=== PATIENT | female | born 1980 | race African-American/Black ===

== ENCOUNTER 2024-04-22 11:33 | Outpatient (REF) | payer MEDICARE, MEDICAID, SELFPAY ==
--- NOTE | ~2024-04-22 | XR_ITS ---
EXAMINATION: XR CHEST CLINICAL INFORMATION: R91.8 - Other nonspecific abnormal finding of lung field COMPARISON: None available. TECHNIQUE: 2 views of the chest were obtained. FINDINGS: The cardiac, hilar, and mediastinal contours are normal. The lungs are clear bilaterally. There is no pneumothorax or pleural effusion. There is no focal osseous or soft tissue abnormality. XR/XR chest 2V IMPRESSION: Normal chest. Electronically signed by: Arturo Arnold MD 04/22/2024 01:35 PM TUNG
--- NOTE | ~2024-04-22 | US_ITS ---
EXAMINATION: US TRIPLEX LOWER EXTREMITY, LEFT CLINICAL INFORMATION: Edema, left lower extremity. COMPARISON: None available. TECHNIQUE: Color-flow triplex imaging with spectral analysis and compression Doppler were performed on the left lower extremity. FINDINGS: Respiratory variation, normal compression and augmented flow are noted throughout the visualized common femoral vein, superficial femoral vein, profunda femoral vein, popliteal vein and midcalf peroneal and posterior tibial venous. There is no Navas's cyst. US/US venous duplex LE IMPRESSION: No acute deep venous thrombosis involving the left lower extremity. Negative exam.. Electronically signed by: Maxime Tucker MD 04/22/2024 03:41 PM EST
[2024-04-22 14:22] LABS: MANUAL DIFF FLAG NO
[2024-04-22 15:01] LABS: Basophils Percent Auto 0.3 % (0-2); Eosinophils Absolute Auto 0.1 X10*3/uL (0.0-0.4); Hematocrit 37.5 % (37.0-47.0); Hemoglobin 12.2 g/dl (12.0-16.0); Imm Gran Abs Auto 0.02 X10*3/uL (0.00-0.03); Imm Gran Pct Auto 0.3 % (0.0-0.4); Lymphocytes Absolute Auto 2.7 X10*3/uL (1.2-4.9); Lymphocytes Percent Auto 45.9 % (20-40); Mean Corpuscular HGB Conc 32.5 g/dl (31.0-35.0); Mean Corpuscular Hemoglobin 28.2 pg (27.0-33.0); Mean Corpuscular Volume 86.6 fL (80.0-98.0); Mean Platelet Volume 9.6 fL (9.4-12.3); Monocytes Absolute Auto 0.4 X10*3/uL (0.1-1.2); Monocytes Percent Auto 6.1 % (2-11); Neutrophils Absolute Auto 2.7 x10*3/uL (2.0-8.3); Neutrophils Percent Auto 45.4 % (45-73); Platelet Count 329 X10*3/uL (160-400); Red Blood Count 4.33 X10*6/uL (4.20-5.50); Red Cell Distribution Width 14.6 % (11.0-16.0); White Blood Count 5.9 X10*3/uL (4.8-10.8)
--- OUTSIDE RECORDS SUMMARY | 2024-04-22 15:04 | XMS_ITS | Clinical Summary ---
Author Organization [facility] Address [address] [place] [address] Care Team Providers Care Progress Worker Name Role Phone Alexis Miller DO Primary Care Provider [phone] Allergies Active Allergy Reactions Criticality Noted Date [...] Upcoming Encounters Date Type Department Care Team ([facility] st Contact Info) Description 08/02/2024 3:30 PM EDT Office Visit Bariatric Surgery - [place] [address] [place] [phone] Torey Bradford MD [address] [facility] [place] [address] Health Maintenance Due Date Last Done Comments [...] * Annual BMP Blood Test (06/28/2011) Pathologist [facility] Annual BMP Blood Test abstracted [facility] Provider HEALTH MAINTENANCE Final Result * Hepatitis C Screening (06/09/2011) [facility] Hepatitis C Screening abstracted [facility] Provider HEALTH MAINTENANCE Final Result * (ABNORMAL) Lipid panel (02/06/2011) [facility] LDL/HDL Ratio 3 0 - 4 Triglycerides 92 0 - 150 mg/dL Cholesterol 187 0 - 200 mg/dL HDL 57 >=40 mg/dL LDL Cholesterol 112(A) 0 - 100 mg/dL Blood Venous blood specimen / Unknown [facility] Provider LAB BLOOD ORDERABLES Hanh l Result * HIV Screening (01/03/2011) [facility] HIV Screening abstracted [facility] Provider HEALTH MAINTENANCE Final Result * Pap Smear (01/03/2011) [facility] Pap smear no interpretation abstracted [facility] Provider HEALTH MAINTENANCE Final Result from Last 3 Months or Most Recently Relevant to Health Maintenance Insurance [place]ICA[place] - [place] [facility] MEDICARE ADVANTAGE on file Care Teams Progress Worker Relationship Specialty Start Date End Date Alexis Miller DO [address] [place] [phone] PCP - General 06/06/13
--- OUTSIDE RECORDS SUMMARY | 2024-04-22 15:05 | XMS_ITS | Data Portability ---
Author Organization [place] - Dr Haley turpin, [facility] - Address [address] [place] [address] Assessment No assessment recorded. Plan of Treatment Reminders Order Date Submit Date Provider Last Modified By Organization Details Last Modified Time Details Appointments None recorded. Lab urinalysis, dipstick 2023 024 [email or web address] 4 Haley Barajas MD, [address] [place], [address], 4 12:09:17 culture, urine 2023 024 [place] [facility] ([facility]), [address], [place], [address], 4 02:03:36 bacterial vaginosis + vaginitis panel, vaginal 2023 024 [place] [facility] ([facility]), [address], [place], [address], 4 12:50:57 lipid panel, serum 2023 024 [place] [facility] ([facility]), [address], [place], [address], 4 17:14:03 CMP, serum or plasma 2023 024 [place] [facility] ([facility]), [address], [place], [address], 4 17:14:04 hereditary breast + gynecologic cancer multigene analysis, blood or tissue 2023 024 [email or web address] [employer], [address], [place], [address], 4 14:52:14 T4, free, serum 2023 024 [place] [facility]), [address], [place], [address], 4 17:14:06 TSH, serum or plasma 2023 024 [place] [facility]), [address], [place], [address], 4 17:14:06 HIV (1+2) Ab screen, serum 2023 024 [place] [facility] ([facility]), [address], [place], [address], 4 17:14:05 RPR (rapid plasma reagin), serum 2023 024 [facility] ([facility]), [address], [place], [address], 4 17:14:08 HBsAg (hepatitis B surface Ag), serum 2023 024 [facility] ([facility]), [address], [place], [address], 4 17:14:07 CT + NG DNA, PCR, unspecified specimen 2023 024 [email or web address] [facility] ([facility]), [address], [place], [address], 4 14:52:14 hepatitis C virus Ab, serum 2023 024 [facility] ([facility]), [address], [place], [address], 4 17:14:07 CBC 2023 024 [facility] ([facility]), [address], [place], [address], 4 17:14:04 HbA1c (hemoglobin A1c), blood 2023 024 [facility] ([facility]), [address], [place], [address], 4 17:14:05 lipid panel, serum 2022 023 [facility] ([facility]), [address], [place], [address], 3 10:56:57 CMP, serum or plasma 2022 023 [facility] ([facility]), [address], [place], [address], 3 10:56:59 TSH, serum or plasma 2022 023 [facility] ([facility]), [address], [place], [address], 3 10:57:00 T4, free, serum 2022 023 [facility] ([facility]), [address], [place], [address], 3 10:57:00 pap, LB 2022 023 [facility] ([facility]), [address], [place], [address], 3 15:29:20 genetic screen, unspecified specimen 2022 023 [facility], [address], [address], [place], [address], 3 15:01:20 CT + NG DNA, PCR, unspecified specimen 2022 023 [facility] ([facility]), [address], [place], [address], 3 15:29:21 RPR (rapid plasma reagin), serum 2022 023 [facility] ([facility]), [address], [place], [address], 3 10:57:03 HIV (1+2) Ab screen, serum 2022 023 [facility] ([facility]), [address], [place], [address], 3 10:57:01 HBsAg (hepatitis B surface Ag), serum 2022 023 [facility] ([facility]), [address], [place], [address], 3 10:57:02 hepatitis C virus Ab, serum 2022 023 [facility] ([facility]), [address], [place], [address], 3 10:57:02 HbA1c (hemoglobin A1c), blood 2022 023 [facility] ([facility]), [address], [place], [address], 3 10:56:59 CBC 2022 023 [facility] ([facility]), [address], [place], [address], 3 10:56:58 Referral None recorded. Procedures None recorded. Surgeries None recorded. Imaging US, pelvis, complete 2023 024 [email or web address] Not available 4 11:50:01 MAMMO, screening, digital, bilateral 2023 024 [place] [facility] [employer] [facility] [employer], [address], [place], [address], 4 14:04:49 MAMMO, screening, digital, bilateral 2022 023 [email or web address] [facility], [address], [place], [address], 3 15:08:06 Medication Orders None recorded. Patient TargetsNo targets recorded. Patient Instructions Encounter Date Encounter Id Patient Instructions Last Modified By Organization Details Last Modified Time 07/09/2022 [id number] Pap collected. Labwork ordered. Mammo ordered. Instructed to RTO in 2 days for weight loss consultation [email or web address] Not available 07/09/2022 11:51:15 10/05/2023 [id number] Recommend 5 servings of fruits and vegetables daily. Exercise at least 30 minutes most days of the week and stretch. Breast self awareness reviewed. Try to get at least 6-8 hours of sleep per night and practice stress reduction. Drink 32- 64 ounces of water daily. Don't smoke. Limit alcohol intake. Pt. aware to check patient portal for all lab results. SBE reviewed RTO in 1 year for annual Notify office as needed [email or web address] Not available 10/05/2023 11:01:02 Strongly encouraged pt to go back to provider managing BP meds so that she can have meds for HTN adjusted. PC labs today & referred to [facility] for new provider that takes her insurance. 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 [email or web address] Not available 10/05/2023 12:10:18 10/13/2023 [id number] reviewed by Dr. Cortes Agree with findings Indication: AUB? Impression: Uterus surgically removed. No cervical stump seen. Normal bilateral ovaries? . Right follicle noted.? ? ? No CDS fluid [email or web address] Not available 10/17/2023 21:54:40 Reason for Referral None Reported. Results Created Date Observation Date Name Description Value Unit Range Abnormal Flag Note LastModifiedBy Organization Detail LastModifiedTime 07/10/1907/10/2022 LIPID PANEL cholesterol 202 mg/dL <200 high Not Available [facility] ([facility]) [address] [facility] [address], [place], [address], 07/10/2022 10:56:57 07/10/1907/10/2022 LIPID PANEL triglyceride s 151 mg/dL <150 high Not Available [facility] ([facility]) [facility] [address], [place], [address], 07/10/2022 10:56:57 07/10/19 23 07/10/2022 LIPID PANEL HDL cholesterol 59 mg/dL >39 Not Available [facility] ([facility]) [address] [place] [address] [address], [place], [address], 07/10/2022 10:56:57 07/10/19 23 07/10/2022 LIPID PANEL cholesterol / HDL ratio 3.42 ratio 0.00-4 .44 Not Available [facility] ([facility]) [address] [place] [address] [address], [place], [address], 07/10/2022 10:56:57 07/10/19 23 07/10/2022 LIPID PANEL non-HDL cholesterol 143 mg/dL <130 high Not Available [facility] ([facility]) [address] [place] [address] [address], [place], [address], 07/10/2022 10:56:57 07/10/19 23 07/10/2022 LIPID PANEL LDL cholesterol (calculation ) 113 mg/dL <130 LDL Fany stero l Level s* Less than 100 mg/dL Optim al 100 to 129 mg/dL Near Optim al/ Above Optim al 130 to 159 mg/dL Borde rline High 160 to 189 mg/dL High 190 mg/dL and above Very High * Categ ories as recom eduardo d by the 2004 ATPII I guide lines Not Available [facility] ([facility]) [facility] [address], [place], [address], 07/10/2022 10:56:57 07/10/19 23 07/10/2022 LIPID PANEL LDL/HDL ratio 1.9 ratio <3.3 ___ LDL Fany stero l Patie nt Histo ry ___ Test Date: 07/09 LDL Resul ts: 113 Units : mg/dL % Silva e: - ___ Not Available [facility] ([facility]) [address] [place] [address] Dr [address] [facility], [place], [address], 07/10/2022 10:56:57 07/10/19 23 07/10/2022 CBC WITH PLATE LET NO DIFFE RENTI AL WBC 6.5 K/uL 3.8-11 .5 Not Available [facility] ([facility]) [address] [place] [address] Dr [address] [facility], [place], [address], 07/10/2022 10:56:58 07/10/19 23 07/10/2022 CBC WITH PLATE LET NO DIFFE RENTI AL red blood cell count (RBC) 4.28 M/mm3 3.60-5 .30 Not Available [facility] ([facility]) [address] [place] [address] [address], [place], [address], 07/10/2022 10:56:58 07/10/19 23 07/10/2022 CBC WITH PLATE LET NO DIFFE RENTI AL hemoglobin (HGB) 11.9 gm/dL 11.5-1 5.5 Not Available [facility] ([facility]) [address] [place] [address] [address], [place], [address], 07/10/2022 10:56:58 07/10/19 23 07/10/2022 CBC WITH PLATE LET NO DIFFE RENTI AL hematocrit (HCT) 36.1 % 35.2-4 6.4 Not Available [facility] ([facility]) [address] [place] [address] [address], [place], [address], 07/10/2022 10:56:58 07/10/19 23 07/10/2022 CBC WITH PLATE LET NO DIFFE RENTI AL MCV 84.3 fL 79.0-9 9.0 Not Available [facility] ([facility]) [address] [place] [address] [address], [place], [address], 07/10/2022 10:56:58 07/10/19 23 07/10/2022 CBC WITH PLATE LET NO DIFFE RENTI AL MCH 27.8 pg 26.9-3 5.0 Not Available [facility] ([facility]) [address] [place] [address] [address], [place], [address], 07/10/2022 10:56:58 07/10/19 23 07/10/2022 CBC WITH PLATE LET NO DIFFE RENTI AL MCHC 33.0 g/dL 30.4-3 4.8 Not Available [facility] ([facility]) [address] [place] [address] [address], [place], [address], 07/10/2022 10:56:58 07/10/19 23 07/10/2022 CBC WITH PLATE LET NO DIFFE RENTI AL RDW 44.8 fL 38.6-5 3.8 Not Available [facility] ([facility]) [address] [place] [address] [address], [place], [address], 07/10/2022 10:56:58 07/10/19 23 07/10/2022 CBC WITH PLATE LET NO DIFFE RENTI AL platelet count 337 K/cum m 137-39 7 Not Available [facility] ([facility]) [address] [place] [address] [address], [place], [address], 07/10/2022 10:56:58 07/10/19 23 07/10/2022 COMPR EHENS JESENIA METAB OLIC PANEL (CMP) sodium 137 mEq/L 135-14 5 Not Available [facility] ([facility]) [address] [place] [address] [address], [place], [address], 07/10/2022 10:56:59 07/10/19 23 07/10/2022 COMPR EHENS JESENIA METAB OLIC PANEL (CMP) potassium 4.2 mEq/L 3.5-5. 3 Not Available [facility] ([facility]) [address] [place] [address] [address], [place], [address], 07/10/2022 10:56:59 07/10/19 23 07/10/2022 COMPR EHENS JESENIA METAB OLIC PANEL (CMP) chloride 100 mEq/L 97-108 Not Available [facility] ([facility]) [address] [place] [address] [address], [place], [address], 07/10/2022 10:56:59 07/10/19 23 07/10/2022 COMPR EHENS JESENIA METAB OLIC PANEL (CMP) CO2 30 mEq/L 22-32 Not Available [facility] ([facility]) [address] [place] [address] [address], [place], [address], 07/10/2022 10:56:59 07/10/19 23 07/10/2022 COMPR EHENS JESENIA METAB OLIC PANEL (CMP) glucose 100 mg/dL 65-99 high Not Available [facility] ([facility]) [address] [place] [address] [address], [place], [address], 07/10/2022 10:56:59 07/10/19 23 07/10/2022 COMPR EHENS JESENIA METAB OLIC PANEL (CMP) BUN 10 mg/dL 6-20 Not Available [facility] ([facility]) [address] [place] [address] [address], [place], [address], 07/10/2022 10:56:59 07/10/19 23 07/10/2022 COMPR EHENS JESENIA METAB OLIC PANEL (CMP) creatinine 0.82 mg/dL 0.50-1 .00 Not Available [facility] ([facility]) [address] [place] [address] [address], [place], [address], 07/10/2022 10:56:59 07/10/19 23 07/10/2022 COMPR EHENS JESENIA METAB OLIC PANEL (CMP) calcium 9.3 mg/dL 8.6-10 .4 Not Available [facility] ([facility]) [address] [place] [address] [address], [place], [address], 07/10/2022 10:56:59 07/10/19 23 07/10/2022 COMPR EHENS JESENIA METAB OLIC PANEL (CMP) protein 7.8 g/dL 6.0-8. 3 Not Available [facility] ([facility]) [address] [place] [address] [address], [place], [address], 07/10/2022 10:56:59 07/10/19 23 07/10/2022 COMPR EHENS JESENIA METAB OLIC PANEL (CMP) albumin 4.1 g/dL 3.5-5. 3 Not Available [facility] ([facility]) [address] [place] [address] [address], [place], [address], 07/10/2022 10:56:59 07/10/19 23 07/10/2022 COMPR EHENS JESENIA METAB OLIC PANEL (CMP) alkaline phosphatase 141 IU/L 35-121 high Not Available [facility] ([facility]) [address] [place] [address] [address], [place], [address], 07/10/2022 10:56:59 07/10/19 23 07/10/2022 COMPR EHENS JESENIA METAB OLIC PANEL (CMP) ALT (SGPT) 16 IU/L <5-47 Not Available [facility] ([facility]) [address] [place] [address] [address], [place], [address], 07/10/2022 10:56:59 07/10/19 23 07/10/2022 COMPR EHENS JESENIA METAB OLIC PANEL (CMP) AST (SGOT) 14 IU/L <5-40 Not Available [facility] ([facility]) [address] [place] [address] [address], [place], [address], 07/10/2022 10:56:59 07/10/19 23 07/10/2022 COMPR EHENS JESENIA METAB OLIC PANEL (CMP) bilirubin, total 0.3 mg/dL <0.2-1 .2 Not Available [facility] ([facility]) [address] [place] [address] [address], [place], [address], 07/10/2022 10:56:59 07/10/19 23 07/10/2022 COMPR EHENS JESENIA METAB OLIC PANEL (CMP) A/G ratio 1.1 mg/dL 1.1-2. 5 Not Available [facility] ([facility]) [address] [place] [address] [address], [place], [address], 07/10/2022 10:56:59 07/10/19 23 07/10/2022 COMPR EHENS JESENIA METAB OLIC PANEL (CMP) estimated GFR (black) 103 mL/mi n/1.7 3m2 >59 Not Available [facility] ([facility]) [address] [facility] [address], [place], [address], 07/10/2022 10:56:59 07/10/19 23 07/10/2022 COMPR EHENS JESENIA METAB OLIC PANEL (CMP) estimated GFR (other) 89 mL/mi n/1.7 3m2 >59 GFR Categ ories in Chron ic Kidne y Disea se (CKD) GFR Categ ory GFR (mL/m in/1. 73 sq. meter s) Inter preta tion G1 90 or great er Pamela l or high* G2 60-89 Mild decre ase* G3a 45-59 Mild to moder ate decre ase G3b 30-44 Moder ate to sever e decre ase G4 15-29 Sever e decre ase G5 14 or less Kidne y failu re *In the absen ce of kidne y damag e, neith er GFR categ ory G1 or G2 fulfi ll the crite wendie for CKD (Kidmil ey Int Suppl 2013; 3.1-1 50) The CKD-E PI calcu latio n is inten ded for use in patie nts 18 years of age and older . Decre ased calcu latio n accur acy may be seen in patie nts takin g medic ation s that affec t renal excre tion, or in those patie nts with extre mes in muscl e mass or diet. Not Available [facility] ([facility] [employer]) [facility] [address], [place], [address], 07/10/2022 10:56:59 07/10/19 23 07/10/2022 HEMOG LOBIN A1C hemoglobin A1C 5.9 % <5.7 high The follo wing HbA1c range s recom eduardo d by the Marybeth cruz Diabe deanne Assoc iatio n (ADA) may be used as an aid in the diagn osis of diabe deanne melli tus. HA1c Sugge sted Diagn osis >=6.5 % Diabe tic 5.7% - 6.4% Pre-D iabet ic <5.7% Non-D iabet ic Not Available [facility] ([facility]) [address] [place] [address] [address], [place], [address], 07/10/2022 10:56:59 07/10/19 23 07/10/2022 HEMOG LOBIN A1C estimated average glucose 123 mg/dL Preston ge Gluco se is calcu lated using the equat ion AG = (28.7 x HgbA1 c) - 46.7 based on the guide lines estab nicolas brunson by the ADA. Not Available [facility] ([facility]) [address] [place] [address] [address], [place], [address], 07/10/2022 10:56:59 07/10/19 23 07/10/2022 TSH TSH 2.74 mU/L 0.43-5 .25 Not Available [facility] ([facility]) [address] [place] [address] [address], [place], [address], 07/10/2022 10:57:00 07/10/19 23 07/10/2022 THYRO XINE FREE (FREE T4) thyroxine free (free T4) 1.04 NG/dL 0.86-1 .76 Not Available [facility] ([facility]) [address] [place] [address] [address], [place], [address], 07/10/2022 10:57:00 07/10/19 23 07/10/2022 HIV 1/2 AB SCREE N W/P24 AG HIV 1/2 Ab screen w/p24ag Nonrea ctive nonrea ctive Not Available [facility] ([facility]) [address] [place] [address] [address], [place], [address], 07/10/2022 10:57:01 07/10/19 23 07/10/2022 HEPAT ITIS B SURFA CE ANTIG EN (HBSA G) hepatitis B surface antigen (HBsAg) Nonrea ctive nonrea ctive Not Available [facility] ([facility]) [address] [place] [address] [address], [place], [address], 07/10/2022 10:57:02 07/10/19 23 07/10/2022 HEPAT ITIS C ANTIB FARAZ (HCV) IGG hepatitis C antibody (HCV) IgG Nonrea ctive nonrea ctive Not Available [facility]) [address] [facility] [address], [place], [address], 07/10/2022 10:57:02 07/10/19 23 07/10/2022 RPR (NON- TREPO NEMAL ) REFLE X TO CONFI RMATI ON RPR (non-trepone mal) reflex to confirmation Nonrea ctive nonrea ctive Not Available [facility]) [address] [facility] [address], [place], [address], 07/10/2022 10:57:03 07/10/19 23 07/11/2022 PAP TEST THIN PREP Pap test thin prep Negati ve for Intrae pithel ial Lesion or Malign lilliana normal ACCES AYUSH #: [id number] Sourc e: Vagin al LMP: unkno wn Date Taken : 07/09 Speci men Type: ThinP rep Vial Date Repor xiomara: 2022 Clini marky Data: Hyst: Total Cytot ech: Treas a Lindsey s, CT( CP) Date Repor xiomara: 2022 Speci men Adequ acy: Satis facto ry for evalu ation Gener al Categ oriza tion: NEGAT JESENIA FOR INTRA EPITH ELIAL LESIO N OR MALIG ANNAMARIE The follo wing tests have been order ed as reque sted and a separ ate repor t will be issue d: Chlam ydia, Gonor rhoea e, and Trich omona s, HPV High Risk Scree n (TMA) This speci men has been adali zed by the ThinP rep Imagi ng Syste m, an inter activ e compu ter syste m which mesha ts the lab in the scree sylvia of ThinP rep Pap Test slide s. Follo wing imagi ng, the slide was revie wed by a Cytot echno logis t and/o r Patho logis t. End of t Techn ical servi meaghan provi ded by [facility] iated Patho logis [employer], [facility], d/b/a [facility], [address] [place] [address] Richar Wallace MD, [facility]. Case revie wed and diagn osis rende red at [facility], d/b/a [facility], [address] [place] [address] Richar Wallace MD, [facility]. CONFI DENTI AL Not Available [facility] ([facility]) [address] [place] [address] [address], [place], [address], 07/11/2022 15:29:20 07/10/19 23 07/10/2022 CHLAM YDIA, GONOR RHOEA E, AND TRICH OMONA S trichomonas vaginalis, aptima (panther) NOT DETECT ED normal DNA testi ng perfo rmed by Trans cript ion Media xiomara Ampli ficat ion (TMA) . Resul ts shoul d be inter prete d in conju nctio n with patie nt histo ry and clini marky prese ntati on. This assay is highl y accur ate, but rare false posit jesenia and negat jesenia resul ts may occur . Posit jesenia resul ts in low preva lence popul ation s may requi re re-ev aluat ion. A negat jesenia resul t does not precl ude a possi ble infec tion due to a speci men inade quacy or sampl ing error . Test perfo rmed by [facility] [employer] d/b/a [facility], [address], [place] [address] , Daniel Ramos ra, DO, [facility], CLIA# [id number] Not Available [facility] ([facility]) [address] [place] [address], [place], [address], 07/11/2022 15:29:21 07/10/19 23 07/10/2022 CHLAM YDIA, GONOR RHOEA E, AND TRICH OMONA S neisseria gonorrhoeae, aptima NOT DETECT ED normal DNA testi ng perfo rmed by Trans cript ion Media xiomara Ampli ficat ion (TMA) . Resul ts shoul d be inter prete d in conju nctio n with patie nt histo ry and clini marky prese ntati on. This assay is highl y accur ate, but rare false posit jesenia and negat jesenia resul ts may occur . Posit jesenia resul ts in low preva lence popul ation s may requi re re-ev aluat ion. A negat jesenia resul t does not precl ude a possi ble infec tion due to a speci men inade quacy or sampl ing error . Test perfo rmed by [facility] d/b/a [place], [address] [facility] [address], [place] [address] , Daniel Ramos ra, DO, Labor atory [facility], [facility]# [id number] Not Available [facility] ([facility]) [address] [facility] [address], [place], [address], 07/11/2022 15:29:21 07/10/19 23 07/10/2022 CHLAM YDIA, GONOR RHOEA E, AND TRICH OMONA S chlamydia trachomatis, aptima NOT DETECT ED normal DNA testi ng perfo rmed by Trans cript ion Media xiomara Ampli ficat ion (TMA) . Resul ts shoul d be inter prete d in conju nctio n with patie nt histo ry and clini marky prese ntati on. This assay is highl y accur ate, but rare false posit jesenia and negat jesenia resul ts may occur . Posit jesenia resul ts in low preva lence popul ation s may requi re re-ev aluat ion. A negat jesenia resul t does not precl ude a possi ble infec tion due to a speci men inade quacy or sampl ing error . Test perfo rmed by [facility] logis [employer], [facility] d/b/a Heike irene, [address] [facility] [address], [place] [address] , Daniel Ramos ra, DO, Labor atory [facility], CLIA# [id number] Not Available [facility] ([facility]) [facility]0 [facility] [address], [place], [address], 07/11/2022 15:29:21 07/10/19 23 07/10/2022 HPV HIGH RISK SCREE N (TMA) HPV high risk NOT DETECT ED normal The human papil lomav irus (HPV) High Risk Scree n is an FDA-a pprov ed in-vi tro ampli fied nucle ic acid test for the quali tativ e detec tion of E6/E7 viral mRNA. Resul ritchie brunson be corre lated with patie nt prese ntati on, histo ry, cervi marky cytol ogy and other clini marky and labor atory findi ngs. See https ://Kivo/s moose/ lyla lt/fi les/2 018-0 3/AW- 67423 _002_ 01.pd f for fur er infor matio n. Test perfo rmed by [facility] [employer], [employer], d/b/a [place], [address] [facility] [address], [place] [address] , Daniel Ramos ra, DO, Labor atory [facility]. Not Available [facility] ([facility]) [facility]0 [facility] [address], [place], [address], 07/11/2022 15:29:22 07/10/19 23 07/09/2022 EMP[facility] ER report summary VUS normal Negat jesenia for 53 out of 53 genes . A varia nt of uncer tain signi fican ce (VUS) was detec xiomara in the MLH1 gene( s). A VUS means that a silva e in the DNA was detec xiomara, but there is not enoug h infor matio n to deter mine [facility] er or not the silva e incre ases the risk of cance r. The Ameri can Colle ge of Medic al Cynthia ics and Genom ics (AC ) state s that VUS shoul d NOT be used in clini marky decis ion makin g. A Tyrer -Cuzi ck breas t cance r risk asses sment was perfo rmed and a lifet aisha breas t cance r risk was calcu lated to be 20% Pleas e see below for addit ional findi ngs. VUS: Gene: MLH1 , Varia nt: c.170 9A>G (p.N5 70S) Note: A heter ozygo us varia nt of [facility] luna yeboah ce (VUS) was detec xiomara in the MLH1 gene as tabul ated above . Not Available [facility] [address] [facility] [address], [place], [address], 07/21/2022 15:13:25 07/10/19 23 07/09/2022 EMPOW ER footnotes See Notes CLIA: ID #[id number] 2 Test perfo rmed by [employer]. [address] [facility] [address] [place] [address] Arielle Stephens, Ph.D. , [facility] , Labor atory Direc tor Not Available [facility] [address], [place], [address], 07/21/2022 15:13:25 10/05/19 24 10/06/2023 LIPID PANEL cholesterol 207 mg/dL <200 high Not Available [facility] ([facility]) [address] [facility] [address], [place], [address], 10/06/2023 17:14:03 10/05/19 24 10/06/2023 LIPID PANEL triglyceride s 126 mg/dL <150 Not Available [facility] ([facility]) [address] [facility] [address], [place], [address], 10/06/2023 17:14:03 10/05/19 24 10/06/2023 LIPID PANEL HDL cholesterol 54 mg/dL >39 Not Available [facility] ([facility]) [facility]0 [facility] [address], [place], [address], 10/06/2023 17:14:03 10/05/19 24 10/06/2023 LIPID PANEL cholesterol / HDL ratio 3.83 ratio 0.00-4 .44 Not Available [facility] ([facility]) [address] [place] [address] [address], [place], [address], 10/06/2023 17:14:03 10/05/19 24 10/06/2023 LIPID PANEL non-HDL cholesterol 153 mg/dL <130 high Not Available [facility] ([facility]) [address] [place] [address] [address], [place], [address], 10/06/2023 17:14:03 10/05/19 24 10/06/2023 LIPID PANEL LDL cholesterol (calculation ) 128 mg/dL <130 LDL Fany stero l Level s* Less than 100 mg/dL Optim al 100 to 129 mg/dL Near Optim al/ Above Optim al 130 to 159 mg/dL Borde rline High 160 to 189 mg/dL High 190 mg/dL and above Very High * Categ ories as recom eduardo d by the 2004 ATPII I guide lines Not Available [facility] ([facility]) [facility]0 [facility] [address], [place], [address], 10/06/2023 17:14:03 10/05/19 24 10/06/2023 LIPID PANEL LDL/HDL ratio 2.4 ratio <3.3 ___ LDL Fany stero l Patie nt Histo ry ___ Test Date: 07/09 LDL Resul ts: 113 Units : mg/dL % Silva e: - ----- ----- ----- ----- ----- ----- ----- ----- ----- ----- ----- ----- ----- ----- --- Test Date: 10/04 LDL Resul ts: 128 Units : mg/dL % Silva e: +13% ___ Not Available [facility] ([facility]) [facility]0 [facility] [address], [place], [address], 10/06/2023 17:14:03 10/05/1910/06/2023 CBC WITH PLATE LET NO DIFFE RENTI AL WBC 7.4 K/uL 3.8-11 .5 Not Available [facility] ([facility]) [address] [facility] [address], [place], [address], 10/06/2023 17:14:04 10/05/19 24 10/06/2023 CBC WITH PLATE LET NO DIFFE RENTI AL red blood cell count (RBC) 4.33 M/mm3 3.60-5 .30 Not Available [facility] ([facility]) [address] [place] [address] [address], [place], [address], 10/06/2023 17:14:04 10/05/19 24 10/06/2023 CBC WITH PLATE LET NO DIFFE RENTI AL hemoglobin (HGB) 12.0 gm/dL 11.5-1 5.5 Not Available [facility] ([facility]) [address] [place] [address] [address], [place], [address], 10/06/2023 17:14:04 10/05/19 24 10/06/2023 CBC WITH PLATE LET NO DIFFE RENTI AL hematocrit (HCT) 37.3 % 35.2-4 6.4 Not Available [facility] ([facility]) [address] [place] [address] [address], [place], [address], 10/06/2023 17:14:04 10/05/19 24 10/06/2023 CBC WITH PLATE LET NO DIFFE RENTI AL MCV 86.1 fL 79.0-9 9.0 Not Available [facility] ([facility]) [address] [place] [address] [address], [place], [address], 10/06/2023 17:14:04 10/05/19 24 10/06/2023 CBC WITH PLATE LET NO DIFFE RENTI AL MCH 27.7 pg 26.9-3 5.0 Not Available [facility] ([facility]) [address] [place] [address] [address], [place], [address], 10/06/2023 17:14:04 10/05/19 24 10/06/2023 CBC WITH PLATE LET NO DIFFE RENTI AL MCHC 32.2 g/dL 30.4-3 4.8 Not Available [facility] ([facility]) [address] [place] [address] [address], [place], [address], 10/06/2023 17:14:04 10/05/19 24 10/06/2023 CBC WITH PLATE LET NO DIFFE RENTI AL RDW 44.3 fL 38.6-5 3.8 Not Available [facility] ([facility]) [address] [place] [address] [address], [place], [address], 10/06/2023 17:14:04 10/05/19 24 10/06/2023 CBC WITH PLATE LET NO DIFFE RENTI AL platelet count 324 K/cum m 137-39 7 Not Available [facility] ([facility]) [address] [place] [address] [address], [place], [address], 10/06/2023 17:14:04 10/05/19 24 10/06/2023 COMPR EHENS JESENIA METAB OLIC PANEL (CMP) sodium 138 mmol/ L 135-14 5 Not Available [facility] ([facility]) [address] [place] [address] [address], [place], [address], 10/06/2023 17:14:04 10/05/19 24 10/06/2023 COMPR EHENS JESENIA METAB OLIC PANEL (CMP) potassium 4.4 mmol/ L 3.5-5. 3 Not Available [facility] ([facility]) [address] [place] [address] [address], [place], [address], 10/06/2023 17:14:04 10/05/19 24 10/06/2023 COMPR EHENS JESENIA METAB OLIC PANEL (CMP) chloride 101 mmol/ L 97-108 Not Available [facility] ([facility]) [address] [place] [address] [address], [place], [address], 10/06/2023 17:14:04 10/05/19 24 10/06/2023 COMPR EHENS JESENIA METAB OLIC PANEL (CMP) CO2 27 mmol/ L 22-32 Not Available [facility] ([facility]) [address] [place] [address] [address], [place], [address], 10/06/2023 17:14:04 10/05/19 24 10/06/2023 COMPR EHENS JESENIA METAB OLIC PANEL (CMP) glucose 99 mg/dL 65-99 Not Available [facility] ([facility]) [address] [place] [address], [place], [address], 10/06/2023 17:14:04 10/05/19 24 10/06/2023 COMPR EHENS JESENIA METAB OLIC PANEL (CMP) BUN 11 mg/dL 6-20 Not Available [facility] ([facility]) [address] [place] [address], [place], [address], 10/06/2023 17:14:04 10/05/19 24 10/06/2023 COMPR EHENS JESENIA METAB OLIC PANEL (CMP) creatinine 1.04 mg/dL 0.50-1 .00 high Not Available [facility] ([facility]) [address] [place] [address], [place], [address], 10/06/2023 17:14:04 10/05/19 24 10/06/2023 COMPR EHENS JESENIA METAB OLIC PANEL (CMP) calcium 9.1 mg/dL 8.6-10 .4 Not Available [facility] ([facility]) [address] [place] [address], [place], [address], 10/06/2023 17:14:04 10/05/19 24 10/06/2023 COMPR EHENS JESENIA METAB OLIC PANEL (CMP) eGFR by creatinine 69 mL/mi n/1.7 3m2 >59 Not Available [facility] ([facility]) [address] [place] [address], [place], [address], 10/06/2023 17:14:04 10/05/19 24 10/06/2023 COMPR EHENS JESENIA METAB OLIC PANEL (CMP) protein 7.5 g/dL 6.0-8. 3 Not Available [facility] ([facility]) [address] [place] [address] [address], [place], [address], 10/06/2023 17:14:04 10/05/19 24 10/06/2023 COMPR EHENS JESENIA METAB OLIC PANEL (CMP) albumin 4.1 g/dL 3.5-5. 3 Not Available [facility] ([facility]) [address] [place] [address] [address], [place], [address], 10/06/2023 17:14:04 10/05/19 24 10/06/2023 COMPR EHENS JESENIA METAB OLIC PANEL (CMP) alkaline phosphatase 131 IU/L 35-121 high Not Available [facility] ([facility]) [address] [place] [address] [address], [place], [address], 10/06/2023 17:14:04 10/05/19 24 10/06/2023 COMPR EHENS JESENIA METAB OLIC PANEL (CMP) ALT (SGPT) 11 IU/L <5-47 Not Available [facility] ([facility]) [address] [place] [address] [address], [place], [address], 10/06/2023 17:14:04 10/05/19 24 10/06/2023 COMPR EHENS JESENIA METAB OLIC PANEL (CMP) AST (SGOT) 14 IU/L <5-40 Not Available [facility] ([facility]) [address] [place] [address] [address], [place], [address], 10/06/2023 17:14:04 10/05/19 24 10/06/2023 COMPR EHENS JESENIA METAB OLIC PANEL (CMP) bilirubin, total 0.2 mg/dL <0.2-1 .2 Not Available [facility] ([facility]) [facility] [address], [place], [address], 10/06/2023 17:14:04 10/05/19 24 10/06/2023 COMPR EHENS JESENIA METAB OLIC PANEL (CMP) A/G ratio 1.2 1.1-2. 5 Not Available [facility] ([facility]) [address] [facility] [address], [place], [address], 10/06/2023 17:14:04 10/05/19 24 10/06/2023 HIV 1/2 AB SCREE N W/P24 AG HIV 1/2 Ab screen w/p24ag Nonrea ctive nonrea ctive Not Available [facility] ([facility]) [address] [place] [address] [address], [place], [address], 10/06/2023 17:14:05 10/05/19 24 10/06/2023 HEMOG LOBIN A1C hemoglobin A1C 6.0 % <5.7 high The follo wing HbA1c range s recom eduardo d by the Ameri can Diabe deanne Assoc iatio n (ADA) may be used as an aid in the diagn osis of diabe deanne melli tus. HA1c Sugge sted Diagn osis >=6.5 % Diabe tic 5.7% - 6.4% Pre-D iabet ic <5.7% Non-D iabet ic Not Available [facility] ([facility]) [facility]0 [facility] [address], [place], [address], 10/06/2023 17:14:05 10/05/19 24 10/06/2023 HEMOG LOBIN A1C estimated average glucose 125 mg/dL Preston ge Gluco se is calcu lated using the equat ion AG = (28.7 x HgbA1 c) - 46.7 based on the guide lines estab lishe d by the ADA. Not Available [facility] ([facility]) [facility] [address], [place], [address], 10/06/2023 17:14:05 10/05/19 24 10/06/2023 TSH TSH 1.77 mU/L 0.43-5 .25 Not Available [facility] [address] [place] [address] [address], [place], [address], 10/06/2023 17:14:06 10/05/19 24 10/06/2023 THYRO XINE FREE (FREE T4) thyroxine free (free T4) 1.06 NG/dL 0.86-1 .76 Not Available [facility]) [address] [place] [address] [address], [place], [address], 10/06/2023 17:14:06 10/05/19 24 10/06/2023 HEPAT ITIS B SURFA CE ANTIG EN (HBSA G) hepatitis B surface antigen (HBsAg) Nonrea ctive nonrea ctive Not Available [facility]) [address] [place] [address] [address], [place], [address], 10/06/2023 17:14:07 10/05/19 24 10/06/2023 HEPAT ITIS C ANTIB FARAZ (HCV) IGG hepatitis C antibody (HCV) IgG Nonrea ctive nonrea ctive Not Available [facility]) [address] [place] [address] [address], [place], [address], 10/06/2023 17:14:07 10/05/19 24 10/06/2023 RPR (NON- TREPO NEMAL ) REFLE X TO CONFI RMATI ON RPR (non-trepone mal) reflex to confirmation Nonrea ctive nonrea ctive No serol ogica l evide nce of infec tion with Trepo nemal palli dum, early prima ry syphi lis canno t be exclu ded. Retes t in 2-4 weeks if syphi lis is clini darlin suspe cted. Not Available [facility]) [address] [facility] [address], [place], [address], 10/06/2023 17:14:07 10/05/19 24 10/07/2023 CULTU RE, URINE specimen source Urine - Void Not Available [facility] ([facility]) [address] [facility] [address], [place], [address], 10/07/2023 02:03:33 10/05/19 24 10/07/2023 CULTU RE, URINE culture, urine See Below Final Repor t : No growt h Not Available [facility] ([facility]) [address] [facility] [address], [place], [address], 10/07/2023 02:03:33 10/05/19 24 10/06/2023 VAGIN ITIS PANEL trichomonas vaginalis, aptima (panther) NOT DETECT ED normal Trich omona s vagin tatiana: DNA testi ng perfo rmed by Trans cript ion Media xiomara Ampli ficat ion (TMA) These resul ts shoul d be inter prete d in light of all clini marky and labor atory findi ngs. This assay is highl y accur ate, but rare false posit jesenia and negat jesenai resul ts may occur . Posit jesenia resul ts in low preva lence popul ation s may requi re re-ev aluat ion. A negat jesenia resul t does not precl ude a possi ble infec tion due to a speci men inade quacy or sampl ing error . Test perfo rmed by [facility], d/b/a [place], [facility]0 [facility] [address], [place] [address] , Daniel Ramos ra, DO, Labor atory Direc tor. Gardn erell a vagin tatiana, Helen da speci es: Genom ic DNA is isola xiomara from patie nt speci mens by stand maryanne labor atory techn iques and adali zed using custo m OpenA rray plate s, perfo rmed on the Quant Studi o 12K Flex Real Time PCR syste m. A posit jesenia resul t is provi ded for patho genic bacte wendie, virus and/o r funga l speci es based on detec tion of ampli ficat ion produ cts. Pamela l vagin al chelo resul ts of Pamela l or [place] xiomara are deter mined by calcu latin g the ratio of the organ ism to the total bacte wendie prese nt in the speci men, and gosia ring that ratio to a PathG roup patie nt popul ation . Overa ll resul ts of Pamela l, Borde rline and Abnor mal are deter mined using a proba bilit y model which was devel oped by an exten sive adali sis and integ ratio n of clini marky thres holds for marke r organ isms on a large set of sympt omati c & asymp tomat ic speci mens. Patie nt popul ation s with diffe rent demog raphi cs from the PathG roup model popul ation may have diffe rent indic ator organ isms with diffe rent relat jesenia ratio s, which would influ ence the final resul ts. Resul ts shoul d be inter prete d in the deedee xt of all clini marky and labor atory findi ngs. The test was devel oped and its perfo rmanc e nakul cteri stics deter mined by [employer], [employer] d/b/a PathG rouberenice. It has not been clear ed or appro edel by the U.S. Food and Drug Admin istra tion. The FDA has deter mined that such clear ance or appro juan carlos is not neces ivana. Perti nent refer ence inter vals are avail able from the labor atory on reque st. Test( s) perfo rmed by [employer] [employer] ts, [employer], d/b/a PathG roup, [address], [place] [address] , Daniel Ramos ra, DO, Labor atory Direc tor. Not Available [facility]) [address] [facility] [facility], [place], [address], 10/07/2023 12:50:56 10/05/19 24 10/07/2023 VAGIN ITIS PANEL elsie sp. Detect ed abnormal Trich omona s vagin tatiana: DNA testi ng perfo rmed by Trans cript ion Media xiomara Ampli ficat ion (TMA) These resul ts shoul d be inter prete d in light of all clini marky and labor atory findi ngs. This assay is highl y accur ate, but rare false posit jesenia and negat jesenia resul ts may occur . Posit jesenia resul ts in low preva lence popul ation s may requi re re-ev aluat ion. A negat jesenia resul t does not precl ude a possi ble infec tion due to a speci men inade quacy or sampl ing error . Test perfo rmed by [facility], d/b/a Path[facility] rou, [address], [place] [address] , Daniel Ramos ra, DO, Labor atory Direc tor. Rosa Maria camargo a vagin tatiana, Helen da speci es: Genom ic DNA is isola xiomara from patie nt speci mens by stand maryanne labor atory techn iques and adali zed using custo m OpenA rray plate s, perfo rmed on the Quant Studi o 12K Flex Real Time PCR syste m. A posit jesenia resul t is provi ded for patho genic bacte wendie, virus and/o r funga l speci es based on detec tion of ampli ficat ion produ cts. Pamela l vagin al chelo resul ts of Pamela l or [place] xiomara are deter mined by calcu latin g the ratio of the organ ism to the total bacte wendie prese nt in the speci men, and gosia ring that ratio to a PathG roup patie nt popul ation . Overa ll resul ts of Pamela l, Borde rline and Abnor mal are deter mined using a proba bilit y model which was devel oped by an exten sive adali sis and integ ratio n of clini marky thres holds for marke r organ isms on a large set of sympt omati c & asymp tomat ic speci mens. Patie nt popul ation s with diffe rent demog raphi cs from the PathG roup model popul ation may have diffe rent indic ator organ isms with diffe rent relat jesenia ratio s, which would influ ence the final resul ts. Resul ts shoul d be inter prete d in the deedee xt of all clini marky and labor atory findi ngs. The test was devel oped and its perfo rmanc e nakul cteri stics deter mined by [employer], [employer] d/b/a [employer]. It has not been clear ed or appro edel by the U.S. Food and Drug Admin istra tion. The FDA has deter mined that such clear ance or appro juan carlos is not neces ivana. Perti nent refer ence inter vals are avail able from the [employer] atory on reque st. Test( s) perfo rmed by [employer], [employer], d/b/a [facility] [employer], [address] [address], [place] [address] , Daniel Ramos ra, DO, Labor atory Dire tor. Not Available [facility] ([facility]) [address] [facility] [address], [place], [address], 10/07/2023 12:50:56 10/05/19 24 10/07/2023 VAGIN ITIS PANEL gardnerella vaginalis Not Detect ed normal Trich omona s vagin tatiana: DNA testi ng perfo rmed by Trans cript ion Media xiomara Ampli ficat ion (TMA) These resul ts shoul d be inter prete d in light of all clini marky and labor atory findi ngs. This assay is highl y accur ate, but rare false posit jesenia and negat jesenia resul ts may occur . Posit jesenia resul ts in low preva lence popul ation s may requi re re-ev aluat ion. A negat jesenia resul t does not precl ude a possi ble infec tion due to a speci men inade quacy or sampl ing error . Test perfo rmed by [facility], d/b/a [facility], [address], [place] [address] , Daniel Ramos ra, DO, Labor atory Direc tor. Gardn erell a vagin tatiana, Helen da speci es: Genom ic DNA is isola xiomara from patie nt speci mens by stand maryanne labor atory techn iques and adali zed using custo m OpenA rray plate s, perfo rmed on the Quant Studi o 12K Flex Real Time PCR syste m. A posit jesenia resul t is provi ded for patho genic bacte wendie, virus and/o r funga l speci es based on detec tion of ampli ficat ion produ cts. Pamela l vagin al chelo resul ts of Pamela l or [place] xiomara are deter mined by calcu latin g the ratio of the organ ism to the total bacte wendie prese nt in the speci men, and gosia ring that ratio to a [facility] patie nt popul ation . Overa ll resul ts of Pamela l, Borde rline and Abnor mal are deter mined using a proba bilit y model which was devel oped by an exten sive adali sis and integ ratio n of clini marky thres holds for marke r organ isms on a large set of sympt omati c & asymp tomat ic speci mens. Patie nt popul ation s with diffe rent demog raphi cs from the [facility] model popul ation may have diffe rent indic ator organ isms with diffe rent relat jesenia ratio s, which would influ ence the final resul ts. Resul ts shoul d be inter prete d in the deedee xt of all clini marky and labor atory findi ngs. The test was devel oped and its perfo rmanc e nakul cteri stics deter mined by [facility]/b/[facility]. It has not been clear ed or appro edel by the U.S. Food and Drug Admin istra tion. The FDA has deter mined that such clear ance or appro juan carlos is not neces ivana. Perti nent refer ence inter vals are avail able from the labor atory on reque st. Test( s) perfo rmed by [facility], [address], [place] [address] , Daniel Ramos ra, , Labor atory Direc tor. Not Available [facility] ([facility]) [address], [place], [address], 10/07/2023 12:50:56 10/05/19 24 10/06/2023 CHLAM YDIA AND GONOR RHOEA E neisseria gonorrhoeae, aptima NOT DETECT ED normal DNA testi ng perfo rmed by [employer] xiomara Ampli ficat ion (TMA) . Resul ts shoul d be inter prete d in conju nctio n with patie nt histo ry and clini marky prese ntati on. This assay is highl y accur ate, but rare false posit jesenia and negat jesenia resul ts may occur . Posit jesenia resul ts in low preva lence popul ation s may requi re re-ev aluat ion. A negat jesenia resul t does not precl ude a possi ble infec tion due to a speci men inade quacy or sampl ing error . Test perfo rmed by [facility], [address], [place] [address] , Daniel Ramos ra, DO, Labor atory Direc tor, CLIA# [id number] Not Available [facility] ([facility]) [address], [place], [address], 10/07/2023 12:50:58 10/05/19 24 10/06/2023 CHLAM YDIA AND GONOR RHOEA E chlamydia trachomatis, aptima NOT DETECT ED normal DNA testi ng perfo rmed by [employer] xiomara Ampli ficat ion (TMA) . Resul ts shoul d be inter prete d in conju nctio n with patie nt histo ry and clini marky prese ntati on. This assay is highl y accur ate, but rare false posit jesenia and negat jesenia resul ts may occur . Posit jesenia resul ts in low preva lence popul ation s may requi re re-ev aluat ion. A negat jesenia resul t does not precl ude a possi ble infec tion due to a speci men inade quacy or sampl ing error . Test perfo rmed by [facility]b/a [facility], [address] [facility] [address], [place] [address] , Daniel Ramos ra, DO, Labor atory [facility], CLIA# [id number] Not Available [facility] ([facility]) [address], [place], [address], 10/07/2023 12:50:58 10/05/19 24 10/05/2023 EMPOW ER MULTI -CANC ER,EX P(2+5 1) report summary OTHER normal Test Not Perfo rmed Dupli marichuy test. Empow er 53 panel previ ously resul xiomara under 03 Test was not perfo rmed. Refer to speci fic detai ls below . Not Available [employer] [address], [place], [address], 10/28/2023 21:34:33 10/05/19 24 10/05/2023 EMPOW ER MULTI -CANC ER,EX P(2+5 1) footnotes See Notes CLIA: ID #[id number] 2 Test perfo rmed by [employer]. [address] [place] [address] Arielle Stephens, Ph.D. , [facility] , Labor atory Direc tor Not Available [facility] [address], [place], [address], 10/28/2023 21:34:33 10/05/19 24 10/05/2023 urina lysis , dipst ick Leukocytes neg Not Available Haley Barajas MD [address] [place] [address], [address], 10/05/2023 11:05:11 10/05/19 24 10/05/2023 urina lysis , dipst ick Nitrite negati ve Not Available Haley Barajas MD [facility] [place], [address], 10/05/2023 11:05:11 10/05/19 24 10/05/2023 urina lysis , dipst ick Protein +++ Not Available Haley Barajas MD [facility] [place], [address], 10/05/2023 11:05:11 10/05/19 24 10/05/2023 urina lysis , dipst ick Blood neg Not Available Haley Barajas MD [facility] [place], [address], 10/05/2023 11:05:11 10/05/19 24 10/05/2023 urina lysis , dipst ick Ketone neg Not Available Haley Barajas MD [facility] [place], [address], 10/05/2023 11:05:11 10/05/19 24 10/05/2023 urina lysis , dipst ick Glucose neg Not Available Haley aBrajas MD [facility] [place], [address], 10/05/2023 11:05:11 10/05/19 24 10/05/2023 urina lysis , dipst ick Color yellow Not Available Haley Barajas MD [address] [place], [address], 10/05/2023 11:05:11 10/13/19 24 10/13/2023 US, pelvi s, compl ete No observ ation record ed. [email or web address] Not Available 2023 15:05:21 10/15/19 24 10/09/2023 MAMMO , scree sylvia, digit al, bilat eral No observ ation record ed. [facility] [address], [place], [address], 10/15/2023 15:47:00 Result Notes None recorded. Procedures Surgical History Date Name Laterality Status Provider Name and Address Organization Details Recorded Time 10/13/19 24 Pelvic Transvaginal Non-OB completed Kristy Cortes MD [address] [facility] [address], [place], [address], [facility] - Dr Haley Barajas 10/17/2023 21:54:12 07/10/19 23 Date of Last Pap Smear completed Ellen Armstrong CNM [address] [facility],[address], [place], [address], [place] - Dr Haley Barajas 10/05/2023 10:34:00 02/23/19 19 Date of Last Mammogram completed Zuly Turner [place] - Dr Haley Barajas 07/09/2022 09:40:31 Imaging Results Imaging Date Name Status LastModified by Organiz ation Details LastModified Time 10/13/2023 US, pelvis, complete completed [email or web address] Information not available 10/13/2023 15:05:21 10/09/2023 MAMMO, screening, digital, bilateral completed [facility] [address], [place], [address], 10/15/2023 15:47:00 Procedure Notes None recorded. Medical Equipment None Reported. Allergies Allergen ID Allergen Name Allergen Category Reaction Reaction Severity Criticality Documentation Date Start Date Code Code System Note Provider Name and Address Organization Details Recorded Time 7656 morphine medicatio n hives Not available Not available 07/09/2022 7052 RxNorm Kristy Cortes MD [address] [facility],[place], [address], [facility] - Dr Haley Barajas 3 09:59:42 7657 Product containin g penicilli n (product) medicatio n hives Not available Not available 07/09/2022 09044 8001 SNOMED Kristy Cortes MD [address] [facility],[place], [address], [facility] - Dr Haley Barajas 3 10:00:00 Medications Name Sig Start Date Stop Date Status Note LastModified by Organization Details LastModified Time losartan 50 mg tablet TAKE 1 TABLET BY MOUTH TWICE DAILY active Not Available Not Available No t Available cyclobenzapr ine 10 mg tablet active Not Available Not Available Not Available amoxicillin 500 mg capsule TAKE 1 CAPSULE BY MOUTH THREE TIMES DAILY UNTIL GONE active Not Available Not Available No t Available clindamycin HCl 300 mg capsule TAKE 1 CAPSULE BY MOUTH EVERY SIX HOURS UNTIL ALL TAKEN active Not Available Not Available No t Available azithromycin 250 mg tablet TAKE 2 TABLETS BY MOUTH FOR 1 DAY THEN TAKE 1 TABLET BY MOUTH DAILY FOR 4 DAYS active Not Available Not Available No t Available ibuprofen 800 mg tablet TAKE 1 TABLET BY MOUTH EVERY SIX HOURS NEEDED FOR PAIN active Not Available Not Available No t Available meloxicam 15 mg tablet active Not Available Not Available No t Available ondansetron HCl 4 mg tablet active Not Available Not Available Not Available prednisone 20 mg tablet TAKE 1 TABLET BY MOUTH IN THE MORNING FOR 5 DAYS active Not Available Not Available No t Available acetazolamid e 250 mg tablet TAKE 2 TABLETS BY MOUTH TWICE DAILY active Not Available Not Available No t Available Diflucan 150 mg tablet Take 1 tablet every 72 hours by oral route for 6 days. 2023 active Not Available Not Available Not Avai lable metronidazol e 500 mg tablet TAKE 1 TABLET BY MOUTH THREE TIMES DAILY UNTIL GONE active Not Available Not Available No t Available amlodipine 5 mg tablet TAKE 1 TABLET BY MOUTH DAILY active Not Available Not Available No t Available amoxicillin 500 mg tablet 07/09 completed Not Available Not Available Not Available losartan 100 mg-hydrochlo rothiazide 25 mg tablet TAKE 1 TABLET BY MOUTH EVERY DAY active Not Available Not Available No t Available dicyclomine 20 mg tablet active Not Available Not Available Not Available amlodipine 10 mg tablet active Not Available Not Available Not Available enoxaparin 150 mg/mL subcutaneous syringe INJECT 150 MG UNDER THE SKIN TWICE DAILY active Not Available Not Available No t Available furosemide 20 mg tablet TAKE 1 TABLET BY MOUTH DAILY active Not Available Not Available No t Available ibuprofen 600 mg tablet TAKE 1 TABLET BY MOUTH THREE TIMES DAILY NEEDED FOR PAIN active Not Available Not Available No t Available fluticasone propionate 50 mcg/actuatio n nasal spray,suspen ayush SHAKE LIQUID AND USE 2 SPRAYS IN EACH NOSTRIL IN THE MORNING active Not Available Not Available No t Available Clindamycin Pediatric 75 mg/5 mL oral solution active Not Available Not Available Not Available Eliquis 5 mg tablet TAKE 1 TABLET BY MOUTH TWICE DAILY active Not Available Not Available No t Available Vitals Date Recorded Body height Body mass index (BMI) Body weight Systolic blood pressure Diastolic blood pressure Provider Name and Address Organization Details Last Updated DateTime 07/09/2022 175.26 cm 51.8 kg/m2 050957.2 g 130 mm[Hg] 80 mm[Hg] Zuly Barajas 3 09:48:27 Date Recorded Body height Body mass index (BMI) Body weight Systolic blood pressure Diastolic blood pressure Provider Name and Address Organization Details Last Updated DateTime 10/05/2023 175.26 cm 51.1 kg/m2 546879.2 4 g 150 mm[Hg] 100 mm[Hg] Ismael Barajas 4 10:55:27 Social History Question Answer Notes LastModified by Organizat ion Details LastModified Time Are You Blind Or Do You Have Difficulty Seeing? No [email or web address] Information not available 07/09/2022 In The 14 Days Before Symptom Onset, Have You Had Close Contact With A Laboratory-confirme d COVID-19 While That Case Was Ill? No [email or web address] Information n ot available 07/09/2022 In The 14 Days Before Symptom Onset, Have You Had Close Contact With A Person Who Is Under Investigation For COVID-19 While That Person Was Ill? No [email or web address] Information not available 07/09/2022 Have You Been To An Area Known To Be High Risk For COVID-19? No Information not available 07/09/2022 Are You Deaf Or Do You Have Serious Difficulty Hearing? No [email or web address] Information not available 07/09/2022 What Type Of Diet Are You Following? REGULAR [email or web address] Information n ot available 07/09/2022 Sex: Unknown Functional Status Question Answer Note LastModified by Organizat ion Details LastModified Time Do you have difficulty walking or climbing stairs? No [email or web address] Information not available 07/09/2022 Do you have transportation difficulties? No [email or web address] Information not available 07/09/2022 Do you have difficulty doing errands alone? No [email or web address] Information not available 07/09/2022 Are you able to care for yourself? Yes [email or web address] Information not available 07/09/2022 Do you have difficulty dressing or bathing? No Information not available 07/09/2022 What is your exercise level? None Information not available 07/09/2022 Mental Status Question Answer Note LastModified by Organization D etails LastModified Time Do you have difficulty concentrating, remembering or making decisions? No [email or web address] Information no t available 07/09/2022 Family History Nothing Reported Notes:Mom - Breast Ca Medical History Condition Response Other Y Anemia Y Hypertension Y Gynecological History Statement/Question Response Abnormal Pap Y Date of Last Mammogram 02/23/2018 Date of LMP 10/01/2023 Sexually Active? Y STIs/STDs N Menses Monthly N Date of Last Pap Smear 07/09/2022 Sexual Problems? N Current Control Method Hysterectom y Age at Menarche 17 Obstetrics History GPAL:G 4 P 0 0 0 4 Type Value Living 4 Total 4 Past Encounters Encounter ID Performer Location Encounter Start Date Encounter Closed Date Diagnosis/Indication Diagnosis SNOMED-CT Code Diagnosis ICD10 Code Diagnosis Note [id number] Kristy Cortes MD [facility] El[place] christensen [employer] [address] [facility] [place] [address] 07/09/2022 09:30:13 07/09/2022 10:34:01 Gynecologic examination 87492871 Z01.419 Anemia screening 7744467 07 Z13.0 Diabetes m ellitus screening 100531405 Z13.1 Endocrine/ metabolic screening 339397905 Z13.228 Hyperlipid emia screening 372605989 Z13.220 Venereal d isease screening 042773914 Z11.3 Screening mammography 24 804386 Z12.31 Family his tory of breast cancer 581876773 Z80.3 Morbid obesity 598173585 E66.01 Recommende d weight loss consultati on Family his tory of malignant neoplasm 983005945 Z80.9 [id number] Ellen Armstrong CNM [facility] [place] [employer] [address] [facility] [place] [address] 10/05/2023 09:58:50 10/05/2023 11:50:01 Gynecologic examination 92139655 Z01.419 Venereal d isease screening 281010780 Z11.3 Anemia screening 8062889 07 Z13.0 Diabetes m ellitus screening 217070983 Z13.1 Thyroid di sorder screening 947095616 Z13.29 Hyperlipid emia screening 185008510 Z13.220 Abnormal v aginal bleeding 907220082 N93.9 Screening mammography of bilateral breasts 0337798780 96236 Z12.31 [id number] Kristy Cortes MD [facility] [place] christ[place] [employer] [address] [facility] [place] [address] 10/13/2023 14:26:02 10/13/2023 15:00:40 Abnormal vaginal bleeding 349211497 N93.8 Health Concerns Section Related Observation LastModified by Organization Detai ls LastModified Time None Recorded Concern Status LastModified by Organization Details LastModified Time None Recorded Advance Directives Directive None Recorded Payers Encounter Date Sequence Insurance Name Policy Number Policy Novoa Covered Member ID Novoa Member ID Guarantor Name 07/09/2022 1 [employer] - OPEN ACCESS - NATIONAL (POS) Radha Poe [id number] Radha Poe 10/05/2023 1 [employer] - OPEN ACCESS - NATIONAL (POS) Radha Poe [id number] Radha Poe 10/13/2023 1 [employer] (MEDICARE REPLACEMENT/A DVANTAGE - PPO) Radha Poe [id number] Radha Poe Notes Date Note Type Note Provider Name and Address Organization Details Recorded Time 07/09/2022 text/html Annual GYNReport ed bypatient.Menstrua l cycle:Normal menses Urinary symptoms:No hematuria; No incontinence Vulva:No genital lesion Vagina:Normal vaginal discharge Breast:No breast pain; No breast lump; No nipple discharge Sexual complaints:No sexual complaints; No pain during intercourse; Normal libido Menopausal Symptoms:No menopausal symptoms; Normal vaginal lubrication Psychological symptoms:No depression; No anxiety; No PMDD Kristy Cortes MD [address] [facility],[place], [address], [facility] Dr Haley Barajas 07/09/2022 14:44:55 10/05/2023 text/html Annual Technology Director Post-MenopausalRep orted bypatient.Menopaus al Symptoms:no menopausal symptoms; normal vaginal lubrication Vaginal Bleeding:unexplain ed vaginal bleeding Urinary Symptoms:no hematuria; no incontinence; no nocturia; no urinary frequency Vulva:no genital lesion; no vulvar atrophy Vagina:normal vaginal discharge; no vaginal atrophy Breast:no breast lump; no nipple discharge; no breast pain Sexual Complaints:no sexual complaints Psychological Symptoms:no depression; no anxiety Preventive Measures:encourage regular mammograms starting age 40; encourage self breast examination; encourage regular exercise; needs to schedule mammogram Ellen Armstrong CNM [address] [facility],[address], [place], [address], [facility] Dr Haley Barajas 10/05/2023 12:10:36 10/13/2023 text/html Patient presents for ultrasound Kristy Cortes MD [address] [facility],[address], [place], [address], [facility] Dr Haley Barajas 10/17/2023 21:55:33 OBGyn Episode No OBEpisode recorded.
[2024-04-22 15:26] LABS: Estimated Average Glucose 120 mg/dL; Hemoglobin A1C 128.2156 umol/L; Hemoglobin A1c % 5.8 % (<6.0)
[2024-04-22 15:44] LABS: B Type Natriuretic Peptide 26 pg/mL (<100)
[2024-04-22 16:18] LABS: Folate 4.3 ng/mL (> or = 4.0); Vitamin B12 590 pg/mL (200-900)
[2024-04-22 16:50] LABS: Alanine Aminotransferase 18 U/L (0-31); Albumin Level 3.8 g/dL (3.5-5.0); Anion Gap 10 (12-20); Aspartate Amino Transferase 22 U/L (5-31); Bilirubin Total 0.3 mg/dL (0.0-1.0); Blood Urea Nitrogen 7 mg/dL (9-16); Calcium 9.6 mg/dL (8.4-10.2); Carbon Dioxide 29 mmol/L (22-29); Chloride 104 mmol/L (96-108); Cholesterol 187 mg/dL (<200); Estimated Glomerular Filt Rate > 60; Glucose Random 96 mg/dL (60-115); HDL Cholesterol 45 mg/dL (>40); Iron 65 mcg/dL (30-160); LDL Cholesterol Calculated 113 mg/dL (<100); Percent Iron Saturation 26 % (15-50); Potassium 3.6 mmol/L (3.3-5.1); Sodium 139 mmol/L (135-145); TSH reflex Free T4 1.89 uIU/mL (0.32-4.0); Total Iron Binding Capacity 249 mcg/dL (228-428); Total Protein 8.6 g/dL (6.5-8.0); Triglycerides 149 mg/dL (<150); Unsaturated Iron Binding 184 ug/dL; Vitamin D 25-OH Total 18.1 ng/mL (>30)
[2024-04-22 17:54] LABS: Alkaline Phosphatase 109 U/L (39-117)
== END 2024-04-22 11:34 | disposition home or self-care (01) ==
LOC: HO.XRAY 11:33
DX: I26.99 Other pulmonary embolism without acute cor pulmonale (principal); E66.9 Obesity, unspecified; E78.00 Pure hypercholesterolemia, unspecified; I10 Essential (primary) hypertension; D64.9 Anemia, unspecified; G47.33 Obstructive sleep apnea (adult) (pediatric); F32.A Depression, unspecified; G93.2 Benign intracranial hypertension; M79.89 Other specified soft tissue disorders; R91.8 Other nonspecific abnormal finding of lung field; R00.0 Tachycardia, unspecified; Z79.01 Long term (current) use of anticoagulants; Z00.00 Encounter for general adult medical examination without abnormal findings; E11.65 Type 2 diabetes mellitus with hyperglycemia
CPT/HCPCS: 36415; 71046; 80053; 80061; 82306; 82607; 82746; 83036; 83540; 83880; 84443; 85025; 93971; 96127; 99202

== ENCOUNTER 2024-04-22 11:33 | Outpatient (AMB) | payer MEDICARE, MEDICAID, SELFPAY ==
--- NOTE | 2024-04-22 11:40 | A.OFFPC_ITS ---
Vital Signs 04/22/24 11:42 Height 5 ft 8.5 in Weight 350 lb 2 oz BMI 52.5 BP 130/78 Blood Pressure Location Lt brachial Position Sitting Pulse 75 Pulse Source Pulse Oximeter Temp 97.1 F Temp Source Temporal Artery Scan Pulse Oximetry (%) 99 Oxygen Delivery Method Room Air Intake Visit Reasons: new patient- records scanned into chart Intake Note: Patient is a new patient here to establish care for Depression, Anxiety, HTN, Borderline cholesterol, Obesity, Sleep Apnea, Pulmonary embolism, Blood clot. Transferring care from [facility]. Medical records have been requested and have received. Channel Lip Wetter Required: No Plant Controller: Not Required per policy Accompanied by: Self / Same As Patient Allergies metformin Allergy (Intermediate, Verified 04/22/24 12:02) Hives morphine [MORPHINE] Allergy (Unknown, Verified 04/22/24 12:02) HIVES penicillin V Allergy (Unknown, Verified 04/22/24 12:02) Shortness of Breath Penicillins [PENICILLINS] Allergy (Unknown, Verified 04/22/24 12:02) SHORTNESS OF BREATH Medication List - Last Reconciled 04/22/24 by Cindy Casas PA-C apixaban (Eliquis) 5 mg PO BID bupropion HCl XL 150 mg PO DAILY carvedilol 6.25 mg PO BID ferrous sulfate 15 mg PO TID gabapentin 100 mg PO BEDTIME losartan-hydrochlorothiazide 100-25 mg 1 tab PO DAILY metoprolol succinate ER 25 mg PO DAILY Tobacco use date assessed: 04/22/24 Dental Screening Dental Screen Date: 04/22/24 Did you have a dental visit in the last 12 months?: Yes Did you have a dental problem in the last 6 months where you did not have access to dental care?: No Was dental information given to patient?: Patient has dentist HPI new patient- records scanned into chart HPI Details 43-year-old female coming to the office for the 1st time.Patient recently had blood work done 03/18/2024 creatinine elevated at 1.13, iron low normal at 46 otherwise labs were normal. Patient was seen by [facility] in [place] 03/17/2024 for recurrent pulmonary embolism ( and 06/2023) advised to continue on apixaban indefinitely. Patient also found to have iron-deficiency anemia recommending evaluation by Gynecology as well as Gastroenterology and advised IV iron replacement and to continue on vitamin B12 injection. Previous CTA showing ground-glass opacity referred to pulmonology but was not evaluated patient was also referred to Cardiology for tachycardia. Patient was placed on Diamox per Neurology. Advised patient to be seen in 4 weeks. Presenting with management of multiple chronic conditions and evaluation of current symptoms. She has documented elevated intracranial pressure in history, previously managed but includes challenges with blood pressure impacting her condition. Diagnosed with sleep apnea. Esppressions of dyspnea and fatigue were referenced along with a prior conduction of a sleep study. Essential hypertension is currently medicated with amlodipine and losartan; past interventions have included metoprolol. Depression is managed with Wellbutrin, with consideration for counseling in lieu of increasing the medication dosage. Peripheral edema in left leg raising concern over a possible DVT despite ongoing anticoagulation. History of blood clots with including a past occurrence of embolism impacting both lungs rapid onset post-transfusion. [facility] Surgical History (Updated 04/22/24 @ 11:51 by TIFFANY Mccarty) History of colonoscopy Hx of dilation and curettage Hx of hysterectomy Family History Mother Breast cancer Hypertension Father Lung cancer Brother Hypertension Brother No problems noted. Sister Hypertension Sister History of partial hysterectomy Sister No problems noted. Sister No problems noted. Daughter No problems noted. Daughter No problems noted. Daughter No problems noted. Son No problems noted. Social History Housing: House Alcohol intake: current Alcohol intake frequency: holidays/special occasions only Alcohol type: wine Patient Tobacco Use Status: Never used Tobacco e-Cigarette/Vaping Use: Never Used Second Hand Smoke Exposure: No service: No Current occupational status: unemployed Cognitive needs: No Hearing needs: No Vision needs: No Questionnaire PHQ-9 Over the last 2 weeks, how often have you been bothered by any of the following problems? 1. Little interest or pleasure in doing things: more than half the days 2. Feeling down, depressed, or hopeless: more than half the days 3. Trouble falling or staying asleep, or sleeping too much: more than half the days 4. Feeling tired or having little energy: more than half the days 5. Poor appetite or overeating: more than half the days 6. Feeling bad about yourself - or that you are a failure or have let yourself or your family down: not at all 7. Trouble concentrating on things, such as reading the newspaper or watching television: several days 8. Moving or speaking so slowly that other people could have noticed. Or the opposite - being so fidgety or restless that you have been moving around a lot more than usual: several days 9. Thoughts that you would be better off or of hurting yourself in some way: not at all Total score: 12 Depression Screening Interpretation: Positive (referral placed for counseling) Depression Screening Follow-up: Existing condition and In treatment Depression Screening Done: Yes Source: Developed by Drs. Marco A Davis, Laura Aviles, Ariel Krishnamurthy and colleagues, with an educational mele from [employer]. Thrive Questionnaire Date Thrive assessed: 04/22/24 I am a: Patient What is your living situation today?: I have a steady place to live Within the past 12 months, did the food you bought not last and you didn't have the money to get more?: Sometimes True Within the past 12 months, did you worry whether your food would run out before you got money to buy more?: Sometimes True Do you have trouble paying for medicines?: I choose not to answer this question Do you have trouble getting transportation to medical appointments?: Yes Do you have trouble paying your heating and electricity bill?: I choose not to answer this question Do you have trouble taking care of your child, family member or friend?: No Do you have trouble with day-to-day activities such as bathing, preparing meals, shopping, managing finances, etc.?: I choose not to answer this question Are you currently unemployed and looking for a job?: No Are you interested in more education?: Yes Please select the resources that you would like help with: Education Currently or been in a relationship where the following occur: No concerns reported THRIVE Score: 3 AUDIT C Alcohol Use Questionnaire (AUDIT-C) 1. How often do you have a drink containing alcohol?: Monthly or less 2. How many drinks containing alcohol do you have on a typical day when you are drinking?: 1 or 2 3. How often do you have six or more drinks on one occasion?: Never Total Score: 1 SAMANTHA-7 AMB Questionnaire SAMANTHA-7 Date SAMANTHA - 7 assessed: 04/22/24 Feeling nervous, anxious, or on edge: 2 = More than half the days Not being able to stop or control worryin = More than half the days Worrying too much about different things: 2 = More than half the days Trouble relaxin = More than half the days Being so restless that it is hard to sit still: 1 = Several days Becoming easily annoyed or irritable: 0 = Not at all Feeling afraid as if something awful might happen: 1 = Several days Total SAMANTHA-7 score (0-4 normal; 5-9 mild; 10-14 moderate; 15-21 severe): 10 Source: Developed by Drs. Marco A Davis, Laura Aviles, Ariel Krishnamurthy and colleagues, with an educational mele from [employer]. Review of Systems Const Denies body aches, Denies chills, Denies fever(s), Denies headache(s) and Denies poor appetite Eyes Reports no additional complaints ENT Denies dysphagia, Denies dizziness, Denies headache(s) and Denies odynophagia Card Denies chest pain, Denies syncope, Denies edema, Denies irregular heart rhythm, Denies lightheadedness and Denies dyspnea Resp Denies cough and Denies dyspnea GI Denies abdominal pain, Denies constipation, Denies dysphagia, Denies diarrhea, Denies nausea, Denies odynophagia and Denies vomiting Reports no additional complaints Musc Reports no additional complaints and Denies abnormal gait Skin/Breast Reports system reviewed and no additional complaints, except as documented Neuro Denies abnormal gait, Denies dizziness, Denies syncope and Denies headache(s) Psych Reports no additional complaints Physical exam (Primary Care) Vital Signs: Last Vital Signs Temp 97.1 F 04/22/24 11:42 Oxygen Delivery Method Room Air 04/22/24 11:42 BMI result Body Mass Index 52.5 BMI Assessment/Plan discussion: High BMI High, discussed plan: lifestyle, dietary and physical activity Tobacco/Smoking Status: Tobacco use Status Tobacco use date assessed 04/22/24 04/22/24 11:42 Patient Tobacco Use Status Never used Tobacco 04/22/24 11:42 e-Cigarette/Vaping Use Never Used 04/22/24 11:42 PHQ-9: PHQ-9 Score PHQ-9: Total score 12 04/22/24 11:46 Depression Screening Interpretation: Positive (referral placed for counseling) Depression Screening Follow-up: Existing condition and In treatment Thrive Assessment: Date of Thrive Assessment Date Thrive assessed 04/22/24 04/22/24 11:42 Currently or been in a relationship where the following occur: No concerns reported Const General: cooperative, healthy appearing, comfortable and no acute distress Orientation/consciousness: patient oriented x3 HENMT Head: Yes normocephalic Ears: hearing grossly normal bilaterally General nose exam: Normal external nose present Eyes General: appearance normal, both eyes and all related structures Conjunctivae: conjunctivae normal Neck Neck: Yes full ROM and Yes no lymphadenopathy Resp Effort & Inspection: normal respiratory effort Auscultation: clear to auscultation bilaterally, no crackles, no rales, no rhonchi and no wheezes Cardio Rate: regular rate Rhythm: regular rhythm Skin General skin exam: no rashes or lesions noted Neuro General: patient oriented x3 Gait exam (Neuro): Normal gait present Extrem Other: LLE swelling and pain to palpation of the calf pulses and sensation intact in bilateral lower extremities General: Yes normal to inspection, Yes full ROM and No edema Psych Affect: normal affect Attitude: cooperative Insight: Good insight present (Psych) Judgement: Good judgement present (Psych) Coding Level of Care Code New Pt Level 4 (96720) Diagnoses Recurrent pulmonary embolism I26.99 Obesity E66.9 Hypercholesterolemia E78.00 Hypertension I10 Anemia D64.9 Obstructive sleep apnea G47.33 Depression F32.A Increased intracranial pressure G93.2 Leg swelling M79.89 Ground glass opacity present on imaging of lung R91.8 Tachycardia R00.0 Assessment & Plan Assessment & Plan (1) Recurrent pulmonary embolism: Code(s): I26.99 - Other pulmonary embolism without acute cor pulmonale Category: Medical Plan: Patient having recurrent pulmonary embolism and DVT unprovoked. Recommended by her yard general car supervisor to be on lifelong coagulation with the apixaban 5 mg twice daily. Referral placed to hematology for further monitoring (2) Obesity: Code(s): E66.9 - Obesity, unspecified Category: Medical Plan: Healthy diet and regular exercise is encouraged. (3) Hypercholesterolemia: Code(s): E78.00 - Pure hypercholesterolemia, unspecified Category: Medical Plan: Avoid foods that are high in cholesterol such as red meat, fried foods, eggs and baked goods. Triglyceride goal of less than 150 and LDL goal of less than 130. Not currently on medical management. Ordered for updated blood work (4) Hypertension: Code(s): I10 - Essential (primary) hypertension Category: Medical Plan: Continue on current blood pressure medication. Avoid salt intake and encourage healthy diet and regular exercise. On losartan-hydrochlorothiazide and metoprolol (5) Anemia: Code(s): D64.9 - Anemia, unspecified Category: Medical Plan: The management plan covers pressing conditions encountered during the visit. Anemia continues under specific hematologic guidance, supporting symptom exploration and comprehensive follow-up of transfusion effects. Ordered for repeat blood work. Karine yard general car supervisor recommended IV infusions as patient was nonresponsive to oral iron. Referral placed to Hematology for IV infusions and further workup. Also referring to gastroenterology for exploration of iron- deficiency anemia. (6) Obstructive sleep apnea: Code(s): G47.33 - Obstructive sleep apnea (adult) (pediatric) Category: Medical Plan: Sleep apnea management continues with a focus on positional strategies and possible exploration of CPAP efficacy (7) Depression: Code(s): F32.A - Depression, unspecified Category: Medical Plan: Well managed on the Wellbutrin. Referral placed for counseling. (8) Increased intracranial pressure: Code(s): G93.2 - Benign intracranial hypertension Category: Medical Plan: Intracranial pressure management hinges on diligent blood pressure control, meriting continued medication adherence reinforced by primary care oversight. Referral placed to Neurology (9) Leg swelling: Code(s): M79.89 - Other specified soft tissue disorders Category: Medical Plan: Patient having significant one-sided leg swelling in the left lower extremity. Tenderness to palpation of left calf and swelling of the left calf. Ordered for stat venous duplex to rule out DVT. Patient already on Eliquis 5 mg b.i.d. if DVT is present we will change hematology referral to stat (10) Ground glass opacity present on imaging of lung: Code(s): R91.8 - Other nonspecific abnormal finding of lung field Category: Medical Plan: Pulmonary nodule referral alongside re-assessment with x-ray will help determine any further intervention needs. (11) Tachycardia: Code(s): R00.0 - Tachycardia, unspecified Category: Medical Plan: Patient having history of tachycardia was referred to wrapper layer by her yard general car supervisor in [place]. Ordered for Holter monitor and echocardiogram referral placed to Cardiology as recommended by yard general car supervisor. Plan Patient was informed and verbally consented to the use of an ambient scribe for clinic note documentation during this visit. This note was constructed using voice recognition software. While every effort has been made to ensure accuracy and ratchet setter, still areas may have been included sometimes these areas may affect the content or meeting of the given symptoms. Total time spent caring for the patient today was 30 minutes. This includes time spent before the visit reviewing the chart, time spent during the visit, and time spent after the visit and documentation. Orders: Orders B Type Natriuretic Peptide Today M79.89 - Other specified soft tissue disorders XR chest 2V Today R91.8 - Other nonspecific abnormal finding of lung field TSH reflex Free T4 Today Z00.00 - Encounter for general adult medical examination without abnormal findings Vitamin B12 and Folate Today Z00.00 - Encounter for general adult medical examination without abnormal findings Vitamin D 25-OH Total Today Z00.00 - Encounter for general adult medical examination without abnormal findings Lipid Panel Today E78.00 - Pure hypercholesterolemia, unspecified Hemoglobin A1c Today E11.65 - Type 2 diabetes mellitus with hyperglycemia Complete Blood Count Auto Diff Today Z00.00 - Encounter for general adult medical examination without abnormal findings Comprehensive Met. Panel Today Z00.00 - Encounter for general adult medical examination without abnormal findings IRON PROFILE Today D64.9 - Anemia, unspecified ECG 3 day holter monitor Today R00.0 - Tachycardia, unspecified US venous duplex LE LT Today M79.89 - Other specified soft tissue disorders CA echo transthoracic complete Today M79.89 - Other specified soft tissue disorders Referrals Cardiology Referral M79.89 - Other specified soft tissue disorders, R00.0 - Tachycardia, unspecified Pulmonology Referral R91.8 - Other nonspecific abnormal finding of lung field Hematology & Oncology Referral D64.9 - Anemia, unspecified, I26.99 - Other pulmonary embolism without acute cor pulmonale Neurology Referral G47.33 - Obstructive sleep apnea (adult) (pediatric), G93.2 - Benign intracranial hypertension Gastroenterology Referral D64.9 - Anemia, unspecified, Z12.11 - Encounter for screening for malignant neoplasm of colon Counseling Referral F32.A - Depression, unspecified Medications: New apixaban (Eliquis) 5 mg PO BID 90 days 180 tabs 0RF bupropion HCl XL 150 mg PO DAILY 90 days 90 tabs 0RF losartan-hydrochlorothiazide 100-25 mg 1 tab PO DAILY 90 tabs 0RF metoprolol succinate ER 25 mg PO DAILY 30 tabs 0RF
[2024-04-22 11:42] VITALS: BP 130/78; PULSE 75; TEMP 36.2; O2SAT 99; BMI 52.5
--- OUTSIDE RECORDS SUMMARY | 2024-04-22 13:50 | XMS_ITS | Clinical Summary ---
Author Organization [facility] Address [address] [place] [address] Care Team Providers Care Vending Machine Servicer Name Role Phone Alexis Miller DO Primary Care Provider [phone] Allergies Active Allergy Reactions Criticality Noted Date Comments Morphine Sulfate Hives 08/16/2009 Penicillins 04/08/2007 Medications ferrous sulfate (IRON ORAL) Take 5 mL by mouth 3 times daily. Active amLODIPine (NORVASC) 5 mg tablet Take 1 Tab by mouth daily. Active medroxyPROGESTER one 150 mg/mL injection Inject 1 mL into the muscle Every 3 Months. Active Active Problems Problem Noted Date Diagnosed Date Hypertension 11/19/2009 Allergic rhinitis 06/18/2007 Iron deficiency anemia 04/20/2007 Morbid obesity 04/20/2007 Immunizations Name Administration Dates Next Due H1N1 Inj Preservative Free 12/20/2008 Influenza trivalent, with pr eservative (Fluzone; Afluria) 6mo and older 11/07/2008 Tdap Tetanus diptheria acell ular pertussis (Boostrix; Adacel) 7yo and older 08/01/2010 Medical History Medical History Date Comments Anemia, unspecified DX:Anemia, u nspecified Other specified personal his tory presenting hazards to health(V15.89) 03/2007 DX:Other specifie d personal history presenting hazards to health(V15.89); COMMENT: ASCUS +HPV -colpo 05/31 Family History Medical History Relation Name Comments Coronary artery disease Maternal Grandmother Hypertension Maternal Grandmother Hypertension Mother Hypertension Sister Other cancer Sister uterine Relation Name Status Comments Father Alive Maternal Grandmother Mother Alive htn, Sister Social History Tobacco Use Types Packs/Day Years Used Date Smoking Tobacco: Never Smokeless Tobacco: Never Alcohol Use Standard Drinks/Week Comments No 0 (1 standard drink = 0.6 oz pur e alcohol) Comments Unknown Sex and Gender Information Value Date Recorded Sex Assigned at Not on file Legal Sex Female 3:54 PM EDT Gender Identity Not on file Sexual Orientation Not on file Obstetrics History Plan of Treatment Upcoming Encounters Date Type Department Care Team ([facility] st Contact Info) Description 08/02/2024 3:30 PM EDT Office Visit Bariatric Surgery - [place] [address] [place] [id number] Torey Bradford MD [address] [place] [address] Health Maintenance Due Date Last Done Comments Breast Cancer Screening 1980 Hepatitis B Vaccines (1 of 3 - 19+ 3-dose series) 2000 Cervical Cancer Screening: P ap Smear 01/03/2014 01/03/2011 DTaP,Tdap,and Td Vaccines (2 - Td or Tdap) 08/01/2020 08/01/2010 COVID-19 Vaccine (1 - 2023-2 5 season) 2023 Influenza Vaccine (#1) 2023 9, 11/07/2008 Cholesterol Screening (Lipid Panel) 12/20/2023 02/06/2011 Depression Screening 12/20/2023 Medicare Annual Wellness Visit 12/20/2023 Social Influencers of Health Screening 12/20/2023 Hypertension/CHF/CAD Annual BMP Blood Test 01/06/2024 06/28/2011 HIV Screening Completed 01/03/2011 Hepatitis C Screening Completed 06/09/2011 HIB Vaccines Aged Out No longer eligi ble based on patient's age to complete this topic HPV Vaccines Aged Out No longer eligi ble based on patient's age to complete this topic Hepatitis A Vaccines Aged Out No long er eligible based on patient's age to complete this topic IPV Vaccines Aged Out No longer eligi ble based on patient's age to complete this topic MMR Vaccines Aged Out No longer eligi ble based on patient's age to complete this topic Meningococcal ACWY Vaccine Aged Out N o longer eligible based on patient's age to complete this topic Meningococcal B Vacine Aged Out No lo nger eligible based on patient's age to complete this topic Pneumococcal Vaccine: Pediatrics (0 to 5 Years) and At-Risk Patients (6 to 64 Years) Aged Out No longer eligible b ased on patient's age to complete this topic RSV Immunization Patients Under 20 months Aged Out No longer eligible b ased on patient's age to complete this topic Varicella Vaccines Aged Out No longer eligible based on patient's age to complete this topic Procedures Procedure Name Priority Date/Time Associated Diagnosis Comments ANNUAL BMP BLOOD TEST Routine 06/28/2011 HEPATITIS C SCREENING Routine 06/09/2011 LIPID PANEL Routine 02/06/2011 HIV SCREENING Routine 01/03/2011 PAP SMEAR Routine 01/03/2011 from Last 3 Months or Most Recently Relevant to Health Maintenance Results * Annual BMP Blood Test (06/28/2011) Pathologist formerly [facility] Annual BMP Blood Test abstracted [facility] Provider HEALTH MAINTENANCE Final Result * Hepatitis C Screening (06/09/2011) [facility] Hepatitis C Screening abstracted [facility] Provider HEALTH MAINTENANCE Final Result * (ABNORMAL) Lipid panel (02/06/2011) [facility] LDL/HDL Ratio 3 0 - 4 Triglycerides 92 0 - 150 mg/dL Cholesterol 187 0 - 200 mg/dL HDL 57 >=40 mg/dL LDL Cholesterol 112(A) 0 - 100 mg/dL Blood Venous blood specimen / Unknown [facility] Provider LAB BLOOD ORDERABLES Hanh l Result * HIV Screening (01/03/2011) [facility] HIV Screening abstracted [facility] Provider HEALTH MAINTENANCE Final Result * Pap Smear (01/03/2011) [facility] Pap smear no interpretation abstracted [facility] Provider HEALTH MAINTENANCE Final Result from Last 3 Months or Most Recently Relevant to Health Maintenance Insurance MEDICAID - [place] [facility] MEDICARE ADVANTAGE on file Care Teams Vending Machine Servicer Relationship Specialty Start Date End Date Alexis Miller DO [address] [place] [phone] PCP - General 06/06/13
--- OUTSIDE RECORDS SUMMARY | 2024-04-22 13:50 | XMS_ITS ---
Author Organization [facility] Address [address] [place] [address] Care Team Providers Care Mud Jack Operator Name Role Phone GIULIA MILAN Unavailable [phone] ZachYu Unavailable [phone] REASON FOR VISIT discuss weight loss options Encounters Encounter Location Date Provider Diagnosis [facility] [address] [place] [address] 03/10/2024 Yu Serrano PLAN OF TREATMENT No Information Progress Notes * Nayana ARENASOB: 2 (43 yo F)Acc No.[id number]:03/10/2024 Progress Notes Patient:??Radha ARENAS Provider:??JET Berger :1980?Age:43 Y?Sex:Fe male Date:03/10/2024 Address:[address] [place], [place] [id number] Subjective: * Chief Complaints: * ?1. Discuss weight loss options. * Medical History:?? Objective: Assessment: Plan: * Treatment: * Billing Information: * Visit Code:?? * Procedure Codes:?? * Sign off status: Pending * Provider:??JET Berger Date:??
--- OUTSIDE RECORDS SUMMARY | 2024-04-22 13:50 | XMS_ITS ---
Author Organization [facility] Address [address] [place], [place] [id number] Care Team Providers Care Sandal Parts Assembler Name Role Phone Usama Garcia M.D. Primary Care Provider Avina NEEDLE LOOM OPERATOR HELPER-C, Suzy Unavailable REASON FOR VISIT rx change. wegovy not covered Encounters Encounter Location Date Provider Diagnosis [facility] [address] [place], [place] [phone] 11/16/2023 Usama Garcia Plan Of Treatment No Information Progress Notes * Nayana ARENASOB: 2 (42 yo F)Acc No.[id number]:11/16/2023 Patient:?Radha ARENAS :1980???Age:42 Y???Sex:Female Address:[address] [place] [address], [address] * true * Date:? Generated for Printi ng/Faberthag/eTransmitting on:?04/22/2024 01:49 PM EST
--- OUTSIDE RECORDS SUMMARY | 2024-04-22 13:50 | XMS_ITS ---
Author Organization [facility] Address [address] [place], [place] [phone] Care Team Providers Care Nuclear Reactor Operator Name Role Phone Usama Garcia M.D. [facility] Suzy Unavailable REASON FOR VISIT Add Info Encounters Encounter Location Date Provider Diagnosis [facility] [address] [place], [place] [phone] 11/12/2023 Usama Garcia Plan Of Treatment No Information Progress Notes * Naynaa ARENASOB: 2 (42 yo F)Acc No.[id number]:11/12/2023 Patient:?Radha ARENAS :1980???Age:42 Y???Sex:Female Address:[address] [place] [address], [address] * true * Date:? Generated for Printi ng/Faberthag/eTransmitting on:?04/22/2024 01:49 PM EST
--- OUTSIDE RECORDS SUMMARY | 2024-04-22 13:50 | XMS_ITS ---
Author Organization [facility] Address [address] [place], [place] [phone] Care Team Providers Care Digital Media Planner Name Role Phone Usama Garcia M.D. [facility] Suzy Unavailable REASON FOR VISIT question Encounters Encounter Location Date Provider Diagnosis [facility] [address] [place], [place] [phone] 02/08/2024 Usama Garcia Plan Of Treatment No Information Progress Notes * Nayana ARENASOB: 2 (43 yo F)Acc No.[id number]:02/08/2024 Patient:?Radha ARENAS :1980???Age:43 Y???Sex:Female Address:[address] [place] [address], [address] * true * Date:? Generated for Printi ng/Jim/eTransmitting on:?04/22/2024 01:49 PM EST
--- OUTSIDE RECORDS SUMMARY | 2024-04-22 13:50 | XMS_ITS | Patient Health Record ---
Author Organization [facility] Address [address] [place] [address] Care Team Providers Care Job Coach/Job Developer Name Role Phone GIULIA MILAN Unavailable [phone] Yu Serrano Unavailable [phone] REASON FOR REFERRAL No Information Encounters Encounter Location Date Provider Diagnosis [facility] [address] [place] [address] 03/10/2024 Yu Serrano PLAN OF TREATMENT No Information Insurance Providers Payer Name Payer Address Payer Phone Subscriber Number Group Number Insured Name Patient Relationship to Insured Coverage Start Date Coverage End Date [employer] [address] [address] [place] [phone] [id number] Radha Poe Self - patient is the insured
--- OUTSIDE RECORDS SUMMARY | 2024-04-22 13:50 | XMS_ITS | Patient Health Record ---
Author Organization [facility] Address [address] [place], [place] [phone] Care Team Providers Care Public Aid Eligibility Assistant Name Role Phone Usama Garcia M.D. Primary Care Provider Fabrice [employer]URANCE-C, Suzy Unavailable Nitish [employer]URANCE-CDory Unavailable Allergies Allergen (clinical drug ingredient) Drug/Non Drug Allergy documented on EMR Reaction Allergy Type Onset Date Status morphine Morphine Unknown Drug Allergy Active Penicillin hives Drug Allergy active Reason For Referral Reason Evaluate and treat Diagnosis 1 Acute pulmonary embo lism without acute cor pulmonale, unspecified pulmonary embolism type (I26.99) Referral Organization [facility] Referring Provider First Name Dory Referring Provider Last Name Nitish Referring Provider Speciality Family Pra ctice Referred Provider Britney Shine Referred Provider Specialty Pulmonology General Notes Garret Alvarez 024 10:56:36 AM > referral and clinicals faxed Referral Priority Routine Medications Medication SIG (Take, Route, Frequency, Duration) Notes Start Date End Date Status Losartan Potassium 50 MG 1 tablet Orally twice a day for 30 days Active acetaZOLAMIDE 250 MG TAKE 1 TABLET BY [facility] TWICE DAILY Oral for 8 Days Active Eliquis 5 MG as directed Orally Active Losartan Potassium-HCTZ 50-12.5 MG 1 tablet Orally Once a day Active Wegovy 0.25 MG/0.5ML 0.5 mL Subcutaneous weekly for 30 days 11/05/2023 Active Rosuvastatin Calcium 5 MG 1 tablet Orall y Once a day for 30 day(s) 11/05/2023 Active metFORMIN HCl ER 500 MG 1 tablet with ev ening meal Orally Once a day for 90 days 11/05/2023 Active Social History Tobacco Use: Social History Observation Description Date Details (start date - stop date) Never Smoker NA - NA Alcohol: Question Answer Notes Did you have a drink containing alcohol in the p ast year? No Points 0 Interpretation Negative Tobacco Use: Question Answer Notes Are you a: Never Smoker Problems Problem Type SNOMED Code ICD Code Onset Dates Problem Status W/U Status Risk Notes Problem 218707047 Morbid obesity (E66.01) Active confirmed Problem 028117035 Mixed hyperlipidemia (E78.2) Active confirmed Problem 16024691 Sleep apnea, unspecified type (G47.30) Active confirmed Problem 65414265 Hyperlipidemia, unspecified hyperlipidemia type (E78.5) Active confirmed Problem 94671753 Hypertension, unspecified type (I10) Active confirmed Vital Signs Temperature 97.6 degrees Fahrenheit 11/05/2023 Respiratory Rate 16 /min 07/10/2023 Oximetry 99 11/05/2023 Blood pressure diastolic 116 mm Hg 11/05/2023 Height 69 in 11/05/2023 Blood pressure systolic 158 mm Hg 11/05/2023 Weight 348 lbs 11/05/2023 BMI 51.39 11/05/2023 Encounters Encounter Location Date Provider Diagnosis [facility] [address] [place] [address] [place] [id number] 07/10/2023 Dory Small Hypertension, unspecified type I10 ; Idiopathic intracranial hypertension G93.2 ; Hospital discharge follow-up Z09 and Acute pulmonary embolism without acute cor pulmonale, unspecified pulmonary embolism type I26.99 [facility] [address] [place] [address] [place] [id number] 11/05/2023 Suzy Avina Prediabetes R73.03 ; Mixed hyperlipidemia E78.2 and Morbid obesity E66.01 [facility] [address] [place] [address] [address] [place], [place] [id number] 05/20/2023 Usama Garcia [facility] [address] [place] [address] [address] [place], [place] [id number] 06/19/2023 [facility] [address] [place], [place] [id number] 06/23/[address] [facility] [address] [place], [place] [id number] 11/06/[address] [facility] [address] [place], [place] [id number] 11/08/[address] [facility] [address] [place], [place] [id number] 11/08/[address] [facility] [address] [place], [place] [id number] 11/12/[address] [facility] [address] [place], [place] [id number] 11/16/[address] [facility] [address] [place], [place] [id number] 02/08/[address] [facility] [address] [place], [place] [id number] 06/18/20[facility] [address] [place] [id number] 07/21/2023 Suzy [facility] [address] [place] [id number] 07/21/2023 Szuy [facility] [address] [place] [id number] 07/21/2023 [facility] [address] [place], [place] [id number] 11/06/2023 Suzyghazal Avina Assessments Encounter Date Diagnosis (ICD Code) Assessment Notes Treatment Notes Treatment Clinical Notes Section Notes 07/10/2023 Hypertension, unspecified type (ICD-10 - I10) stable in office today 07/10/2023 Idiopathic intracranial hypertension (ICD-10 - G93.2) 11/05/2023 Mixed hyperlipidemia (ICD-10 - E78.2) total 207 HDL 54 Ldl 128 Low dose cholesterol medicaiton 11/05/2023 Prediabetes (ICD-10 - R73.03) A1c 6.0--10/06 Low dose Metformin 500 mg QD 11/05/2023 Morbid obesity (ICD-10 - E66.01) Diet and exercise. Patient has issues with obesity, hyperlipidemia , cardiac issues, prediabetes. She is going to start wegovy. 07/10/2023 Hospital discharge follow-up (ICD-10 - Z09) 07/10/2023 Acute pulmonary embolism without acute cor pulmonale, unspecified pulmonary embolism type (ICD-10 - I26.99) Dx on 07/03 in [place]. Pt was not admitted and was d'/c on Lovenox d/t being out of state. She finished Lovenox yesterday. pt given 2 packs of Eliquis samples in office to start 5 mg BID since she was already on Lovenox. Discussed since she is still having chest tightness with breathing and palpitations I recommend going to the ER for repeat CT scan. PT states she will go ahead and take an Eliquis and go to the ER since still having symptoms. Plan Of Treatment No Information Insurance Providers Payer Name Payer Address Payer Phone Subscriber Number Group Number Insured Name Patient Relationship to Insured Coverage Start Date Coverage End Date [employer] [address] [address] [place], [place] [id number] Radha Poe Self - patient is the insured Medical (General) History Medical History History ICD Code Hypertension Anemia Surgical History Surgery Date(Month/Year) partial hysterectomy 2001 Hospitalization History Reason Date(Month/Year) chest pain april 2022
== END 2024-04-22 12:29 | disposition home or self-care (01) ==
DX: I26.99 Other pulmonary embolism without acute cor pulmonale (principal); Z68.43 Body mass index [BMI] 50.0-59.9, adult; E66.9 Obesity, unspecified; E78.00 Pure hypercholesterolemia, unspecified; I10 Essential (primary) hypertension; D64.9 Anemia, unspecified; G47.33 Obstructive sleep apnea (adult) (pediatric); F32.A Depression, unspecified; G93.2 Benign intracranial hypertension; M79.89 Other specified soft tissue disorders; R91.8 Other nonspecific abnormal finding of lung field; R00.0 Tachycardia, unspecified

== ENCOUNTER → 2024-04-22 13:13 | Outpatient (BNV) | payer MEDICARE, MEDICAID, SELFPAY | PROVIDERS: Visit Provider Radiology Diagnostic Radiology | DX: R60.0 Localized edema (principal); R91.8 Other nonspecific abnormal finding of lung field | CPT/HCPCS: 71046; 93971 ==

== ENCOUNTER → 2024-04-27 08:14 | Outpatient (BNVA) | payer MEDICARE, MEDICAID, SELFPAY | PROVIDERS: Visit Provider Surgery | DX: G47.33 Obstructive sleep apnea (adult) (pediatric) (principal); G93.2 Benign intracranial hypertension; G43.709 Chronic migraine without aura, not intractable, without status migrainosus; H53.8 Other visual disturbances; Z86.711 Personal history of pulmonary embolism; Z79.01 Long term (current) use of anticoagulants | CPT/HCPCS: 99202 ==

== ENCOUNTER 2024-04-27 10:37 | Outpatient (AMB) | payer MEDICARE, MEDICAID, SELFPAY ==
--- NOTE | 2024-04-27 10:39 | A.OFFVIS_ITS ---
Vital Signs 04/27/24 10:42 Height 5 ft 8.5 in Weight 345 lb BMI 51.7 Intake Visit Reasons: INP-Bening Intracranial hypertension Intake Note: referred in house [facility] for RAJEEV; intracranial HTN Allergies metformin Allergy (Intermediate, Verified 04/27/24 10:41) Hives morphine [MORPHINE] Allergy (Unknown, Verified 04/27/24 10:41) HIVES penicillin V Allergy (Unknown, Verified 04/27/24 10:41) Shortness of Breath Penicillins [PENICILLINS] Allergy (Unknown, Verified 04/27/24 10:41) SHORTNESS OF BREATH Medication List - Last Reconciled 04/27/24 by Stefany Hunter MD apixaban (Eliquis) 5 mg PO BID 90 days bupropion HCl XL 150 mg PO DAILY 90 days cholecalciferol (vitamin D3) 25 mcg PO DAILY ferrous sulfate 15 mg PO TID gabapentin 100 mg PO BEDTIME losartan-hydrochlorothiazide 100-25 mg 1 tab PO DAILY metoprolol succinate ER 25 mg PO DAILY topiramate 50 mg PO BEDTIME HPI Comments Details: 43y/o female with h/o Benign intracranial hypertension , obstructive sleep apnea comes for further management . [facility] [place] [facility] [facility] [place] was diagnose dwith Benign Intracranial hypertension 1 year when she wnet to ER for severe headaches. she was started acetazolamide - took it for 3 months and stopped. she saw an sap bw bi developer 1 year ago. Now she has occasional left blurry vision . she also has headaches almost everyday.She describes the headaches as pressure in her left eye frontotemporal region associated with photophobia. she takes motrin 800mg as need - upto 4 tabs a week and the headache scan last 1 week . she is also on Eliquis for blood clot in her Lungs. she was diagnosed with Obstructive sleep apnea - not on any treatment. AHI was 10 and oxygen maxi was 67% with average oxygen at 95% PFS Medical History (Updated 04/27/24 @ 11:28 by Stefany Hunter MD) Chronic migraine without aura Blurry vision depression Overactive bladder Iron deficiency Hypercholesterolemia Pulmonary embolism Deep vein thrombophlebitis of leg Obesity Hypertension Anxiety Anemia Surgical History H/O esophagogastroduodenoscopy History of colonoscopy Hx of dilation and curettage Hx of hysterectomy Family History Mother Breast cancer Hypertension Father Lung cancer Brother Hypertension Brother No problems noted. Sister Hypertension Sister History of partial hysterectomy Sister No problems noted. Sister No problems noted. Daughter No problems noted. Daughter No problems noted. Daughter No problems noted. Son No problems noted. Social History Housing: House Alcohol intake: current Alcohol intake frequency: holidays/special occasions only Alcohol type: wine Patient Tobacco Use Status: Never used Tobacco e-Cigarette/Vaping Use: Never Used Second Hand Smoke Exposure: No service: No Current occupational status: unemployed Cognitive needs: No Hearing needs: No Vision needs: No Physical Exam Vital Signs: BMI result Body Mass Index 51.7 Const General: cooperative and comfortable Nutritional Appearance: obese Orientation/consciousness: patient oriented x3 Eyes Pupils: Equal, round and reactive pupils present Neck Neck: Yes no meningeal signs Neuro Other: mild left eye ptosis General: patient oriented x3, gait normal, tone normal, moves all extremities, no meningeal signs and no focal motor deficits Cranial nerves: Yes Facial sensation intact/muscles of mastication intact, Yes Equal, round and reactive pupils present, Yes Bilaterally intact EOM present, Yes Nystagmus not present, Yes Normal facial strength present and Yes Midline tongue present Cognition (Neuro): normal cognition Gait exam (Neuro): Normal gait present Motor exam (neuro): 5/5 motor strength present throughout and Normal motor muscle tone present throughout Deep tendon reflexes (DTR's): Right triceps reflex intensity grade: 1+, Left triceps reflex intensity grade: 1+, Rt Biceps (C5, C6): 1+, Left biceps reflex intensity grade: 1+, Right brachioradialis reflex intensity grade: 1+, Left brachioradialis reflex intensity grade: 1+, Right patellar reflex intensity grade: 0 and Left patellar reflex intensity grade: 0 Coordination: [id number] test normal Assessment & Plan Assessment & Plan (1) Increased intracranial pressure: Code(s): G93.2 - Benign intracranial hypertension Category: Medical (2) Obstructive sleep apnea: Code(s): G47.33 - Obstructive sleep apnea (adult) (pediatric) Category: Medical (3) Chronic migraine without aura: Code(s): G43.709 - Chronic migraine without aura, not intractable, without status migrainosus Category: Medical Qualifiers: Status migrainosus presence: without status migrainosus Intractability: not intractable Qualified Code(s): G43.709 - Chronic migraine without aura, not intractable, without status migrainosus Plan MRI brain to r/o structural lesions - will schedule for LP to measure opening pressure after MRI I will trial her on topiramate 50mg qhs and magnesium 400mg qhs for headache prophylaxis Ophthal eval for Visual field testing and evaluate for signs of ICP Reviewed sleep study results. I will start her on AUtoPAP 5-20 cm of water and follow up to ensure compliance and therapy response. Orders: Orders MR head/brain wo con Today G93.2 - Benign intracranial hypertension, H53.8 - Other visual disturbances Referrals Ophthalmology Referral G93.2 - Benign intracranial hypertension Medications: New magnesium oxide 400 mg PO DAILY 30 tabs 6RF topiramate 50 mg PO BEDTIME 30 tabs 3RF lorazepam 0.5 mg orally 1 hr before MRI - can rpeat in 1 hr; 2 tabs 0RF anxiety Coding Level of Care Code New Pt Level 4 (97796) Complex EM visit Add On G2211 Diagnoses Increased intracranial pressure G93.2 Obstructive sleep apnea G47.33 Chronic migraine without aura without status migrainosus, not intractable G43.709 Status migrainosus presence: without status migrainosus Intractability: not intractable
[2024-04-27 10:42] VITALS: BMI 51.7
--- OUTSIDE RECORDS SUMMARY | 2024-04-27 12:35 | XMS_ITS | Clinical Summary ---
Author Organization [facility] Address [address] [place] [address] Care Team Providers Care Hourly Shift Manager Name Role Phone Alexis Miller DO Primary Care Provider [phone] Allergies Active Allergy Reactions Criticality Noted Date [...] Upcoming Encounters Date Type Department Care Team ([facility] st Contact Info) Description 08/02/2024 3:30 PM EDT Office Visit Bariatric Surgery - [place] [address] [place] [id number] Torey Bradford MD [address] [facility] [address] [place] [address] Health Maintenance Due Date Last Done Comments [...] * Annual BMP Blood Test (06/28/2011) Pathologist [facility] Annual BMP Blood Test abstracted [facility] Provider HEALTH MAINTENANCE Final Result * Hepatitis C Screening (06/09/2011) [facility] Hepatitis C Screening abstracted [facility] Provider HEALTH MAINTENANCE Final Result * (ABNORMAL) Lipid panel (02/06/2011) [facility] LDL/HDL Ratio 3 0 - 4 Triglycerides 92 0 - 150 mg/dL Cholesterol 187 0 - 200 mg/dL HDL 57 >=40 mg/dL LDL Cholesterol 112(A) 0 - 100 mg/dL Blood Venous blood specimen / Unknown [facility] Provider LAB BLOOD ORDERABLES Hanh l Result * HIV Screening (01/03/2011) [facility] HIV Screening abstracted [facility] Provider HEALTH MAINTENANCE Final Result * Pap Smear (01/03/2011) [facility] Pap smear no interpretation abstracted [facility] Provider HEALTH MAINTENANCE Final Result from Last 3 Months or Most Recently Relevant to Health Maintenance Insurance [place]ICAID - [place] [facility] MEDICARE ADVANTAGE on file Care Teams Hourly Shift Manager Relationship Specialty Start Date End Date Alexis Miller DO [address] [place] [phone] PCP - General 06/06/13
== END 2024-04-27 11:08 | disposition home or self-care (01) ==
PROVIDERS: Visit Provider Psychiatry & Neurology Neurology
DX: G93.2 Benign intracranial hypertension (principal); G47.33 Obstructive sleep apnea (adult) (pediatric); G43.709 Chronic migraine without aura, not intractable, without status migrainosus
CPT/HCPCS: 99204; G2211

== ENCOUNTER → 2024-04-29 14:00 | Outpatient (BNV) | payer MEDICARE, MEDICAID, SELFPAY | PROVIDERS: Visit Provider Nurse Practitioner Family | DX: D64.9 Anemia, unspecified (principal) | CPT/HCPCS: 99203 ==

== ENCOUNTER → 2024-05-01 18:36 | Outpatient (BNV) | payer OTHER, MEDICAID, SELFPAY | PROVIDERS: Visit Provider Radiology Diagnostic Radiology | DX: G93.2 Benign intracranial hypertension (principal) | CPT/HCPCS: 70551 ==

== ENCOUNTER 2024-05-01 18:47 | Outpatient (REF) | payer OTHER, MEDICAID, SELFPAY ==
--- NOTE | ~2024-05-01 | MR_ITS ---
EXAMINATION: MR BRAIN WITHOUT CONTRAST CLINICAL INFORMATION: Benign intracranial hypertension. COMPARISON: None available. TECHNIQUE: MRI of the brain was obtained using routine sequences without contrast. FINDINGS: Intrasellar CSF prominence. There is mild increased tortuosity of the optic nerves with a prominence of the CSF envelopes without flattening of the posterior globe contour at the optic nerves discs. No restricted diffusion. No acute intracranial hemorrhage, mass effect, midline shift, hydrocephalus or herniation. Salazar-white matter differentiation is normal. Posterior cranial fossa contents demonstrated no acute brain abnormality. No gross intracranial mass. Flow-void signal within the main cerebral vessels is normal. The craniocervical junction is intact. MR/MR head/brain wo con IMPRESSION: Findings may correspond to benign intracranial hypertension in the correct clinical settings. Electronically signed by: Maxime Tucker MD 05/02/2024 07:44 AM EDT
--- OUTSIDE RECORDS SUMMARY | 2024-05-01 18:49 | XMS_ITS | Clinical Summary ---
Author Organization [facility] Address [address] [place] [address] Care Team Providers Care Instant Printer Operator Name Role Phone Alexis Miller DO Primary Care Provider [phone] Allergies Active Allergy Reactions Criticality Noted Date [...] Upcoming Encounters Date Type Department Care Team ([facility] st Contact Info) Description 08/02/2024 3:30 PM EDT Office Visit Bariatric Surgery - [place] [address] [facility] [address] [place] [phone] Torey Bradford MD [address] [facility] [address] [place] [address] Health Maintenance Due Date Last Done Comments [...] BMP Blood Test (06/28/2011) Pathologist [facility] Annual BMP Blood Test abstracted [facility] Provider HEALTH MAINTENANCE Final Result * Hepatitis C Screening (06/09/2011) [facility] Hepatitis C Screening abstracted [facility] Provider HEALTH MAINTENANCE Final Result * (ABNORMAL) Lipid panel (02/06/2011) [facility] LDL/HDL Ratio 3 0 - 4 Triglycerides 92 0 - 150 mg/dL Cholesterol 187 0 - 200 mg/dL HDL 57 >=40 mg/dL LDL Cholesterol 112(A) 0 - 100 mg/dL Blood Venous blood specimen / Unknown [facility] Provider LAB BLOOD ORDERABLES Hanh l Result * HIV Screening (01/03/2011) [facility] HIV Screening abstracted [facility] Provider HEALTH MAINTENANCE Final Result * Pap Smear (01/03/2011) [facility] Pap smear no interpretation abstracted [facility] Provider HEALTH MAINTENANCE Final Result from Last 3 Months or Most Recently Relevant to Health Maintenance Insurance [place] - [place] [facility] MEDICARE ADVANTAGE on file Care Teams Instant Printer Operator Relationship Specialty Start Date End Date Alexis Miller DO [address] [place] [phone] PCP - General 06/06/13
--- OUTSIDE RECORDS SUMMARY | 2024-05-01 18:49 | XMS_ITS ---
Author Organization [facility] Address [address] [place], [place] [phone] Care Team Providers Care Estate Manager Name Role Phone Usama Garcia M.D. Primary Care Provider Avina REPTILE FARMER-C, Suzy Unavailable REASON FOR VISIT rx change. wegovy not covered Encounters Encounter Location Date Provider Diagnosis [facility] [address] [place], [place] [phone] 11/16/2023 Usama Garcia Plan Of Treatment No Information Progress Notes * Nayana ARENSAOB: 2 (42 yo F)Acc No.[id number]:11/16/2023 Patient:?Radha ARENAS :1980???Age:42 Y???Sex:Female Address:[address] [place] [address], [address] * true * Date:? Generated for Printi ng/Faxing/eTransmitting on:?05/01/2024 06:49 PM EDT
--- OUTSIDE RECORDS SUMMARY | 2024-05-01 18:50 | XMS_ITS | Data Portability ---
Author Organization [place] - Dr Haley turpin, [facility] - Address [address] [place] [address] Assessment No assessment recorded. Plan of Treatment Reminders Order Date Submit Date Provider Last Modified By Organization Details Last Modified Time Details Appointments None recorded. Lab urinalysis, dipstick 2023 024 [email or web address] 4 Haley Barajas MD, [address] [place], [address], 4 12:09:17 culture, urine 2023 024 [place] [facility] ([facility]), [address], [place], [address], 4 02:03:36 bacterial vaginosis + vaginitis panel, vaginal 2023 024 [place] [facility] ([facility]), [address], [place], [address], 4 12:50:57 lipid panel, serum 2023 024 [place] [facility] ([facility]), [address], [place], [address], 4 17:14:03 CMP, serum or plasma 2023 024 [place] [facility] ([facility]), [address], [place], [address], 4 17:14:04 hereditary breast + gynecologic cancer multigene analysis, blood or tissue 2023 024 [email or web address] [facility], [address], [place], [address], 4 14:52:14 T4, free, serum 2023 024 [place] [facility]), [address], [place], [address], 4 17:14:06 TSH, serum or plasma 2023 024 [place] [facility]), [address], [place], [address], 4 17:14:06 HIV (1+2) Ab screen, serum 2023 024 [place] [facility] ([facility]), [address], [place], [address], 4 17:14:05 RPR (rapid plasma reagin), serum 2023 024 [facility]), [address], [place], [address], 4 17:14:08 HBsAg (hepatitis B surface Ag), serum 2023 024 [facility] ([facility]), [address], [place], [address], 4 17:14:07 CT + NG DNA, PCR, unspecified specimen 2023 024 [email or web address] [facility] -[facility] ([facility]), [address], [place], [address], 4 14:52:14 hepatitis C virus Ab, serum 2023 024 [facility] -[facility] ([facility]), [address], [place], [address], 4 17:14:07 CBC 2023 024 [facility] -[facility] ([facility]), [address], [place], [address], 4 17:14:04 HbA1c (hemoglobin A1c), blood 2023 024 [facility] ([facility]), [address], [place], [address], 4 17:14:05 lipid panel, serum 2022 023 [facility] ([facility]), [address], [place], [address], 3 10:56:57 CMP, serum or plasma 2022 023 [facility] ([facility]), [address], [place], [address], 3 10:56:59 TSH, serum or plasma 2022 023 [facility] ([facility]), [address], [place], [address], 3 10:57:00 T4, free, serum 2022 023 [facility] ([facility]), [address], [place], [address], 3 10:57:00 pap, LB 2022 023 [facility] ([facility]), [address], [place], [address], 3 15:29:20 genetic screen, unspecified specimen 2022 023 [facility], [address], [address], [place], [address], 3 15:01:20 CT + NG DNA, PCR, unspecified specimen 2022 023 [facility] ([facility]), [address], [place], [address], 3 15:29:21 RPR (rapid plasma reagin), serum 2022 023 [facility] ([facility]), [address], [place], [address], 3 10:57:03 HIV (1+2) Ab screen, serum 2022 023 [facility] ([facility]), [address], [place], [address], 3 10:57:01 HBsAg (hepatitis B surface Ag), serum 2022 023 [facility] ([facility]), [address], [place], [address], 3 10:57:02 hepatitis C virus Ab, serum 2022 023 [facility] ([facility]), [address], [place], [address], 3 10:57:02 HbA1c (hemoglobin A1c), blood 2022 023 [facility]), [address], [place], [address], 3 10:56:59 CBC 2022 023 [facility] ([facility]), [address], [place], [address], 3 10:56:58 Referral None recorded. Procedures None recorded. Surgeries None recorded. Imaging US, pelvis, complete 2023 024 [email or web address] Not available 4 11:50:01 MAMMO, screening, digital, bilateral 2023 024 [place] [facility], [address], [place], [address], 4 14:04:49 MAMMO, screening, digital, bilateral 2022 023 [email or web address] [facility], [address], [place], [address], 3 15:08:06 Medication Orders None recorded. Patient TargetsNo targets recorded. Patient Instructions Encounter Date Encounter Id Patient Instructions Last Modified By Organization Details Last Modified Time 07/09/2022 [id number] Pap collected. Labwork ordered. Mammo ordered. Instructed to RTO in 2 days for weight loss consultation [email or web address] Not available 07/09/2022 11:51:15 10/05/2023 [id number] Recommend 5 servings of fruits and vegetables [...] year for annual Notify office as needed [email or web address] Not available 10/05/2023 11:01:02 Strongly encouraged pt to go back to provider managing BP meds so that she can have meds for HTN adjusted. PC labs today & referred to [facility] for new provider that takes her insurance. 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 [email or web address] Not available 10/05/2023 12:10:18 10/13/2023 [id number] Ultrasound reviewed by Dr. Cortes Agree with [...] -[facility] ([facility]) [address] [facility] [address], [place], [address], 07/10/2022 10:56:57 07/10/1907/10/2022 LIPID PANEL triglyceride s 151 mg/dL <150 high Not Available Path oup -[facility] ([facility]) [facility] [address], [place], [address], 07/10/2022 10:56:57 07/10/19 23 07/10/2022 LIPID PANEL HDL cholesterol 59 mg/dL >39 Not Available Path group [facility] ([facility]) [address] [place] [address] Dr [address], [place], [address], 07/10/2022 10:56:57 07/10/19 23 07/10/2022 LIPID PANEL cholesterol / HDL ratio 3.42 ratio 0.00-4 .44 Not Available [facility] ([facility]) [address] [place] [address] Dr [address], [place], [address], 07/10/2022 10:56:57 07/10/19 23 07/10/2022 LIPID PANEL non-HDL cholesterol 143 mg/dL <130 high Not Available [facility] ([facility]) [address] [place] [address] Dr [address], [place], [address], 07/10/2022 10:56:57 07/10/19 23 07/10/2022 LIPID PANEL [...] 2004 ATPII I guide lines Not Available [facility] ([facility]) [facility] [address], [place], [address], 07/10/2022 10:56:57 07/10/19 23 07/10/2022 LIPID PANEL LDL/HDL ratio 1.9 ratio <3.3 ___ LDL Fany stero l Patie nt Histo ry ___ Test Date: 07/09 LDL Resul ts: 113 Units : mg/dL % Silva e: - ___ Not Available [facility] -[facility] ([facility]) [address] [place] [address] Dr [address] [facility], [place], [address], 07/10/2022 10:56:57 07/10/19 23 07/10/2022 CBC WITH PLATE LET NO DIFFE RENTI AL WBC 6.5 K/uL 3.8-11 .5 Not Available [facility] ([facility]) [address] [place] [address] Dr Marie [facility], [place], [address], 07/10/2022 10:56:58 07/10/19 23 07/10/2022 CBC WITH PLATE LET NO DIFFE RENTI AL red blood cell count (RBC) 4.28 M/mm3 3.60-5 .30 Not Available [facility] ([facility]) [address] [place] [address] Dr [address], [place], [address], 07/10/2022 10:56:58 07/10/19 23 07/10/2022 CBC WITH PLATE LET NO DIFFE RENTI AL hemoglobin (HGB) 11.9 gm/dL 11.5-1 5.5 Not Available [facility] ([facility]) [address] [place] [address] Dr [address], [place], [address], 07/10/2022 10:56:58 07/10/19 23 07/10/2022 CBC WITH PLATE LET NO DIFFE RENTI AL hematocrit (HCT) 36.1 % 35.2-4 6.4 Not Available [facility] ([facility]) [address] [place] [address] Dr [address], [place], [address], 07/10/2022 10:56:58 07/10/19 23 07/10/2022 CBC WITH PLATE LET NO DIFFE RENTI AL MCV 84.3 fL 79.0-9 9.0 Not Available [facility] ([facility]) [address] [place] [address] Dr [address], [place], [address], 07/10/2022 10:56:58 07/10/19 23 07/10/2022 CBC WITH PLATE LET NO DIFFE RENTI AL MCH 27.8 pg 26.9-3 5.0 Not Available [facility] ([facility]) [address] [place] [address] Dr [address], [place], [address], 07/10/2022 10:56:58 07/10/19 23 07/10/2022 CBC WITH PLATE LET NO DIFFE RENTI AL MCHC 33.0 g/dL 30.4-3 4.8 Not Available [facility] ([facility]) [address] [place] [address] Dr [address], [place], [address], 07/10/2022 10:56:58 07/10/19 23 07/10/2022 CBC WITH PLATE LET NO DIFFE RENTI AL RDW 44.8 fL 38.6-5 3.8 Not Available [facility] ([facility]) [address] [place] [address] Dr [address], [place], [address], 07/10/2022 10:56:58 07/10/19 23 07/10/2022 CBC WITH PLATE LET NO DIFFE RENTI AL platelet count 337 K/cum m 137-39 7 Not Available [facility] ([facility]) [address] [place] [address] Dr [address], [place], [address], 07/10/2022 10:56:58 07/10/19 23 07/10/2022 COMPR EHENS JESENIA METAB OLIC PANEL (CMP) sodium 137 mEq/L 135-14 5 Not Available [facility] ([facility]) [address] [place] [address] Dr [address], [place], [address], 07/10/2022 10:56:59 07/10/19 23 07/10/2022 COMPR EHENS JESENIA METAB OLIC PANEL (CMP) potassium 4.2 mEq/L 3.5-5. 3 Not Available [facility] ([facility]) [address] [place] [address] Dr [address], [place], [address], 07/10/2022 10:56:59 07/10/19 23 07/10/2022 COMPR EHENS JESENIA METAB OLIC PANEL (CMP) chloride 100 mEq/L 97-108 Not Available [facility] ([facility]) [address] [place] [address] Dr [address], [place], [address], 07/10/2022 10:56:59 07/10/19 23 07/10/2022 COMPR EHENS JESENIA METAB OLIC PANEL (CMP) CO2 30 mEq/L 22-32 Not Available [facility] ([facility]) [address] [place] [address] Dr [address], [place], [address], 07/10/2022 10:56:59 07/10/19 23 07/10/2022 COMPR EHENS JESENIA METAB OLIC PANEL (CMP) glucose 100 mg/dL 65-99 high Not Available [facility] ([facility]) [address] [place] [address] Dr [address], [place], [address], 07/10/2022 10:56:59 07/10/19 23 07/10/2022 COMPR EHENS JESENIA METAB OLIC PANEL (CMP) BUN 10 mg/dL 6-20 Not Available [facility] ([facility]) [address] [place] [address] Dr [address], [place], [address], 07/10/2022 10:56:59 07/10/19 23 07/10/2022 COMPR EHENS JESENIA METAB OLIC PANEL (CMP) creatinine 0.82 mg/dL 0.50-1 .00 Not Available [facility] ([facility]) [address] [place] [address] Dr [address], [place], [address], 07/10/2022 10:56:59 07/10/19 23 07/10/2022 COMPR EHENS JESENIA METAB OLIC PANEL (CMP) calcium 9.3 mg/dL 8.6-10 .4 Not Available [facility] ([facility]) [address] [place] [address] Dr [address], [place], [address], 07/10/2022 10:56:59 07/10/19 23 07/10/2022 COMPR EHENS JESENIA METAB OLIC PANEL (CMP) protein 7.8 g/dL 6.0-8. 3 Not Available [facility] ([facility]) [address] [place] [address] Dr [address], [place], [address], 07/10/2022 10:56:59 07/10/19 23 07/10/2022 COMPR EHENS JESENIA METAB OLIC PANEL (CMP) albumin 4.1 g/dL 3.5-5. 3 Not Available [facility] ([facility]) [address] [place] [address] Dr [address], [place], [address], 07/10/2022 10:56:59 07/10/19 23 07/10/2022 COMPR EHENS JESENIA METAB OLIC PANEL (CMP) alkaline phosphatase 141 IU/L 35-121 high Not Available Path group -[facility] ([facility]) [address] [place] [address] Dr [address], [place], [address], 07/10/2022 10:56:59 07/10/19 23 07/10/2022 COMPR EHENS JESENIA METAB OLIC PANEL (CMP) ALT (SGPT) 16 IU/L <5-47 Not Available Patho up -[facility] ([facility]) [address] [place] [address] Dr [address], [place], [address], 07/10/2022 10:56:59 07/10/19 23 07/10/2022 COMPR EHENS JESENIA METAB OLIC PANEL (CMP) AST (SGOT) 14 IU/L <5-40 Not Available Patho -[facility] ([facility]) [address] [place] [address] Dr [address], [place], [address], 07/10/2022 10:56:59 07/10/19 23 07/10/2022 COMPR EHENS JESENIA METAB OLIC PANEL (CMP) bilirubin, total 0.3 mg/dL <0.2-1 .2 Not Available [facility] ([facility]) [address] [place] [address] Dr [address], [place], [address], 07/10/2022 10:56:59 07/10/19 23 07/10/2022 COMPR EHENS JESENIA METAB OLIC PANEL (CMP) A/G ratio 1.1 mg/dL 1.1-2. 5 Not Available [facility] ([facility]) [address] [place] [address] Dr [address], [place], [address], 07/10/2022 10:56:59 07/10/19 23 07/10/2022 COMPR EHENS JESENIA METAB OLIC PANEL (CMP) estimated GFR (black) 103 mL/mi n/1.7 3m2 >59 Not Available [facility] ([facility]) [address] [facility] [address], [place], [address], 07/10/2022 10:56:59 07/10/19 23 07/10/2022 COMPR EHENS [...] e mass or diet. Not Available [facility] -[facility] ([facility] [employer]) [facility] [address], [place], [address], 07/10/2022 10:56:59 07/10/19 23 07/10/2022 HEMOG LOBIN [...] <5.7% Non-D iabet ic Not Available [facility] -[facility] ([facility]) [address] [place] [address] Dr [address], [place], [address], 07/10/2022 10:56:59 07/10/19 23 07/10/2022 HEMOG LOBIN A1C estimated average glucose 123 mg/dL [place] ge Gluco se is calcu lated using the equat ion AG = (28.7 x HgbA1 c) - 46.7 based on the guide lines estab nicolas brunson by the ADA. Not Available [facility] ([facility]) [address] [place] [address] Dr [address], [place], [address], 07/10/2022 10:56:59 07/10/19 23 07/10/2022 TSH TSH 2.74 mU/L 0.43-5 .25 Not Available [facility] ([facility]) [address] [place] [address] Dr [address], [place], [address], 07/10/2022 10:57:00 07/10/19 23 07/10/2022 THYRO XINE FREE (FREE T4) thyroxine free (free T4) 1.04 NG/dL 0.86-1 .76 Not Available [facility] ([facility]) [address] [place] [address] Dr [address], [place], [address], 07/10/2022 10:57:00 07/10/19 23 07/10/2022 HIV 1/2 AB SCREE N W/P24 AG HIV 1/2 Ab screen w/p24ag Nonrea ctive nonrea ctive Not Available [facility] ([facility]) [address] [place] [address] Dr [address], [place], [address], 07/10/2022 10:57:01 07/10/19 23 07/10/2022 HEPAT ITIS B SURFA CE ANTIG EN (HBSA G) hepatitis B surface antigen (HBsAg) Nonrea ctive nonrea ctive Not Available [facility] ([facility]) [address] [place] [address] Dr [address], [place], [address], 07/10/2022 10:57:02 07/10/19 23 07/10/2022 HEPAT ITIS C ANTIB FARAZ (HCV) IGG hepatitis C antibody (HCV) IgG Nonrea ctive nonrea ctive Not Available [facility]) [address] [facility] [address], [place], [address], 07/10/2022 10:57:02 07/10/19 23 07/10/2022 RPR (NON- TREPO NEMAL ) REFLE X TO CONFI RMATI ON RPR (non-trepone mal) reflex to confirmation Nonrea ctive nonrea ctive Not Available [facility] ([facility]) [address] [facility] [address], [place], [address], 07/10/2022 10:57:03 07/10/19 23 07/11/2022 PAP TEST [...] [facility] i[facility] logis [email or web address], [facility], d/b/a PathG rou, [address] [place] [address] Richar Wallace MD, Labor [facility]. Case revie wed and diagn osis rende red at [facility], d/b/a Path[facility], [address] [place] [address] Richar Wallace MD, Labor [facility]. CONFI DENTI AL Not Available [facility] ([facility]) [address] [place] [address] Dr [address], [place], [address], 07/11/2022 15:29:20 07/10/19 23 07/10/2022 CHLAM YDIA, [...] perfo rmed by [facility] [email or web address] d/b/a Path[facility] rou, [address], [place] [address] , Daniel Ramos ra, DO, Labor [facility], CLIA# [id number] Not Available [facility] ([facility]) [address] [place] [address], [place], [address], 07/11/2022 15:29:21 07/10/19 23 07/10/2022 CHLAM YDIA, [...] logis ts, LLC d/b/a [place], [address] [facility] [address], [place] [address] , Daniel Ramos ra, DO, Labor atory [facility], [facility]# [id number] Not Available [facility]group -[facility] ([facility]) [address] [facility] [address], [place], [address], 07/11/2022 15:29:21 07/10/19 23 07/10/2022 CHLAM YDIA, [...] perfo rmed by [facility] [email or web address], [facility] d/b/a Heike irene, [address] [facility] [address], [place] [address] , aDniel Ramos ra, DO, Labor atory [facility], CLIA# [id number] Not Available [facility] ([facility]) [facility] [address], [place], [address], 07/11/2022 15:29:21 07/10/19 23 07/10/2022 HPV HIGH [...] and labor atory findi ngs. See https ://[employer]/s moose/ lyla lt/fi les/2 018-0 3/AW- 38065 _002_ 01.pd f for fur er infor matio n. Test perfo rmed by [facility] [email or web address], [employer], d/b/a [place], [address] [facility] [address], [place] [address] , Daniel Ramos ra, DO, Labor atory [facility]. Not Available [facility] ([facility]) [facility] [address], [place], [address], 07/11/2022 15:29:22 07/10/19 23 07/09/2022 EMPOW ER report summary VUS normal Negat jesenia for 53 out of 53 genes . A varia nt of uncer tain signi fican ce (VUS) was detec xiomara in the MLH1 gene( s). A VUS means that a islva e in the DNA was detec xiomara, but there is not enoug h infor matio n to deter mine [facility] er or not the silva e incre [...] ozygo us varia nt of [facility] luna yeboah ce (VUS) was detec xiomara in the MLH1 gene as tabul ated above . Not Available [facility] [address] [facility] [address], [place], [address], 07/21/2022 15:13:25 07/10/19 23 07/09/2022 EMPOW ER footnotes See Notes CLIA: ID #[id number] 2 Test perfo rmed by [facility]. [address] [facility] [address] [place] [address] Arielle Stephens, Ph.D. , [facility] , Labor atory Direc tor Not Available [facility] [address], [place], [address], 07/21/2022 15:13:25 10/05/19 24 10/06/2023 LIPID PANEL cholesterol 207 mg/dL <200 high Not Available [facility] ([facility]) [address] [facility] [address], [place], [address], 10/06/2023 17:14:03 10/05/19 24 10/06/2023 LIPID PANEL triglyceride s 126 mg/dL <150 Not Available [facility] ([facility]) [address] [facility] [address], [place], [address], 10/06/2023 17:14:03 10/05/19 24 10/06/2023 LIPID PANEL HDL cholesterol 54 mg/dL >39 Not Available Path [facility] ([facility]) [facility] [address], [place], [address], 10/06/2023 17:14:03 10/05/19 24 10/06/2023 LIPID PANEL cholesterol / HDL ratio 3.83 ratio 0.00-4 .44 Not Available [facility] ([facility]) [address] [place] [address] Dr [address], [place], [address], 10/06/2023 17:14:03 10/05/19 24 10/06/2023 LIPID PANEL non-HDL cholesterol 153 mg/dL <130 high Not Available [facility] ([facility]) [address] [place] [address] Dr [address], [place], [address], 10/06/2023 17:14:03 10/05/19 24 10/06/2023 LIPID PANEL [...] 2004 ATPII I guide lines Not Available [facility] ([facility]) [facility] [address], [place], [address], 10/06/2023 17:14:03 10/05/19 24 10/06/2023 LIPID PANEL [...] Silva e: +13% ___ Not Available [facility] ([facility]) [facility] [place] [address], [place], [address], 10/06/2023 17:14:03 10/05/1910/06/2023 CBC WITH PLATE LET NO DIFFE RENTI AL WBC 7.4 K/uL 3.8-11 .5 Not Available [facility] ([facility]) [address] [facility] [address], [place], [address], 10/06/2023 17:14:04 10/05/19 24 10/06/2023 CBC WITH PLATE LET NO DIFFE RENTI AL red blood cell count (RBC) 4.33 M/mm3 3.60-5 .30 Not Available [facility] ([facility]) [address] [place] [address] Dr [address], [place], [address], 10/06/2023 17:14:04 10/05/19 24 10/06/2023 CBC WITH PLATE LET NO DIFFE RENTI AL hemoglobin (HGB) 12.0 gm/dL 11.5-1 5.5 Not Available [facility] ([facility]) [address] [place] [address] Dr [address], [place], [address], 10/06/2023 17:14:04 10/05/19 24 10/06/2023 CBC WITH PLATE LET NO DIFFE RENTI AL hematocrit (HCT) 37.3 % 35.2-4 6.4 Not Available [facility] ([facility]) [address] [place] [address] Dr [address], [place], [address], 10/06/2023 17:14:04 10/05/19 24 10/06/2023 CBC WITH PLATE LET NO DIFFE RENTI AL MCV 86.1 fL 79.0-9 9.0 Not Available [facility] ([facility]) [address] [place] [address] Dr [address], [place], [address], 10/06/2023 17:14:04 10/05/19 24 10/06/2023 CBC WITH PLATE LET NO DIFFE RENTI AL MCH 27.7 pg 26.9-3 5.0 Not Available [facility] ([facility]) [address] [place] [address] Dr [address], [place], [address], 10/06/2023 17:14:04 10/05/19 24 10/06/2023 CBC WITH PLATE LET NO DIFFE RENTI AL MCHC 32.2 g/dL 30.4-3 4.8 Not Available [facility] ([facility]) [address] [place] [address] Dr [address], [place], [address], 10/06/2023 17:14:04 10/05/19 24 10/06/2023 CBC WITH PLATE LET NO DIFFE RENTI AL RDW 44.3 fL 38.6-5 3.8 Not Available [facility] ([facility]) [address] [place] [address] Dr [address], [place], [address], 10/06/2023 17:14:04 10/05/19 24 10/06/2023 CBC WITH PLATE LET NO DIFFE RENTI AL platelet count 324 K/cum m 137-39 7 Not Available [facility] ([facility]) [address] [place] [address] Dr [address], [place], [address], 10/06/2023 17:14:04 10/05/19 24 10/06/2023 COMPR EHENS JESENIA METAB OLIC PANEL (CMP) sodium 138 mmol/ L 135-14 5 Not Available [facility] ([facility]) [address] [place] [address] Dr [address], [place], [address], 10/06/2023 17:14:04 10/05/19 24 10/06/2023 COMPR EHENS JESENIA METAB OLIC PANEL (CMP) potassium 4.4 mmol/ L 3.5-5. 3 Not Available [facility] ([facility]) [address] [place] [address] Dr [address], [place], [address], 10/06/2023 17:14:04 10/05/19 24 10/06/2023 COMPR EHENS JESENIA METAB OLIC PANEL (CMP) chloride 101 mmol/ L 97-108 Not Available [facility] ([facility]) [address] [place] [address] Dr [address], [place], [address], 10/06/2023 17:14:04 10/05/19 24 10/06/2023 COMPR EHENS JESENIA METAB OLIC PANEL (CMP) CO2 27 mmol/ L 22-32 Not Available [facility] ([facility]) [address] [place] [address] Dr [address], [place], [address], 10/06/2023 17:14:04 10/05/19 24 10/06/2023 COMPR EHENS JESENIA METAB OLIC PANEL (CMP) glucose 99 mg/dL 65-99 Not Available [facility] ([facility]) [address] [place] [address], [place], [address], 10/06/2023 17:14:04 10/05/19 24 10/06/2023 COMPR EHENS JESENIA METAB OLIC PANEL (CMP) BUN 11 mg/dL 6-20 Not Available [facility] ([facility]) [address] [place] [address], [place], [address], 10/06/2023 17:14:04 10/05/19 24 10/06/2023 COMPR EHENS JESENIA METAB OLIC PANEL (CMP) creatinine 1.04 mg/dL 0.50-1 .00 high Not Available [facility] ([facility]) [address] [place] [address], [place], [address], 10/06/2023 17:14:04 10/05/19 24 10/06/2023 COMPR EHENS JESENIA METAB OLIC PANEL (CMP) calcium 9.1 mg/dL 8.6-10 .4 Not Available [facility] ([facility]) [address] [place] [address], [place], [address], 10/06/2023 17:14:04 10/05/19 24 10/06/2023 COMPR EHENS JESENIA METAB OLIC PANEL (CMP) eGFR by creatinine 69 mL/mi n/1.7 3m2 >59 Not Available [facility] ([facility]) [address] [place] [address], [place], [address], 10/06/2023 17:14:04 10/05/19 24 10/06/2023 COMPR EHENS JESENIA METAB OLIC PANEL (CMP) protein 7.5 g/dL 6.0-8. 3 Not Available [facility] ([facility]) [address] [place] [address] Dr [address], [place], [address], 10/06/2023 17:14:04 10/05/19 24 10/06/2023 COMPR EHENS JESENIA METAB OLIC PANEL (CMP) albumin 4.1 g/dL 3.5-5. 3 Not Available [facility] ([facility]) [address] [place] [address] Dr [address], [place], [address], 10/06/2023 17:14:04 10/05/19 24 10/06/2023 COMPR EHENS JESENIA METAB OLIC PANEL (CMP) alkaline phosphatase 131 IU/L 35-121 high Not Available Path group -[facility] ([facility]) [address] [place] [address] Dr [address], [place], [address], 10/06/2023 17:14:04 10/05/19 24 10/06/2023 COMPR EHENS JESENIA METAB OLIC PANEL (CMP) ALT (SGPT) 11 IU/L <5-47 Not Available [facility] ([facility]) [address] [place] [address] Dr [address], [place], [address], 10/06/2023 17:14:04 10/05/19 24 10/06/2023 COMPR EHENS JESENIA METAB OLIC PANEL (CMP) AST (SGOT) 14 IU/L <5-40 Not Available [facility] ([facility]) [address] [place] [address] Dr [address], [place], [address], 10/06/2023 17:14:04 10/05/19 24 10/06/2023 COMPR EHENS JESENIA METAB OLIC PANEL (CMP) bilirubin, total 0.2 mg/dL <0.2-1 .2 Not Available [facility] ([facility]) [facility] [address] [address], [place], [address], 10/06/2023 17:14:04 10/05/19 24 10/06/2023 COMPR EHENS JESENIA METAB OLIC PANEL (CMP) A/G ratio 1.2 1.1-2. 5 Not Available [facility] ([facility]) [address] [facility] [address], [place], [address], 10/06/2023 17:14:04 10/05/19 24 10/06/2023 HIV 1/2 AB SCREE N W/P24 AG HIV 1/2 Ab screen w/p24ag Nonrea ctive nonrea ctive Not Available [facility] ([facility]) [address] [place] [address] Dr [address], [place], [address], 10/06/2023 17:14:05 10/05/19 24 10/06/2023 HEMOG LOBIN [...] ic <5.7% Non-D iabet ic Not Available [facility] ([facility]) [facility] [address], [place], [address], 10/06/2023 17:14:05 10/05/19 24 10/06/2023 HEMOG LOBIN A1C estimated average glucose 125 mg/dL [place] ge Gluco se is calcu lated using the equat ion AG = (28.7 x HgbA1 c) - 46.7 based on the guide lines estab lishe d by the ADA. Not Available [facility] ([facility]) [facility] [address], [place], [address], 10/06/2023 17:14:05 10/05/19 24 10/06/2023 TSH TSH 1.77 mU/L 0.43-5 .25 Not Available [facility] [address] [place] [address] Dr [address], [place], [address], 10/06/2023 17:14:06 10/05/19 24 10/06/2023 THYRO XINE FREE (FREE T4) thyroxine free (free T4) 1.06 NG/dL 0.86-1 .76 Not Available [facility]) [address] [place] [address] Dr [address], [place], [address], 10/06/2023 17:14:06 10/05/19 24 10/06/2023 HEPAT ITIS B SURFA CE ANTIG EN (HBSA G) hepatitis B surface antigen (HBsAg) Nonrea ctive nonrea ctive Not Available [facility] [address] [place] [address] Dr [address], [place], [address], 10/06/2023 17:14:07 10/05/19 24 10/06/2023 HEPAT ITIS C ANTIB FARAZ (HCV) IGG hepatitis C antibody (HCV) IgG Nonrea ctive nonrea ctive Not Available [facility] ([facility]) [address] [place] [address] Dr [address], [place], [address], 10/06/2023 17:14:07 10/05/19 24 10/06/2023 RPR (NON- [...] is clini darlin suspe cted. Not Available [facility]) [address] [facility] [address], [place], [address], 10/06/2023 17:14:07 10/05/19 24 10/07/2023 CULTU RE, URINE specimen source Urine - Void Not Available [facility] ([facility]) [address] [facility] [address], [place], [address], 10/07/2023 02:03:33 10/05/19 24 10/07/2023 CULTU RE, URINE culture, urine See Below Final Repor t : No growt h Not Available [facility] ([facility]) [address] [facility] [address], [place], [address], 10/07/2023 02:03:33 10/05/19 24 10/06/2023 VAGIN ITIS [...] Patho logis ts, LLC, d/b/a [place], [facility] [address], [place] [address] , Daniel Ramos ra, DO, Labor atory [...] chelo resul ts of Pamela l or Henniker xiomara are deter mined by calcu latin [...] e nakul cteri stics deter mined by [employer], [employer] d/b/a PathG rouberenice. It has not been clear ed or appro edel by the U.S. Food and Drug Admin istra tion. The FDA has deter mined that such clear ance or appro juan carlos is not neces ivana. Perti nent refer ence inter vals are avail able from the labor atory on reque st. Test( s) perfo rmed by [facility] [employer] ts, [employer], d/b/a Path[facility] roup, [address] [place] [address] , Daniel Ramos ra, DO, Labor atory Direc tor. Not Available [facility] ([facility]) [address] [facility] [address], [place], [address], 10/07/2023 12:50:56 10/05/19 24 10/07/2023 VAGIN ITIS [...] logis ts, LLC, d/b/a PathG rou, [address], [place] [address] , Daniel Ramos ra, DO, Labor atory [...] chelo resul ts of Pamela l or Henniker xiomara are deter mined by calcu latin [...] e nakul cteri stics deter mined by [employer], [employer] d/b/a Path [employer]. It has not been clear ed or appro edel by the U.S. Food and Drug Admin istra tion. The FDA has deter mined that such clear ance or appro juan carlos is not neces ivana. Perti nent refer ence inter vals are avail able from the [facility] [place] atory on reque st. Test( s) perfo rmed by [employer], [employer], d/b/a [facility] [employer], [address] [facility] [address], [place] [address] , Daniel Ramos ra, DO, Labor atory Dire tor. Not Available [facility] ([facility]) [address] [facility] [address], [place], [address], 10/07/2023 12:50:56 10/05/19 24 10/07/2023 VAGIN ITIS [...] [address]pa [address], [facility] [place] [address] , Daniel Ramos ra, DO, Labor atory [...] chelo resul ts of Pamela l or Henniker xiomara are deter mined by calcu latin [...] e nakul cteri stics deter mined by [employer] iated Patho logis ts, LLC d/b/a PathG [...] logis ts, LLC, d/b/a PathG roup, [address], [place] [address] , Daniel Rmaos ra, , Labor atory Direc tor. Not Available [facility] ([facility]) [address], [place], [address], 10/07/2023 12:50:56 10/05/19 24 10/06/2023 CHLAM YDIA [...] [address], [place] [address] , Daniel Ramos ra, DO, Labor atory Direc tor, CLIA# [id number] Not Available [facility] ([facility]) [address], [place], [address], 10/07/2023 12:50:58 10/05/19 24 10/06/2023 CHLAM YDIA [...] logis ts, LLC d/b/a PathKike bonilla, [address] [facility] [address], [place] [address] , Daniel Ramos ra, DO, Labor atory [facility], CLIA# [id number] Not Available [facility] ([facility]) [address] [facility] [address], [place], [address], 10/07/2023 12:50:58 10/05/19 24 10/05/2023 EMPOW ER MULTI -CANC ER,EX P(2+5 1) report summary OTHER normal Test Not Perfo rmed Dupli marichuy test. Empow er 53 panel previ ously resul xiomara under 03 Test was not perfo rmed. Refer to speci fic detai ls below . Not Available [facility] [address], [place], [address], 10/28/2023 21:34:33 10/05/19 24 10/05/2023 EMPOW ER MULTI -CANC ER,EX P(2+5 1) footnotes See Notes CLIA: ID #[id number] 2 Test perfo rmed by [employer]. [address] [facility] [address] [place] [address] Arielle Stephens, Ph.D. , [facility] , Labor atory Direc tor Not Available [facility] [address], [place], [address], 10/28/2023 21:34:33 10/05/19 24 10/05/2023 urina lysis , dipst ick Leukocytes neg Not Available Haley Barajas MD [address] [place] [address], [address], 10/05/2023 11:05:11 10/05/19 24 10/05/2023 urina lysis , dipst ick Nitrite negati ve Not Available Haley Barajas MD [facility] [place], [address], 10/05/2023 11:05:11 10/05/19 24 10/05/2023 urina lysis , dipst ick Protein +++ Not Available Haley Barajas MD [facility] [place], [address], 10/05/2023 11:05:11 10/05/19 24 10/05/2023 urina lysis , dipst ick Blood neg Not Available Haley Barajas MD [facility] [place], [address], 10/05/2023 11:05:11 10/05/19 24 10/05/2023 urina lysis , dipst ick Ketone neg Not Available Haley Barajas MD [facility] [place], [address], 10/05/2023 11:05:11 10/05/19 24 10/05/2023 urina lysis , dipst ick Glucose neg Not Available Haley Barajas MD [facility] [place], [address], 10/05/2023 11:05:11 10/05/19 24 10/05/2023 urina lysis , dipst ick Color yellow Not Available Haley Barajas MD [address] [place], [address], 10/05/2023 11:05:11 10/13/19 24 10/13/2023 US, pelvi s, compl ete No observ ation record ed. [email or web address] Not Available 2023 15:05:21 10/15/19 24 10/09/2023 MAMMO , scree sylvia, digit al, bilat eral No observ ation record ed. [facility] [address], [place], [address], 10/15/2023 15:47:00 Result Notes None recorded. Procedures Surgical History Date Name Laterality Status Provider Name and Address Organization Details Recorded Time 10/13/19 24 Pelvic Transvaginal Non-OB completed Kristy Cortes MD [address] [facility], [place], [address], [facility] - Dr Haley Barajas 10/17/2023 21:54:12 07/10/19 23 Date of Last Pap Smear completed Ellen Armstrong CNM [address] [facility],[address], [place], [address], [place] - Dr Haley Barajas 10/05/2023 10:34:00 02/23/19 19 Date of Last Mammogram completed Zuly Turner [place] - Dr Haley Barajas 07/09/2022 09:40:31 Imaging Results Imaging Date Name Status LastModified by Organiz ation Details LastModified Time 10/13/2023 US, pelvis, complete completed [email or web address] Information not available 10/13/2023 15:05:21 10/09/2023 MAMMO, screening, digital, bilateral completed [facility] [address], [place], [address], 10/15/2023 15:47:00 Procedure Notes None recorded. Medical Equipment None Reported. Allergies Allergen ID Allergen Name Allergen Category Reaction Reaction Severity Criticality Documentation Date Start Date Code Code System Note Provider Name and Address Organization Details Recorded Time 7656 morphine medicatio n hives Not available Not available 07/09/2022 7052 RxNorm Kristy Cortes MD [address] [facility],[place], [address], [facility] - Dr Haley Barajas 3 09:59:42 7657 Product containin g penicilli n (product) medicatio n hives Not available Not available 07/09/2022 95451 8001 SNOMED Kristy Cortes MD [address] [facility],[place], [address], [facility] - Dr Haley Barajas 3 10:00:00 Medications [...] Updated DateTime 07/09/2022 175.26 cm 51.8 kg/m2 449641.2 g 130 mm[Hg] 80 mm[Hg] Zuly Barajas 3 09:48:27 Date Recorded Body height Body mass index (BMI) Body weight Systolic blood pressure Diastolic blood pressure Provider Name and Address Organization Details Last Updated DateTime 10/05/2023 175.26 cm 51.1 kg/m2 234115.2 4 g 150 mm[Hg] 100 mm[Hg] Ismael Barajas 4 10:55:27 Social History Question Answer Notes LastModified by Organizat ion Details LastModified Time Are You Blind Or Do You Have Difficulty Seeing? No [email or web address] Information not available 07/09/2022 In The 14 Days Before Symptom Onset, Have You Had Close Contact With A Laboratory-confirme d COVID-19 While That Case Was Ill? No [email or web address] Information n ot available 07/09/2022 In The 14 Days Before Symptom Onset, Have You Had Close Contact With A Person Who Is Under Investigation For COVID-19 While That Person Was Ill? No [email or web address] Information not available 07/09/2022 Have You Been To An Area Known To Be High Risk For COVID-19? No [email or web address] Information not available 07/09/2022 Are You Deaf Or Do You Have Serious Difficulty Hearing? No [email or web address] Information not available 07/09/2022 What Type Of Diet Are You Following? REGULAR [email or web address] Information n ot available 07/09/2022 Sex: Unknown Functional Status Question Answer Note LastModified by Organizat ion Details LastModified Time Do you have difficulty walking or climbing stairs? No Information not available 07/09/2022 Do you have transportation difficulties? No [email or web address] Information not available 07/09/2022 Do you have difficulty doing errands alone? No [email or web address] Information not available 07/09/2022 Are you able to care for yourself? Yes [email or web address] Information not available 07/09/2022 Do you have difficulty dressing or bathing? No [email or web address] Information not available 07/09/2022 What is your exercise level? None [email or web address] Information not available 07/09/2022 Mental Status Question Answer Note LastModified by Organization D etails LastModified Time Do you have difficulty concentrating, remembering or making decisions? No Information no t available 07/09/2022 Family History [...] SNOMED-CT Code Diagnosis ICD10 Code Diagnosis Note 76734 Kristy Cortes MD [facility] Elmer christensen DIRECTOR OF INFORMATICS [address] [facility] [place]ANI DAVIES [address] 07/09/2022 09:30:13 07/09/2022 10:34:01 Gynecologic examination 00916088 Z01.419 Anemia screening 0026441 07 Z13.0 Diabetes m ellitus screening 337697080 Z13.1 Endocrine/ metabolic screening 042365465 Z13.228 Hyperlipid emia screening 103631718 Z13.220 Venereal d isease screening 534970688 Z11.3 Screening mammography 24 433099 Z12.31 Family his tory of breast cancer 229027843 Z80.3 Morbid obesity 899230989 E66.01 Recommende d weight loss consultati on Family his tory of malignant neoplasm 863384390 Z80.9 872918 Ellen Armstrong CNM [facility] Elmer christensen DIRECTOR OF INFORMATICS [address] [facility] [place] [address] 10/05/2023 09:58:50 10/05/2023 11:50:01 Gynecologic examination 65460772 Z01.419 Venereal d isease screening 718901784 Z11.3 Anemia screening 8373394 07 Z13.0 Diabetes m ellitus screening 456374468 Z13.1 Thyroid di sorder screening 632906699 Z13.29 Hyperlipid emia screening 126918542 Z13.220 Abnormal v aginal bleeding 848784985 N93.9 Screening mammography of bilateral breasts 6942454247 59811 Z12.31 [id number] Kristy Cortes MD [facility] Elmer christensen DIRECTOR OF INFORMATICS [address] [facility] [place] [address] 10/13/2023 14:26:02 10/13/2023 15:00:40 Abnormal vaginal bleeding 985295216 N93.8 Health Concerns Section Related Observation LastModified by Organization Detai ls LastModified Time None Recorded Concern Status LastModified by Organization Details LastModified Time None Recorded Advance Directives Directive None Recorded Payers Encounter Date Sequence Insurance Name Policy Number Policy Novoa Covered Member ID Novoa Member ID Guarantor Name 07/09/2022 1 [employer] - OPEN ACCESS - NATIONAL (POS) Radha Poe [id number] Radha Poe 10/05/2023 1 [employer] - OPEN ACCESS - NATIONAL (POS) Radha Poe [id number] Radha Poe 10/13/2023 1 [employer] (MEDICARE REPLACEMENT/A DVANTAGE - PPO) Radha Poe [id number] Radha Poe Notes Date Note Type Note [...] anxiety; No PMDD Kristy Cortes MD [address] [facility],[place], [address], [facility] Dr Haley Barajas 07/09/2022 14:44:55 10/05/2023 text/html 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
--- OUTSIDE RECORDS SUMMARY | 2024-05-01 18:50 | XMS_ITS ---
Author Organization [facility] Address [address] [place], [place] [id number] Care Team Providers Care Boiler Room Helper Name Role Phone Usama Garcia M.D. [facility], Suzy Unavailable REASON FOR VISIT question Encounters Encounter Location Date Provider Diagnosis [facility] [address] [place], [place] [phone] 02/08/2024 Usama Garcia Plan Of Treatment No Information Progress Notes * Nayana ARENASOB: 2 (43 yo F)Acc No.[id number]:02/08/2024 Patient:?Radha ARENAS :1980???Age:43 Y???Sex:Female Address:[address] [place] [address], [address] * true * Date:? Generated for Printi ng/Faberthag/eTransmitting on:?05/01/2024 06:49 PM EDT
--- OUTSIDE RECORDS SUMMARY | 2024-05-01 18:50 | XMS_ITS | Patient Health Record ---
Author Organization [facility] Address [address] [place] [address] Care Team Providers Care Research Advisor Name Role Phone GIULIA MILAN Unavailable [phone] Yu Serrano Unavailable [phone] REASON FOR REFERRAL No Information Encounters Encounter Location Date Provider Diagnosis [facility] [address] [address] [place] [address] 03/10/2024 Yu Serrano PLAN OF TREATMENT No Information Insurance Providers Payer Name Payer Address Payer Phone Subscriber Number Group Number Insured Name Patient Relationship to Insured Coverage Start Date Coverage End Date [employer] [address] [address] [place] [address] [id number] Radha Poe Self - patient is the insured
--- OUTSIDE RECORDS SUMMARY | 2024-05-01 18:50 | XMS_ITS ---
Author Organization [facility] Address [address] [place] [address] Care Team Providers Care Paper Ruler Name Role Phone GIULIA MILAN Unavailable [phone] ZachYu Unavailable [phone] REASON FOR VISIT discuss weight loss options Encounters Encounter Location Date Provider Diagnosis [facility] [address] [facility] [address] [place] [address] 03/10/2024 Yu Serrano PLAN OF TREATMENT No Information Progress Notes * Nayana ARENASOB: 2 (43 yo F)Acc No.[id number]:03/10/2024 Progress Notes Patient:??Radha ARENAS Provider:??JET Berger :1980?Age:43 Y?Sex:Fe male Date:03/10/2024 Address:[address] [place], [place] [id number] Subjective: * Chief Complaints: * ?1. Discuss weight loss options. * Medical History:?? Objective: Assessment: Plan: * Treatment: * Billing Information: * Visit Code:?? * Procedure Codes:?? * Sign off status: Pending * Provider:??JET Berger Date:??
--- OUTSIDE RECORDS SUMMARY | 2024-05-01 18:50 | XMS_ITS | Patient Health Record ---
Author Organization [facility] Address [address] [place], [place] [phone] Care Team Providers Care Rn Endoscopy Name Role Phone Usama Garcia M.D. Primary Care Provider Fabrice CERTIFIED NEURODIAGNOSTIC TECHNOLOGIST-C, Suzy Unavailable [phone] Nitish CERTIFIED NEURODIAGNOSTIC TECHNOLOGIST-CDory Unavailable Allergies Allergen (clinical drug ingredient) Drug/Non Drug Allergy documented on EMR Reaction Allergy Type Onset Date Status morphine Morphine Unknown Drug Allergy Active Penicillin hives Drug Allergy active Reason For Referral Reason Evaluate and treat Diagnosis 1 Acute pulmonary embo lism without acute cor pulmonale, unspecified pulmonary embolism type (I26.99) Referral Organization [facility] Referring Provider First Name Dory [...] acetaZOLAMIDE 250 MG TAKE 1 TABLET BY [facility] TWICE DAILY Oral for 8 [...] Problem Status W/U Status Risk Notes Problem 151702342 Morbid obesity (E66.01) Active confirmed Problem 163595171 Mixed hyperlipidemia (E78.2) Active confirmed Problem 53720981 Sleep apnea, unspecified type (G47.30) Active confirmed Problem 73897343 Hyperlipidemia, unspecified hyperlipidemia type (E78.5) Active confirmed Problem 51120902 Hypertension, unspecified type (I10) Active confirmed Vital Signs Temperature 97.6 degrees Fahrenheit 11/05/2023 Respiratory Rate 16 /min 07/10/2023 Blood pressure diastolic 116 mm Hg 11/05/2023 Oximetry 99 11/05/2023 Height 69 in 11/05/2023 Blood pressure systolic 158 mm Hg 11/05/2023 Weight 348 lbs 11/05/2023 BMI 51.39 11/05/2023 Encounters Encounter Location Date Provider Diagnosis [facility] [address] [place] [address] [place] [id number] 07/10/2023 Dory Small Hypertension, unspecified type I10 ; Idiopathic intracranial hypertension G93.2 ; Hospital discharge follow-up Z09 and Acute pulmonary embolism without acute cor pulmonale, unspecified pulmonary embolism type I26.99 [facility] [address] [place] [address] [place] [id number] 11/05/2023 Suzy Avina Prediabetes R73.03 ; Mixed hyperlipidemia E78.2 and Morbid obesity E66.01 [facility] [address] [place] [address] [address] [place], [place] [id number] 05/20/2023 Usama Garcia [facility] [address] [place] [address] [address] [place], [place] [id number] 06/19/2023 Usama Garcia [facility] [address] [place], [place] [id number] 06/23/2023 [facility] [address] [place], [place] [id number] 11/06/2023 [facility] [address] [place], [place] [id number] 11/08/2023 [facility] [address] [place], [place] [id number] 11/08/2023 [facility] [address] [place] [id number] 11/12/2023 [facility] [address] [place], [place] [id number] 11/16/2023 [facility] [address] [place], [place] [id number] 02/08/2024 [facility] [address] [place], [place] [id number] 06/18/[facility] [address] [place] [id number] 07/21/[address] [facility] [address] [place] [id number] 07/21/[address] [facility] [address] [place] [id number] 07/21/[facility] [address] [place], [place] [id number] 11/06/2023 Suzyghazal Avina Assessments Encounter Date Diagnosis [...] (ICD-10 - I26.99) Dx on 07/03 in [place]. Pt was not admitted and was d'/c [...] Coverage End Date [employer] [address] [address] [place], [place] [phone] [id number] Radha Poe Self - patient is the insured Medical (General) History Medical History History ICD Code Hypertension Anemia Surgical History Surgery Date(Month/Year) partial hysterectomy 2001 Hospitalization History Reason Date(Month/Year) chest pain april 2022
== END 2024-05-01 18:48 | disposition home or self-care (01) ==
LOC: HO.MRI 18:47
PROVIDERS: Visit Provider Psychiatry & Neurology Neurology
DX: G93.2 Benign intracranial hypertension (principal); H53.8 Other visual disturbances
CPT/HCPCS: 70551

== ENCOUNTER 2024-05-02 15:00 | Outpatient (AMB) | payer OTHER, MEDICAID, SELFPAY ==
[2024-05-02 15:03] VITALS: BP 142/86; PULSE 96; O2SAT 98; BMI 52.1
--- NOTE | 2024-05-02 15:03 | MHC.PC.OV ---
Vital Signs 05/02/24 15:03 Height 5 ft 9 in Weight 353 lb BMI 52.1 BP 142/86 H Blood Pressure Location Lt brachial Position Sitting Pulse 96 Pulse Source Pulse Oximeter Pulse Oximetry (%) 98 Oxygen Delivery Method Room Air Intake Visit Reasons: labs follow up [employer] Required: No Accompanied by: Self / Same As Patient Allergies metformin Allergy (Intermediate, Verified 05/02/24 15:04) Hives morphine [MORPHINE] Allergy (Unknown, Verified 05/02/24 15:04) HIVES penicillin V Allergy (Unknown, Verified 05/02/24 15:04) Shortness of Breath Penicillins [PENICILLINS] Allergy (Unknown, Verified 05/02/24 15:04) SHORTNESS OF BREATH Medication List - Last Reconciled 05/02/24 by ALLYSON Mcfarland-Joanna apixaban (Eliquis) 5 mg PO BID 90 days bupropion HCl XL 150 mg PO DAILY cholecalciferol (vitamin D3) 25 mcg PO DAILY ferrous sulfate 15 mg PO TID gabapentin 100 mg PO BEDTIME lorazepam 0.5 mg orally 1 hr before MRI - can rpeat in 1 hr; losartan-hydrochlorothiazide 100-25 mg 1 tab PO DAILY magnesium oxide 400 mg PO DAILY metoprolol succinate ER 25 mg PO DAILY topiramate 50 mg PO BEDTIME Tobacco use date assessed: 05/02/24 Dental Screening Dental Screen Date: 05/02/24 Did you have a dental visit in the last 12 months?: Yes Did you have a dental problem in the last 6 months where you did not have access to dental care?: No Was dental information given to patient?: Patient has dentist HPI labs follow up HPI Details 43-year-old female with past medical history of obstructive sleep apnea, anemia, hypertension, hypercholesterolemia, obesity, recurrent pulmonary embolism, depression, increase intracranial pressure, ground-glass opacity on lung image and migraine last seen 03/2024. In review of the notes, patient was seen by Neurology 04/27/2024 ordered for MRI brain and lumbar puncture, started on topiramate and magnesium for headache prophylaxis and referred to Ophthalmology. Patient was also started on auto PAP 5-20 cm of water and advised to follow up. Presenting with ongoing symptoms associated with intracranial hypertension, migraines, and tooth infection. Recent evaluation involved neurology consultation leading to the initiation of topiramate for migraine management, yet symptoms persist with episodes of lightheadedness. The patient experienced significant facial swelling, attributed to an infected tooth after dental evaluation, managed with course of clindamycin. Concerns regarding follow-up for definitive dental procedures remain unaddressed. She continues to have facial pain around the tooth and has been on antibiotics for two days. She does mention the pain and swelling has been improving. MRI suggests potential idiopathic intracranial hypertension, but further diagnostics, including lumbar puncture, are pending. Historical anemia and pre-diabetes inform ongoing monitoring. Current cholesterol levels require management despite earlier elevated readings. [facility] Medical History Chronic migraine without aura Blurry vision depression Overactive bladder Iron deficiency Hypercholesterolemia Pulmonary embolism Deep vein thrombophlebitis of leg Obesity Hypertension Anxiety Anemia Surgical History H/O esophagogastroduodenoscopy History of colonoscopy Hx of dilation and curettage Hx of hysterectomy Family History Mother Breast cancer Hypertension Father Lung cancer Brother Hypertension Brother No problems noted. Sister Hypertension Sister History of partial hysterectomy Sister No problems noted. Sister No problems noted. Daughter No problems noted. Daughter No problems noted. Daughter No problems noted. Son No problems noted. Social History Housing: House Alcohol intake: current Alcohol intake frequency: holidays/special occasions only Alcohol type: wine Patient Tobacco Use Status: Never used Tobacco e-Cigarette/Vaping Use: Never Used Second Hand Smoke Exposure: No service: No Current occupational status: unemployed Cognitive needs: No Hearing needs: No Vision needs: No Questionnaire PHQ-9 Over the last 2 weeks, how often have you been bothered by any of the following problems? 1. Little interest or pleasure in doing things: more than half the days 2. Feeling down, depressed, or hopeless: more than half the days 3. Trouble falling or staying asleep, or sleeping too much: more than half the days 4. Feeling tired or having little energy: more than half the days 5. Poor appetite or overeating: more than half the days 6. Feeling bad about yourself - or that you are a failure or have let yourself or your family down: not at all 7. Trouble concentrating on things, such as reading the newspaper or watching television: several days 8. Moving or speaking so slowly that other people could have noticed. Or the opposite - being so fidgety or restless that you have been moving around a lot more than usual: several days 9. Thoughts that you would be better off or of hurting yourself in some way: not at all Total score: 12 Depression Screening Interpretation: Positive (referral placed for counseling) Depression Screening Follow-up: Existing condition and In treatment Depression Screening Done: Yes Source: Developed by Drs. Marco A Davis, Laura Aviles, Ariel Krishnamurthy and colleagues, with an educational mele from [employer]. Thrive Questionnaire Date Thrive assessed: 05/02/24 I am a: Patient What is your living situation today?: I have a steady place to live Within the past 12 months, did the food you bought not last and you didn't have the money to get more?: Sometimes True Within the past 12 months, did you worry whether your food would run out before you got money to buy more?: Sometimes True Do you have trouble paying for medicines?: I choose not to answer this question Do you have trouble getting transportation to medical appointments?: Yes Do you have trouble paying your heating and electricity bill?: I choose not to answer this question Do you have trouble taking care of your child, family member or friend?: No Do you have trouble with day-to-day activities such as bathing, preparing meals, shopping, managing finances, etc.?: I choose not to answer this question Are you currently unemployed and looking for a job?: No Are you interested in more education?: Yes Please select the resources that you would like help with: Education Currently or been in a relationship where the following occur: No concerns reported THRIVE Score: 3 AUDIT C Alcohol Use Questionnaire (AUDIT-C) 1. How often do you have a drink containing alcohol?: Monthly or less 2. How many drinks containing alcohol do you have on a typical day when you are drinking?: 1 or 2 3. How often do you have six or more drinks on one occasion?: Never Total Score: 1 SAMANTHA-7 AMB Questionnaire SAMANTHA-7 Date SAMANTHA - 7 assessed: 05/02/24 Feeling nervous, anxious, or on edge: 2 = More than half the days Not being able to stop or control worryin = More than half the days Worrying too much about different things: 2 = More than half the days Trouble relaxin = More than half the days Being so restless that it is hard to sit still: 1 = Several days Becoming easily annoyed or irritable: 0 = Not at all Feeling afraid as if something awful might happen: 1 = Several days Total SAMANTHA-7 score (0-4 normal; 5-9 mild; 10-14 moderate; 15-21 severe): 10 Source: Developed by Drs. Marco A Davis, Laura Aviles, Ariel Krishnamurthy and colleagues, with an educational mele from [employer]. Review of Systems Const Denies body aches, Denies chills, Denies fever(s), Denies headache(s) and Denies poor appetite Eyes Reports no additional complaints ENT Denies dysphagia, Denies dizziness, Denies headache(s) and Denies odynophagia Card Denies chest pain, Denies syncope, Denies edema, Denies irregular heart rhythm, Denies lightheadedness, Denies dyspnea and Reports dyspnea on exertion Resp Denies cough, Denies dyspnea and Reports dyspnea on exertion GI Denies abdominal pain, Denies constipation, Denies dysphagia, Denies diarrhea, Denies nausea, Denies odynophagia and Denies vomiting Reports no additional complaints Musc Reports no additional complaints and Denies abnormal gait Skin/Breast Reports system reviewed and no additional complaints, except as documented Neuro Denies abnormal gait, Denies dizziness, Denies syncope and Denies headache(s) Psych Reports no additional complaints Physical exam (Primary Care) Vital Signs: Last Vital Signs Pulse 96 05/02/24 15:03 BP 142/86 H 05/02/24 15:03 Pulse Ox 98 05/02/24 15:03 Oxygen Delivery Method Room Air 05/02/24 15:03 BMI result Body Mass Index 52.1 Tobacco/Smoking Status: Tobacco use Status Tobacco use date assessed 05/02/24 05/02/24 15:12 Patient Tobacco Use Status Never used Tobacco 05/02/24 15:12 e-Cigarette/Vaping Use Never Used 05/02/24 15:12 PHQ-9: PHQ-9 Score PHQ-9: Total score 12 05/02/24 15:58 Depression Screening Interpretation: Positive (referral placed for counseling) Depression Screening Follow-up: Existing condition and In treatment Thrive Assessment: Date of Thrive Assessment Date Thrive assessed 05/02/24 05/02/24 15:12 Currently or been in a relationship where the following occur: No concerns reported Const General: cooperative, healthy appearing, comfortable and no acute distress Orientation/consciousness: patient oriented x3 HENMT Other: No lymphadeopathy and no swelling in the jaw area. mild tenderness to palpation over the left side of the jaw Head: Yes normocephalic Ears: hearing grossly normal bilaterally General nose exam: Normal external nose present Eyes General: appearance normal, both eyes and all related structures Conjunctivae: conjunctivae normal Neck Neck: Yes full ROM and Yes no lymphadenopathy Resp Effort & Inspection: normal respiratory effort Auscultation: clear to auscultation bilaterally, no crackles, no rales, no rhonchi and no wheezes Cardio Rate: regular rate Rhythm: regular rhythm Skin General skin exam: no rashes or lesions noted Neuro General: patient oriented x3 Gait exam (Neuro): Normal gait present Extrem General: Yes normal to inspection, Yes full ROM and No edema Psych Affect: normal affect Attitude: cooperative Insight: Good insight present (Psych) Judgement: Good judgement present (Psych) Coding Level of Care Code Est Pt Level 4 (04803) Diagnoses Chronic migraine without aura without status migrainosus, not intractable G43.709 Intractability: not intractable Status migrainosus presence: without status migrainosus Ground glass opacity present on imaging of lung R91.8 Increased intracranial pressure G93.2 Recurrent pulmonary embolism I26.99 Obesity E66.9 Hypercholesterolemia E78.00 Hypertension I10 Obstructive sleep apnea G47.33 Anemia D64.9 Bilateral knee pain M25.561; M25.562 Shortness of breath R06.02 Toothache K08.89 Assessment & Plan Assessment & Plan (1) Chronic migraine without aura: Code(s): G43.709 - Chronic migraine without aura, not intractable, without status migrainosus Category: Medical Qualifiers: Intractability: not intractable Status migrainosus presence: without status migrainosus Qualified Code(s): G43.709 - Chronic migraine without aura, not intractable, without status migrainosus Plan: Patient is seeing Neurology recently started on topiramate 50 mg at bedtime for management of her migraines. The plan includes continuing topiramate while monitoring for any exacerbation of symptoms and ensuring adequate follow-up with the neurologist, particularly in light of potential idiopathic intracranial hypertension findings from the MRI. (2) Ground glass opacity present on imaging of lung: Code(s): R91.8 - Other nonspecific abnormal finding of lung field Category: Medical Plan: Pulmonology referral was placed at last visit she does not have anything scheduled at this time. (3) Increased intracranial pressure: Code(s): G93.2 - Benign intracranial hypertension Category: Medical Plan: She is currently following with Neurology for this concern. They ordered for MRI with lumbar puncture to follow and she will have appointment with them following this testing. (4) Recurrent pulmonary embolism: Code(s): I26.99 - Other pulmonary embolism without acute cor pulmonale Category: Medical Plan: Currently following with Hematology for this concern. On apixaban twice daily (5) Obesity: Code(s): E66.9 - Obesity, unspecified Category: Medical Plan: Healthy diet and regular exercise is encouraged. (6) Hypercholesterolemia: Code(s): E78.00 - Pure hypercholesterolemia, unspecified Category: Medical Plan: Avoid foods that are high in cholesterol such as red meat, fried foods, eggs and baked goods. Triglyceride goal of less than 150 and LDL goal of less than 130. Continue on __ (7) Hypertension: Code(s): I10 - Essential (primary) hypertension Category: Medical Plan: Continue on current blood pressure medication. Avoid salt intake and encourage healthy diet and regular exercise. (8) Obstructive sleep apnea: Comment: auto PAP 5-20 cm Code(s): G47.33 - Obstructive sleep apnea (adult) (pediatric) Category: Medical Plan: PAtient was started on auto PAP 5-20 cm of water by Neurology and we will follow up with their office in the next few weeks. (9) Anemia: Code(s): D64.9 - Anemia, unspecified Category: Medical Plan: Continue to monitor the CBC. Referred to Hematology in his undergoing evaluation at this time. (10) Bilateral knee pain: Code(s): M25.561 - Pain in right knee; M25.562 - Pain in left knee Category: Medical Plan: Patient complaining of bilateral knee pain, ordered for XR for further evaluation. Tylenol as needed for pain. (11) Shortness of breath: Code(s): R06.02 - Shortness of breath Category: Medical Plan: Patient complaining of shortness of breath with exertion. Likely related to recent pulmonary embolism however will order for stress test for further evaluation, echo has been ordered and is scheduled. Referral placed to pulmonology at last visit and has yet to be scheduled. (12) Toothache: Code(s): K08.89 - Other specified disorders of teeth and supporting structures Category: Medical Plan: Patient was seen by her Dentist (Masterson Coleman) and given Clindamycin for her tooth infection. Initially she was unable to swallow pills so liquid formulation was given. She has seen improvement in the swallowing, pain and swelling and has been on the anitbiotic for two days and will need to complete the 10 day course. Advised to continue on the antibiotics and follow up with dentist. Reviewed with patient red flag symptoms and when to present for re-evaluation. Plan This note was constructed using voice recognition software. While every effort has been made to ensure accuracy and pathology supervisor, still areas may have been included sometimes these areas may affect the content or meeting of the given symptoms. Total time spent caring for the patient today was 20 minutes. This includes time spent before the visit reviewing the chart, time spent during the visit, and time spent after the visit and documentation. Patient was informed and verbally consented to the use of an ambient scribe for clinic note documentation during this visit. Orders: Orders CA stress test 05/02/24 R06.02 - Shortness of breath B Type Natriuretic Peptide 05/02/24 R06.02 - Shortness of breath XR knee LT 2V 05/02/24 M25.561 - Pain in right knee, M25.562 - Pain in left knee XR knee RT 2V 05/02/24 M25.561 - Pain in right knee, M25.562 - Pain in left knee
--- OUTSIDE RECORDS SUMMARY | 2024-05-02 17:11 | XMS_ITS ---
Author Organization [facility] Address [address] [place], [place] [id number] Care Team Providers Care Vice President For Instruction Name Role Phone Usama Garcia M.D. Primary Care Provider Avina RAILROAD TRACK INSPECTOR-C, Suzy Unavailable REASON FOR VISIT rx change. wegovy not covered Encounters Encounter Location Date Provider Diagnosis [facility] [address] [place], [place] [phone] 11/16/2023 Usama Garcia Plan Of Treatment No Information Progress Notes * Nayana ARENASOB: 2 (42 yo F)Acc No.[id number]:11/16/2023 Patient:?Radha ARENAS :1980???Age:42 Y???Sex:Female Address:[address] [place] [address], [address] * true * Date:? Generated for Printi ng/Faxing/eTransmitting on:?05/02/2024 05:11 PM EDT
--- OUTSIDE RECORDS SUMMARY | 2024-05-02 17:11 | XMS_ITS | Clinical Summary ---
Author Organization [facility] Address [address] [place] [address] Care Team Providers Care Field Artillery Fire Control Man Name Role Phone Alexis Miller DO Primary Care Provider [phone] Allergies Active Allergy Reactions Criticality Noted Date [...] Upcoming Encounters Date Type Department Care Team ([facility] st Contact Info) Description 08/02/2024 3:30 PM EDT Office Visit Bariatric Surgery - [place] [address] [place] [id number] Torey Bradford MD [address] [place] [address] Health Maintenance Due Date Last Done Comments [...] BMP Blood Test (06/28/2011) Pathologist [facility] Annual BMP Blood Test abstracted [facility] Provider HEALTH MAINTENANCE Final Result * Hepatitis C Screening (06/09/2011) [facility] Hepatitis C Screening abstracted [facility] Provider HEALTH MAINTENANCE Final Result * (ABNORMAL) Lipid panel (02/06/2011) [facility] LDL/HDL Ratio 3 0 - 4 Triglycerides 92 0 - 150 mg/dL Cholesterol 187 0 - 200 mg/dL HDL 57 >=40 mg/dL LDL Cholesterol 112(A) 0 - 100 mg/dL Blood Venous blood specimen / Unknown [facility] Provider LAB BLOOD ORDERABLES Hanh l Result * HIV Screening (01/03/2011) [facility] HIV Screening abstracted [facility] Provider HEALTH MAINTENANCE Final Result * Pap Smear (01/03/2011) [facility] Pap smear no interpretation abstracted [facility] Provider HEALTH MAINTENANCE Final Result from Last 3 Months or Most Recently Relevant to Health Maintenance Insurance [place]ICA[place] - [place] [facility] MEDICARE ADVANTAGE on file Care Teams Field Artillery Fire Control Man Relationship Specialty Start Date End Date Alexis Miller DO [address] [place] [phone] PCP - General 06/06/13
--- OUTSIDE RECORDS SUMMARY | 2024-05-02 17:11 | XMS_ITS ---
Author Organization [facility] Address [address] [place], [place] [phone] Care Team Providers Care Hopper Feeder Name Role Phone Usama Garcia M.D. [facility] Suzy Unavailable REASON FOR VISIT Add Info Encounters Encounter Location Date Provider Diagnosis [facility] [address] [place], [place] [phone] 11/12/2023 Usama Garcia Plan Of Treatment No Information Progress Notes * Nayana ARENASOB: 2 (42 yo F)Acc No.[id number]:11/12/2023 Patient:?Radha ARENAS :1980???Age:42 Y???Sex:Female Address:[address] [place] [address], [address] * true * Date:? Generated for Printi ng/Faxing/eTransmitting on:?05/02/2024 05:11 PM EDT
--- OUTSIDE RECORDS SUMMARY | 2024-05-02 17:12 | XMS_ITS ---
Author Organization [facility] Address [address] [place], [place] [id number] Care Team Providers Care Supervisor Hand Workers Name Role Phone Usama Garcia M.D. [facility] Suzy Unavailable REASON FOR VISIT question Encounters Encounter Location Date Provider Diagnosis [facility] [address] [place], [place] [phone] 02/08/2024 Usama Garcia Plan Of Treatment No Information Progress Notes * Nayana ARENASOB: 2 (43 yo F)Acc No.[id number]:02/08/2024 Patient:?Radha ARENAS :1980???Age:43 Y???Sex:Female Address:[address] [place] [address], [address] * true * Date:? Generated for Printi ng/Faberthag/eTransmitting on:?05/02/2024 05:11 PM EDT
--- OUTSIDE RECORDS SUMMARY | 2024-05-02 17:12 | XMS_ITS | Patient Health Record ---
Author Organization [facility] Address [address] [place] [address] Care Team Providers Care Spiral Machine Operator Name Role Phone GIULIA MILAN Unavailable [phone] Yu Serrano Unavailable [phone] REASON FOR REFERRAL No Information Encounters Encounter Location Date Provider Diagnosis [facility] [address] [place] [address] 03/10/2024 Yu Serrano PLAN OF TREATMENT No Information Insurance Providers Payer Name Payer Address Payer Phone Subscriber Number Group Number Insured Name Patient Relationship to Insured Coverage Start Date Coverage End Date [employer] [address] [address] [place] [phone] [id number] Radha Poe Self - patient is the insured
--- OUTSIDE RECORDS SUMMARY | 2024-05-02 17:12 | XMS_ITS ---
Author Organization [facility] Address [address] [place] [address] Care Team Providers Care Kiln Car Repairer Name Role Phone GIULIA MILAN Unavailable [phone] ZachYu Unavailable [phone] REASON FOR VISIT discuss weight loss options Encounters Encounter Location Date Provider Diagnosis [facility] [address] [place] [address] 03/10/2024 Yu Serrano PLAN OF TREATMENT No Information Progress Notes * Nayana ARENASOB: 2 (43 yo F)Acc No.[id number]:03/10/2024 Progress Notes Patient:??Radha ARENAS Provider:??JET Berger :1980?Age:43 Y?Sex:Fe male Date:03/10/2024 Address:[address] [place], [place] [id number] Subjective: * Chief Complaints: * ?1. Discuss weight loss options. * Medical History:?? Objective: Assessment: Plan: * Treatment: * Billing Information: * Visit Code:?? * Procedure Codes:?? * Sign off status: Pending * Provider:??JET Berger Date:??
--- OUTSIDE RECORDS SUMMARY | 2024-05-02 17:12 | XMS_ITS | Patient Health Record ---
Author Organization [facility] Address [address] [place], [place] [phone] Care Team Providers Care Air Chief Marshal Name Role Phone Usama Garcia M.D. Primary Care Provider Fabrice TRIM TECHNICIAN-C, Suzy Unavailable [phone] Nitish TRIM TECHNICIAN-CDory Unavailable [phone] Allergies Allergen (clinical drug ingredient) Drug/Non Drug Allergy documented on EMR Reaction Allergy Type Onset Date Status morphine Morphine Unknown Drug Allergy Active Penicillin hives Drug Allergy active Reason For Referral Reason Evaluate and treat Diagnosis 1 Acute pulmonary embo lism without acute cor pulmonale, unspecified pulmonary embolism type (I26.99) Referral Organization [facility] Referring Provider First Name [...] acetaZOLAMIDE 250 MG TAKE 1 TABLET BY [facility] TWICE DAILY Oral for 8 Days Active [...] Problem Status W/U Status Risk Notes Problem 940605140 Morbid obesity (E66.01) Active confirmed Problem 834516042 Mixed hyperlipidemia (E78.2) Active confirmed Problem 73496010 Sleep apnea, unspecified type (G47.30) Active confirmed Problem 77550428 Hyperlipidemia, unspecified hyperlipidemia type (E78.5) Active confirmed Problem 58126048 Hypertension, unspecified type (I10) Active confirmed Vital Signs Temperature 97.6 degrees Fahrenheit 11/05/2023 Respiratory Rate 16 /min 07/10/2023 Blood pressure diastolic 116 mm Hg 11/05/2023 Oximetry 99 11/05/2023 Height 69 in 11/05/2023 Blood pressure systolic 158 mm Hg 11/05/2023 Weight 348 lbs 11/05/2023 BMI 51.39 11/05/2023 Encounters Encounter Location Date Provider Diagnosis [facility] [address] [place] [address] [place] [id number] 07/10/2023 Dory Small Hypertension, unspecified type I10 ; Idiopathic intracranial hypertension G93.2 ; Hospital discharge follow-up Z09 and Acute pulmonary embolism without acute cor pulmonale, unspecified pulmonary embolism type I26.99 [facility] [address] [place] [address] [place] [id number] 11/05/2023 Suzy Avina Prediabetes R73.03 ; Mixed hyperlipidemia E78.2 and Morbid obesity E66.01 [facility] [address] [place] [address] [address] [place], [place] [id number] 05/20/2023 Usama Garcia [facility] [address] [place] [address] [address] [place], [place] [id number] 06/19/2023 Usama Garcia [facility] [address] [place], [place] [id number] 06/23/[address] [facility] [address] [place] [id number] 11/06/[address] [facility] [address] [place], [place] [id number] 11/08/[address] [facility] [address] [place] [id number] 11/08/[address] [facility] [address] [place], [place] [id number] 11/12/[address] [facility] [address] [place], [place] [id number] 11/16/[address] [facility] [address] [place], [place] [id number] 02/08/[address] [facility] [address] [place] [id number] 06/[facility] [address] [place] [id number] 07/21/2023 Suzy [facility] [address] [place] [id number] 07/21/2023 Suzy [facility] [address] [place] [id number] 07/[facility] [address] [place] [id number] 11/06/2023 Suzyghazal Avina Assessments Encounter Date Diagnosis [...] (ICD-10 - I26.99) [place]x on 07/03 in [place]. Pt was not admitted and was d'/c [...] Coverage End Date [employer] [address] [address] [place], [place] [id number] Radha Poe Self - patient is the insured Medical (General) History Medical History History ICD Code Hypertension Anemia Surgical History Surgery Date(Month/Year) partial hysterectomy 2001 Hospitalization History Reason Date(Month/Year) chest pain april 2022
== END 2024-05-02 15:58 | disposition home or self-care (01) ==
DX: I26.99 Other pulmonary embolism without acute cor pulmonale (principal); G43.709 Chronic migraine without aura, not intractable, without status migrainosus; E66.9 Obesity, unspecified; Z68.43 Body mass index [BMI] 50.0-59.9, adult; R91.8 Other nonspecific abnormal finding of lung field; G93.2 Benign intracranial hypertension; E78.00 Pure hypercholesterolemia, unspecified; I10 Essential (primary) hypertension; G47.33 Obstructive sleep apnea (adult) (pediatric); D64.9 Anemia, unspecified; M25.561 Pain in right knee; M25.562 Pain in left knee

== ENCOUNTER 2024-05-03 08:21 | Outpatient (REF) | payer OTHER, MEDICAID, SELFPAY ==
--- NOTE | ~2024-05-03 | XR_ITS ---
EXAMINATION: XR KNEE, RIGHT CLINICAL INFORMATION: M25.561 - Pain in right knee COMPARISON: None available. TECHNIQUE: Four views of the right knee. FINDINGS: Joint space narrowing involving mostly the medial and to a lesser extent lateral compartment. Sclerosis and the articular surface of the tibial plateau. Marginal osteophyte formation lateral tibial plateau and femoral condyles. No acute cortical disruption or malalignment. No lytic or blastic lesions. No suprapatellar bursa joint effusion. XR/XR knee RT 2V IMPRESSION: Bicompartmental osteoarthrosis, mild to moderate. Electronically signed by: Maxime Tucker MD 05/03/2024 02:30 PM EDT
--- NOTE | ~2024-05-03 | XR_ITS ---
EXAMINATION: XR KNEE, LEFT CLINICAL INFORMATION: M25.561 - Pain in right knee COMPARISON: None available. TECHNIQUE: Four views of the left knee. FINDINGS: Joint space narrowing involving mostly the medial compartment. Marginal osteophyte formation and medial femoral condyle and medial tibial plateau. Sclerosis and articular surface of the medial tibial plateau. No acute cortical disruption or malalignment. No lytic or blastic lesions. No suprapatellar bursa joint effusion. XR/XR knee LT 2V IMPRESSION: Moderate medial compartment osteoarthrosis. Electronically signed by: Maxime Tucker MD 05/03/2024 02:17 PM EDT
--- OUTSIDE RECORDS SUMMARY | 2024-05-03 08:54 | XMS_ITS ---
Author Organization [facility] Address [address] [place], [place] [phone] Care Team Providers Care Senior Network Engineer Name Role Phone Usama Garcia M.D. Primary Care Provider [phone] Avina CORE LAYING MACHINE OPERATOR-C, Suzy Unavailable REASON FOR VISIT rx change. wegovy not covered Encounters Encounter Location Date Provider Diagnosis [facility] [address] [place], [place] [id number] 11/16/2023 Usama Garcia Plan Of Treatment No Information Progress Notes * Nayana ARENASOB: 2 (42 yo F)Acc No.[id number]:11/16/2023 Patient:?Radha ARENAS :1980???Age:42 Y???Sex:Female Address:[address] [place] [address], [address] * true * Date:? Generated for Printi ng/Faxing/eTransmitting on:?05/03/2024 08:54 AM EDT
--- OUTSIDE RECORDS SUMMARY | 2024-05-03 08:54 | XMS_ITS ---
Author Organization [facility] Address [address] [place], [place] [phone] Care Team Providers Care Behavioral Health Professional Name Role Phone Usama Garcia M.D. [facility] Suzy Unavailable [phone] REASON FOR VISIT Add Info Encounters Encounter Location Date Provider Diagnosis [facility] [address] [place], [place] [id number] 11/12/2023 Usama Garcia Plan Of Treatment No Information Progress Notes * Nayana ARENASOB: 2 (42 yo F)Acc No.[id number]:11/12/2023 Patient:?Radha ARENAS :1980???Age:42 Y???Sex:Female Address:[address] [place] [address], [address] * true * Date:? Generated for Printi ng/Faxing/eTransmitting on:?05/03/2024 08:54 AM EDT
--- OUTSIDE RECORDS SUMMARY | 2024-05-03 08:54 | XMS_ITS | Clinical Summary ---
Author Organization [facility] Address [address] [place] [address] Care Team Providers Care Attendant Coin Operated Laundry Name Role Phone Alexis Miller DO Primary Care Provider [phone] Allergies Active Allergy Reactions Criticality Noted Date [...] Upcoming Encounters Date Type Department Care Team ([facility] st Contact Info) Description 08/02/2024 3:30 PM EDT Office Visit Bariatric Surgery [facility] [address] [place] [id number] Torey Bradford MD [address] [place] [address] Health Maintenance Due Date Last Done Comments [...] * Annual BMP Blood Test (06/28/2011) [facility] Annual BMP Blood Test abstracted [facility] Provider HEALTH MAINTENANCE Final Result * Hepatitis C Screening (06/09/2011) [facility] Hepatitis C Screening abstracted [facility] Provider HEALTH MAINTENANCE Final Result * (ABNORMAL) Lipid panel (02/06/2011) [facility] LDL/HDL Ratio 3 0 - 4 Triglycerides 92 0 - 150 mg/dL Cholesterol 187 0 - 200 mg/dL HDL 57 >=40 mg/dL LDL Cholesterol 112(A) 0 - 100 mg/dL Blood Venous blood specimen / Unknown [facility] Provider LAB BLOOD ORDERABLES Hanh l Result * HIV Screening (01/03/2011) [facility] HIV Screening abstracted [facility] Provider HEALTH MAINTENANCE Final Result * Pap Smear (01/03/2011) [facility] Pap smear no interpretation abstracted [facility] Provider HEALTH MAINTENANCE Final Result from Last 3 Months or Most Recently Relevant to Health Maintenance Insurance [place] [facility] MEDICARE ADVANTAGE on file Care Teams Attendant Coin Operated Laundry Relationship Specialty Start Date End Date Alexis Miller DO [address] [place] [phone] PCP - General 06/06/13
--- OUTSIDE RECORDS SUMMARY | 2024-05-03 08:55 | XMS_ITS | Patient Health Record ---
Author Organization [facility] Address [address] [place] [address] Care Team Providers Care Director Workforce Management Name Role Phone GIULIA MILAN Unavailable [phone] Yu Serrano Unavailable [phone] REASON FOR REFERRAL No Information Encounters Encounter Location Date Provider Diagnosis [facility] [address] [place] [address] 03/10/2024 Yu Serrano PLAN OF TREATMENT No Information Insurance Providers Payer Name Payer Address Payer Phone Subscriber Number Group Number Insured Name Patient Relationship to Insured Coverage Start Date Coverage End Date [employer] [address] [address] [place] [address] [id number] Radah Poe Self - patient is the insured
--- OUTSIDE RECORDS SUMMARY | 2024-05-03 08:55 | XMS_ITS | Patient Health Record ---
Author Organization [facility] Address [address] [place], [place] [phone] Care Team Providers Care Food And Beverage Server Name Role Phone Usama Garcia M.D. Primary Care Provider Fabrice ENGRAVER-C, Suzy Unavailable Nitish ENGRAVER-CDory Unavailable Allergies Allergen (clinical drug ingredient) Drug/Non Drug Allergy documented on EMR Reaction Allergy Type Onset Date Status morphine Morphine Unknown Drug Allergy Active Penicillin hives Drug Allergy active Reason For Referral Reason Evaluate and treat Diagnosis 1 Acute pulmonary embo lism without acute cor pulmonale, unspecified pulmonary embolism type (I26.99) Referral Organization [facility] Referring Provider First Name Dory [...] acetaZOLAMIDE 250 MG TAKE 1 TABLET BY [facility] TWICE DAILY Oral for 8 Days [...] Problem Status W/U Status Risk Notes Problem 397388598 Morbid obesity (E66.01) Active confirmed Problem 429909444 Mixed hyperlipidemia (E78.2) Active confirmed Problem 52186339 Sleep apnea, unspecified type (G47.30) Active confirmed Problem 76585834 Hyperlipidemia, unspecified hyperlipidemia type (E78.5) Active confirmed Problem 67980330 Hypertension, unspecified type (I10) Active confirmed Vital Signs Temperature 97.6 degrees Fahrenheit 11/05/2023 Respiratory Rate 16 /min 07/10/2023 Oximetry 99 11/05/2023 Blood pressure diastolic 116 mm Hg 11/05/2023 Height 69 in 11/05/2023 Blood pressure systolic 158 mm Hg 11/05/2023 Weight 348 lbs 11/05/2023 BMI 51.39 11/05/2023 Encounters Encounter Location Date Provider Diagnosis [facility] [address] [place] [address] [place] [id number] 07/10/2023 Dory Small Hypertension, unspecified type I10 ; Idiopathic intracranial hypertension G93.2 ; Hospital discharge follow-up Z09 and Acute pulmonary embolism without acute cor pulmonale, unspecified pulmonary embolism type I26.99 [facility] [address] [place] [address] [place] [id number] 11/05/2023 Suzy Avina Prediabetes R73.03 ; Mixed hyperlipidemia E78.2 and Morbid obesity E66.01 [facility] [address] [place] [address] [address] [place], [place] [id number] 05/20/[address] [facility] [address] [place] [address] [address] [place], [place] [id number] 06/19/[address] [address] [place] [id number] 06/23/2023 [facility] [address] [place] [id number] 11/06/2023 [facility] [address] [place], [place] [id number] 11/08/2023 [facility] [address] [place] [id number] 11/08/2023 [facility] [address] [place], [place] [id number] 11/12/2023 [facility] [address] [place] [id number] 11/16/2023 [facility] [address] [place] [id number] 02/08/2024 [facility] [address] [place], [place] [id number] 06/18/20[facility] [address] [place] [id number] 07/21/2023 Suzy [facility] [address] [place] [id number] 07/21/2023 Suzy [facility] [address] [place] [id number] 07/[facility] [address] [place], [place] [id number] 11/06/2023 Suzyghazal Avina Assessments Encounter Date Diagnosis [...] (ICD-10 - I26.99) Dx on 07/03 in [place]. Pt was not admitted and was d'/c [...] Coverage End Date [employer] [address] [address] [place], [place] [id number] [phone] [id number] Radha Poe Self - patient is the insured Medical (General) History Medical History History ICD Code Hypertension Anemia Surgical History Surgery Date(Month/Year) partial hysterectomy 2001 Hospitalization History Reason Date(Month/Year) chest pain april 2022
--- OUTSIDE RECORDS SUMMARY | 2024-05-03 08:55 | XMS_ITS | Data Portability ---
Author Organization [place] - Dr Haley turpin, [facility] - Address [address] [place] [address] Assessment No assessment recorded. Plan of Treatment Reminders Order Date Submit Date Provider Last Modified By Organization Details Last Modified Time Details Appointments None recorded. Lab urinalysis, dipstick 2023 024 4 Haley Barajas MD, [address] [place], [address], 4 12:09:17 culture, urine 2023 024 [place] [facility] ([facility]), [address], [place], [address], 4 02:03:36 bacterial vaginosis + vaginitis panel, vaginal 2023 024 [place] [facility] ([facility]), [address], [place], [address], 4 12:50:57 lipid panel, serum 2023 024 [place] [facility] ([facility]), [address], [place], [address], 4 17:14:03 CMP, serum or plasma 2023 024 [place] [facility] ([facility]), [address], [place], [address], 4 17:14:04 hereditary breast + gynecologic cancer multigene analysis, blood or tissue 2023 024 [email or web address], [address], [place], [address], 4 14:52:14 T4, free, serum 2023 024 [place] [facility]), [address], [place], [address], 4 17:14:06 TSH, serum or plasma 2023 024 [place] [facility]), [address], [place], [address], 4 17:14:06 HIV (1+2) Ab screen, serum 2023 024 [place] [facility] ([facility]), [address], [place], [address], 4 17:14:05 RPR (rapid plasma reagin), serum 2023 024 [facility]), [address], [place], [address], 4 17:14:08 HBsAg (hepatitis B surface Ag), serum 2023 024 [facility] ([facility]), [address], [place], [address], 4 17:14:07 CT + NG DNA, PCR, unspecified specimen 2023 024 [email or web address] [facility] ([facility]), [address], [place], [address], 4 14:52:14 hepatitis C virus Ab, serum 2023 024 [facility] ([facility]), [address], [place], [address], 4 17:14:07 CBC 2023 024 [facility] ([facility]), [address], [place], [address], 4 17:14:04 HbA1c (hemoglobin A1c), blood 2023 024 [facility] ([facility]), [address], [place], [address], 4 17:14:05 lipid panel, serum 2022 023 [facility] ([facility]), [address], [place], [address], 3 10:56:57 CMP, serum or plasma 2022 023 [facility] ([facility]), [address], [place], [address], 3 10:56:59 TSH, serum or plasma 2022 023 [facility] ([facility]), [address], [place], [address], 3 10:57:00 T4, free, serum 2022 023 [facility] ([facility]), [address], [place], [address], 3 10:57:00 pap, LB 2022 023 [facility] ([facility]), [address], [place], [address], 3 15:29:20 genetic screen, unspecified specimen 2022 023 [facility], [address], [place], [address], 3 15:01:20 CT + NG DNA, PCR, unspecified specimen 2022 023 [facility] ([facility]), [address], [place], [address], 3 15:29:21 RPR (rapid plasma reagin), serum 2022 023 [facility] ([facility]), [address], [place], [address], 3 10:57:03 HIV (1+2) Ab screen, serum 2022 023 [facility] ([facility]), [address], [place], [address], 3 10:57:01 HBsAg (hepatitis B surface Ag), serum 2022 023 [facility] ([facility]), [address], [place], [address], 3 10:57:02 hepatitis C virus Ab, serum 2022 023 [facility] ([facility]), [address], [place], [address], 3 10:57:02 HbA1c (hemoglobin A1c), blood 2022 023 [facility]), [address], [place], [address], 3 10:56:59 CBC 2022 023 [facility] ([facility]), [address], [place], [address], 3 10:56:58 Referral None recorded. Procedures None recorded. Surgeries None recorded. Imaging US, pelvis, complete 2023 024 [email or web address] Not available 4 11:50:01 MAMMO, screening, digital, bilateral 2023 024 [place] [employer], [address], [place], [address], 4 14:04:49 MAMMO, screening, digital, bilateral 2022 023 [email or web address] [facility], [address], [place], [address], 3 15:08:06 Medication Orders None recorded. Patient TargetsNo targets recorded. Patient Instructions Encounter Date Encounter Id Patient Instructions Last Modified By Organization Details Last Modified Time 07/09/2022 [id number] Pap collected. Labwork ordered. Mammo ordered. Instructed to RTO in 2 days for weight loss consultation [email or web address] Not available 07/09/2022 11:51:15 10/05/2023 [id number] Recommend 5 servings of fruits and vegetables [...] year for annual Notify office as needed [email or web address] Not available 10/05/2023 11:01:02 Strongly encouraged pt to go back to provider managing BP meds so that she can have meds for HTN adjusted. PC labs today & referred to [facility] for new provider that takes her insurance. 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 [email or web address] Not available 10/05/2023 12:10:18 10/13/2023 [id number] Ultrasound reviewed by Dr. Cortes Agree with [...] -[facility] ([facility]) [address] [facility] [address], [place], [address], 07/10/2022 10:56:57 07/10/1907/10/2022 LIPID PANEL triglyceride s 151 mg/dL <150 high Not Available Path oup -[facility] ([facility]) [facility] [address], [place], [address], 07/10/2022 10:56:57 07/10/19 23 07/10/2022 LIPID PANEL HDL cholesterol 59 mg/dL >39 Not Available Path group [facility] ([facility]) [address] [place] [address] Dr [address], [place], [address], 07/10/2022 10:56:57 07/10/19 23 07/10/2022 LIPID PANEL cholesterol / HDL ratio 3.42 ratio 0.00-4 .44 Not Available [facility] ([facility]) [address] [place] [address] [address], [place], [address], 07/10/2022 10:56:57 07/10/19 23 07/10/2022 LIPID PANEL non-HDL cholesterol 143 mg/dL <130 high Not Available [facility] ([facility]) [address] [place] [address] Dr [address], [place], [address], 07/10/2022 10:56:57 07/10/19 23 07/10/2022 LIPID PANEL [...] 2004 ATPII I guide lines Not Available [facility] ([facility]) [facility] [address], [place], [address], 07/10/2022 10:56:57 07/10/19 23 07/10/2022 LIPID PANEL LDL/HDL ratio 1.9 ratio <3.3 ___ LDL Fany stero l Patie nt Histo ry ___ Test Date: 07/09 LDL Resul ts: 113 Units : mg/dL % Sivla e: - ___ Not Available [facility] ([facility]) [address] [place] [address] Dr Marie [facility], [place], [address], 07/10/2022 10:56:57 07/10/19 23 07/10/2022 CBC WITH PLATE LET NO DIFFE RENTI AL WBC 6.5 K/uL 3.8-11 .5 Not Available [facility] ([facility]) [address] [place] [address] Dr Marie [facility], [place], [address], 07/10/2022 10:56:58 07/10/19 23 07/10/2022 CBC WITH PLATE LET NO DIFFE RENTI AL red blood cell count (RBC) 4.28 M/mm3 3.60-5 .30 Not Available [facility] ([facility]) [address] [place] [address] [address], [place], [address], 07/10/2022 10:56:58 07/10/19 23 07/10/2022 CBC WITH PLATE LET NO DIFFE RENTI AL hemoglobin (HGB) 11.9 gm/dL 11.5-1 5.5 Not Available [facility] ([facility]) [address] [place] [address] [address], [place], [address], 07/10/2022 10:56:58 07/10/19 23 07/10/2022 CBC WITH PLATE LET NO DIFFE RENTI AL hematocrit (HCT) 36.1 % 35.2-4 6.4 Not Available [facility] ([facility]) [address] [place] [address] Dr [address], [place], [address], 07/10/2022 10:56:58 07/10/19 23 07/10/2022 CBC WITH PLATE LET NO DIFFE RENTI AL MCV 84.3 fL 79.0-9 9.0 Not Available [facility] ([facility]) [address] [place] [address] Dr [address], [place], [address], 07/10/2022 10:56:58 07/10/19 23 07/10/2022 CBC WITH PLATE LET NO DIFFE RENTI AL MCH 27.8 pg 26.9-3 5.0 Not Available [facility] ([facility]) [address] [place] [address] Dr [address], [place], [address], 07/10/2022 10:56:58 07/10/19 23 07/10/2022 CBC WITH PLATE LET NO DIFFE RENTI AL MCHC 33.0 g/dL 30.4-3 4.8 Not Available [facility] ([facility]) [address] [place] [address] Dr [address], [place], [address], 07/10/2022 10:56:58 07/10/19 23 07/10/2022 CBC WITH PLATE LET NO DIFFE RENTI AL RDW 44.8 fL 38.6-5 3.8 Not Available [facility] ([facility]) [address] [place] [address] Dr [address], [place], [address], 07/10/2022 10:56:58 07/10/19 23 07/10/2022 CBC WITH PLATE LET NO DIFFE RENTI AL platelet count 337 K/cum m 137-39 7 Not Available [facility] ([facility]) [address] [place] [address] Dr [address], [place], [address], 07/10/2022 10:56:58 07/10/19 23 07/10/2022 COMPR EHENS JESENIA METAB OLIC PANEL (CMP) sodium 137 mEq/L 135-14 5 Not Available [facility] ([facility]) [address] [place] [address] Dr [address], [place], [address], 07/10/2022 10:56:59 07/10/19 23 07/10/2022 COMPR EHENS JESENIA METAB OLIC PANEL (CMP) potassium 4.2 mEq/L 3.5-5. 3 Not Available [facility] ([facility]) [address] [place] [address] Dr [address], [place], [address], 07/10/2022 10:56:59 07/10/19 23 07/10/2022 COMPR EHENS JESENIA METAB OLIC PANEL (CMP) chloride 100 mEq/L 97-108 Not Available [facility] ([facility]) [address] [place] [address] Dr [address], [place], [address], 07/10/2022 10:56:59 07/10/19 23 07/10/2022 COMPR EHENS JESENIA METAB OLIC PANEL (CMP) CO2 30 mEq/L 22-32 Not Available [facility] ([facility]) [address] [place] [address] Dr [address], [place], [address], 07/10/2022 10:56:59 07/10/19 23 07/10/2022 COMPR EHENS JESENIA METAB OLIC PANEL (CMP) glucose 100 mg/dL 65-99 high Not Available [facility] ([facility]) [address] [place] [address] [address], [place], [address], 07/10/2022 10:56:59 07/10/19 23 07/10/2022 COMPR EHENS JESENIA METAB OLIC PANEL (CMP) BUN 10 mg/dL 6-20 Not Available [facility] ([facility]) [address] [place] [address] Dr [address], [place], [address], 07/10/2022 10:56:59 07/10/19 23 07/10/2022 COMPR EHENS JESENIA METAB OLIC PANEL (CMP) creatinine 0.82 mg/dL 0.50-1 .00 Not Available [facility] ([facility]) [address] [place] [address] Dr [address], [place], [address], 07/10/2022 10:56:59 07/10/19 23 07/10/2022 COMPR EHENS JESENIA METAB OLIC PANEL (CMP) calcium 9.3 mg/dL 8.6-10 .4 Not Available [facility] ([facility]) [address] [place] [address] Dr [address], [place], [address], 07/10/2022 10:56:59 07/10/19 23 07/10/2022 COMPR EHENS JESENIA METAB OLIC PANEL (CMP) protein 7.8 g/dL 6.0-8. 3 Not Available [facility] ([facility]) [address] [place] [address] [address], [place], [address], 07/10/2022 10:56:59 07/10/19 23 07/10/2022 COMPR EHENS JESENIA METAB OLIC PANEL (CMP) albumin 4.1 g/dL 3.5-5. 3 Not Available [facility] ([facility]) [address] [place] [address] [address], [place], [address], 07/10/2022 10:56:59 07/10/19 23 07/10/2022 COMPR EHENS JESENIA METAB OLIC PANEL (CMP) alkaline phosphatase 141 IU/L 35-121 high Not Available [facility] group [facility] ([facility]) [address] [place] [address] Dr [address], [place], [address], 07/10/2022 10:56:59 07/10/19 23 07/10/2022 COMPR EHENS JESENIA METAB OLIC PANEL (CMP) ALT (SGPT) 16 IU/L <5-47 Not Available [facility]o up [facility] ([facility]) [address] [place] [address] Dr [address], [place], [address], 07/10/2022 10:56:59 07/10/19 23 07/10/2022 COMPR EHENS JESENIA METAB OLIC PANEL (CMP) AST (SGOT) 14 IU/L <5-40 Not Available [facility] ([facility]) [address] [place] [address] [address], [place], [address], 07/10/2022 10:56:59 07/10/19 23 07/10/2022 COMPR EHENS JESENIA METAB OLIC PANEL (CMP) bilirubin, total 0.3 mg/dL <0.2-1 .2 Not Available [facility] ([facility]) [address] [place] [address] Dr [address], [place], [address], 07/10/2022 10:56:59 07/10/19 23 07/10/2022 COMPR EHENS JESENIA METAB OLIC PANEL (CMP) A/G ratio 1.1 mg/dL 1.1-2. 5 Not Available [facility] ([facility]) [address] [place] [address] [address], [place], [address], 07/10/2022 10:56:59 07/10/19 23 07/10/2022 COMPR EHENS JESENIA METAB OLIC PANEL (CMP) estimated GFR (black) 103 mL/mi n/1.7 3m2 >59 Not Available [facility] ([facility]) [address], [place], [address], 07/10/2022 10:56:59 07/10/19 23 07/10/2022 COMPR EHENS [...] e mass or diet. Not Available [facility] ([facility] [employer]) [facility] [address], [place], [address], 07/10/2022 10:56:59 07/10/19 23 07/10/2022 HEMOG LOBIN [...] <5.7% Non-D iabet ic Not Available [facility] ([facility]) [address] [place] [address] Dr [address], [place], [address], 07/10/2022 10:56:59 07/10/19 23 07/10/2022 HEMOG LOBIN A1C estimated average glucose 123 mg/dL [place] ge Gluco se is calcu lated using the equat ion AG = (28.7 x HgbA1 c) - 46.7 based on the guide lines estab nicolas brunson by the ADA. Not Available [facility] ([facility]) [address] [place] [address] Dr [address], [place], [address], 07/10/2022 10:56:59 07/10/19 23 07/10/2022 TSH TSH 2.74 mU/L 0.43-5 .25 Not Available [facility] ([facility] [employer] [facility]) [address] [place] [address] Dr [address], [place], [address], 07/10/2022 10:57:00 07/10/19 23 07/10/2022 THYRO XINE FREE (FREE T4) thyroxine free (free T4) 1.04 NG/dL 0.86-1 .76 Not Available [facility] ([facility]) [address] [place] [address] Dr [address], [place], [address], 07/10/2022 10:57:00 07/10/19 23 07/10/2022 HIV 1/2 AB SCREE N W/P24 AG HIV 1/2 Ab screen w/p24ag Nonrea ctive nonrea ctive Not Available [facility] ([facility]) [address] [place] [address] [address], [place], [address], 07/10/2022 10:57:01 07/10/19 23 07/10/2022 HEPAT ITIS B SURFA CE ANTIG EN (HBSA G) hepatitis B surface antigen (HBsAg) Nonrea ctive nonrea ctive Not Available [facility] ([facility]) [address] [place] [address] [address], [place], [address], 07/10/2022 10:57:02 07/10/19 23 07/10/2022 HEPAT ITIS C ANTIB FARAZ (HCV) IGG hepatitis C antibody (HCV) IgG Nonrea ctive nonrea ctive Not Available [facility] ([facility]) [address], [place], [address], 07/10/2022 10:57:02 07/10/19 23 07/10/2022 RPR (NON- TREPO NEMAL ) REFLE X TO CONFI RMATI ON RPR (non-trepone mal) reflex to confirmation Nonrea ctive nonrea ctive Not Available [facility] ([facility]) [address] [facility] [address], [place], [address], 07/10/2022 10:57:03 07/10/19 23 07/11/2022 PAP TEST [...] INTRA EPITH ELIAL LESIO N OR MALIG ANNMAARIE The follo wing tests have been order [...] Techn ical servi meaghan provi ded by [facility], [facility], d/b/a PathG rou, [address] [place] [address] Rihcar Wallace MD, Labor [facility]. Case revie wed and diagn osis rende red at [facility], d/b/a Path[facility] rou, [address] [place] [address] Richar Wallace MD, Labor [facility]. CONFI DENTI AL Not Available [facility] ([facility]) [address] [place] [address] [address], [place], [address], 07/11/2022 15:29:20 07/10/19 23 07/10/2022 CHLAM YDIA, [...] perfo rmed by [facility] d/b/a PathG rou, [address], [place] [address] , Daniel Ramos ra, DO, Labor [facility], CLIA# [id number] Not Available [facility] ([facility]) [address] [place] [address], [place], [address], 07/11/2022 15:29:21 07/10/19 23 07/10/2022 CHLAM YDIA, [...] logis ts, LLC d/b/a [place], [address] [facility] [address], [place] [address] , Daniel Ramos ra, DO, Labor atory [facility], [facility]# [id number] Not Available [facility] ([facility]) [address] [address], [place], [address], 07/11/2022 15:29:21 07/10/19 23 07/10/2022 CHLAM YDIA, [...] perfo rmed by [facility] log[facility], [facility] d/b/a Heike irene, [address] [facility] [address], [place] [address] , Daniel Ramos ra, DO, Labor [facility], CLIA# [id number] Not Available [facility] ([facility]) [facility] [address], [place], [address], 07/11/2022 15:29:21 07/10/19 23 07/10/2022 HPV HIGH [...] and labor atory findi ngs. See https ://[employer]/s moose/ lyla lt/fi les/2 018-0 3/AW- 12398 _002_ 01.pd f for fur er infor matio n. Test perfo rmed by [facility] log[facility], [employer], d/b/a [place], [address] [facility] [address], [place] [address] , Daniel Ramos ra, DO, Labor [facility]ory [facility] Not Available [facility] ([facility]) [facility] [address], [place], [address], 07/11/2022 15:29:22 07/10/19 23 07/09/2022 EMPOW ER report summary VUS normal Negat jesenia for 53 out of 53 genes . A varia nt of uncer tain signi fican ce (VUS) was detec xiomara in the MLH1 gene( s). A VUS means that a silva e in the DNA was detec xiomara, but there is not enoug h infor matio n to deter mine [facility] er or not the silva e incre [...] A heter ozygo us varia nt of [facility] [place] ce (VUS) was detec xiomara in the MLH1 gene as tabul ated above . Not Available [facility] [address] [facility] [address], [place], [address], 07/21/2022 15:13:25 07/10/19 23 07/09/2022 EMPOW ER footnotes See Notes CLIA: ID #[id number] 2 Test perfo rmed by [employer]. [address] [facility] [address] [place] [address] Arielle Stephens, Ph.D. , [facility] , Labor atory Dire[facility] tor Not Available [facility] [address], [place], [address], 07/21/2022 15:13:25 10/05/19 24 10/06/2023 LIPID PANEL cholesterol 207 mg/dL <200 high Not Available Pathgr [facility] ([facility]) [address] [facility] [address], [place], [address], 10/06/2023 17:14:03 10/05/19 24 10/06/2023 LIPID PANEL triglyceride s 126 mg/dL <150 Not Available Pathgr [facility] ([facility]) [address] [facility] [address], [place], [address], 10/06/2023 17:14:03 10/05/19 24 10/06/2023 LIPID PANEL HDL cholesterol 54 mg/dL >39 Not Available [facility] ([facility]) [facility] [address], [place], [address], 10/06/2023 17:14:03 10/05/19 24 10/06/2023 LIPID PANEL cholesterol / HDL ratio 3.83 ratio 0.00-4 .44 Not Available [facility] ([facility]) [address] [place] [address] Dr Aviles, [place], [address], 10/06/2023 17:14:03 10/05/19 24 10/06/2023 LIPID PANEL non-HDL cholesterol 153 mg/dL <130 high Not Available [facility] ([facility]) [address] [place] [address] Dr Aviles, [place], [address], 10/06/2023 17:14:03 10/05/19 24 10/06/2023 LIPID PANEL [...] 2004 ATPII I guide lines Not Available [facility] ([facility]) [facility] [address] Av[address], [place], [address], 10/06/2023 17:14:03 10/05/19 24 10/06/2023 LIPID PANEL [...] Silva e: +13% ___ Not Available [facility] ([facility]) [facility] [address], [place], [address], 10/06/2023 17:14:03 10/05/1910/06/2023 CBC WITH PLATE LET NO DIFFE RENTI AL WBC 7.4 K/uL 3.8-11 .5 Not Available [facility] ([facility]) [address] [facility], [place], [address], 10/06/2023 17:14:04 10/05/19 24 10/06/2023 CBC WITH PLATE LET NO DIFFE RENTI AL red blood cell count (RBC) 4.33 M/mm3 3.60-5 .30 Not Available [facility] ([facility]) [address] [place] [address] Dr Aviles, [place], [address], 10/06/2023 17:14:04 10/05/19 24 10/06/2023 CBC WITH PLATE LET NO DIFFE RENTI AL hemoglobin (HGB) 12.0 gm/dL 11.5-1 5.5 Not Available [facility] ([facility]) [address] [place] [address] Dr Aviles, [place], [address], 10/06/2023 17:14:04 10/05/19 24 10/06/2023 CBC WITH PLATE LET NO DIFFE RENTI AL hematocrit (HCT) 37.3 % 35.2-4 6.4 Not Available [facility] ([facility]) [address] [place] [address] Dr Aviles, [place], [address], 10/06/2023 17:14:04 10/05/19 24 10/06/2023 CBC WITH PLATE LET NO DIFFE RENTI AL MCV 86.1 fL 79.0-9 9.0 Not Available [facility] ([facility]) [address] [place] [address] Dr Aviles, [place], [address], 10/06/2023 17:14:04 10/05/19 24 10/06/2023 CBC WITH PLATE LET NO DIFFE RENTI AL MCH 27.7 pg 26.9-3 5.0 Not Available [facility] ([facility]) [address] [place] [address] Dr Aviles, [place], [address], 10/06/2023 17:14:04 10/05/19 24 10/06/2023 CBC WITH PLATE LET NO DIFFE RENTI AL MCHC 32.2 g/dL 30.4-3 4.8 Not Available [facility] ([facility]) [address] [place] [address] Dr Aviles, [place], [address], 10/06/2023 17:14:04 10/05/19 24 10/06/2023 CBC WITH PLATE LET NO DIFFE RENTI AL RDW 44.3 fL 38.6-5 3.8 Not Available [facility] ([facility]) [address] [place] [address] Dr Aviles, [place], [address], 10/06/2023 17:14:04 10/05/19 24 10/06/2023 CBC WITH PLATE LET NO DIFFE RENTI AL platelet count 324 K/cum m 137-39 7 Not Available [facility] ([facility]) [address] [place] [address] Dr Aviles, [place], [address], 10/06/2023 17:14:04 10/05/19 24 10/06/2023 COMPR EHENS JESENIA METAB OLIC PANEL (CMP) sodium 138 mmol/ L 135-14 5 Not Available [facility] ([facility]) [address] [place] [address] Dr Aviles, [place], [address], 10/06/2023 17:14:04 10/05/19 24 10/06/2023 COMPR EHENS JESENIA METAB OLIC PANEL (CMP) potassium 4.4 mmol/ L 3.5-5. 3 Not Available [facility] ([facility]) [address] [place] [address] Dr Aviles, [place], [address], 10/06/2023 17:14:04 10/05/19 24 10/06/2023 COMPR EHENS JESENIA METAB OLIC PANEL (CMP) chloride 101 mmol/ L 97-108 Not Available [facility] ([facility]) [address] [place] [address] Dr Aviles, [place], [address], 10/06/2023 17:14:04 10/05/19 24 10/06/2023 COMPR EHENS JESENIA METAB OLIC PANEL (CMP) CO2 27 mmol/ L 22-32 Not Available [facility] ([facility]) [address] [place] [address] Dr Aviles, [place], [address], 10/06/2023 17:14:04 10/05/19 24 10/06/2023 COMPR EHENS JESENIA METAB OLIC PANEL (CMP) glucose 99 mg/dL 65-99 Not Available [facility] ([facility]) [address] [place] [address] Aviles, [place], [address], 10/06/2023 17:14:04 10/05/19 24 10/06/2023 COMPR EHENS JESENIA METAB OLIC PANEL (CMP) BUN 11 mg/dL 6-20 Not Available [facility] ([facility]) [address] [place] [address] Aviles, [place], [address], 10/06/2023 17:14:04 10/05/19 24 10/06/2023 COMPR EHENS JESENIA METAB OLIC PANEL (CMP) creatinine 1.04 mg/dL 0.50-1 .00 high Not Available [facility] ([facility]) [address] [place] [address] Aviles, [place], [address], 10/06/2023 17:14:04 10/05/19 24 10/06/2023 COMPR EHENS JESENIA METAB OLIC PANEL (CMP) calcium 9.1 mg/dL 8.6-10 .4 Not Available [facility] ([facility]) [address] [place] [address] Aviles, [place], [address], 10/06/2023 17:14:04 10/05/19 24 10/06/2023 COMPR EHENS JESENIA METAB OLIC PANEL (CMP) eGFR by creatinine 69 mL/mi n/1.7 3m2 >59 Not Available [facility] ([facility]) [address] [place] [address] Aviles, [place], [address], 10/06/2023 17:14:04 10/05/19 24 10/06/2023 COMPR EHENS JESENIA METAB OLIC PANEL (CMP) protein 7.5 g/dL 6.0-8. 3 Not Available [facility] ([facility]) [address] [place] [address] Dr Aviles, [place], [address], 10/06/2023 17:14:04 10/05/19 24 10/06/2023 COMPR EHENS JESENIA METAB OLIC PANEL (CMP) albumin 4.1 g/dL 3.5-5. 3 Not Available [facility] ([facility]) [address] [place] [address] Dr Aviles, [place], [address], 10/06/2023 17:14:04 10/05/19 24 10/06/2023 COMPR EHENS JESENIA METAB OLIC PANEL (CMP) alkaline phosphatase 131 IU/L 35-121 high Not Available [facility] ([facility]) [address] [place] [address] Dr Aviles, [place], [address], 10/06/2023 17:14:04 10/05/19 24 10/06/2023 COMPR EHENS JESENIA METAB OLIC PANEL (CMP) ALT (SGPT) 11 IU/L <5-47 Not Available [facility] ([facility]) [address] [place] [address] Dr Aviles, [place], [address], 10/06/2023 17:14:04 10/05/19 24 10/06/2023 COMPR EHENS JESENIA METAB OLIC PANEL (CMP) AST (SGOT) 14 IU/L <5-40 Not Available [facility] ([facility]) [address] [place] [address] Dr Aviles, [place], [address], 10/06/2023 17:14:04 10/05/19 24 10/06/2023 COMPR EHENS JESENIA METAB OLIC PANEL (CMP) bilirubin, total 0.2 mg/dL <0.2-1 .2 Not Available [facility] ([facility]) [facility] Dr Aviles, [place], [address], 10/06/2023 17:14:04 10/05/19 24 10/06/2023 COMPR EHENS JESENIA METAB OLIC PANEL (CMP) A/G ratio 1.2 1.1-2. 5 Not Available [facility] ([facility]) [address] [facility] [address]iles, [place], [address], 10/06/2023 17:14:04 10/05/19 24 10/06/2023 HIV 1/2 AB SCREE N W/P24 AG HIV 1/2 Ab screen w/p24ag Nonrea ctive nonrea ctive Not Available [facility] ([facility]) [address] [place] [address] Dr Aviles, [place], [address], 10/06/2023 17:14:05 10/05/19 24 10/06/2023 HEMOG LOBIN [...] ic <5.7% Non-D iabet ic Not Available [facility] ([facility]) [facility] [address] Aviles, [place], [address], 10/06/2023 17:14:05 10/05/19 24 10/06/2023 HEMOG LOBIN A1C estimated average glucose 125 mg/dL [place] ge Gluco se is calcu lated using the equat ion AG = (28.7 x HgbA1 c) - 46.7 based on the guide lines estab lishe d by the ADA. Not Available [facility] ([facility]) [facility] [address] Aviles, [place], [address], 10/06/2023 17:14:05 10/05/19 24 10/06/2023 TSH TSH 1.77 mU/L 0.43-5 .25 Not Available [facility] ([facility]) [address] [place] [address] Dr Aviles, [place], [address], 10/06/2023 17:14:06 10/05/19 24 10/06/2023 THYRO XINE FREE (FREE T4) thyroxine free (free T4) 1.06 NG/dL 0.86-1 .76 Not Available [facility] ([facility]) [address] [place] [address] Dr Aviles, [place], [address], 10/06/2023 17:14:06 10/05/19 24 10/06/2023 HEPAT ITIS B SURFA CE ANTIG EN (HBSA G) hepatitis B surface antigen (HBsAg) Nonrea ctive nonrea ctive Not Available [facility] ([facility]) [address] [place] [address] Dr Aviles, [place], [address], 10/06/2023 17:14:07 10/05/19 24 10/06/2023 HEPAT ITIS C ANTIB FARAZ (HCV) IGG hepatitis C antibody (HCV) IgG Nonrea ctive nonrea ctive Not Available [facility] ([facility]) [address] [place] [address] Dr Aviles, [place], [address], 10/06/2023 17:14:07 10/05/19 24 10/06/2023 RPR (NON- [...] is clini darlin suspe cted. Not Available [facility] ([facility]) [address] [facility] [address], [place], [address], 10/06/2023 17:14:07 10/05/19 24 10/07/2023 CULTU RE, URINE specimen source Urine - Void Not Available [facility] ([facility]) [address] [facility] [address]iles, [place], [address], 10/07/2023 02:03:33 10/05/19 24 10/07/2023 CULTU RE, URINE culture, urine See Below Final Repor t : No growt h Not Available [facility] ([facility]) [address] [facility] [address]iles, [place], [address], 10/07/2023 02:03:33 10/05/19 24 10/06/2023 VAGIN ITIS [...] Patho logis ts, [facility], d/b/a [place]a bon[place], [facility] [address], [place] [address] , Daniel Ramos ra, DO, Labor atory [...] chelo resul ts of Pamela l or Baxter xiomara are deter mined by calcu latin [...] e nakul cteri stics deter mined by [employer], [employer] d/b/a PathG rouberenice. It has not been clear ed or appro edel by the U.S. Food and Drug Admin istra tion. The FDA has deter mined that such clear ance or appro juan carlos is not neces ivana. Perti nent refer ence inter vals are avail able from the labor atory on reque st. Test( s) perfo rmed by [employer] Patho GIDEEN ts, [employer], d/b/a Path[facility] roup, [address] [place] [address] , Daniel Ramos ra, DO, Labor atory Direc tor. Not Available [facility] ([facility]) [address] [facility], [place], [address], 10/07/2023 12:50:56 10/05/19 24 10/07/2023 VAGIN ITIS [...] logis ts, LLC, d/b/a PathG rou, [address], [place] [address] , Daniel Ramos ra, DO, Labor atory [...] chelo resul ts of Pamela l or Baxter xiomraa are deter mined by calcu latin g [...] e nakul cteri stics deter mined by [employer], [employer] d/b/a Path A [facility] [employer] [facility]. It has not been clear ed or appro edel by the U.S. Food and Drug Admin istra tion. The FDA has deter mined that such clear ance or appro juan carlos is not neces ivana. Perti nent refer ence inter vals are avail able from the [facility] atory on reque st. Test( s) perfo rmed by [employer], [employer], d/b/a formerly [facility] [employer], [address], [place] [address] , Daniel Ramos ra, DO, Labor atory Dire tor. Not Available [facility] ([facility]) [address] [facility] [address], [place], [address], 10/07/2023 12:50:56 10/05/19 24 10/07/2023 VAGIN ITIS [...] [address], [facility] [place] [address] , Daniel Ramos ra, DO, Labor atory [...] chelo resul ts of Pamela l or Baxter xiomara are deter mined by calcu latin [...] e nakul cteri stics deter mined by [employer] iated Patho logis ts, LLC d/b/a PathG [...] logis ts, LLC, d/b/a PathG roup, [address], [place] [address] , Daniel Ramos ra, , Labor atory Direc tor. Not Available [facility] ([facility]) [address], [place], [address], 10/07/2023 12:50:56 10/05/19 24 10/06/2023 CHLAM YDIA [...] [address], [place] [address] , Daniel Ramos ra, DO, Labor atory Direc tor, CLIA# [id number] Not Available [facility] ([facility]) [address], [place], [address], 10/07/2023 12:50:58 10/05/19 24 10/06/2023 CHLAM YDIA [...] logis ts, LLC d/b/a PathKike bonilla, [address] [facility] [address], [place] [address] , Daniel Ramos ra, DO, Labor atory [facility], CLIA# [id number] Not Available [facility] ([facility]) [address] [facility] [address], [place], [address], 10/07/2023 12:50:58 10/05/19 24 10/05/2023 EMPOW ER MULTI -CANC ER,EX P(2+5 1) report summary OTHER normal Test Not Perfo rmed Dupli marichuy test. Empow er 53 panel previ ously resul xiomara under 03 Test was not perfo rmed. Refer to speci fic detai ls below . Not Available [email or web address] [address], [place], [address], 10/28/2023 21:34:33 10/05/19 24 10/05/2023 EMPOW ER MULTI -CANC ER,EX P(2+5 1) footnotes See Notes CLIA: ID #[id number] 2 Test perfo rmed by [employer]. [address] [facility] [address] [place] [address] Arielle Stephens, Ph.D. , [facility] , Labor atory Direc tor Not Available [facility] [address], [place], [address], 10/28/2023 21:34:33 10/05/19 24 10/05/2023 urina lysis , dipst ick Leukocytes neg Not Available Haley Barajas MD [address] [place] [address], [address], 10/05/2023 11:05:11 10/05/19 24 10/05/2023 urina lysis , dipst ick Nitrite negati ve Not Available Haley Barajas MD [facility] [place], [address], 10/05/2023 11:05:11 10/05/19 24 10/05/2023 urina lysis , dipst ick Protein +++ Not Available Haley Barajas MD [facility] [place], [address], 10/05/2023 11:05:11 10/05/19 24 10/05/2023 urina lysis , dipst ick Blood neg Not Available Haley Barajas MD [facility] [place], [address], 10/05/2023 11:05:11 10/05/19 24 10/05/2023 urina lysis , dipst ick Ketone neg Not Available Haley Barajas MD [facility] [place], [address], 10/05/2023 11:05:11 10/05/19 24 10/05/2023 urina lysis , dipst ick Glucose neg Not Available Haley Barajas MD [facility] [place], [address], 10/05/2023 11:05:11 10/05/19 24 10/05/2023 urina lysis , dipst ick Color yellow Not Available Haley Barajas MD [address] [place], [address], 10/05/2023 11:05:11 10/13/19 24 10/13/2023 US, pelvi s, compl ete No observ ation record ed. [email or web address] Not Available 2023 15:05:21 10/15/19 24 10/09/2023 MAMMO , scree sylvia, digit al, bilat eral No observ ation record ed. [facility] [address], [place], [address], 10/15/2023 15:47:00 Result Notes None recorded. Procedures Surgical History Date Name Laterality Status Provider Name and Address Organization Details Recorded Time 10/13/19 24 Pelvic Transvaginal Non-OB completed Kristy Cortes MD [address] [facility] [place] [facility] [address], [place], [address], [facility] - Dr Haley Barajas 10/17/2023 21:54:12 07/10/19 23 Date of Last Pap Smear completed Ellen Armstrong CNM [address] [facility] [place] [facility],[address], [place], [address], [place] - Dr Haley Barajas 10/05/2023 10:34:00 02/23/19 19 Date of Last Mammogram completed Zuly Turner [place] - Dr Haley Barajas 07/09/2022 09:40:31 Imaging Results Imaging Date Name Status LastModified by Organiz ation Details LastModified Time 10/13/2023 US, pelvis, complete completed [email or web address] Information not available 10/13/2023 15:05:21 10/09/2023 MAMMO, screening, digital, bilateral completed [facility] [address], [place], [address], 10/15/2023 15:47:00 Procedure Notes None recorded. Medical Equipment None Reported. Allergies Allergen ID Allergen Name Allergen Category Reaction Reaction Severity Criticality Documentation Date Start Date Code Code System Note Provider Name and Address Organization Details Recorded Time 7656 morphine medicatio n hives Not available Not available 07/09/2022 7052 RxNorm Kristy Cortes MD [address] [facility] [place] [facility],[place], [address], [facility] - Dr Haley Barajas 3 09:59:42 7657 Product containin g penicilli n (product) medicatio n hives Not available Not available 07/09/2022 89684 8001 SNOMED Kristy Cortes MD [address] [facility] [place] [facility],[place], [address], [facility] - Dr Haley Barajas 3 10:00:00 [...] Updated DateTime 07/09/2022 175.26 cm 51.8 kg/m2 712309.2 g 130 mm[Hg] 80 mm[Hg] Zuly Barajas 3 09:48:27 Date Recorded Body height Body mass index (BMI) Body weight Systolic blood pressure Diastolic blood pressure Provider Name and Address Organization Details Last Updated DateTime 10/05/2023 175.26 cm 51.1 kg/m2 305493.2 4 g 150 mm[Hg] 100 mm[Hg] Ismael Barajas 4 10:55:27 Social History Question Answer Notes LastModified by Organizat ion Details LastModified Time Are You Blind Or Do You Have Difficulty Seeing? No [email or web address] Information not available 07/09/2022 In The 14 Days Before Symptom Onset, Have You Had Close Contact With A Laboratory-confirme d COVID-19 While That Case Was Ill? No [email or web address] Information n ot available 07/09/2022 In The 14 Days Before Symptom Onset, Have You Had Close Contact With A Person Who Is Under Investigation For COVID-19 While That Person Was Ill? No [email or web address] Information not available 07/09/2022 Have You Been To An Area Known To Be High Risk For COVID-19? No [email or web address] Information not available 07/09/2022 Are You Deaf Or Do You Have Serious Difficulty Hearing? No [email or web address] Information not available 07/09/2022 What Type Of Diet Are You Following? REGULAR [email or web address] Information n ot available 07/09/2022 Sex: Unknown Functional Status Question Answer Note LastModified by Organizat ion Details LastModified Time Do you have difficulty walking or climbing stairs? No Information not available 07/09/2022 Do you have transportation difficulties? No [email or web address] Information not available 07/09/2022 Do you have difficulty doing errands alone? No [email or web address] Information not available 07/09/2022 Are you able to care for yourself? Yes [email or web address] Information not available 07/09/2022 Do you have difficulty dressing or bathing? No [email or web address] Information not available 07/09/2022 What is your exercise level? None [email or web address] Information not available 07/09/2022 Mental Status Question [...] SNOMED-CT Code Diagnosis ICD10 Code Diagnosis Note [id number] Kristy Cortes MD [facility] Elmer christensen [employer] [address] [facility] [place] DAVIES [address] 07/09/2022 09:30:13 07/09/2022 10:34:01 Gynecologic examination 85764476 Z01.419 Anemia screening 5857553 07 Z13.0 Diabetes m ellitus screening 969785377 Z13.1 Endocrine/ metabolic screening 330635939 Z13.228 Hyperlipid emia screening 817665699 Z13.220 Venereal d isease screening 998345804 Z11.3 Screening mammography 24 491758 Z12.31 Family his tory of breast cancer 064057772 Z80.3 Morbid obesity 952592207 E66.01 Recommende d weight loss consultati on Family his tory of malignant neoplasm 889220857 Z80.9 [id number] lElen Armstrong CNM [facility] Elmer christensen [employer] [address] [facility] [place] [address] 10/05/2023 09:58:50 10/05/2023 11:50:01 Gynecologic examination 16735810 Z01.419 Venereal d isease screening 153661692 Z11.3 Anemia screening 4210876 07 Z13.0 Diabetes m ellitus screening 623226683 Z13.1 Thyroid di sorder screening 796600750 Z13.29 Hyperlipid emia screening 338069145 Z13.220 Abnormal v aginal bleeding 849896958 N93.9 Screening mammography of bilateral breasts 3164235921 77125 Z12.31 [id number] Kristy Cortes MD [facility] Elmer christensen [employer] [address] [facility] [place] [address] 10/13/2023 14:26:02 10/13/2023 15:00:40 Abnormal vaginal bleeding 030434850 N93.8 Health Concerns Section Related Observation LastModified by Organization Detai ls LastModified Time None Recorded Concern Status LastModified by Organization Details LastModified Time None Recorded Advance Directives Directive None Recorded Payers Encounter Date Sequence Insurance Name Policy Number Policy Novoa Covered Member ID Novoa Member ID Guarantor Name 07/09/2022 1 [employer] - OPEN ACCESS - NATIONAL (POS) Radha Poe [id number] Radha Poe 10/05/2023 1 [employer] - OPEN ACCESS - NATIONAL (POS) Radha Poe [id number] Radha Poe 10/13/2023 1 [employer] (MEDICARE REPLACEMENT/A DVANTAGE - PPO) Radha Poe [id number] Radha Poe Notes Date Note Type Note [...] anxiety; No PMDD Kristy Cortes MD [address] [facility] [place] [facility],[place], [address], [facility] Dr Haley Barajas 07/09/2022 14:44:55 10/05/2023 text/html Annual [employer] Post-MenopausalRep orted bypatient.Menopaus al Symptoms:no menopausal symptoms; [...] to schedule mammogram Ellen Armstrong CNM [address] [facility] [place] [facility],[address], [place], [address], [facility] Dr Haley Barajas 10/05/2023 12:10:36 10/13/2023 text/html Patient presents for ultrasound Kristy Cortes MD [address] [facility] [place] [facility],[address], [place], [address], [facility] Dr Haley Barajas 10/17/2023 21:55:33 OBGyn Episode No OBEpisode recorded.
--- OUTSIDE RECORDS SUMMARY | 2024-05-03 08:55 | XMS_ITS ---
Author Organization [facility] Address [address] [place], [place] [id number] Care Team Providers Care Director Of Content Marketing Name Role Phone Usama Garcia M.D. Primary Care Provider [phone] [facility] Suzy Unavailable REASON FOR VISIT question Encounters Encounter Location Date Provider Diagnosis [facility] [address] [place], [place] [id number] 02/08/2024 Usama Garcia Plan Of Treatment No Information Progress Notes * Nayana ARENASOB: 2 (43 yo F)Acc No.[id number]:02/08/2024 Patient:?Radha ARENAS :1980???Age:43 Y???Sex:Female Address:[address] [place] [address], [address] * true * Date:? Generated for Printi ng/Faxing/eTransmitting on:?05/03/2024 08:54 AM EDT
--- OUTSIDE RECORDS SUMMARY | 2024-05-03 08:55 | XMS_ITS ---
Author Organization [facility] Address [address] [place] [address] Care Team Providers Care Satellite Tv Installer Name Role Phone GIULIA MILAN Unavailable [phone] ZachYu Unavailable [phone] REASON FOR VISIT discuss weight loss options Encounters Encounter Location Date Provider Diagnosis [facility] [address] [place] [address] 03/10/2024 Yu Serrano PLAN OF TREATMENT No Information Progress Notes * Nayana ARENASOB: 2 (43 yo F)Acc No.[id number]:03/10/2024 Progress Notes Patient:??Radha ARENAS Provider:??JET Berger :1980?Age:43 Y?Sex:Fe male Date:03/10/2024 Address:[address] [place], [place] [id number] Subjective: * Chief Complaints: * ?1. Discuss weight loss options. * Medical History:?? Objective: Assessment: Plan: * Treatment: * Billing Information: * Visit Code:?? * Procedure Codes:?? * Sign off status: Pending * Provider:??JET Berger Date:??
[2024-05-03 10:17] LABS: B Type Natriuretic Peptide 12 pg/mL (<100)
== END 2024-05-03 08:22 | disposition home or self-care (01) ==
LOC: HO.XRAY 08:21
DX: M25.561 Pain in right knee (principal); M25.562 Pain in left knee; R06.02 Shortness of breath
CPT/HCPCS: 36415; 73560; 83880

== ENCOUNTER → 2024-05-03 08:47 | Outpatient (BNV) | payer OTHER, MEDICAID, SELFPAY | PROVIDERS: Visit Provider Radiology Diagnostic Radiology | DX: M17.0 Bilateral primary osteoarthritis of knee (principal) | CPT/HCPCS: 73560 ==

== ENCOUNTER 2024-05-13 08:04 | Outpatient (AMB) | payer OTHER, MEDICAID, SELFPAY ==
--- NOTE | 2024-05-13 08:07 | A.OFFVIS_ITS ---
Vital Signs 05/13/24 08:08 Height 5 ft 9 in Weight 350 lb 1.505 oz BMI 51.7 BP 134/88 Blood Pressure Location Rt brachial Position Sitting Pulse 72 Pulse Source Pulse Oximeter Pulse Oximetry (%) 97 Oxygen Delivery Method Room Air Intake Visit Reasons: [place] screening, anemia hx. Intake Note: NEW PATIENT for repeat colo screening, last 2019. Hx of anemia. Chief Complaint; C/O twisting cramping / epigastric pain, reflux, dysphagia. Pt denies any additional concerns at this time. Showcase Maker Required: No Allergies metformin Allergy (Intermediate, Verified 05/02/24 15:04) Hives morphine [MORPHINE] Allergy (Unknown, Verified 05/02/24 15:04) HIVES Penicillins [PENICILLINS] Allergy (Unknown, Verified 05/02/24 15:04) SHORTNESS OF BREATH HPI HPI [place] screening, anemia hx.: Details: 43-year-old female with past medical history of DVT, PE, migraine, tachycardia, knee osteoarthritis depression, obesity, hypercholesteremia, hypertension, anemia, obstructive sleep apnea is here today for initial consultation. Patient reports history of colonoscopy in 2019 for anemia, no polyps found. Patient believes that she had normal colonoscopy then. Patient just recently returned to this area, lived in [place] for some time. Currently patient is treated with Eliquis. History of DVT as well. Patient denies melena, hematochezia, unintentional weight loss or ribbon like stools. Reports occasional dyspepsia without dysphagia or odynophagia. Patient reports epigastric pain, abdominal burning and bloating no matter what she eats. Patient unable to pinpoint what food could cause that. [facility] Medical History Chronic migraine without aura Blurry vision depression Overactive bladder Iron deficiency Hypercholesterolemia Pulmonary embolism Deep vein thrombophlebitis of leg Obesity Hypertension Anxiety Anemia Surgical History H/O esophagogastroduodenoscopy History of colonoscopy Hx of dilation and curettage Hx of hysterectomy Family History Mother Breast cancer Hypertension Father Lung cancer Brother Hypertension Brother No problems noted. Sister Hypertension Sister History of partial hysterectomy Sister No problems noted. Sister No problems noted. Daughter No problems noted. Daughter No problems noted. Daughter No problems noted. Son No problems noted. Social History Housing: House Alcohol intake: current Alcohol intake frequency: holidays/special occasions only Alcohol type: wine Patient Tobacco Use Status: Never used Tobacco e-Cigarette/Vaping Use: Never Used Second Hand Smoke Exposure: No service: No Current occupational status: unemployed Cognitive needs: No Hearing needs: No Vision needs: No Review of Systems Const Denies weight gain and Denies weight loss ENT Reports no additional complaints, Denies dysphagia and Denies odynophagia Card Reports no additional complaints Resp Reports no additional complaints GI Reports abdominal pain (Epigastric, burning), Denies belching, Denies melena, Reports bloating, Denies change in bowel habits, Denies dysphagia, Denies excessive flatus, Denies dyspepsia, Reports heartburn, Denies diarrhea, Denies loose stools, Denies nausea, Denies odynophagia and Denies vomiting Reports no additional complaints Musc Reports no additional complaints Neuro Reports no additional complaints Psych Reports no additional complaints Endo Reports no additional complaints Physical Exam Vital Signs: Last Vital Signs Pulse 72 05/13/24 08:08 BP 134/88 05/13/24 08:08 Pulse Ox 97 05/13/24 08:08 Oxygen Delivery Method Room Air 05/13/24 08:08 BMI result Body Mass Index 51.7 Const General: healthy appearing and no acute distress Nutritional Appearance: obese Orientation/consciousness: patient oriented x3 Resp Effort & Inspection: normal respiratory effort, able to speak in complete sentences, no tracheal deviation and symmetric chest movement Auscultation: clear to auscultation bilaterally Cardio Rate: regular rate GI Inspection: Yes normal to inspection, No distended and Yes obesity Palpation (GI): Soft to palpation, not firm, nontender and No hepatosplenomegaly present Auscultation: normal bowel sounds General: Yes no CVA tenderness Back/Spine/Pelvis Back: no CVA tenderness Skin General skin exam: elasticity normal, turgor normal and dry skin Neuro General: patient oriented x3 Psych Appearance: grossly normal Mental Status: mental status grossly normal Assessment & Plan Assessment & Plan (1) Anemia: Code(s): D64.9 - Anemia, unspecified Category: Medical Qualifiers: Anemia type: iron deficiency Iron deficiency anemia type: inadequate dietary iron intake Qualified Code(s): D50.8 - Other iron deficiency anemias (2) Postprandial abdominal bloating: Code(s): R14.0 - Abdominal distension (gaseous) (3) GERD (gastroesophageal reflux disease): Code(s): K21.9 - Gastro-esophageal reflux disease without esophagitis Qualifiers: Esophagitis presence: esophagitis presence not specified Qualified Code(s): K21.9 - Gastro-esophageal reflux disease without esophagitis (4) Postprandial epigastric pain: Code(s): R10.13 - Epigastric pain Plan Will rule out celiac, check thyroid level, vitamin B12, folate, vitamin-D, lipase. Patient will be sent for upper GI with barium swallow to rule out reflux, hiatal hernia. Patient will be started on pantoprazole daily. Avoid dietary triggers and late night snacking. Staying upright for minimum 3 hours after meals discussed with patient. Patient reports abdominal bloating, discussed with patient low FODMAP diet. List of food recommended as well as list of food to avoid given to patient. Patient will follow-up in 2-3 months. Patient will be sent for upper endoscopy and colonoscopy as well. Message sent to surgical schedulers to book procedure for patient. Patient is agreeable to this plan and verbalizes understanding of instructions. She was given the opportunity to ask questions and all questions answered. Thank you for allowing me to participate in her care Orders: Orders Transglutaminase IgA Today R10.9 - Unspecified abdominal pain TSH reflex Free T4 Today K59.00 - Constipation, unspecified Vitamin B12 and Folate Today R19.7 - Diarrhea, unspecified Vitamin D 25-OH (D2 and D3) Today E55.9 - Vitamin D deficiency, unspecified Lipase Today R10.9 - Unspecified abdominal pain FL upper GI w Ba Swallow Today K21.9 - Gastro-esophageal reflux disease without esophagitis Medications: New pantoprazole take one tablet half an hour before breakfast 40 mg PO DAILY 30 tabs 2RF K21.9 - Gastro-esophageal reflux disease without esophagitis Coding Level of Care Code New Pt Level 4 (07537) Diagnoses Iron deficiency anemia secondary to inadequate dietary iron intake D50.8 Anemia type: iron deficiency Iron deficiency anemia type: inadequate dietary iron intake Postprandial abdominal bloating R14.0 Gastroesophageal reflux disease, unspecified whether esophagitis present K21.9 Esophagitis presence: esophagitis presence not specified Postprandial epigastric pain R10.13 Time Spent (min) 45 Comment 30 minutes spent with patient and additional 15 minutes spent reviewing her records
[2024-05-13 08:08] VITALS: BP 134/88; PULSE 72; O2SAT 97; BMI 51.7
--- OUTSIDE RECORDS SUMMARY | 2024-05-13 08:09 | XMS_ITS | Patient Health Record ---
Author Organization [facility] Address [address] [place] [address] Care Team Providers Care Money Order Clerk Name Role Phone GIULIA MILAN Unavailable [phone] Yu Serrano Unavailable [phone] Reason For Referral No Information Plan Of Treatment No Information Insurance Providers Payer Name Payer Address Payer Phone Subscriber Number Group Number Insured Name Patient Relationship to Insured Coverage Start Date Coverage End Date [employer] [address] [address] [place] [address] [id number] Radha Poe Self - patient is the insured
--- OUTSIDE RECORDS SUMMARY | 2024-05-13 08:09 | XMS_ITS | Data Portability ---
Author Organization [place] - Dr Haley turpin, [facility] - Address [address] [place] [address] Assessment No assessment recorded. Plan of Treatment Reminders Order Date Submit Date Provider Last Modified By Organization Details Last Modified Time Details Appointments None recorded. Lab urinalysis, dipstick 2023 024 [email or web address] 4 Haley Barajas MD, [address] [place], [address], 4 12:09:17 culture, urine 2023 024 CAMANCHE [facility] ([facility]), [address], [place], [address], 4 02:03:36 bacterial vaginosis + vaginitis panel, vaginal 2023 024 [facility] ([facility]), [address], [place], [address], 4 12:50:57 lipid panel, serum 2023 024 CAMANCHE [facility] ([facility]), [address], [place], [address], 4 17:14:03 CMP, serum or plasma 2023 024 CAMANCHE [facility] ([facility]), [address], [place], [address], 4 17:14:04 hereditary breast + gynecologic cancer multigene analysis, blood or tissue 2023 024 [email or web address] This Week In, [address], [place], [address], 4 14:52:14 T4, free, serum 2023 024 [facility]), [address], [place], [address], 4 17:14:06 TSH, serum or plasma 2023 024 CAM[facility]), [address], [place], [address], 4 17:14:06 HIV (1+2) Ab screen, serum 2023 024 CAMANCHE [facility] ([facility]), [address], [place], [address], 4 17:14:05 RPR (rapid plasma reagin), serum 2023 024 [facility]), [address], [place], [address], 4 17:14:08 HBsAg (hepatitis B surface Ag), serum 2023 024 [facility] ([facility]), [address], [place], [address], 4 17:14:07 CT + NG DNA, PCR, unspecified specimen 2023 024 [email or web address] [facility] ([facility]), [address], [place], [address], 4 14:52:14 hepatitis C virus Ab, serum 2023 024 [facility] ([facility]), [address], [place], [address], 4 17:14:07 CBC 2023 024 [facility] ([facility]), [address], [place], [address], 4 17:14:04 HbA1c (hemoglobin A1c), blood 2023 024 [facility] ([facility]), [address], [place], [address], 4 17:14:05 lipid panel, serum 2022 023 [facility] ([facility]), [address], [place], [address], 3 10:56:57 CMP, serum or plasma 2022 023 [facility] ([facility]), [address], [place], [address], 3 10:56:59 TSH, serum or plasma 2022 023 [facility] ([facility]), [address], [place], [address], 3 10:57:00 T4, free, serum 2022 023 [facility] ([facility]), [address], [place], [address], 3 10:57:00 pap, LB 2022 023 [facility] ([facility]), [address], [place], [address], 3 15:29:20 genetic screen, unspecified specimen 2022 023 [facility], [address], [place], [address], 3 15:01:20 CT + NG DNA, PCR, unspecified specimen 2022 023 [facility] ([facility]), [address], [place], [address], 3 15:29:21 RPR (rapid plasma reagin), serum 2022 023 [facility] ([facility]), [address], [place], [address], 3 10:57:03 HIV (1+2) Ab screen, serum 2022 023 [facility] ([facility]), [address], [place], [address], 3 10:57:01 HBsAg (hepatitis B surface Ag), serum 2022 023 [facility] ([facility]), [address], [place], [address], 3 10:57:02 hepatitis C virus Ab, serum 2022 023 [facility] ([facility]), [address], [place], [address], 3 10:57:02 HbA1c (hemoglobin A1c), blood 2022 023 [facility]), [address], [place], [address], 3 10:56:59 CBC 2022 023 [facility] ([facility]), [address], [place], [address], 3 10:56:58 Referral None recorded. Procedures None recorded. Surgeries None recorded. Imaging US, pelvis, complete 2023 024 [email or web address] Not available 4 11:50:01 MAMMO, screening, digital, bilateral 2023 024 CAMANCHE [facility] [employer], [address], [place], [address], 4 14:04:49 MAMMO, screening, digital, bilateral 2022 023 [email or web address] [facility], [address], [place], [address], 3 15:08:06 Medication Orders None recorded. Patient TargetsNo targets recorded. Patient Instructions Encounter Date Encounter Id Patient Instructions Last Modified By Organization Details Last Modified Time 07/09/2022 [id number] Pap collected. Labwork ordered. Mammo ordered. Instructed to RTO in 2 days for weight loss consultation [email or web address] Not available 07/09/2022 11:51:15 10/05/2023 [id number] Recommend 5 servings of fruits and vegetables [...] year for annual Notify office as needed [email or web address] Not available 10/05/2023 11:01:02 Strongly encouraged pt to go back to provider managing BP meds so that she can have meds for HTN adjusted. PC labs today & referred to [facility] for new provider that takes her insurance. 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 [email or web address] Not available 10/05/2023 12:10:18 10/13/2023 [id number] Ultrasound reviewed by Dr. Cortes Agree with [...] -[facility] ([facility]) [address] [facility] [address], [place], [address], 07/10/2022 10:56:57 07/10/1907/10/2022 LIPID PANEL triglyceride s 151 mg/dL <150 high Not Available Path oup -[facility] ([facility]) [facility] [facility] [address], [place], [address], 07/10/2022 10:56:57 07/10/19 23 07/10/2022 LIPID PANEL HDL cholesterol 59 mg/dL >39 Not Available Path group [facility] ([facility]) [address] [place] [address] Dr [address], [place], [address], 07/10/2022 10:56:57 07/10/19 23 07/10/2022 LIPID PANEL cholesterol / HDL ratio 3.42 ratio 0.00-4 .44 Not Available [facility] ([facility]) [address] [place] [address] [address], [place], [address], 07/10/2022 10:56:57 07/10/19 23 07/10/2022 LIPID PANEL non-HDL cholesterol 143 mg/dL <130 high Not Available Path [facility] ([facility]) [address] [place] [address] Dr [address], [place], [address], 07/10/2022 10:56:57 07/10/19 23 07/10/2022 LIPID PANEL [...] 2004 ATPII I guide lines Not Available [facility] ([facility]) [facility] [address], [place], [address], 07/10/2022 10:56:57 07/10/19 23 07/10/2022 LIPID PANEL LDL/HDL ratio 1.9 ratio <3.3 ___ LDL Fany stero l Patie nt Histo ry ___ Test Date: 07/09 LDL Resul ts: 113 Units : mg/dL % Silva e: - ___ Not Available [facility] ([facility]) [address] [place] [address] Dr Marie [facility], [place], [address], 07/10/2022 10:56:57 07/10/19 23 07/10/2022 CBC WITH PLATE LET NO DIFFE RENTI AL WBC 6.5 K/uL 3.8-11 .5 Not Available [facility] ([facility]) [address] [place] [address] Dr Marie [facility], [place], [address], 07/10/2022 10:56:58 07/10/19 23 07/10/2022 CBC WITH PLATE LET NO DIFFE RENTI AL red blood cell count (RBC) 4.28 M/mm3 3.60-5 .30 Not Available [facility] ([facility]) [address] [place] [address] [address], [place], [address], 07/10/2022 10:56:58 07/10/19 23 07/10/2022 CBC WITH PLATE LET NO DIFFE RENTI AL hemoglobin (HGB) 11.9 gm/dL 11.5-1 5.5 Not Available [facility] ([facility]) [address] [place] [address] [address], [place], [address], 07/10/2022 10:56:58 07/10/19 23 07/10/2022 CBC WITH PLATE LET NO DIFFE RENTI AL hematocrit (HCT) 36.1 % 35.2-4 6.4 Not Available [facility] ([facility]) [address] [place] [address] [address], [place], [address], 07/10/2022 10:56:58 07/10/19 23 07/10/2022 CBC WITH PLATE LET NO DIFFE RENTI AL MCV 84.3 fL 79.0-9 9.0 Not Available [facility] ([facility]) [address] [place] [address] [address], [place], [address], 07/10/2022 10:56:58 07/10/19 23 07/10/2022 CBC WITH PLATE LET NO DIFFE RENTI AL MCH 27.8 pg 26.9-3 5.0 Not Available [facility] ([facility]) [address] [place] [address] [address], [place], [address], 07/10/2022 10:56:58 07/10/19 23 07/10/2022 CBC WITH PLATE LET NO DIFFE RENTI AL MCHC 33.0 g/dL 30.4-3 4.8 Not Available [facility] ([facility]) [address] [place] [address] [address], [place], [address], 07/10/2022 10:56:58 07/10/19 23 07/10/2022 CBC WITH PLATE LET NO DIFFE RENTI AL RDW 44.8 fL 38.6-5 3.8 Not Available [facility] ([facility]) [address] [place] [address] Dr [address], [place], [address], 07/10/2022 10:56:58 07/10/19 23 07/10/2022 CBC WITH PLATE LET NO DIFFE RENTI AL platelet count 337 K/cum m 137-39 7 Not Available [facility] ([facility]) [address] [place] [address] [address], [place], [address], 07/10/2022 10:56:58 07/10/19 23 07/10/2022 COMPR EHENS JESENIA METAB OLIC PANEL (CMP) sodium 137 mEq/L 135-14 5 Not Available [facility] ([facility]) [address] [place] [address] [address], [place], [address], 07/10/2022 10:56:59 07/10/19 23 07/10/2022 COMPR EHENS JESENIA METAB OLIC PANEL (CMP) potassium 4.2 mEq/L 3.5-5. 3 Not Available [facility] ([facility]) [address] [place] [address] [address], [place], [address], 07/10/2022 10:56:59 07/10/19 23 07/10/2022 COMPR EHENS JESENIA METAB OLIC PANEL (CMP) chloride 100 mEq/L 97-108 Not Available [facility] ([facility]) [address] [place] [address] [address], [place], [address], 07/10/2022 10:56:59 07/10/19 23 07/10/2022 COMPR EHENS JESENIA METAB OLIC PANEL (CMP) CO2 30 mEq/L 22-32 Not Available [facility] ([facility]) [address] [place] [address] [address], [place], [address], 07/10/2022 10:56:59 07/10/19 23 07/10/2022 COMPR EHENS JESENIA METAB OLIC PANEL (CMP) glucose 100 mg/dL 65-99 high Not Available [facility] ([facility]) [address] [place] [address] [address], [place], [address], 07/10/2022 10:56:59 07/10/19 23 07/10/2022 COMPR EHENS JESENIA METAB OLIC PANEL (CMP) BUN 10 mg/dL 6-20 Not Available [facility] ([facility]) [address] [place] [address] [address], [place], [address], 07/10/2022 10:56:59 07/10/19 23 07/10/2022 COMPR EHENS JESENIA METAB OLIC PANEL (CMP) creatinine 0.82 mg/dL 0.50-1 .00 Not Available [facility] ([facility]) [address] [place] [address] [address], [place], [address], 07/10/2022 10:56:59 07/10/19 23 07/10/2022 COMPR EHENS JESENIA METAB OLIC PANEL (CMP) calcium 9.3 mg/dL 8.6-10 .4 Not Available [facility] ([facility]) [address] [place] [address] [address], [place], [address], 07/10/2022 10:56:59 07/10/19 23 07/10/2022 COMPR EHENS JESENIA METAB OLIC PANEL (CMP) protein 7.8 g/dL 6.0-8. 3 Not Available [facility] ([facility]) [address] [place] [address] [address], [place], [address], 07/10/2022 10:56:59 07/10/19 23 07/10/2022 COMPR EHENS JESENIA METAB OLIC PANEL (CMP) albumin 4.1 g/dL 3.5-5. 3 Not Available [facility] ([facility]) [address] [place] [address] [address], [place], [address], 07/10/2022 10:56:59 07/10/19 23 07/10/2022 COMPR EHENS JESENIA METAB OLIC PANEL (CMP) alkaline phosphatase 141 IU/L 35-121 high Not Available [facility] ([facility]) [address] [place] [address] [address], [place], [address], 07/10/2022 10:56:59 07/10/19 23 07/10/2022 COMPR EHENS JESENIA METAB OLIC PANEL (CMP) ALT (SGPT) 16 IU/L <5-47 Not Available Patho up -[facility] ([facility]) [address] [place] [address] [address], [place], [address], 07/10/2022 10:56:59 07/10/19 23 07/10/2022 COMPR EHENS JESENIA METAB OLIC PANEL (CMP) AST (SGOT) 14 IU/L <5-40 Not Available [facility]o -[facility] ([facility]) [address] [place] [address] [address], [place], [address], 07/10/2022 10:56:59 07/10/19 23 07/10/2022 COMPR EHENS JESENIA METAB OLIC PANEL (CMP) bilirubin, total 0.3 mg/dL <0.2-1 .2 Not Available [facility] ([facility]) [address] [place] [address] [address], [place], [address], 07/10/2022 10:56:59 07/10/19 23 07/10/2022 COMPR EHENS JESENIA METAB OLIC PANEL (CMP) A/G ratio 1.1 mg/dL 1.1-2. 5 Not Available [facility] ([facility]) [address] [place] [address] [address], [place], [address], 07/10/2022 10:56:59 07/10/19 23 07/10/2022 COMPR EHENS JESENIA METAB OLIC PANEL (CMP) estimated GFR (black) 103 mL/mi n/1.7 3m2 >59 Not Available [facility] ([facility]) [address] [facility] [address], [place], [address], 07/10/2022 10:56:59 07/10/19 23 07/10/2022 COMPR EHENS [...] e mass or diet. Not Available [facility] ([facility]) [facility] [address] [address], [place], [address], 07/10/2022 10:56:59 07/10/19 23 07/10/2022 HEMOG LOBIN [...] <5.7% Non-D iabet ic Not Available [facility] ([facility]) [address] [place] [address] [address], [place], [address], 07/10/2022 10:56:59 07/10/19 23 07/10/2022 HEMOG LOBIN A1C estimated average glucose 123 mg/dL [place] Gluco se is calcu lated using the equat ion AG = (28.7 x HgbA1 c) - 46.7 based on the guide lines estab nicolas brunson by the ADA. Not Available [facility] ([facility]) [address] [place] [address] [address], [place], [address], 07/10/2022 10:56:59 07/10/19 23 07/10/2022 TSH TSH 2.74 mU/L 0.43-5 .25 Not Available [facility] ([facility]) [address] [place] [address] [address], [place], [address], 07/10/2022 10:57:00 07/10/19 23 07/10/2022 THYRO XINE FREE (FREE T4) thyroxine free (free T4) 1.04 NG/dL 0.86-1 .76 Not Available [facility] ([facility]) [address] [place] [address] [address], [place], [address], 07/10/2022 10:57:00 07/10/19 23 07/10/2022 HIV 1/2 AB SCREE N W/P24 AG HIV 1/2 Ab screen w/p24ag Nonrea ctive nonrea ctive Not Available [facility] ([facility]) [address] [place] [address] [address], [place], [address], 07/10/2022 10:57:01 07/10/19 23 07/10/2022 HEPAT ITIS B SURFA CE ANTIG EN (HBSA G) hepatitis B surface antigen (HBsAg) Nonrea ctive nonrea ctive Not Available [facility] ([facility]) [address] [place] [address] [address], [place], [address], 07/10/2022 10:57:02 07/10/19 23 07/10/2022 HEPAT ITIS C ANTIB FARAZ (HCV) IGG hepatitis C antibody (HCV) IgG Nonrea ctive nonrea ctive Not Available [facility]) [address] [facility] [facility] [address], [place], [address], 07/10/2022 10:57:02 07/10/19 23 07/10/2022 RPR (NON- TREPO NEMAL ) REFLE X TO CONFI RMATI ON RPR (non-trepone mal) reflex to confirmation Nonrea ctive nonrea ctive Not Available [facility] ([facility]) [address] [facility] [address], [place], [address], 07/10/2022 10:57:03 07/10/19 23 07/11/2022 PAP TEST [...] Techn ical servi meaghan provi ded by [facility] iated Patho logis [employer], [facility], d/b/a Path[facility] rou, [address] [place] [address] Richar Wallace MD, Labor [facility]. Case revie wed and diagn osis rende red at [facility], d/b/a Path[facility], [address] [place] [address] Richar Wallace MD, Labor [facility]. CONFI DENTI AL Not Available [facility] ([facility]) [address] [place] [address] [address], [place], [address], 07/11/2022 15:29:20 07/10/19 23 07/10/2022 CHLAM YDIA, [...] perfo rmed by Assoc i[facility]o logis [employer] d/b/a PathG rou, [address], [place] [address] , Daniel Ramos ra, DO, Labor [facility], CLIA# [id number] Not Available [facility] ([facility]) [address] [place] [address], [place], [address], 07/11/2022 15:29:21 07/10/19 23 07/10/2022 CHLAM YDIA, [...] logis ts, LLC d/b/a [place], [address], [place] [address] , Daniel Ramos ra, DO, Labor atory [facility], [facility]# [id number] Not Available [facility] ([facility]) [address] [facility] [facility] [address], [place], [address], 07/11/2022 15:29:21 07/10/19 23 07/10/2022 CHLAM YDIA, [...] requi re re-ev aluat ion. A negat jesneia resul t does not precl ude a possi ble infec tion due to a speci men inade quacy or sampl ing error . Test perfo rmed by Assoc i[facility]o logis [employer], [facility] d/b/a Heike irene, [address] [facility] [address], [place] [address] , Daniel Ramos ra, DO, Labor atory [facility], CLIA# [id number] Not Available [facility] ([facility]) [facility] [address], [place], [address], 07/11/2022 15:29:21 07/10/19 23 07/10/2022 HPV HIGH [...] and labor atory findi ngs. See https ://[employer]/s moose/ lyla lt/fi les/2 018-0 3/AW- 89784 _002_ 01.pd f for fur er infor matio n. Test perfo rmed by Assoc iated Patho logis [employer], [employer], d/b/a [place], [address] [facility] [address], [place] [address] , Daniel Ramos ra, DO, Labor atory [facility]. Not Available [facility] ([facility]) [facility] [address], [place], [address], 07/11/2022 15:29:22 07/10/19 23 07/09/2022 EMP[facility] ER report summary VUS normal Negat jesenia for 53 out of 53 genes . A varia nt of uncer tain signi fican ce (VUS) was detec xiomara in the MLH1 gene( s). A VUS means that a silva e in the DNA was detec xiomara, but there is not enoug h infor matio n to deter mine [facility] er or not the silva e [...] A heter ozygo us varia nt of [facility] [place] ce (VUS) was detec xiomara in the MLH1 gene as tabul ated above . Not Available [facility] [address] [facility] [address], [place], [address], 07/21/2022 15:13:25 07/10/19 23 07/09/2022 EMPOW ER footnotes See Notes CLIA: ID #[id number] 2 Test perfo rmed by [email or web address]. [address] [facility] [address] [place] [address] Arielle Stephens, Ph.D. , [facility] , Labor atory D[facility] tor Not Available [facility] [address], [place], [address], 07/21/2022 15:13:25 10/05/19 24 10/06/2023 LIPID PANEL cholesterol 207 mg/dL <200 high Not Available [facility] ([facility]) [address] [facility] [address], [place], [address], 10/06/2023 17:14:03 10/05/19 24 10/06/2023 LIPID PANEL triglyceride s 126 mg/dL <150 Not Available [facility] ([facility]) [address] [facility] [address], [place], [address], 10/06/2023 17:14:03 10/05/19 24 10/06/2023 LIPID PANEL HDL cholesterol 54 mg/dL >39 Not Available Path [facility] ([facility]) [facility] [facility] [address], [place], [address], 10/06/2023 17:14:03 10/05/19 24 10/06/2023 LIPID PANEL cholesterol / HDL ratio 3.83 ratio 0.00-4 .44 Not Available [facility] ([facility]) [address] [place] [address] Dr [address], [place], [address], 10/06/2023 17:14:03 10/05/19 24 10/06/2023 LIPID PANEL non-HDL cholesterol 153 mg/dL <130 high Not Available [facility] ([facility]) [address] [place] [address] Dr [address], [place], [address], 10/06/2023 17:14:03 10/05/19 24 10/06/2023 LIPID PANEL [...] 2004 ATPII I guide lines Not Available [facility] ([facility]) [facility] [address], [place], [address], 10/06/2023 17:14:03 10/05/19 24 10/06/2023 LIPID PANEL [...] Silva e: +13% ___ Not Available [facility] ([facility]) [facility], [place], [address], 10/06/2023 17:14:03 10/05/1910/06/2023 CBC WITH PLATE LET NO DIFFE RENTI AL WBC 7.4 K/uL 3.8-11 .5 Not Available [facility] ([facility]) [address] [facility] [address], [place], [address], 10/06/2023 17:14:04 10/05/19 24 10/06/2023 CBC WITH PLATE LET NO DIFFE RENTI AL red blood cell count (RBC) 4.33 M/mm3 3.60-5 .30 Not Available [facility] ([facility]) [address] [place] [address] [address], [place], [address], 10/06/2023 17:14:04 10/05/19 24 10/06/2023 CBC WITH PLATE LET NO DIFFE RENTI AL hemoglobin (HGB) 12.0 gm/dL 11.5-1 5.5 Not Available [facility] ([facility]) [address] [place] [address] [address], [place], [address], 10/06/2023 17:14:04 10/05/19 24 10/06/2023 CBC WITH PLATE LET NO DIFFE RENTI AL hematocrit (HCT) 37.3 % 35.2-4 6.4 Not Available [facility] ([facility]) [address] [place] [address] [address], [place], [address], 10/06/2023 17:14:04 10/05/19 24 10/06/2023 CBC WITH PLATE LET NO DIFFE RENTI AL MCV 86.1 fL 79.0-9 9.0 Not Available [facility] ([facility]) [address] [place] [address] [address], [place], [address], 10/06/2023 17:14:04 10/05/19 24 10/06/2023 CBC WITH PLATE LET NO DIFFE RENTI AL MCH 27.7 pg 26.9-3 5.0 Not Available [facility] ([facility]) [address] [place] [address] [address], [place], [address], 10/06/2023 17:14:04 10/05/19 24 10/06/2023 CBC WITH PLATE LET NO DIFFE RENTI AL MCHC 32.2 g/dL 30.4-3 4.8 Not Available [facility] ([facility]) [address] [place] [address] [address], [place], [address], 10/06/2023 17:14:04 10/05/19 24 10/06/2023 CBC WITH PLATE LET NO DIFFE RENTI AL RDW 44.3 fL 38.6-5 3.8 Not Available [facility] -[facility] ([facility]) [address] [place] [address] [address], [place], [address], 10/06/2023 17:14:04 10/05/19 24 10/06/2023 CBC WITH PLATE LET NO DIFFE RENTI AL platelet count 324 K/cum m 137-39 7 Not Available [facility] -[facility] ([facility]) [address] [place] [address] Dr [address], [place], [address], 10/06/2023 17:14:04 10/05/19 24 10/06/2023 COMPR EHENS JESENIA METAB OLIC PANEL (CMP) sodium 138 mmol/ L 135-14 5 Not Available [facility] -[facility] ([facility]) [address] [place] [address] [address], [place], [address], 10/06/2023 17:14:04 10/05/19 24 10/06/2023 COMPR EHENS JESENIA METAB OLIC PANEL (CMP) potassium 4.4 mmol/ L 3.5-5. 3 Not Available [facility] -[facility] ([facility]) [address] [place] [address] [address], [place], [address], 10/06/2023 17:14:04 10/05/19 24 10/06/2023 COMPR EHENS JESENIA METAB OLIC PANEL (CMP) chloride 101 mmol/ L 97-108 Not Available [facility] ([facility]) [address] [place] [address] [address], [place], [address], 10/06/2023 17:14:04 10/05/19 24 10/06/2023 COMPR EHENS JESENIA METAB OLIC PANEL (CMP) CO2 27 mmol/ L 22-32 Not Available [facility] -[facility] ([facility]) [address] [place] [address] [address], [place], [address], 10/06/2023 17:14:04 10/05/19 24 10/06/2023 COMPR EHENS JESENIA METAB OLIC PANEL (CMP) glucose 99 mg/dL 65-99 Not Available [facility] -[facility] ([facility]) [address] [place] [address], [place], [address], 10/06/2023 17:14:04 10/05/19 24 10/06/2023 COMPR EHENS JESENIA METAB OLIC PANEL (CMP) BUN 11 mg/dL 6-20 Not Available [facility] -[facility] ([facility]) [address] [place] [address], [place], [address], 10/06/2023 17:14:04 10/05/19 24 10/06/2023 COMPR EHENS JESENIA METAB OLIC PANEL (CMP) creatinine 1.04 mg/dL 0.50-1 .00 high Not Available [facility] -[facility] ([facility]) [address] [place] [address], [place], [address], 10/06/2023 17:14:04 10/05/19 24 10/06/2023 COMPR EHENS JESENIA METAB OLIC PANEL (CMP) calcium 9.1 mg/dL 8.6-10 .4 Not Available [facility] -[facility] ([facility]) [address] [place] [address], [place], [address], 10/06/2023 17:14:04 10/05/19 24 10/06/2023 COMPR EHENS JESENIA METAB OLIC PANEL (CMP) eGFR by creatinine 69 mL/mi n/1.7 3m2 >59 Not Available [facility] -[facility] ([facility]) [address] [place] [address], [place], [address], 10/06/2023 17:14:04 10/05/19 24 10/06/2023 COMPR EHENS JESENIA METAB OLIC PANEL (CMP) protein 7.5 g/dL 6.0-8. 3 Not Available [facility] -[facility] ([facility]) [address] [place] [address] [address], [place], [address], 10/06/2023 17:14:04 10/05/19 24 10/06/2023 COMPR EHENS JESENIA METAB OLIC PANEL (CMP) albumin 4.1 g/dL 3.5-5. 3 Not Available [facility] -[facility] ([facility]) [address] [place] [address] [address], [place], [address], 10/06/2023 17:14:04 10/05/19 24 10/06/2023 COMPR EHENS JESENIA METAB OLIC PANEL (CMP) alkaline phosphatase 131 IU/L 35-121 high Not Available [facility] ([facility]) [address] [place] [address] [address], [place], [address], 10/06/2023 17:14:04 10/05/19 24 10/06/2023 COMPR EHENS JESENIA METAB OLIC PANEL (CMP) ALT (SGPT) 11 IU/L <5-47 Not Available [facility] ([facility]) [address] [place] [address] [address], [place], [address], 10/06/2023 17:14:04 10/05/19 24 10/06/2023 COMPR EHENS JESENIA METAB OLIC PANEL (CMP) AST (SGOT) 14 IU/L <5-40 Not Available [facility] ([facility]) [address] [place] [address] Dr [address], [place], [address], 10/06/2023 17:14:04 10/05/19 24 10/06/2023 COMPR EHENS JESENIA METAB OLIC PANEL (CMP) bilirubin, total 0.2 mg/dL <0.2-1 .2 Not Available [facility] -[facility] ([facility]) [facility] [address], [place], [address], 10/06/2023 17:14:04 10/05/19 24 10/06/2023 COMPR EHENS JESENIA METAB OLIC PANEL (CMP) A/G ratio 1.2 1.1-2. 5 Not Available [facility] ([facility]) [address] [facility] [address] [address], [place], [address], 10/06/2023 17:14:04 10/05/19 24 10/06/2023 HIV 1/2 AB SCREE N W/P24 AG HIV 1/2 Ab screen w/p24ag Nonrea ctive nonrea ctive Not Available [facility] ([facility]) [address] [place] [address] Dr [address], [place], [address], 10/06/2023 17:14:05 10/05/19 24 10/06/2023 HEMOG LOBIN [...] ic <5.7% Non-D iabet ic Not Available [facility] ([facility]) [facility] [address], [place], [address], 10/06/2023 17:14:05 10/05/19 24 10/06/2023 HEMOG LOBIN A1C estimated average glucose 125 mg/dL [place] Gluco se is calcu lated using the equat ion AG = (28.7 x HgbA1 c) - 46.7 based on the guide lines estab lishe d by the ADA. Not Available [facility] ([facility]) [facility] [address] [address], [place], [address], 10/06/2023 17:14:05 10/05/19 24 10/06/2023 TSH TSH 1.77 mU/L 0.43-5 .25 Not Available [facility] [address] [place] [address] [address], [place], [address], 10/06/2023 17:14:06 10/05/19 24 10/06/2023 THYRO XINE FREE (FREE T4) thyroxine free (free T4) 1.06 NG/dL 0.86-1 .76 Not Available [facility] ([facility]) [address] [place] [address] [address], [place], [address], 10/06/2023 17:14:06 10/05/19 24 10/06/2023 HEPAT ITIS B SURFA CE ANTIG EN (HBSA G) hepatitis B surface antigen (HBsAg) Nonrea ctive nonrea ctive Not Available [facility] [address] [place] [address] Dr [address], [place], [address], 10/06/2023 17:14:07 10/05/19 24 10/06/2023 HEPAT ITIS C ANTIB FARAZ (HCV) IGG hepatitis C antibody (HCV) IgG Nonrea ctive nonrea ctive Not Available [facility] ([facility]) [address] [place] [address] [address], [place], [address], 10/06/2023 17:14:07 10/05/19 24 10/06/2023 RPR (NON- [...] is clini darlin suspe cted. Not Available [facility] ([facility]) [address] [facility] [address] [address], [place], [address], 10/06/2023 17:14:07 10/05/19 24 10/07/2023 CULTU RE, URINE specimen source Urine - Void Not Available [facility] ([facility]) [address] [facility] [address] [address], [place], [address], 10/07/2023 02:03:33 10/05/19 24 10/07/2023 CULTU RE, URINE culture, urine See Below Final Repor t : No growt h Not Available [facility] ([facility]) [address] [facility] [address] [address], [place], [address], 10/07/2023 02:03:33 10/05/19 24 10/06/2023 VAGIN ITIS [...] Patho logis ts, LLC, d/b/a Hoa bon[place], [facility]0 [facility] [address], [place] [address] , Daniel Ramos ra, DO, Labor atory [...] chelo resul ts of Pamela l or [place] xiomara are deter mined by calcu latin [...] e nakul cteri stics deter mined by [employer] d/b/a PathG rouberenice. It has not been clear ed or appro edel by the U.S. Food and Drug Admin istra tion. The FDA has deter mined that such clear ance or appro juan carlos is not neces ivana. Perti nent refer ence inter vals are avail able from the labor atory on reque st. Test( s) perfo rmed by [employer] Patho mobiDEOS ts, [employer], d/b/a PathG roup, [address], [place] [address] , Daniel Ramos ra, DO, Labor atory Direc tor. Not Available [facility] ([facility]) [address] [facility] [address], [place], [address], 10/07/2023 12:50:56 10/05/19 24 10/07/2023 VAGIN ITIS [...] logis ts, LLC, d/b/a PathG rou, [address], [place] [address] , Daniel Ramos ra, DO, Labor atory Direc tor. Rosa Maria camargo a vagin ttaiana, Helen da speci es: Genom ic DNA [...] chelo resul ts of Pamela l or [place] xiomara are deter mined by calcu latin [...] e nakul cteri stics deter mined by [employer], [employer] d/b/a Path THEVA. It has not been clear ed or appro edel by the U.S. Food and Drug Admin istra tion. The FDA has deter mined that such clear ance or appro juan carlos is not neces ivana. Perti nent refer ence inter vals are avail able from the [employer] atory on reque st. Test( s) perfo rmed by [employer], [employer], d/b/a [facility] THEVA, [address], [place] [address] , Daniel Ramos ra, DO, Labor atory Dire tor. Not Available [facility] ([facility]) [address] [facility] [address], [place], [address], 10/07/2023 12:50:56 10/05/19 24 10/07/2023 VAGIN ITIS [...] [address], [place] [address] , Daniel Ramos ra, DO, Labor atory [...] chelo resul ts of Pamela l or [place] xiomara are deter mined by calcu latin [...] e nakul cteri stics deter mined by AssMamaya iated Patho logis ts, LLC d/b/a PathG [...] logis ts, LLC, d/b/a PathG roup, [address], [place] [address] , Daniel Ramos ra, , Labor atory Direc tor. Not Available [facility] ([facility]) [address], [place], [address], 10/07/2023 12:50:56 10/05/19 24 10/06/2023 CHLAM YDIA [...] [address], [place] [address] , Daniel Ramos ra, DO, Labor atory Direc tor, CLIA# [id number] Not Available [facility] ([facility]) [address], [place], [address], 10/07/2023 12:50:58 10/05/19 24 10/06/2023 CHLAM YDIA [...] logis ts, LLC d/b/a PathKike bonilla, [address] [facility] [address], [place] [address] , Daniel Ramos ra, DO, Labor atory [facility], CLIA# [id number] Not Available [facility] ([facility]) [address] [facility] [address] [address], [place], [address], 10/07/2023 12:50:58 10/05/19 24 10/05/2023 EMPOW ER MULTI -CANC ER,EX P(2+5 1) report summary OTHER normal Test Not Perfo rmed Dupli marichuy test. Empow er 53 panel previ ously resul xiomara under 03 Test was not perfo rmed. Refer to speci fic detai ls below . Not Available This [facility] In [address], [place], [address], 10/28/2023 21:34:33 10/05/19 24 10/05/2023 EMPOW ER MULTI -CANC ER,EX P(2+5 1) footnotes See Notes CLIA: ID #[id number] 2 Test perfo rmed by [email or web address]. [address] [facility] [address] [place] [address] Arielle Stephens, Ph.D. , [facility] , Labor atory Direc tor Not Available [facility] [address], [place], [address], 10/28/2023 21:34:33 10/05/19 24 10/05/2023 urina lysis , dipst ick Leukocytes neg Not Available Haley Barajas MD [address] [place] [address], [address], 10/05/2023 11:05:11 10/05/19 24 10/05/2023 urina lysis , dipst ick Nitrite negati ve Not Available Haley Barajas MD [facility] [place], [address], 10/05/2023 11:05:11 10/05/19 24 10/05/2023 urina lysis , dipst ick Protein +++ Not Available Haley Barajas MD [facility] [place], [address], 10/05/2023 11:05:11 10/05/19 24 10/05/2023 urina lysis , dipst ick Blood neg Not Available Haley Barajas MD [facility] [place], [address], 10/05/2023 11:05:11 10/05/19 24 10/05/2023 urina lysis , dipst ick Ketone neg Not Available Haley Barajas MD [facility] [place], [address], 10/05/2023 11:05:11 10/05/19 24 10/05/2023 urina lysis , dipst ick Glucose neg Not Available Haley Barajas MD [facility] [place], [address], 10/05/2023 11:05:11 10/05/19 24 10/05/2023 urina lysis , dipst ick Color yellow Not Available Haley Barajas MD [address] [place], [address], 10/05/2023 11:05:11 10/13/19 24 10/13/2023 US, pelvi s, compl ete No observ ation record ed. [email or web address] Not Available 2023 15:05:21 10/15/19 24 10/09/2023 MAMMO , scree sylvia, digit al, bilat eral No observ ation record ed. [facility] [address], [place], [address], 10/15/2023 15:47:00 Result Notes None recorded. Procedures Surgical History Date Name Laterality Status Provider Name and Address Organization Details Recorded Time 10/13/19 24 Pelvic Transvaginal Non-OB completed Kristy Cortes MD [address] [facility] [address], [place], [address], [facility] - Dr Haley Barajas 10/17/2023 21:54:12 07/10/19 23 Date of Last Pap Smear completed Ellen Armstrong CNM [address] [facility],[address], [place], [address], [place] - Dr Haley Barajas 10/05/2023 10:34:00 02/23/19 19 Date of Last Mammogram completed Zuly Turner [place] - Dr Haley Barajas 07/09/2022 09:40:31 Imaging Results Imaging Date Name Status LastModified by Organiz ation Details LastModified Time 10/13/2023 US, pelvis, complete completed [email or web address] Information not available 10/13/2023 15:05:21 10/09/2023 MAMMO, screening, digital, bilateral completed [facility] [address], [place], [address], 10/15/2023 15:47:00 Procedure Notes None recorded. Medical Equipment None Reported. Allergies Allergen ID Allergen Name Allergen Category Reaction Reaction Severity Criticality Documentation Date Start Date Code Code System Note Provider Name and Address Organization Details Recorded Time 7656 morphine medicatio n hives Not available Not available 07/09/2022 7052 RxNorm Kristy Cortes MD [address] [facility],[place], [address], [facility] - Dr Haley Barajas 3 09:59:42 7657 Product containin g penicilli n (product) medicatio n hives Not available Not available 07/09/2022 42359 8001 SNOMED Kristy Cortes MD [address] [facility],[place], [address], [facility] - Dr Haley Barajas 3 10:00:00 Medications [...] Updated DateTime 07/09/2022 175.26 cm 51.8 kg/m2 125415.2 g 130 mm[Hg] 80 mm[Hg] Zuly Barajas 3 09:48:27 Date Recorded Body height Body mass index (BMI) Body weight Systolic blood pressure Diastolic blood pressure Provider Name and Address Organization Details Last Updated DateTime 10/05/2023 175.26 cm 51.1 kg/m2 946389.2 4 g 150 mm[Hg] 100 mm[Hg] Ismael Barajas 4 10:55:27 Social History Question Answer Notes LastModified by Organizat ion Details LastModified Time Are You Blind Or Do You Have Difficulty Seeing? No [email or web address] Information not available 07/09/2022 In The 14 Days Before Symptom Onset, Have You Had Close Contact With A Laboratory-confirme d COVID-19 While That Case Was Ill? No Information n ot available 07/09/2022 In The 14 Days Before Symptom Onset, Have You Had Close Contact With A Person Who Is Under Investigation For COVID-19 While That Person Was Ill? No [email or web address] Information not available 07/09/2022 Have You Been To An Area Known To Be High Risk For COVID-19? No [email or web address] Information not available 07/09/2022 Are You Deaf Or Do You Have Serious Difficulty Hearing? No [email or web address] Information not available 07/09/2022 What Type Of Diet Are You Following? REGULAR [email or web address] Information n ot available 07/09/2022 Sex: Unknown Functional Status Question Answer Note LastModified by Organizat ion Details LastModified Time Do you have difficulty walking or climbing stairs? No [email or web address] Information not available 07/09/2022 Do you have transportation difficulties? No Information not available 07/09/2022 Do you have difficulty doing errands alone? No [email or web address] Information not available 07/09/2022 Are you able to care for yourself? Yes [email or web address] Information not available 07/09/2022 Do you have difficulty dressing or bathing? No [email or web address] Information not available 07/09/2022 What is your exercise level? None Information not available 07/09/2022 Mental Status Question Answer Note LastModified by Organization D etails LastModified Time Do you have difficulty concentrating, remembering or making decisions? No [email or web address] Information no t available 07/09/2022 Family History [...] SNOMED-CT Code Diagnosis ICD10 Code Diagnosis Note 19456 Kristy Cortes MD [facility] Elmer christensen LOLLYPOP MACHINE OPERATOR [address] [facility] [place] [address] 07/09/2022 09:30:13 07/09/2022 10:34:01 Gynecologic examination 40574417 Z01.419 Anemia screening 6888376 07 Z13.0 Diabetes m ellitus screening 452439493 Z13.1 Endocrine/ metabolic screening 641995294 Z13.228 Hyperlipid emia screening 547790400 Z13.220 Venereal d isease screening 997363175 Z11.3 Screening mammography 24 004479 Z12.31 Family his tory of breast cancer 809814900 Z80.3 Morbid obesity 561497661 E66.01 Recommende d weight loss consultati on Family his tory of malignant neoplasm 155179455 Z80.9 [id number] Ellen Armstrong CNM [facility] El[place] christensen LOLLYPOP MACHINE OPERATOR [address] [facility] [place] [address] 10/05/2023 09:58:50 10/05/2023 11:50:01 Gynecologic examination 03996615 Z01.419 Venereal d isease screening 203853670 Z11.3 Anemia screening 5216809 07 Z13.0 Diabetes m ellitus screening 773859455 Z13.1 Thyroid di sorder screening 410086384 Z13.29 Hyperlipid emia screening 512828007 Z13.220 Abnormal v aginal bleeding 488654655 N93.9 Screening mammography of bilateral breasts 5676773714 14225 Z12.31 [id number] Kristy Cortes MD [facility] Elmer christensen LOLLYPOP MACHINE OPERATOR [address] [facility] [place] [address] 10/13/2023 14:26:02 10/13/2023 15:00:40 Abnormal vaginal bleeding 217207864 N93.8 Health Concerns Section Related Observation LastModified by Organization Detai ls LastModified Time None Recorded Concern Status LastModified by Organization Details LastModified Time None Recorded Advance Directives Directive None Recorded Payers Encounter Date Sequence Insurance Name Policy Number Policy Nov[place] Covered Member ID [place] Member ID Guarantor Name 07/09/2022 1 [employer] - OPEN ACCESS - NATIONAL (POS) Radha Poe [id number] Radha Poe 10/05/2023 1 [employer] - OPEN ACCESS - NATIONAL (POS) Radha Poe [id number] Radha Poe 10/13/2023 1 [employer] (MEDICARE REPLACEMENT/A DVANTAGE - PPO) Radha Poe [id number] Radha Poe Notes Date Note Type Note [...] anxiety; No PMDD Kristy Cortes MD [address] [facility],[place], [address], [facility] Dr Haley Barajas 07/09/2022 14:44:55 10/05/2023 text/html Annual Shoulder Joiner Post-MenopausalRep orted bypatient.Menopaus al Symptoms:no menopausal symptoms; [...] to schedule mammogram Ellen Armstrong CNM [address] [facility],[address], [place], [address], [facility] Dr Haley Barajas 10/05/2023 12:10:36 10/13/2023 text/html Patient presents for ultrasound Kristy Cortes MD [address] [facility],[address], [place], [address], [facility] Dr Haley Barajas 10/17/2023 21:55:33 OBGyn Episode No OBEpisode recorded.
--- OUTSIDE RECORDS SUMMARY | 2024-05-13 08:09 | XMS_ITS | Patient Health Record ---
Author Organization [facility] Address [address] [place], [place] [id number] Care Team Providers Care Park Warden Name Role Phone Usama Garcia M.D. Primary Care Provider Fabrice YARD PILOT-C, Suzy Unavailable Nitish YARD PILOT-CDory Unavailable Allergies Allergen (clinical drug ingredient) Drug/Non Drug Allergy documented on EMR Reaction Allergy Type Onset Date Status morphine Morphine Unknown Drug Allergy Active Penicillin hives Drug Allergy active Reason For Referral Reason Evaluate and treat Diagnosis 1 Acute pulmonary embo lism without acute cor pulmonale, unspecified pulmonary embolism type (I26.99) Referral Organization [facility] Referring Provider First [...] acetaZOLAMIDE 250 MG TAKE [address] TABLET [address] [facility] TWICE DAILY Oral for 8 Days Active [...] Problem Status W/U Status Risk Notes Problem 457115958 Morbid obesity (E66.01) Active confirmed Problem 255041257 Mixed hyperlipidemia (E78.2) Active confirmed Problem 41478384 Sleep apnea, unspecified type (G47.30) Active confirmed Problem 12034325 Hyperlipidemia, unspecified hyperlipidemia type (E78.5) Active confirmed Problem 28204995 Hypertension, unspecified type (I10) Active confirmed Vital Signs Temperature 97.6 degrees Fahrenheit 11/05/2023 Respiratory Rate 16 /min 07/10/2023 Blood pressure diastolic 116 mm Hg 11/05/2023 Oximetry 99 11/05/2023 Height 69 in 11/05/2023 Blood pressure systolic 158 mm Hg 11/05/2023 Weight 348 lbs 11/05/2023 BMI 51.39 11/05/2023 Encounters Encounter Location Date Provider Diagnosis [facility] [address] [place] [address] [place] [id number] 07/10/2023 Dory Small Hypertension, unspecified type I10 ; Idiopathic intracranial hypertension G93.2 ; Hospital discharge follow-up Z09 and Acute pulmonary embolism without acute cor pulmonale, unspecified pulmonary embolism type I26.99 [facility] [address] [place] [address] [place] [id number] 11/05/2023 Suzy Avina Prediabetes R73.03 ; Mixed hyperlipidemia E78.2 and Morbid obesity E66.01 [facility] [address] [place] [address] [address] [place], [place] [id number] 05/20/2023 Usama Garcia [facility] [address] [place] [address] [address] [place], [place] [id number] 06/19/2023 Usama Garcia [facility] [address] [place], [place] [id number] 06/23/2023 [facility] [address] [place] [id number] 11/06/2023 [facility] [address] [place], [place] [id number] 11/08/2023 [facility] [address] [place] [id number] 11/08/2023 [facility] [address] [place], [place] [id number] 11/12/2023 [facility] [address] [place] [id number] 11/16/2023 [facility] [address] [place], [place] [id number] 02/08/2024 [facility] [address] [place], [place] [id number] 06/18/[facility] [address] [place] [id number] 07/21/2023 Suzy [facility] [address] [place] [id number] 07/21/2023 Suzy [facility] [address] [place] [id number] 07/21/20[facility] [address] [place], [place] [id number] 11/06/2023 Suzyghazal Avina Assessments Encounter Date Diagnosis [...] (ICD-10 - I26.99) Dx on 07/03 in [place]. Pt was not admitted and was d'/c [...] Coverage End Date [employer] [address] [address] [place], [place] [id number] [phone] [id number] Radha Poe Self - patient is the insured Medical (General) History Medical History History ICD Code Hypertension Anemia Surgical History Surgery Date(Month/Year) partial hysterectomy 2001 Hospitalization History Reason Date(Month/Year) chest pain april 2022
--- OUTSIDE RECORDS SUMMARY | 2024-05-13 08:09 | XMS_ITS ---
Author Organization [facility] Address [address] [place], [place] [id number] Care Team Providers Care Venue Attendant Name Role Phone Usama Garcia M.D. Primary Care Provider [phone] [facility] COMMUNITY REINVESTMENT ACT OFFICER-C, Suzy Unavailable [phone] REASON FOR VISIT rx change. wegovy not covered Encounters Encounter Location Date Provider Diagnosis [facility] [address] [place], [place] [id number] 11/16/2023 Usama Garcia Plan Of Treatment No Information Progress Notes * Nayana ARENASOB: 2 (42 yo F)Acc No.[id number]:11/16/2023 Patient:?Radha ARENAS :1980???Age:42 Y???Sex:Female Address:[address] [place] [address], [address] * true * Date:? Generated for Printi ng/Faxing/eTransmitting on:?05/13/2024 08:08 AM EDT
--- OUTSIDE RECORDS SUMMARY | 2024-05-13 08:09 | XMS_ITS ---
Author Organization [facility] Address [address] [place], [place] [phone] Care Team Providers Care Dean Of Instruction Name Role Phone Usama Garcia M.D. Primary Care Provider [phone] [facility], Suzy Unavailable REASON FOR VISIT Add Info Encounters Encounter Location Date Provider Diagnosis [facility] [address] [place], [place] [id number] 11/12/2023 Usama Garcia Plan Of Treatment No Information Progress Notes * Nayana ARENASOB: 2 (42 yo F)Acc No.[id number]:11/12/2023 Patient:?Radha ARENAS :1980???Age:42 Y???Sex:Female Address:[address] [place] [address], [address] * true * Date:? Generated for Printi ng/Faxing/eTransmitting on:?05/13/2024 08:08 AM EDT
--- OUTSIDE RECORDS SUMMARY | 2024-05-13 08:09 | XMS_ITS ---
Author Organization [facility] Address [address] [place] [address] Care Team Providers Care Principal Java Developer Name Role Phone GIULIA MILAN Unavailable [phone] ZachYu Unavailable [phone] REASON FOR VISIT discuss weight loss options Encounters Encounter Location Date Provider Diagnosis [facility] [address] [place] [address] 03/10/2024 Yu Serrano Plan Of Treatment No Information Progress Notes * Nayana ARENASOB: 2 (43 yo F)Acc No.[id number]:03/10/2024 Progress Notes Patient:?Radha ARENAS Provider:?JET Berger :1980???Age:43 Y???Sex:Female D ate:03/10/2024 Address:[address] [place], [place] [phone] Subjective: * Chief Complaints: * ???1. Discuss weight loss op tions. * Medical History:? Objective: * Vitals:? Assessment: Plan: * Treatment: * Billing Information: * Visit Code:? * Procedure Codes:? * Electronic signature of Sarai Serrano on 05/13/2024 at 08:09 AM EDT Sign off status: Pending * Provider:?JET Berger Date:?03/10 Generated for Kelly wolf/Jim/Tony on:?05/13/2024 08:09 AM EDT
--- OUTSIDE RECORDS SUMMARY | 2024-05-13 08:09 | XMS_ITS | Clinical Summary ---
Author Organization [facility] Address [address] [place] [address] Care Team Providers Care Airplane Electrician Name Role Phone Alexis Miller DO Primary Care Provider [phone] Allergies Active Allergy Reactions Criticality Noted Date [...] Upcoming Encounters Date Type Department Care Team ([facility] st Contact Info) Description 05/18/2024 11:00 AM EDT Office Visit Bariatric Surgery - [place] [address] [place] [address] Torey Bradford MD [address] [place] [address] Health Maintenance Due Date Last Done Comments Breast Cancer Screening 1980 Hepatitis B Vaccines (1 of 3 - 19+ 3-dose series) 2000 Cervical Cancer Screening: P ap Smear 01/03/2014 01/03/2011 DTaP,Tdap,and Td Vaccines (2 - Td or Tdap) 08/01/2020 08/01/2010 COVID-19 Vaccine (1 - 2023-2 5 season) 2023 Influenza Vaccine (#1) 2023 , 11/07/2008 Cholesterol Screening (Lipid Panel) 12/20/2023 02/06/2011 [...] Results * Annual BMP Blood Test (06/28/2011) [facility] Annual BMP Blood Test abstracted [facility] Provider HEALTH MAINTENANCE Final Result * Hepatitis C Screening (06/09/2011) [facility] Hepatitis C Screening abstracted [facility] Provider HEALTH MAINTENANCE Final Result * (ABNORMAL) Lipid panel (02/06/2011) [facility] LDL/HDL Ratio 3 0 - 4 Triglycerides 92 0 - 150 mg/dL Cholesterol 187 0 - 200 mg/dL HDL 57 >=40 mg/dL LDL Cholesterol 112(A) 0 - 100 mg/dL Blood Venous blood specimen / Unknown Historical Provider LAB BLOOD ORDERABLES Hanh l Result * HIV Screening (01/03/2011) [facility] HIV Screening abstracted [facility] Provider HEALTH MAINTENANCE Final Result * Pap Smear (01/03/2011) [facility] Pap smear no interpretation abstracted [facility] Provider HEALTH MAINTENANCE Final Result from Last 3 Months or Most Recently Relevant to Health Maintenance Insurance [place]ICA[place] - [place] [facility] MEDICARE ADVANTAGE on file MEDICA[place] - [place] Care Teams Airplane Electrician Relationship Specialty Start Date End Date Alexis Miller DO [address] [place] [phone] PCP - General 06/06/13
== END 2024-05-13 09:07 | disposition home or self-care (01) ==
LOC: HO.HGI 08:05
PROVIDERS: Visit Provider Nurse Practitioner Family
DX: D50.8 Other iron deficiency anemias (principal); R14.0 Abdominal distension (gaseous); K21.9 Gastro-esophageal reflux disease without esophagitis; R10.13 Epigastric pain
CPT/HCPCS: 99204

== ENCOUNTER → 2024-05-13 08:52 | Outpatient (REF) | payer OTHER, MEDICAID, SELFPAY ==
--- NOTE | 2024-05-13 09:17 | CA_ITS ---
Transthoracic Echocardiogram Patient (Last, First, Middle): Radha Poe, Gender: Female Date of : 1980 Age: 43 Procedure Date: 05/13/2024 Procedure Type: Transthoracic Echocardiogram Location: OP Height: 175.26 cm Weight: 161.03 kg BSA: 2.64 m2 Heart Rate: 47 bpm BP: 155 / 90 mmHg Supervisor Cartography: RADHA Referring MD: Cindy Casas PA-C Symptoms: M79.89 - Other specified soft tissue disorders Study Quality: Adequate ECG Rhythm: Bradycardia Conclusions: - Normal left ventricular size and systolic function. There is mildly increased left ventricular wall thickness. The visually estimated ejection fraction is between 55-60%. - Diastolic function is normal for age. - Normal right ventricular cavity size and systolic function. - There is mild dilatation of the sinuses of Valsalva measuring 3.50 cm. Findings Left Ventricle Normal left ventricular size and systolic function. There is mildly increased left ventricular wall thickness. The visually estimated ejection fraction is between 55-60%. There is no evidence of regional wall motion abnormalities. Diastolic function is normal for age. Right Ventricle Normal right ventricular cavity size and systolic function. Atria The left atrium is normal in size. The right atrium is normal in size. Aortic Valve Normal aortic valve structure and function. There is no aortic valve stenosis. There is no aortic valve regurgitation. Mitral Valve Normal mitral valve structure and function. There is trace mitral valve regurgitation. There is no mitral valve stenosis. Pulmonic Valve The pulmonic valve is normal. There is no pulmonic valve regurgitation. Tricuspid Valve Normal tricuspid valve structure. There is no tricuspid valve regurgitation. Normal right atrial pressure. There is no evidence of pulmonary hypertension. Great Vessels There is mild dilatation of the sinuses of Valsalva measuring 3.50 cm. The visualized portions of the pulmonary artery and branches are normal. Venous The inferior vena cava is normal in size and collapses greater than 50% with inspiration. Pericardium/Pleural There is no evidence of pericardial effusion. Prior Study Comparison No prior study available for comparison. Measurements 2D Linear Measurements IVSd: 1.02 0.6-0.9/0.6-1.0 cm LVIDd: 3.72 3.9-5.3/4.2-5.9 cm LVIDd Index: 1.41 2.4-3.2/2.2-3.1 cm/m2 LVIDs: 3.26 2.0-3.6 cm LVPWd: 1.20 0.7-1.1 cm LA Diam: 3.70 2.7-3.8/3.0-4.0 cm LAIDs Index: 1.40 1.5-2.3 cm/m2 LV Mass: 164.43 67-162/88-224 g LV Mass Index: 62.28 43-95/49-115 g/m2 LVOT Diam: 2.10 3.0+(-)1.3 cm 2D Systolic Function EF 4C: 61.40 >55% EF 2C: 56.00 >55% EF BiP: 59.20 >55% Mitral Valve MV Pk E: 0.75 MV PK A: 0.58 MV Decel Time: 236.00 E/A: 1.30 E'Lateral: 8.59 E'Medial: 5.44 E/E' Med: 13.70 E/E' Lat: 8.70 PHT: 69.00 MVA PHT: 3.19 Decel [place]: 3.16 Aortic Valve AoV Pk Brendan: 1.22 AoV Mn Brendan: 0.89 AoV VTI: 0.31 AoV Pk Grad: 6.00 Aov Mn Grad: 3.00 MERCEDES Cont.VTI: 2.85 LVOT LVOT Pk Brendan: 1.09 LVOT Mn Brendan: 0.75 LVOT VTI: 0.25 LVOT Pk Grad: 5.00 LVOT Mn Grad: 3.00 LVOT Diam: 2.10 LVOT Area: 3.46 Diastolic Function MV Pk E: 0.75 MV Pk A: 0.58 E/A: 1.30 E'Medial: 5.44 E/E' Med: 13.70 E' Laterial: 8.59 E/E' Lat: 8.70 Right Ventricle TAPSE (mm): 21.90 TVS' Brendan: 9.57 Tricuspid Valve TR Pk Brendan: 1.56 TR Pk Grad: 10.00 RA Press: 8.00 RVSP: 18.00 Great Vessels Aorta Sinus of Valsalva: 3.50 2.0-3.5 cm Ao Asc: 3.00 2.1-3.4 cm Ao Arch: 3.20 Pulmonary Valve PV Pk Brendan: 0.94 Peak PV Grad: 4.00 Updated in Other Vendor System with Status of Final Memo Chadwick MD electronically signed on 05/15/2024 11:00:54 PM with status of Final
--- NOTE | 2024-05-13 09:17 | HM_ITS ---
Conclusion: 1. Patient was monitored for total period of 2 days and 23 hours 2. Baseline was normal sinus rhythm with average heart rate of 78 beats per minute 3. No significant arrhythmias or pauses noted 4. Patient marked the counter 13 times without reporting any symptoms correlating with sinus rhythm MTDD
[2024-05-13 10:17] LABS: Lipase 27 U/L (8-78)
[2024-05-13 10:28] LABS: TSH reflex Free T4 1.87 uIU/mL (0.32-4.0)
[2024-05-13 10:37] LABS: Folate 5.1 ng/mL (> or = 4.0); Vitamin B12 376 pg/mL (200-900)
[2024-05-16 18:08] LABS: Transglutaminase IgA <1.0 U/mL
[2024-05-18 14:24] LABS: Vitamin D 25-OH, D2 <4 ng/mL; Vitamin D 25-OH, D3 26 ng/mL; Vitamin D 25-OH, Total 26 ng/mL (30-100)
== END ==
LOC: HO.CARD 08:52
PROVIDERS: Absent Provider Nurse Practitioner Family
DX: R60.0 Localized edema (principal); R10.9 Unspecified abdominal pain; K59.00 Constipation, unspecified; R19.7 Diarrhea, unspecified; E55.9 Vitamin D deficiency, unspecified; R00.0 Tachycardia, unspecified; I49.1 Atrial premature depolarization
CPT/HCPCS: 36415; 82306; 82607; 82746; 83690; 84443; 86364; 93242; 93306

== ENCOUNTER → 2024-05-13 09:17 | Outpatient (BNV) | payer OTHER, MEDICAID, SELFPAY | PROVIDERS: Absent Provider Nurse Practitioner Family; Visit Provider Internal Medicine Cardiovascular Disease | DX: R00.0 Tachycardia, unspecified (principal) | CPT/HCPCS: 93244 ==

== ENCOUNTER → 2024-05-16 09:41 | Outpatient (REF) | payer OTHER, MEDICAID, SELFPAY ==
--- NOTE | 2024-05-16 09:43 | CA_ITS ---
Acquisition Time: 2024-05-16 09:50:01 Total Exercise Time: 00:07:01 Test Indications: SOB Medications: SEE H&P Protocol: INÉS Max HR: 150 BPM 84% of Pred: 178 BPM Max BP: 170/90 mmHG Max Work Load: 7.3 METS Exercise Stress Test with exercise 7 mins 1 sec of Inés Protocol, held at Stage 2 with increased incline to 14%, achieving 84% MPHR, with severe SOB, with reports of 5/10 mid chest tightness in early recovery, without any arrythmias, with normotensive response- baseline BP at 140/100. Without EKG changes meeting criteria for ischemia. In recovery, breathing returned to baseline. Chest tightness slowly improved. Recommend further testing with images to evaluate the chest pain. Test reviewed with Dr. Escobar. Referred By: Cindy Casas Electronically Signed By: Freddy Savage
== END ==
LOC: HO.CARD 09:41
DX: R06.02 Shortness of breath (principal)
CPT/HCPCS: 93017

== ENCOUNTER → 2024-05-16 09:43 | Outpatient (BNV) | payer OTHER, MEDICAID, SELFPAY | DX: R06.02 Shortness of breath (principal); R07.9 Chest pain, unspecified | CPT/HCPCS: 93016; 93018 ==

== ENCOUNTER 2024-05-30 14:36 | Outpatient (REF) | payer MEDICARE, MEDICAID, SELFPAY ==
[2024-05-30 14:57] LABS: Baso%MD 0.4 %; Eos%MD 1.5 %; Hematocrit 34.1 % (37.0-47.0); Hemoglobin 11.4 g/dl (12.0-16.0); IG%MD 0.3 %; Immature Retic Fraction 13.9 % (3.0-15.9); Lymph%MD 46.7 %; Mean Corpuscular HGB Conc 33.4 g/dl (31.0-35.0); Mean Corpuscular Hemoglobin 28.3 pg (27.0-33.0); Mean Corpuscular Volume 84.6 fL (80.0-98.0); Mono%MD 7.2 %; Neut%MD 43.9 %; Platelet Count 310 X10*3/uL (160-400); Red Blood Count 4.03 X10*6/uL (4.20-5.50); Red Cell Distribution Width 14.6 % (11.0-16.0); Retic HGB Equivalent 31.8 pg (30.0-35.0); Reticulocyte Percent 1.8 % (0.5-1.8); Reticulocytes Absolute 0.071 X10*6/uL (0.026-0.095); White Blood Count 7.2 X10*3/uL (4.8-10.8)
[2024-05-30 15:22] LABS: Haptoglobin 258 mg/dL (35-250)
[2024-05-30 15:43] LABS: Atypical Lymph Absolute Manual 0.4 x10*3/uL; Atypical Lymphs Percent Manual 6 % (0-6); Band Neutrophils Percent 1 % (3-5); Basophils Abs Manual 0.1 X10*3/uL (0.0-0.2); Basophils Percent Manual 1 % (0-2); Eosinophils Absolute Manual 0.1 X10*3/uL (0.0-0.4); Eosinophils Percent Manual 1 % (0-4); Lymphocytes Absolute Manual 2.9 X10*3/uL (1.2-4.9); Lymphocytes Percent Manual 40 % (20-40); Monocytes Absolute Manual 0.4 X10*3/uL (0.1-1.2); Monocytes Percent Manual 5 % (2-11); Neutrophils Absolute Manual 3.4 X10*3/uL (2.0-8.3); Neutrophils Percent Manual 46 % (45-73)
[2024-05-30 15:45] LABS: Platelet Estimate NORMAL (NORMAL); Platelet Morphology Comment NORMAL; RBC Morphology NORMAL; Smudge Cells PRESENT
--- OUTSIDE RECORDS SUMMARY | 2024-05-30 17:28 | XMS_ITS | Encounter Summary ---
Author Organization [facility] Address [address] [place] [address] Care Team Providers Care Herbologist Name Role Phone Angela Alexis Primary Care Provider [phone] Reason for Visit * Reason Onset Date Comments prior auth 05/20/2024 Prior auth Encounter Details Date Type Department Care Team (Late st Contact Info) Description 05/20/2024 Telephone Bariatric Surgery - [place] [address] [place] [address] Torey Bradford MD [address] [place] [address] prior auth (Prior auth) Social History Tobacco Use Types Packs/Day Years Used Date Smoking Tobacco: Never Smokeless Tobacco: Never Alcohol Use Standard Drinks/Week Comments No 0 (1 standard drink = 0.6 oz pur e alcohol) Comments Unknown Sex and Gender Information Value Date Recorded Sex Assigned at Not on file Legal Sex Female 3:54 PM EDT Gender Identity Not on file Sexual Orientation Not on file documented as of this encounter Progress Notes * Tierney Aviles - 05/20/2024 11:27 AM EDT Patient needs a PA, per pharmacy documented in this encounter Plan of Treatment Upcoming Encounters Date Type Department Care Team (Late st Contact Info) Description 09/15/2024 2:00 PM EDT Office Visit Bariatric Surgery - [place] [address] [place] [phone] Torey Bradford MD [address] [place] [address] documented as of this encounter Visit Diagnoses Not on filedocumented in this encounter Care Teams Herbologist Relationship Specialty Start Date End Date Alexis Miller DO [address] [place] [phone] PCP - General 06/06/13 documented as of this encounter
--- OUTSIDE RECORDS SUMMARY | 2024-05-30 17:28 | XMS_ITS ---
Author Organization [facility] Address [address] [place], [place] [id number] Care Team Providers Care Cork Painter And Grader Name Role Phone Usama Garcia M.D. Primary Care Provider Fabrice HENDERSON-C, Suzy Unavailable [phone] REASON FOR VISIT rx change. wegovy not covered Encounters Encounter Location Date Provider Diagnosis [facility] [address] [place], [place] [phone] 11/16/2023 Usama Garcia Plan Of Treatment No Information Progress Notes * Nayana ARENASOB: 2 (42 yo F)Acc No.[id number]:11/16/2023 Patient:?Radha ARENAS :1980???Age:42 Y???Sex:Female Address:[address] [place] [address], [address] * true * Date:? Generated for Printi ng/Faxing/eTransmitting on:?05/30/2024 05:28 PM EDT
--- OUTSIDE RECORDS SUMMARY | 2024-05-30 17:28 | XMS_ITS ---
Author Organization [facility] Address [address] [place], [place] [phone] Care Team Providers Care Junior Copywriter Name Role Phone Usama Garcia M.D. Primary Care Provider [phone] [facility] HUMAN SERVICE SPECIALIST-C, Suzy Unavailable REASON FOR VISIT Add Info Encounters Encounter Location Date Provider Diagnosis [facility] [address] [place], [place] [id number] 11/12/2023 Usama Garcia Plan Of Treatment No Information Progress Notes * Nayana ARENASOB: 2 (42 yo F)Acc No.[id number]:11/12/2023 Patient:?Radha ARENAS :1980???Age:42 Y???Sex:Female Address:[address] [place] [address], [address] * true * Date:? Generated for Printi ng/Faxing/eTransmitting on:?05/30/2024 05:27 PM EDT
--- OUTSIDE RECORDS SUMMARY | 2024-05-30 17:28 | XMS_ITS | Data Portability ---
Author Organization [place] - Dr Haley turpin, [facility] - Address [address] [place] [address] Assessment No assessment recorded. Plan of Treatment Reminders Order Date Submit Date Provider Last Modified By Organization Details Last Modified Time Details Appointments None recorded. Lab urinalysis, dipstick 2023 024 [email or web address] 4 Haley Barajas MD, [address] [place], [address], 4 12:09:17 culture, urine 2023 024 [place] [facility] ([facility]), [address], [place], [address], 4 02:03:36 bacterial vaginosis + vaginitis panel, vaginal 2023 024 [place] [facility] ([facility]), [address], [place], [address], 4 12:50:57 lipid panel, serum 2023 024 [place] [facility] ([facility]), [address], [place], [address], 4 17:14:03 CMP, serum or plasma 2023 024 [place] [facility] ([facility]), [address], [place], [address], 4 17:14:04 hereditary breast + gynecologic cancer multigene analysis, blood or tissue 2023 024 [email or web address] [place], [address], [place], [address], 4 14:52:14 T4, free, serum 2023 024 [facility]), [address], [place], [address], 4 17:14:06 TSH, serum or plasma 2023 024 [place] [facility] ([facility]), [address], [place], [address], 4 17:14:06 HIV (1+2) Ab screen, serum 2023 024 [place] [facility] ([facility]), [address], [place], [address], 4 17:14:05 RPR (rapid plasma reagin), serum 2023 024 [facility] ([facility]), [address], [place], [address], 4 17:14:08 HBsAg (hepatitis B surface Ag), serum 2023 024 [facility] ([facility]), [address], [place], [address], 4 17:14:07 CT + NG DNA, PCR, unspecified specimen 2023 024 [email or web address] [facility] ([facility]), [address], [place], [address], 4 14:52:14 hepatitis C virus Ab, serum 2023 024 [facility] ([facility]), [address], [place], [address], 4 17:14:07 CBC 2023 024 [facility] ([facility]), [address], [place], [address], 4 17:14:04 HbA1c (hemoglobin A1c), blood 2023 024 [facility] ([facility]), [address], [place], [address], 4 17:14:05 lipid panel, serum 2022 023 [facility] ([facility]), [address], [place], [address], 3 10:56:57 CMP, serum or plasma 2022 023 [facility] ([facility]), [address], [place], [address], 3 10:56:59 TSH, serum or plasma 2022 023 [facility] ([facility]), [address], [place], [address], 3 10:57:00 T4, free, serum 2022 023 [facility] ([facility]), [address], [place], [address], 3 10:57:00 pap, LB 2022 023 [facility] ([facility]), [address], [place], [address], 3 15:29:20 genetic screen, unspecified specimen 2022 023 [facility], [address], [address], [place], [address], 3 15:01:20 CT + NG DNA, PCR, unspecified specimen 2022 023 [facility] ([facility]), [address], [place], [address], 3 15:29:21 RPR (rapid plasma reagin), serum 2022 023 [facility] ([facility]), [address], [place], [address], 3 10:57:03 HIV (1+2) Ab screen, serum 2022 023 [facility] ([facility]), [address], [place], [address], 3 10:57:01 HBsAg (hepatitis B surface Ag), serum 2022 023 [facility] ([facility]), [address], [place], [address], 3 10:57:02 hepatitis C virus Ab, serum 2022 023 [facility] ([facility]), [address], [place], [address], 3 10:57:02 HbA1c (hemoglobin A1c), blood 2022 023 [facility] ([facility]), [address] [facility] [address], [place], [address], 3 10:56:59 CBC 2022 023 [facility] ([facility]), [address], [place], [address], 3 10:56:58 Referral None recorded. Procedures None recorded. Surgeries None recorded. Imaging US, pelvis, complete 2023 024 [email or web address] Not available 4 11:50:01 MAMMO, screening, digital, bilateral 2023 024 [place] [facility] [employer], [address], [place], [address], 4 14:04:49 MAMMO, screening, digital, bilateral [address] [facility], [address], [place], [address], 3 15:08:06 Medication Orders None recorded. Patient TargetsNo targets recorded. Patient Instructions Encounter Date Encounter Id Patient Instructions Last Modified By Organization Details Last Modified Time 07/09/2022 [id number] Pap collected. Labwork ordered. Mammo ordered. Instructed to RTO in 2 days for weight loss consultation [email or web address] Not available 07/09/2022 11:51:15 10/05/2023 [id number] Recommend 5 servings of fruits and vegetables [...] year for annual Notify office as needed [email or web address] Not available 10/05/2023 11:01:02 Strongly encouraged pt to go back to provider managing BP meds so that she can have meds for HTN adjusted. PC labs today & referred to [facility] for new provider that takes her insurance. 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 [email or web address] Not available 10/05/2023 12:10:18 10/13/2023 [id number] Ultrasound reviewed by Dr. Cortes Agree with [...] ([facility]) [address] [address], [place], [address], 07/10/2022 10:56:57 07/10/1907/10/2022 LIPID PANEL triglyceride s 151 mg/dL <150 high Not Available [facility] ([facility]) [facility] [facility] [address], [place], [address], 07/10/2022 10:56:57 07/10/19 23 07/10/2022 LIPID PANEL HDL cholesterol 59 mg/dL >39 Not Available [facility] ([facility]) [address] [place] [address] Dr [address], [place], [address], 07/10/2022 10:56:57 07/10/19 23 07/10/2022 LIPID PANEL cholesterol / HDL ratio 3.42 ratio 0.00-4 .44 Not Available [facility] ([facility]) [address] [place] [address] Dr [address], [place], [address], 07/10/2022 10:56:57 07/10/19 23 07/10/2022 LIPID PANEL non-HDL cholesterol 143 mg/dL <130 high Not Available [facility] ([facility]) [address] [place] [address] Dr [address], [place], [address], 07/10/2022 10:56:57 07/10/19 23 07/10/2022 LIPID PANEL [...] 2004 ATPII I guide lines Not Available [facility] ([facility]) [facility] [address], [place], [address], 07/10/2022 10:56:57 07/10/19 23 07/10/2022 LIPID PANEL LDL/HDL ratio 1.9 ratio <3.3 ___ LDL Fany stero l Patie nt Histo ry ___ Test Date: 07/09 LDL Resul ts: 113 Units : mg/dL % Silva e: - ___ Not Available [facility] ([facility]) [address] [place] [address] Dr Marie [facility], [place], [address], 07/10/2022 10:56:57 07/10/19 23 07/10/2022 CBC WITH PLATE LET NO DIFFE RENTI AL WBC 6.5 K/uL 3.8-11 .5 Not Available [facility] ([facility]) [address] [place] [address] Dr Marie [facility], [place], [address], 07/10/2022 10:56:58 07/10/19 23 07/10/2022 CBC WITH PLATE LET NO DIFFE RENTI AL red blood cell count (RBC) 4.28 M/mm3 3.60-5 .30 Not Available [facility] ([facility]) [address] [place] [address] Dr [address], [place], [address], 07/10/2022 10:56:58 07/10/19 23 07/10/2022 CBC WITH PLATE LET NO DIFFE RENTI AL hemoglobin (HGB) 11.9 gm/dL 11.5-1 5.5 Not Available [facility] ([facility]) [address] [place] [address] Dr [address], [place], [address], 07/10/2022 10:56:58 07/10/19 23 07/10/2022 CBC WITH PLATE LET NO DIFFE RENTI AL hematocrit (HCT) 36.1 % 35.2-4 6.4 Not Available [facility] ([facility]) [address] [place] [address] Dr [address], [place], [address], 07/10/2022 10:56:58 07/10/19 23 07/10/2022 CBC WITH PLATE LET NO DIFFE RENTI AL MCV 84.3 fL 79.0-9 9.0 Not Available [facility] ([facility]) [address] [place] [address] Dr [address], [place], [address], 07/10/2022 10:56:58 07/10/19 23 07/10/2022 CBC WITH PLATE LET NO DIFFE RENTI AL MCH 27.8 pg 26.9-3 5.0 Not Available [facility] ([facility]) [address] [place] [address] Dr [address], [place], [address], 07/10/2022 10:56:58 07/10/19 23 07/10/2022 CBC WITH PLATE LET NO DIFFE RENTI AL MCHC 33.0 g/dL 30.4-3 4.8 Not Available [facility] ([facility]) [address] [place] [address] Dr [address], [place], [address], 07/10/2022 10:56:58 07/10/19 23 07/10/2022 CBC WITH PLATE LET NO DIFFE RENTI AL RDW 44.8 fL 38.6-5 3.8 Not Available [facility] ([facility]) [address] [place] [address] Dr [address], [place], [address], 07/10/2022 10:56:58 07/10/19 23 07/10/2022 CBC WITH PLATE LET NO DIFFE RENTI AL platelet count 337 K/cum m 137-39 7 Not Available [facility] ([facility]) [address] [place] [address] Dr [address], [place], [address], 07/10/2022 10:56:58 07/10/19 23 07/10/2022 COMPR EHENS JESENIA METAB OLIC PANEL (CMP) sodium 137 mEq/L 135-14 5 Not Available [facility] ([facility]) [address] [place] [address] Dr [address], [place], [address], 07/10/2022 10:56:59 07/10/19 23 07/10/2022 COMPR EHENS JESENIA METAB OLIC PANEL (CMP) potassium 4.2 mEq/L 3.5-5. 3 Not Available [facility] ([facility]) [address] [place] [address] Dr [address], [place], [address], 07/10/2022 10:56:59 07/10/19 23 07/10/2022 COMPR EHENS JESENIA METAB OLIC PANEL (CMP) chloride 100 mEq/L 97-108 Not Available [facility] ([facility]) [address] [place] [address] Dr [address], [place], [address], 07/10/2022 10:56:59 07/10/19 23 07/10/2022 COMPR EHENS JESENIA METAB OLIC PANEL (CMP) CO2 30 mEq/L 22-32 Not Available [facility] ([facility]) [address] [place] [address] Dr [address], [place], [address], 07/10/2022 10:56:59 07/10/19 23 07/10/2022 COMPR EHENS JESENIA METAB OLIC PANEL (CMP) glucose 100 mg/dL 65-99 high Not Available [facility] ([facility]) [address] [place] [address] Dr [address], [place], [address], 07/10/2022 10:56:59 07/10/19 23 07/10/2022 COMPR EHENS JESENIA METAB OLIC PANEL (CMP) BUN 10 mg/dL 6-20 Not Available [facility] ([facility]) [address] [place] [address] Dr [address], [place], [address], 07/10/2022 10:56:59 07/10/19 23 07/10/2022 COMPR EHENS JESENIA METAB OLIC PANEL (CMP) creatinine 0.82 mg/dL 0.50-1 .00 Not Available [facility] ([facility]) [address] [place] [address] Dr [address], [place], [address], 07/10/2022 10:56:59 07/10/19 23 07/10/2022 COMPR EHENS JESENIA METAB OLIC PANEL (CMP) calcium 9.3 mg/dL 8.6-10 .4 Not Available [facility] ([facility]) [address] [place] [address] Dr [address], [place], [address], 07/10/2022 10:56:59 07/10/19 23 07/10/2022 COMPR EHENS JESENIA METAB OLIC PANEL (CMP) protein 7.8 g/dL 6.0-8. 3 Not Available [facility] ([facility]) [address] [place] [address] Dr [address], [place], [address], 07/10/2022 10:56:59 07/10/19 23 07/10/2022 COMPR EHENS JESENIA METAB OLIC PANEL (CMP) albumin 4.1 g/dL 3.5-5. 3 Not Available [facility] ([facility]) [address] [place] [address] Dr [address], [place], [address], 07/10/2022 10:56:59 07/10/19 23 07/10/2022 COMPR EHENS JESENIA METAB OLIC PANEL (CMP) alkaline phosphatase 141 IU/L 35-121 high Not Available [facility] ([facility]) [address] [place] [address] Dr [address], [place], [address], 07/10/2022 10:56:59 07/10/19 23 07/10/2022 COMPR EHENS JESENIA METAB OLIC PANEL (CMP) ALT (SGPT) 16 IU/L <5-47 Not Available [facility] ([facility]) [address] [place] [address] Dr [address], [place], [address], 07/10/2022 10:56:59 07/10/19 23 07/10/2022 COMPR EHENS JESENIA METAB OLIC PANEL (CMP) AST (SGOT) 14 IU/L <5-40 Not Available [facility] ([facility]) [address] [place] [address] Dr [address], [place], [address], 07/10/2022 10:56:59 07/10/19 23 07/10/2022 COMPR EHENS JESENIA METAB OLIC PANEL (CMP) bilirubin, total 0.3 mg/dL <0.2-1 .2 Not Available [facility] ([facility]) [address] [place] [address] Dr [address], [place], [address], 07/10/2022 10:56:59 07/10/19 23 07/10/2022 COMPR EHENS JESENIA METAB OLIC PANEL (CMP) A/G ratio 1.1 mg/dL 1.1-2. 5 Not Available [facility] ([facility]) [address] [place] [address] Dr [address], [place], [address], 07/10/2022 10:56:59 07/10/19 23 07/10/2022 COMPR EHENS JESENIA METAB OLIC PANEL (CMP) estimated GFR (black) 103 mL/mi n/1.7 3m2 >59 Not Available [facility] ([facility]) [address], [place], [address], 07/10/2022 10:56:59 07/10/19 23 07/10/2022 COMPR EHENS [...] e mass or diet. Not Available [facility] ([facility] [employer]) [facility] [address], [place], [address], 07/10/2022 10:56:59 07/10/19 23 07/10/2022 HEMOG LOBIN [...] <5.7% Non-D iabet ic Not Available [facility] ([facility]) [address] [place] [address] Dr [address], [place], [address], 07/10/2022 10:56:59 07/10/19 23 07/10/2022 HEMOG LOBIN A1C estimated average glucose 123 mg/dL [place] ge Gluco se is calcu lated using the equat ion AG = (28.7 x HgbA1 c) - 46.7 based on the guide lines estab nicolas brunson by the ADA. Not Available [facility] ([facility]) [address] [place] [address] Dr [address], [place], [address], 07/10/2022 10:56:59 07/10/19 23 07/10/2022 TSH TSH 2.74 mU/L 0.43-5 .25 Not Available [facility] ([facility]uk[facility]) [address] [place] [address] Dr [address], [place], [address], 07/10/2022 10:57:00 07/10/19 23 07/10/2022 THYRO XINE FREE (FREE T4) thyroxine free (free T4) 1.04 NG/dL 0.86-1 .76 Not Available [facility] ([facility]) [address] [place] [address] Dr [address], [place], [address], 07/10/2022 10:57:00 07/10/19 23 07/10/2022 HIV 1/2 AB SCREE N W/P24 AG HIV 1/2 Ab screen w/p24ag Nonrea ctive nonrea ctive Not Available [facility] ([facility]) [address] [place] [address] Dr [address], [place], [address], 07/10/2022 10:57:01 07/10/19 23 07/10/2022 HEPAT ITIS B SURFA CE ANTIG EN (HBSA G) hepatitis B surface antigen (HBsAg) Nonrea ctive nonrea ctive Not Available [facility] ([facility]) [address] [place] [address] Dr [address], [place], [address], 07/10/2022 10:57:02 07/10/19 23 07/10/2022 HEPAT ITIS C ANTIB FARAZ (HCV) IGG hepatitis C antibody (HCV) IgG Nonrea ctive nonrea ctive Not Available [facility] ([facility]) [address], [place], [address], 07/10/2022 10:57:02 07/10/19 23 07/10/2022 RPR (NON- TREPO NEMAL ) REFLE X TO CONFI RMATI ON RPR (non-trepone mal) reflex to confirmation Nonrea ctive nonrea ctive Not Available [facility] ([facility]) [address] [facility] [address], [place], [address], 07/10/2022 10:57:03 07/10/19 23 07/11/2022 PAP TEST [...] Techn ical servi meaghan provi ded by [facility] iated Patho logis [facility], [facility], d/b/a Path[facility] rou, [address] [place] [address] Richar Wallace MD, Labor [facility]. Case revie wed and diagn osis rende red at [facility], d/b/a Path[facility], [address] [place] [address] Richar Wallace MD, Labor [facility]. CONFI DENTI AL Not Available [facility] ([facility]) [address] [place] [address] Dr [address], [place], [address], 07/11/2022 15:29:20 07/10/19 23 07/10/2022 CHLAM YDIA, [...] perfo rmed by [facility] d/b/a Path[facility], [address], [place] [address] , Daniel Ramos ra, DO, Labor [facility], CLIA# [id number] Not Available [facility] ([facility]) [address] [place] [address], [place], [address], 07/11/2022 15:29:21 07/10/19 23 07/10/2022 CHLAM YDIA, [...] logis ts, LLC d/b/a [place], [address] [facility] [address], [place] [address] , Daniel Ramos ra, DO, Labor atory [facility], [facility]# [id number] Not Available [facility] ([facility]) [address], [place], [address], 07/11/2022 15:29:21 07/10/19 23 07/10/2022 CHLAM YDIA, [...] perfo rmed by Assoc i[facility] Patho logis [facility], [facility] d/b/a Heike irene, [address] [facility] [address], [place] [address] , Daniel Ramos ra, DO, Labor atory [facility], CLIA# [id number] Not Available [facility] ([facility]) [facility] [address] [address], [place], [address], 07/11/2022 15:29:21 07/10/19 23 07/10/2022 HPV HIGH RISK SCREE N (TMA) HPV high risk NOT DETECT ED normal The human papil lomav irus (HPV) High Risk Scree n is an FDA-a pprov ed in-vi tro ampli fied nucle ic acid test for the quali tativ e detec tion of E6/E7 viral mRNA. Resul ritchie brusnon be corre lated with patie nt prese ntati on, histo ry, cervi marky cytol ogy and other clini marky and labor atory findi ngs. See https ://Sarenza/s moose/ lyla lt/fi les/2 018-0 3/AW- 41266 _002_ 01.pd f for fur er infor matio n. Test perfo rmed by Assoc i[facility]o log[facility], [employer], d/b/a [place], [address] [facility] [address], [place] [address] , Daniel Ramos ra, DO, Labor atory [facility]. Not Available [facility] ([facility]) [facility] [address], [place], [address], 07/11/2022 15:29:22 07/10/19 23 07/09/2022 EMPOW ER report summary VUS normal Negat jesenia for 53 out of 53 genes . A varia nt of uncer tain signi fican ce (VUS) was detec xiomara in the MLH1 gene( s). A VUS means that a silva e in the DNA was detec xiomara, but there is not enoug h infor matio n to deter mine [facility] er or not the silva e [...] A heter ozygo us varia nt of [facility] [place] [place] ce (VUS) was detec xiomara in the MLH1 gene as tabul ated above . Not Available [facility] [address] [facility] [address], [place], [address], 07/21/2022 15:13:25 07/10/19 23 07/09/2022 EMPOW ER footnotes See Notes CLIA: ID #[id number] 2 Test perfo rmed by [employer]. [address] [facility] [address] [place] [address] Arielle Stephens, Ph.D. , [facility] , Labor atory Direc tor Not Available [facility] [address], [place], [address], 07/21/2022 15:13:25 10/05/19 24 10/06/2023 LIPID PANEL cholesterol 207 mg/dL <200 high Not Available [facility] ([facility]) [address] [facility] [facility] [address], [place], [address], 10/06/2023 17:14:03 10/05/19 24 10/06/2023 LIPID PANEL triglyceride s 126 mg/dL <150 Not Available [facility] ([facility]) [address] [facility] [address], [place], [address], 10/06/2023 17:14:03 10/05/19 24 10/06/2023 LIPID PANEL HDL cholesterol 54 mg/dL >39 Not Available [facility] ([facility]) [facility] [address], [place], [address], 10/06/2023 17:14:03 10/05/19 24 10/06/2023 LIPID PANEL cholesterol / HDL ratio 3.83 ratio 0.00-4 .44 Not Available [facility] ([facility]) [address] [place] [address] Dr [address], [place], [address], 10/06/2023 17:14:03 10/05/19 24 10/06/2023 LIPID PANEL non-HDL cholesterol 153 mg/dL <130 high Not Available [facility] ([facility]) [address] [place] [address] Dr [address], [place], [address], 10/06/2023 17:14:03 10/05/19 24 10/06/2023 LIPID PANEL [...] 2004 ATPII I guide lines Not Available [facility] ([facility]) [facility] [address] [address], [place], [address], 10/06/2023 17:14:03 10/05/19 24 10/06/2023 LIPID PANEL [...] Silva e: +13% ___ Not Available [facility] ([facility]) [facility], [place], [address], 10/06/2023 17:14:03 10/05/1910/06/2023 CBC WITH PLATE LET NO DIFFE RENTI AL WBC 7.4 K/uL 3.8-11 .5 Not Available [facility] ([facility]) [address] [facility] [address], [place], [address], 10/06/2023 17:14:04 10/05/19 24 10/06/2023 CBC WITH PLATE LET NO DIFFE RENTI AL red blood cell count (RBC) 4.33 M/mm3 3.60-5 .30 Not Available [facility] ([facility]) [address] [place] [address] Dr [address], [place], [address], 10/06/2023 17:14:04 10/05/19 24 10/06/2023 CBC WITH PLATE LET NO DIFFE RENTI AL hemoglobin (HGB) 12.0 gm/dL 11.5-1 5.5 Not Available [facility] ([facility]) [address] [place] [address] Dr [address], [place], [address], 10/06/2023 17:14:04 10/05/19 24 10/06/2023 CBC WITH PLATE LET NO DIFFE RENTI AL hematocrit (HCT) 37.3 % 35.2-4 6.4 Not Available [facility] ([facility]) [address] [place] [address] Dr [address], [place], [address], 10/06/2023 17:14:04 10/05/19 24 10/06/2023 CBC WITH PLATE LET NO DIFFE RENTI AL MCV 86.1 fL 79.0-9 9.0 Not Available [facility] ([facility]) [address] [place] [address] Dr [address], [place], [address], 10/06/2023 17:14:04 10/05/19 24 10/06/2023 CBC WITH PLATE LET NO DIFFE RENTI AL MCH 27.7 pg 26.9-3 5.0 Not Available [facility] ([facility]) [address] [place] [address] Dr [address], [place], [address], 10/06/2023 17:14:04 10/05/19 24 10/06/2023 CBC WITH PLATE LET NO DIFFE RENTI AL MCHC 32.2 g/dL 30.4-3 4.8 Not Available [facility] ([facility]) [address] [place] [address] Dr [address], [place], [address], 10/06/2023 17:14:04 10/05/19 24 10/06/2023 CBC WITH PLATE LET NO DIFFE RENTI AL RDW 44.3 fL 38.6-5 3.8 Not Available [facility] ([facility]) [address] [place] [address] Dr [address], [place], [address], 10/06/2023 17:14:04 10/05/19 24 10/06/2023 CBC WITH PLATE LET NO DIFFE RENTI AL platelet count 324 K/cum m 137-39 7 Not Available [facility] ([facility]) [address] [place] [address] Dr [address], [place], [address], 10/06/2023 17:14:04 10/05/19 24 10/06/2023 COMPR EHENS JESENIA METAB OLIC PANEL (CMP) sodium 138 mmol/ L 135-14 5 Not Available [facility] ([facility]) [address] [place] [address] Dr [address], [place], [address], 10/06/2023 17:14:04 10/05/19 24 10/06/2023 COMPR EHENS JESENIA METAB OLIC PANEL (CMP) potassium 4.4 mmol/ L 3.5-5. 3 Not Available [facility] ([facility]) [address] [place] [address] Dr [address], [place], [address], 10/06/2023 17:14:04 10/05/19 24 10/06/2023 COMPR EHENS JESENIA METAB OLIC PANEL (CMP) chloride 101 mmol/ L 97-108 Not Available [facility] ([facility]) [address] [place] [address] Dr [address], [place], [address], 10/06/2023 17:14:04 10/05/19 24 10/06/2023 COMPR EHENS JESENIA METAB OLIC PANEL (CMP) CO2 27 mmol/ L 22-32 Not Available [facility] ([facility]) [address] [place] [address] Dr [address], [place], [address], 10/06/2023 17:14:04 10/05/19 24 10/06/2023 COMPR EHENS JESENIA METAB OLIC PANEL (CMP) glucose 99 mg/dL 65-99 Not Available [facility] ([facility]) [address] [place] [address], [place], [address], 10/06/2023 17:14:04 10/05/19 24 10/06/2023 COMPR EHENS JESENIA METAB OLIC PANEL (CMP) BUN 11 mg/dL 6-20 Not Available [facility] ([facility]) [address] [place] [address], [place], [address], 10/06/2023 17:14:04 10/05/19 24 10/06/2023 COMPR EHENS JESENIA METAB OLIC PANEL (CMP) creatinine 1.04 mg/dL 0.50-1 .00 high Not Available [facility] ([facility]) [address] [place] [address], [place], [address], 10/06/2023 17:14:04 10/05/19 24 10/06/2023 COMPR EHENS JESENIA METAB OLIC PANEL (CMP) calcium 9.1 mg/dL 8.6-10 .4 Not Available [facility] ([facility]) [address] [place] [address], [place], [address], 10/06/2023 17:14:04 10/05/19 24 10/06/2023 COMPR EHENS JESENIA METAB OLIC PANEL (CMP) eGFR by creatinine 69 mL/mi n/1.7 3m2 >59 Not Available [facility] ([facility]) [address] [place] [address], [place], [address], 10/06/2023 17:14:04 10/05/19 24 10/06/2023 COMPR EHENS JESENIA METAB OLIC PANEL (CMP) protein 7.5 g/dL 6.0-8. 3 Not Available [facility] ([facility]) [address] [place] [address] Dr [address], [place], [address], 10/06/2023 17:14:04 10/05/19 24 10/06/2023 COMPR EHENS JESENIA METAB OLIC PANEL (CMP) albumin 4.1 g/dL 3.5-5. 3 Not Available [facility] ([facility]) [address] [place] [address] Dr [address], [place], [address], 10/06/2023 17:14:04 10/05/19 24 10/06/2023 COMPR EHENS JESENIA METAB OLIC PANEL (CMP) alkaline phosphatase 131 IU/L 35-121 high Not Available [facility] ([facility]) [address] [place] [address] Dr [address], [place], [address], 10/06/2023 17:14:04 10/05/19 24 10/06/2023 COMPR EHENS JESENIA METAB OLIC PANEL (CMP) ALT (SGPT) 11 IU/L <5-47 Not Available [facility] ([facility]) [address] [place] [address] Dr [address], [place], [address], 10/06/2023 17:14:04 10/05/19 24 10/06/2023 COMPR EHENS JESENIA METAB OLIC PANEL (CMP) AST (SGOT) 14 IU/L <5-40 Not Available [facility] ([facility]) [address] [place] [address] Dr [address], [place], [address], 10/06/2023 17:14:04 10/05/19 24 10/06/2023 COMPR EHENS JESENIA METAB OLIC PANEL (CMP) bilirubin, total 0.2 mg/dL <0.2-1 .2 Not Available [facility] ([facility]) [facility] [address], [place], [address], 10/06/2023 17:14:04 10/05/19 24 10/06/2023 COMPR EHENS JESENIA METAB OLIC PANEL (CMP) A/G ratio 1.2 1.1-2. 5 Not Available [facility] ([facility]) [address] [facility] [address], [place], [address], 10/06/2023 17:14:04 10/05/19 24 10/06/2023 HIV 1/2 AB SCREE N W/P24 AG HIV 1/2 Ab screen w/p24ag Nonrea ctive nonrea ctive Not Available [facility] ([facility]) [address] [place] [address] Dr [address], [place], [address], 10/06/2023 17:14:05 10/05/19 24 10/06/2023 HEMOG LOBIN [...] ic <5.7% Non-D iabet ic Not Available [facility] ([facility]) [facility] [address], [place], [address], 10/06/2023 17:14:05 10/05/19 24 10/06/2023 HEMOG LOBIN A1C estimated average glucose 125 mg/dL [place] ge Gluco se is calcu lated using the equat ion AG = (28.7 x HgbA1 c) - 46.7 based on the guide lines estab lishe d by the ADA. Not Available [facility] ([facility]) [facility] [address], [place], [address], 10/06/2023 17:14:05 10/05/19 24 10/06/2023 TSH TSH 1.77 mU/L 0.43-5 .25 Not Available [facility] [address] [place] [address] Dr [address], [place], [address], 10/06/2023 17:14:06 10/05/19 24 10/06/2023 THYRO XINE FREE (FREE T4) thyroxine free (free T4) 1.06 NG/dL 0.86-1 .76 Not Available [facility]) [address] [place] [address] Dr [address], [place], [address], 10/06/2023 17:14:06 10/05/19 24 10/06/2023 HEPAT ITIS B SURFA CE ANTIG EN (HBSA G) hepatitis B surface antigen (HBsAg) Nonrea ctive nonrea ctive Not Available [facility] [address] [place] [address] Dr [address], [place], [address], 10/06/2023 17:14:07 10/05/19 24 10/06/2023 HEPAT ITIS C ANTIB FARAZ (HCV) IGG hepatitis C antibody (HCV) IgG Nonrea ctive nonrea ctive Not Available [facility]) [address] [place] [address] Dr [address], [place], [address], 10/06/2023 17:14:07 10/05/19 24 10/06/2023 RPR (NON- [...] is clini darlin suspe cted. Not Available [facility]) [address] [facility] [address], [place], [address], 10/06/2023 17:14:07 10/05/19 24 10/07/2023 CULTU RE, URINE specimen source Urine - Void Not Available [facility] ([facility]) [address] [facility] [address], [place], [address], 10/07/2023 02:03:33 10/05/19 24 10/07/2023 CULTU RE, URINE culture, urine See Below Final Repor t : No growt h Not Available [facility] ([facility]) [address] [facility] [address], [place], [address], 10/07/2023 02:03:33 10/05/19 24 10/06/2023 VAGIN ITIS [...] Patho logis ts, LLC, d/b/a [place]a [place], [facility]0 [facility] [address], [place] [address] , Daneil Ramos ra, DO, Labor atory Direc tor. [...] chelo resul ts of Pamela l or [place] xiomara are deter mined by calcu latin [...] e nakul cteri stics deter mined by [employer], [employer] d/b/a PathG rouberenice. It has not been clear ed or appro edel by the U.S. Food and Drug Admin istra tion. The FDA has deter mined that such clear ance or appro juan carlos is not neces ivana. Perti nent refer ence inter vals are avail able from the labor atory on reque st. Test( s) perfo rmed by [employer] ts, [employer], d/b/a PathG roup, [address], [place] [address] , Daniel Ramos ra, DO, Labor atory Direc tor. Not Available [facility]) [address], [place], [address], 10/07/2023 12:50:56 10/05/19 24 10/07/2023 VAGIN ITIS [...] logis ts, LLC, d/b/a PathG rou, [address], [place] [address] , Daniel Ramos ra, DO, Labor atory [...] chelo resul ts of Pamela l or [place] xiomara are deter mined by calcu latin [...] e nakul cteri stics deter mined by [employer], [employer] d/b/a Path VIEO. It has not been clear ed or appro edel by the U.S. Food and Drug Admin istra tion. The FDA has deter mined that such clear ance or appro juan carlos is not neces ivana. Perti nent refer ence inter vals are avail able from the [employer] atory on reque st. Test( s) perfo rmed by [employer], [employer], d/b/a [facility] VIEO, [address] [facility] [address], [place] [address] , Daniel Ramos ra, DO, Labor atory Dire tor. Not Available [facility] ([facility]) [address] [facility] [address], [place], [address], 10/07/2023 12:50:56 10/05/19 24 10/07/2023 VAGIN ITIS [...] [address], [facility] [place] [address] , Daniel Ramos ra, DO, Labor atory [...] chelo resul ts of Pamela l or [place] xiomara are deter mined by calcu latin [...] e nakul cteri stics deter mined by [employer] iated Patho logis ts, LLC d/b/a PathG [...] logis ts, LLC, d/b/a PathG roup, [address], [place] [address] , Daniel Ramos ra, , Labor atory Direc tor. Not Available [facility] ([facility]) [address], [place], [address], 10/07/2023 12:50:56 10/05/19 24 10/06/2023 CHLAM YDIA [...] [address], [place] [address] , Daniel Ramos ra, DO, Labor atory Direc tor, CLIA# [id number] Not Available [facility] ([facility]) [address], [place], [address], 10/07/2023 12:50:58 10/05/19 24 10/06/2023 CHLAM YDIA [...] logis ts, LLC d/b/a PathKike bonilla, [address] [facility] [address], [place] [address] , Daniel Ramos ra, DO, Labor atory [facility], CLIA# [id number] Not Available [facility] ([facility]) [address] [facility] [address], [place], [address], 10/07/2023 12:50:58 10/05/19 24 10/05/2023 EMPOW ER MULTI -CANC ER,EX P(2+5 1) report summary OTHER normal Test Not Perfo rmed Dupli marichuy test. Empow er 53 panel previ ously resul xiomara under 03 Test was not perfo rmed. Refer to speci fic detai ls below . Not Available [facility] [address], [place], [address], 10/28/2023 21:34:33 10/05/19 24 10/05/2023 EMPOW ER MULTI -CANC ER,EX P(2+5 1) footnotes See Notes CLIA: ID #[id number] 2 Test perfo rmed by [employer]. [address] [place] [address] Arielle Stephens, Ph.D. , [facility] , Labor atory Direc tor Not Available [facility] [address], [place], [address], 10/28/2023 21:34:33 10/05/19 24 10/05/2023 urina lysis , dipst ick Leukocytes neg Not Available Haley Barajas MD [address] [place] [address], [address], 10/05/2023 11:05:11 10/05/19 24 10/05/2023 urina lysis , dipst ick Nitrite negati ve Not Available Haley Barajas MD [facility] [place], [address], 10/05/2023 11:05:11 10/05/19 24 10/05/2023 urina lysis , dipst ick Protein +++ Not Available Haley Barajas MD [facility] [place], [address], 10/05/2023 11:05:11 10/05/19 24 10/05/2023 urina lysis , dipst ick Blood neg Not Available Haley Barajas MD [facility] [place], [address], 10/05/2023 11:05:11 10/05/19 24 10/05/2023 urina lysis , dipst ick Ketone neg Not Available Haley Barajas MD [facility] [place], [address], 10/05/2023 11:05:11 10/05/19 24 10/05/2023 urina lysis , dipst ick Glucose neg Not Available Haley Barajas MD [facility] [place], [address], 10/05/2023 11:05:11 10/05/19 24 10/05/2023 urina lysis , dipst ick Color yellow Not Available Haley Barajas MD [address] [place], [address], 10/05/2023 11:05:11 10/13/19 24 10/13/2023 US, pelvi s, compl ete No observ ation record ed. [email or web address] Not Available 2023 15:05:21 10/15/19 24 10/09/2023 MAMMO , scree sylvia, digit al, bilat eral No observ ation record ed. [facility] [address], [place], [address], 10/15/2023 15:47:00 Result Notes None recorded. Procedures Surgical History Date Name Laterality Status Provider Name and Address Organization Details Recorded Time 10/13/19 24 Pelvic Transvaginal Non-OB completed Kristy Cortes MD [address] [facility], [place], [address], [facility] - Dr Haley Barajas 10/17/2023 21:54:12 07/10/19 23 Date of Last Pap Smear completed Ellen Armstrong CNM [address] [facility],[address], [place], [address], [place] - Dr Haley Barajas 10/05/2023 10:34:00 02/23/19 19 Date of Last Mammogram completed Zuly Turner [place] - Dr Haley Barajas 07/09/2022 09:40:31 Imaging Results Imaging Date Name Status LastModified by Organiz ation Details LastModified Time 10/13/2023 US, pelvis, complete completed [email or web address] Information not available 10/13/2023 15:05:21 10/09/2023 MAMMO, screening, digital, bilateral completed [facility] [address], [place], [address], 10/15/2023 15:47:00 Procedure Notes None recorded. Medical Equipment None Reported. Allergies Allergen ID Allergen Name Allergen Category Reaction Reaction Severity Criticality Documentation Date Start Date Code Code System Note Provider Name and Address Organization Details Recorded Time 7656 morphine medicatio n hives Not available Not available 07/09/2022 7052 RxNorm Kristy Cortes MD [address] [facility],[place], [address], [facility] - Dr Haley Barajas 3 09:59:42 7657 Product containin g penicilli n (product) medicatio n hives Not available Not available 07/09/2022 43854 8001 SNOMED Kristy Cortes MD [address] [facility],[place], [address], [facility] - Dr Haley Barajas 3 10:00:00 Medications [...] Updated DateTime 07/09/2022 175.26 cm 51.8 kg/m2 467527.2 g 130 mm[Hg] 80 mm[Hg] Zuly Barajas 3 09:48:27 Date Recorded Body height Body mass index (BMI) Body weight Systolic blood pressure Diastolic blood pressure Provider Name and Address Organization Details Last Updated DateTime 10/05/2023 175.26 cm 51.1 kg/m2 064229.2 4 g 150 mm[Hg] 100 mm[Hg] Ismael Barajas 4 10:55:27 Social History Question Answer Notes LastModified by Organizat ion Details LastModified Time Are You Blind Or Do You Have Difficulty Seeing? No [email or web address] Information not available 07/09/2022 In The 14 Days Before Symptom Onset, Have You Had Close Contact With A Laboratory-confirme d COVID-19 While That Case Was Ill? No [email or web address] Information n ot available 07/09/2022 In The 14 Days Before Symptom Onset, Have You Had Close Contact With A Person Who Is Under Investigation For COVID-19 While That Person Was Ill? No Information not available 07/09/2022 Have You Been To An Area Known To Be High Risk For COVID-19? No [email or web address] Information not available 07/09/2022 Are You Deaf Or Do You Have Serious Difficulty Hearing? No [email or web address] Information not available 07/09/2022 What Type Of Diet Are You Following? REGULAR Information n ot available 07/09/2022 Sex: Unknown Functional Status Question Answer Note LastModified by Organizat ion Details LastModified Time Do you have difficulty walking or climbing stairs? No [email or web address] Information not available 07/09/2022 Do you have transportation difficulties? No Information not available 07/09/2022 Do you have difficulty doing errands alone? No [email or web address] Information not available 07/09/2022 Are you able to care for yourself? Yes Information not available 07/09/2022 Do you have difficulty dressing or bathing? No [email or web address] Information not available 07/09/2022 What is your exercise level? None [email or web address] Information not available 07/09/2022 Mental Status Question Answer Note LastModified by Organization D etails LastModified Time Do you have difficulty concentrating, remembering or making decisions? No [email or web address] Information no t available 07/09/2022 Family History [...] SNOMED-CT Code Diagnosis ICD10 Code Diagnosis Note [id number] Kristy Cortes MD [facility] Elmer christensen 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 [place] DAVIES [address] 07/09/2022 09:30:13 07/09/2022 10:34:01 Gynecologic examination 19642012 Z01.419 Anemia screening 6893773 07 Z13.0 Diabetes m ellitus screening 502658810 Z13.1 Endocrine/ metabolic screening 072793981 Z13.228 Hyperlipid emia screening 017864259 Z13.220 Venereal d isease screening 065020112 Z11.3 Screening mammography 24 245041 Z12.31 Family his tory of breast cancer 804624569 Z80.3 Morbid obesity 854871553 E66.01 Recommende d weight loss consultati on Family his tory of malignant neoplasm 459680467 Z80.9 [id number] Ellen Armstrong CNM [facility] Elmer christensen [employer]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 [place] [address] 10/05/2023 09:58:50 10/05/2023 11:50:01 Gynecologic examination 33870793 Z01.419 Venereal d isease screening 614427407 Z11.3 Anemia screening 5665126 07 Z13.0 Diabetes m ellitus screening 220372925 Z13.1 Thyroid di sorder screening 430103417 Z13.29 Hyperlipid emia screening 390362561 Z13.220 Abnormal v aginal bleeding 843717824 N93.9 Screening mammography of bilateral breasts 9689916788 02827 Z12.31 [id number] Kristy Cortes MD [facility] Elmer christensen 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 [place] [address] 10/13/2023 14:26:02 10/13/2023 15:00:40 Abnormal vaginal bleeding 393167130 N93.8 Health Concerns Section Related Observation LastModified by Organization Detai ls LastModified Time None Recorded Concern Status LastModified by Organization Details LastModified Time None Recorded Advance Directives Directive None Recorded Payers Encounter Date Sequence Insurance Name Policy Number Policy Novoa Covered Member ID Novoa Member ID Guarantor Name 07/09/2022 1 [employer] - OPEN ACCESS - NATIONAL (POS) Radha Poe [id number] Radha Poe 10/05/2023 1 [employer] - OPEN ACCESS - NATIONAL (POS) Radha Poe [id number] Radha Poe 10/13/2023 1 [employer] (MEDICARE REPLACEMENT/A DVANTAGE - PPO) Radha Poe [id number] Radha Poe Notes Date Note Type Note [...] anxiety; No PMDD Kristy Cortes MD [address],[place], [address], [facility] Dr Haley Barajas 07/09/2022 14:44:55 10/05/2023 text/html 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
--- OUTSIDE RECORDS SUMMARY | 2024-05-30 17:28 | XMS_ITS ---
Author Organization [facility] Address [address] [place] [address] Care Team Providers Care Supervisor Drying And Winding Name Role Phone GIULIA MILAN Unavailable [phone] ZachYu Unavailable [phone] REASON FOR VISIT discuss weight loss options Encounters Encounter Location Date Provider Diagnosis [facility] [address] [place] [address] 03/10/2024 Yu Serrano Plan Of Treatment No Information Progress Notes * Nayana ARENASOB: 2 (43 yo F)Acc No.[id number]:03/10/2024 Progress Notes Patient:?Radha ARENAS Provider:?JET Berger :1980???Age:43 Y???Sex:Female D ate:03/10/2024 Address:[address] [place], [place] [id number] Subjective: * Chief Complaints: * ???1. Discuss weight loss op tions. * Medical History:? Objective: * Vitals:? Assessment: Plan: * Treatment: * Billing Information: * Visit Code:? * Procedure Codes:? * Electronic signature of Sarai Serrano on 05/30/2024 at 05:28 PM EDT Sign off status: Pending * Provider:?JET Berger Date:?03/10 Generated for Kelly wolf/Jim/Tony on:?05/30/2024 05:28 PM EDT
--- OUTSIDE RECORDS SUMMARY | 2024-05-30 17:29 | XMS_ITS | Patient Health Record ---
Author Organization [facility] Address [address] [place], [place] [id number] Care Team Providers Care State Historical Society Director Name Role Phone Usama Garcia M.D. Primary Care Provider [phone] Fabrice FOOD STYLIST-C, Suzy Unavailable Nitish FOOD STYLIST-CDory Unavailable Allergies Allergen (clinical drug ingredient) Drug/Non Drug Allergy documented on EMR Reaction Allergy Type Onset Date Status morphine Morphine Unknown Drug Allergy Active Penicillin hives Drug Allergy active Reason For Referral Reason Evaluate and treat Diagnosis 1 Acute pulmonary embo lism without acute cor pulmonale, unspecified pulmonary embolism type (I26.99) Referral Organization [facility] Referring Provider First [...] acetaZOLAMIDE 250 MG TAKE 1 TABLET BY [facility] TWICE DAILY Oral for 8 [...] Problem Status W/U Status Risk Notes Problem 247552969 Morbid obesity (E66.01) Active confirmed Problem 255297330 Mixed hyperlipidemia (E78.2) Active confirmed Problem 18073897 Sleep apnea, unspecified type (G47.30) Active confirmed Problem 24912494 Hyperlipidemia, unspecified hyperlipidemia type (E78.5) Active confirmed Problem 56067499 Hypertension, unspecified type (I10) Active confirmed Vital Signs Temperature 97.6 degrees Fahrenheit 11/05/2023 Respiratory Rate 16 /min 07/10/2023 Blood pressure diastolic 116 mm Hg 11/05/2023 Oximetry 99 11/05/2023 Height 69 in 11/05/2023 Blood pressure systolic 158 mm Hg 11/05/2023 Weight 348 lbs 11/05/2023 BMI 51.39 11/05/2023 Encounters Encounter Location Date Provider Diagnosis [facility] [address] [place] [address] [place] [id number] 07/10/2023 Dory Small Hypertension, unspecified type I10 ; Idiopathic intracranial hypertension G93.2 ; Hospital discharge follow-up Z09 and Acute pulmonary embolism without acute cor pulmonale, unspecified pulmonary embolism type I26.99 [facility] [address] [place] [address] [place] [id number] 11/05/2023 Suzy Avina Prediabetes R73.03 ; Mixed hyperlipidemia E78.2 and Morbid obesity E66.01 [facility] [address] [place] [address] [address] [place], [place] [id number] 06/19/2023 Usama Garcia [facility] [address] [place] [address] [address] [place], [place] [id number] 06/23/2023 Usama Garcia [facility] [address] [place], [place] [id number] 11/06/2023 [facility] [address] [place], [place] [id number] 11/08/2023 [facility] [address] [place], [place] [id number] 11/08/2023 [facility] [address] [place], [place] [id number] 11/12/2023 [facility] [address] [place], [place] [id number] 11/16/2023 [facility] [address] [place], [place] [id number] 02/08/2024 [facility] [address] [place] [id number] 06/18/2023 [facility] [address] [place] [id number] 07/21/2023 [facility] [address] [place] [id number] 07/21/2023 [facility] [address] [place] [id number] 07/21/2023 [facility] [address] [place] [id number] [facility] En[facility] Date Diagnosis (ICD Code) Assessment [...] (ICD-10 - I26.99) Dx on 07/03 in [place]. Pt was not admitted and was d'/c [...] Coverage End Date [employer] [address] [address] [place], [place] [id number] Radha Poe Self - patient is the insured Medical (General) History Medical History History ICD Code Hypertension Anemia Surgical History Surgery Date(Month/Year) partial hysterectomy 2001 Hospitalization History Reason Date(Month/Year) chest pain april 2022
--- OUTSIDE RECORDS SUMMARY | 2024-05-30 17:29 | XMS_ITS | Clinical Summary ---
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 abdomen and pelvis. ??No thoracic or lumbar spine fractures. If this radiology report contains a blank impression section, it is an incomplete radiology report. ??Please contact the interpreting radiologist or applicable radiology division as soon as possible to obtain the completed interpretation. ? Workstation ID: [id number] Up-to-date CT equipment and radiation dose reduction techniques were employed. CTDIvol: 2.4 - 76.4 mGy. DLP: 5575 mGy-cm. ??The following accession numbers are related to this dose report [id number]: [id number] Up-to-date CT equipment and radiation dose reduction techniques were employed. CTDIvol: 2.4 - 76.4 mGy. DLP: 5575 mGy-cm. ??The following accession numbers are related to this dose report [id number]: [id number] Narrative 05/21/2024 6:12 PM EDT EXAMINATION: ??CT CHEST W CONTRAST, CT ABDOMEN PELVIS W CONTRAST, CT RECONSTRUCTION THORACIC SPINE, CT RECONSTRUCTION LUMBAR SPINE INDICATION: Chest trauma, blunt TECHNIQUE: Thin section axial images were obtained of the chest, abdomen and pelvis. Coronal and sagittal reformations performed. Enteric contrast was not administered. administered. COMPARISONS: None FINDINGS: Chest: The heart and great vessels are without abnormality. ??There is no pleural effusion. ??There is no lymphadenopathy. ??The lungs are clear. ??There is no mass or nodule. Sagittal and coronal maximum intensity projection images are helpful to evaluate the pulmonary artery, aorta, and their branches. ??These images confirm the axial CT findings. The skeletal structures are without focal lytic or blastic lesions. CT ABDOMEN: There is hepatic steatosis. ??The gallbladder, pancreas, spleen, and adrenal glands are normal. ?? The kidneys demonstrate normal enhancement. The small and large bowel are normal, without evidence of obstruction or ileus. ??Appendix is normal. ?? There is no free air or free fluid. ?? There are no pathologically enlarged lymph nodes or masses in the abdomen. The vasculature is normal. ??There is a small fat-containing umbilical hernia. CT PELVIS: The urinary bladder is distended and normal. ?? There is no free fluid. ?? There are no pathologically enlarged lymph node or masses in the pelvis. Visualization of the bones demonstrates no aggressive appearing sclerotic or lytic lesions. TECHNIQUE: Volumetrically acquired CT images of the thoracic and lumbar spine were obtained on 05/21/2024 5:37 PM ??with contrast.. Axial reformatted images utilizing bone and soft tissue reconstruction algorithm were obtained. Coronal and sagittal reformatted images utilizing bone reconstruction algorithm were obtained. ?? FINDINGS:No fractures is seen and alignment is anatomic. Reformatted coronal and sagittal studies through the scanned interval confirm the findings. Resulting Agency Comment [id number] Procedure Note Aida Toledo MD - 05/21/2024 EXAMINATION: CT CHEST W CONTRAST, CT ABDOMEN PELVIS W CONTRAST, CTRECONSTRUCTION THORACIC SPINE, CT RECONSTRUCTION LUMBAR SPINE INDICATION: Chest trauma, blunt TECHNIQUE: Thin section axial images were obtained of the chest, abdomenand pelvis. Coronal and sagittal reformations performed. Enteric contrastwas not administered. administered. COMPARISONS: None FINDINGS: Chest: The heart and great vessels are without abnormality. There is nopleural effusion. There is no lymphadenopathy. The lungs are clear.There is no mass or nodule. Sagittal and coronal maximum intensity projection images are helpful toevaluate the pulmonary artery, aorta, and their branches. These imagesconfirm the axial CT findings. The skeletal structures are without focal lytic or blastic lesions. CT ABDOMEN: There is hepatic steatosis. The gallbladder, pancreas,spleen, and adrenal glands are normal. The kidneys demonstrate normalenhancement. The small and large bowel are normal, without evidence of obstruction orileus. Appendix is normal. There is no free air or free fluid. Thereare no pathologically enlarged lymph nodes or masses in the abdomen. Thevasculature is normal. There is a small fat-containing umbilicalhernia. CT PELVIS: The urinary bladder is distended and normal. There is no freefluid. There are no pathologically enlarged lymph node or masses in thepelvis. Visualization of the bones demonstrates no aggressive appearing scleroticor lytic lesions. TECHNIQUE: Volumetrically acquired CT images of the thoracic and lumbarspine were obtained on 05/21/2024 5:37 PM with contrast.. Axialreformatted images utilizing bone and soft tissue reconstruction algorithmwere obtained. Coronal and sagittal reformatted images utilizing bonereconstruction algorithm were obtained. FINDINGS:No fractures is seen and alignment is anatomic. Reformattedcoronal and sagittal studies through the scanned interval confirm thefindings. IMPRESSION: No acute injuries in the chest, abdomen and pelvis. No thoracic or lumbarspine fractures. If this radiology report contains a blank impression section, it is anincomplete radiology report. Please contact the interpreting radiologistor applicable radiology division as soon as possible to obtain thecompleted interpretation. Workstation ID: [id number] Up-to-date CT equipment and radiation dose reduction techniques wereemployed. CTDIvol: 2.4 - 76.4 mGy. DLP: 5575 mGy-cm. The followingaccession numbers are related to this dose report [id number]: [id number] Up-to-date CT equipment and radiation dose reduction techniques wereemployed. CTDIvol: 2.4 - 76.4 mGy. DLP: 5575 mGy-cm. The followingaccession numbers are related to this dose report [id number]: [id number] Joshua Spain MD IMG CT PROCEDURES Final Result * CT Cervical Spine without Contrast (05/21/2024 5:57 PM EDT) Anatomical Region Laterality Modality Spine, C-spine Computed Tomogra phy 05/21/2024 6:12 PM EDT Impressions 05/21/2024 6:38 PM EDT No acute cervical spine abnormality. If this radiology report contains a blank impression section, it is an incomplete radiology report. ??Please contact the interpreting radiologist or applicable radiology division as soon as possible to obtain the completed interpretation. ? Workstation ID: [id number] Up-to-date CT equipment and radiation dose reduction techniques were employed. CTDIvol: 2.4 - 76.4 mGy. DLP: 5575 mGy-cm. ??The following accession numbers are related to this dose report [id number]: [id number] Narrative 05/21/2024 6:38 PM EDT COMPARISON: None available. FINDINGS: ?? No acute fracture or subluxation is seen. ??Cervical vertebral body heights are maintained. Intervertebral disc spaces are within normal limits. ??There is no significant osseous spinal canal or foraminal stenosis. ??The paravertebral soft tissues, including the visualized airway, are within normal limits. ??There are bilateral cervical ribs. Resulting Agency Comment [id number] Procedure Note Lowell Washington MD - 05/21/2024 COMPARISON: None available. FINDINGS: No acute fracture or subluxation is seen. Cervical vertebral body heightsare maintained. Intervertebral disc spaces are within normal limits.There is no significant osseous spinal canal or foraminal stenosis. Theparavertebral soft tissues, including the visualized airway, are withinnormal limits. There are bilateral cervical ribs. IMPRESSION: No acute cervical spine abnormality. If this radiology report contains a blank impression section, it is anincomplete radiology report. Please contact the interpreting radiologistor applicable radiology division as soon as possible to obtain thecompleted interpretation. Workstation ID: [id number] Up-to-date CT equipment and radiation dose reduction techniques wereemployed. CTDIvol: 2.4 - 76.4 mGy. DLP: 5575 mGy-cm. The followingaccession numbers are related to this dose report [id number]: [id number] Joshua Spain MD IMG CT PROCEDURES Final Result * CT Chest with Contrast (05/21/2024 5:57 PM EDT) Anatomical Region Laterality Modality Body Computed Tomogra phy 05/21/2024 6:04 PM EDT Impressions 05/21/2024 6:12 PM EDT No acute injuries in the chest, abdomen and pelvis. ??No thoracic or lumbar spine fractures. If this radiology report contains a blank impression section, it is an incomplete radiology report. ??Please contact the interpreting radiologist or applicable radiology division as soon as possible to obtain the completed interpretation. ? Workstation ID: [id number] Up-to-date CT equipment and radiation dose reduction techniques were employed. CTDIvol: 2.4 - 76.4 mGy. DLP: 5575 mGy-cm. ??The following accession numbers are related to this dose report [id number]: [id number] Up-to-date CT equipment and radiation dose reduction techniques were employed. CTDIvol: 2.4 - 76.4 mGy. DLP: 5575 mGy-cm. ??The following accession numbers are related to this dose report [id number]: [id number] Narrative 05/21/2024 6:12 PM EDT EXAMINATION: ??CT CHEST W CONTRAST, CT ABDOMEN PELVIS W CONTRAST, CT RECONSTRUCTION THORACIC SPINE, CT RECONSTRUCTION LUMBAR SPINE INDICATION: Chest trauma, blunt TECHNIQUE: Thin section axial images were obtained of the chest, abdomen and pelvis. Coronal and sagittal reformations performed. Enteric contrast was not administered. administered. COMPARISONS: None FINDINGS: Chest: The heart and great vessels are without abnormality. ??There is no pleural effusion. ??There is no lymphadenopathy. ??The lungs are clear. ??There is no mass or nodule. Sagittal and coronal maximum intensity projection images are helpful to evaluate the pulmonary artery, aorta, and their branches. ??These images confirm the axial CT findings. The skeletal structures are without focal lytic or blastic lesions. CT ABDOMEN: There is hepatic steatosis. ??The gallbladder, pancreas, spleen, and adrenal glands are normal. ?? The kidneys demonstrate normal enhancement. The small and large bowel are normal, without evidence of obstruction or ileus. ??Appendix is normal. ?? There is no free air or free fluid. ?? There are no pathologically enlarged lymph nodes or masses in the abdomen. The vasculature is normal. ??There is a small fat-containing umbilical hernia. CT PELVIS: The urinary bladder is distended and normal. ?? There is no free fluid. ?? There are no pathologically enlarged lymph node or masses in the pelvis. Visualization of the bones demonstrates no aggressive appearing sclerotic or lytic lesions. TECHNIQUE: Volumetrically acquired CT images of the thoracic and lumbar spine were obtained on 05/21/2024 5:37 PM ??with contrast.. Axial reformatted images utilizing bone and soft tissue reconstruction algorithm were obtained. Coronal and sagittal reformatted images utilizing bone reconstruction algorithm were obtained. ?? FINDINGS:No fractures is seen and alignment is anatomic. Reformatted coronal and sagittal studies through the scanned interval confirm the findings. Resulting Agency Comment [id number] Procedure Note Aida Toledo MD - 05/21/2024 EXAMINATION: CT CHEST W CONTRAST, CT ABDOMEN PELVIS W CONTRAST, CTRECONSTRUCTION THORACIC SPINE, CT RECONSTRUCTION LUMBAR SPINE INDICATION: Chest trauma, blunt TECHNIQUE: Thin section axial images were obtained of the chest, abdomenand pelvis. Coronal and sagittal reformations performed. Enteric contrastwas not administered. administered. COMPARISONS: None FINDINGS: Chest: The heart and great vessels are without abnormality. There is nopleural effusion. There is no lymphadenopathy. The lungs are clear.There is no mass or nodule. Sagittal and coronal maximum intensity projection images are helpful toevaluate the pulmonary artery, aorta, and their branches. These imagesconfirm the axial CT findings. The skeletal structures are without focal lytic or blastic lesions. CT ABDOMEN: There is hepatic steatosis. The gallbladder, pancreas,spleen, and adrenal glands are normal. The kidneys demonstrate normalenhancement. The small and large bowel are normal, without evidence of obstruction orileus. Appendix is normal. There is no free air or free fluid. Thereare no pathologically enlarged lymph nodes or masses in the abdomen. Thevasculature is normal. There is a small fat-containing umbilicalhernia. CT PELVIS: The urinary bladder is distended and normal. There is no freefluid. There are no pathologically enlarged lymph node or masses in thepelvis. Visualization of the bones demonstrates no aggressive appearing scleroticor lytic lesions. TECHNIQUE: Volumetrically acquired CT images of the thoracic and lumbarspine were obtained on 05/21/2024 5:37 PM with contrast.. Axialreformatted images utilizing bone and soft tissue reconstruction algorithmwere obtained. Coronal and sagittal reformatted images utilizing bonereconstruction algorithm were obtained. FINDINGS:No fractures is seen and alignment is anatomic. Reformattedcoronal and sagittal studies through the scanned interval confirm thefindings. IMPRESSION: No acute injuries in the chest, abdomen and pelvis. No thoracic or lumbarspine fractures. If this radiology report contains a blank impression section, it is anincomplete radiology report. Please contact the interpreting radiologistor applicable radiology division as soon as possible to obtain thecompleted interpretation. Workstation ID: [id number] Up-to-date CT equipment and radiation dose reduction techniques wereemployed. CTDIvol: 2.4 - 76.4 mGy. DLP: 5575 mGy-cm. The followingaccession numbers are related to this dose report [id number]: [id number] Up-to-date CT equipment and radiation dose reduction techniques wereemployed. CTDIvol: 2.4 - 76.4 mGy. DLP: 5575 mGy-cm. The followingaccession numbers are related to this dose report [id number]: [id number] Joshua Spain MD IMG CT PROCEDURES Final Result * CT Head without Contrast (05/21/2024 5:57 PM EDT) Anatomical Region Laterality Modality Head and Neck Computed Tomogra phy 05/21/2024 6:36 PM EDT Impressions 05/21/2024 6:39 PM EDT No acute intracranial injuries. If this radiology report contains a blank impression section, it is an incomplete radiology report. ??Please contact the interpreting radiologist or applicable radiology division as soon as possible to obtain the completed interpretation. ? Workstation ID: [id number] Up-to-date CT equipment and radiation dose reduction techniques were employed. CTDIvol: 2.4 - 76.4 mGy. DLP: 5575 mGy-cm. ??The following accession numbers are related to this dose report [id number]: [id number] Narrative 05/21/2024 6:39 PM EDT EXAMINATION: CT of head without contrast TECHNIQUE: CT of the head performed without intravenous contrast. Multiplanar reformats and 3-D volume rendered images created on the scanner under my concurrent supervision. CLINICAL INFORMATION: Head trauma. COMPARISON: There are no prior studies available at this time. FINDINGS: CT HEAD: ? There is no evidence for acute intracranial bleed or acute infarction. ??No extra axial fluid collection, mass, or midline shift is seen. ??The ventricles are normal in shape and caliber. ??The visualized paranasal sinuses and mastoid air cells are well aerated. There are no osseous lesions or fractures. Resulting Agency Comment [id number] Procedure Note Aida Toledo MD - 05/21/2024 EXAMINATION: CT of head without contrast TECHNIQUE: CT of the head performed without intravenous contrast. Multiplanarreformats and 3-D volume rendered images created on the scanner under myconcurrent supervision. CLINICAL INFORMATION: Head trauma. COMPARISON: There are no prior studies available at this time. FINDINGS: CT HEAD: There is no evidence for acute intracranial bleed or acuteinfarction. No extra axial fluid collection, mass, or midline shift isseen. The ventricles are normal in shape and caliber. The visualizedparanasal sinuses and mastoid air cells are well aerated. There are noosseous lesions or fractures. IMPRESSION: No acute intracranial injuries. If this radiology report contains a blank impression section, it is anincomplete radiology report. Please contact the interpreting radiologistor applicable radiology division as soon as possible to obtain thecompleted interpretation. Workstation ID: [id number] Up-to-date CT equipment and radiation dose reduction techniques wereemployed. CTDIvol: 2.4 - 76.4 mGy. DLP: 5575 mGy-cm. The followingaccession numbers are related to this dose report [id number]: [id number] Joshua Spain MD IMG CT PROCEDURES Final Result * (ABNORMAL) APTT (05/21/2024 5:35 PM EDT) aPTT 33.3(H) 23.0 - 32.0 Seconds 05/21/2024 6:08 PM EDT [facility] Comment: Current PTT reagent is not sensitive to detect all Lupus Anticoagulant (LA) Inhibitor Cases. ?? If a LA is suspected, please order a Lupus Anticoagulation w/ Reflex Test which is performed at [facility] in [place], [place]. Blood Arterial blood specimen / Unknown Arterial Puncture / Unknown 05/21/2024 5:35 PM EDT 05/21/2024 5:42 PM EDT us Joshua Spain MD LAB BLOOD ORDERABLES Final Res ult Performing Organization Address [facility]/ZIP Co de Phone Number [facility] [address] [place] [address] * Protime-INR (05/21/2024 5:35 PM EDT) PT 10.5 9.6 - 12.4 Seconds 05/21/2024 6:08 PM EDT [facility] INR 1.0 0.9 - 1.1 05/21/2024 6:08 PM EDT [facility] Comment:The optimal therapeu tic INR range for patients treated with Vitamin K antagonists (VKAS, e.g., Warfarin) is 2.0 to 3.5. Discuss the desired range with your doctor/care team. Blood Arterial blood specimen / Unknown Arterial Puncture / Unknown 05/21/2024 5:35 PM EDT 05/21/2024 5:42 PM EDT Joshua Spain MD LAB BLOOD ORDERABLES Final Res ult Performing Organization Address City/[facility]/ZIP Co de Phone Number [facility] [address] [place] [address] * CBC (05/21/2024 5:35 PM EDT) WBC 7.8 3.8 - 10.8 10*3/uL 05/21/2024 5:48 PM EDT [facility] RBC 4.51 3.80 - 5.10 10*6/uL 05/21/2024 5:48 PM EDT [facility] Hemoglobin 12.3 11.7 - 15.5 g/dL 05/21/2024 5:48 PM EDT [facility] Hematocrit 38.4 35.0 - 45.0 % 05/21/2024 5:48 PM EDT [facility] MCV 85.1 80.0 - 100.0 fL 05/21/2024 5:48 PM EDT [facility] MCH 27.3 27.0 - 33.0 pg 05/21/2024 5:48 PM EDT [facility] MCHC 32.0 32.0 - 36.0 g/dL 05/21/2024 5:48 PM EDT [facility] RDW 14.4 11.0 - 15.0 % 05/21/2024 5:48 PM EDT [facility] Platelets 382 140 - 400 10*3/uL 05/21/2024 5:48 PM EDT [facility] MPV 9.6 7.5 - 12.5 fL 05/21/2024 5:48 PM EDT [facility] Blood Arterial blood specimen / Unknown Arterial Puncture / Unknown 05/21/2024 5:35 PM EDT 05/21/2024 5:42 PM EDT Joshua Spain MD LAB BLOOD ORDERABLES Final Res ult [facility] [address] [place] [address], * Type and Screen (05/21/2024 5:35 PM EDT) ABO Blood Type O 05/21/2024 6:45 PM EDT [facility] RH Type Positive 05/21/2024 6:45 PM EDT [facility] Expiration Date/Time 2024-05-24 23:59 05/21/2024 6:45 PM EDT [facility] Antibody Screen Negative 05/21/2024 6:45 PM EDT [facility] Blood Arterial blood specimen / Unknown Arterial Puncture / Unknown 05/21/2024 5:35 PM EDT 05/21/2024 5:49 PM EDT Joshua Spain MD LAB BLOOD BANK TEST ORDERABLES Edited Result - Final Performing Organization Address [facility]/State/ZIP Co de Phone Number [facility] [address] [place] [address], * HCG, Qualitative, Serum (05/21/2024 5:35 PM EDT) HCG Qualitative, Serum Negative Negative 05/21/2024 6:40 PM EDT [facility] Comment: hCG greater than or equal to 5.0 mlU/mL is considered positive. hCG may be negative in early . Suggest repeat testing in 2-4 days if clinically indicated. Human anti-mouse antibodies (HAMA) and other heterophilic antibodies if present can interfere with the assay. The result of this test should be interpreted with the patient's clinical presentation. Blood Arterial blood specimen / Unknown Arterial Puncture / Unknown 05/21/2024 5:35 PM EDT 05/21/2024 5:42 PM EDT Joshua Spain MD LAB BLOOD ORDERABLES Final Res ult Performing Organization Address [facility] Co de Phone Number [facility] [address] [place] [address], * Lactic Acid, Plasma (05/21/2024 5:35 PM EDT) Lactic Acid 1.3 0.5 - 1.9 mmol/L 05/21/2024 6:16 PM EDT [facility] Comment: Sepsis Screening: Initial Lactate Level >2.0 mmol/L - Repeat Lactate Level within 3 hours. Initial Lactate Level >4.0 mmol/L - Repeat Lactate Level within 3 hours, Initiate Septic Shock Protocol. Blood Arterial blood specimen / Unknown Arterial Puncture / Unknown 05/21/2024 5:35 PM EDT 05/21/2024 5:42 PM EDT Joshua Spain MD LAB BLOOD ORDERABLES Final Res ult Performing Organization Address [facility]/ZIP Co de Phone Number [facility] [address] [place] [address], * Ethanol (05/21/2024 5:35 PM EDT) Ethanol <10 <10 mg/dL 05/21/2024 7:00 PM EDT [facility] Blood Arterial blood specimen / Unknown Arterial Puncture / Unknown 05/21/2024 5:35 PM EDT 05/21/2024 5:42 PM EDT us Joshua Spain MD LAB BLOOD ORDERABLES Final Res ult [facility] [address] [place] [address], * (ABNORMAL) Basic Metabolic Panel (05/21/2024 5:35 PM EDT) NA 137 135 - 145 mmol/L 05/21/2024 6:30 PM EDT [facility] K 3.9 3.5 - 5.3 mmol/L 05/21/2024 6:30 PM EDT [facility] Cl 100 98 - 107 mmol/L 05/21/2024 6:30 PM EDT [facility] CO2 23 22 - 32 mmol/L 05/21/2024 6:30 PM EDT [facility] BUN 14 7 - 23 mg/dL 05/21/2024 6:30 PM EDT [facility] Creatinine 1.19 0.50 - 1.20 mg/dL 05/21/2024 6:30 PM EDT [facility] Glucose 104(H) 65 - 99 mg/dL 05/21/2024 6:30 PM EDT [facility] Calcium 9.5 8.6 - 10.5 mg/dL 05/21/2024 6:30 PM EDT [facility] Anion Gap 14 5 - 15 05/21/2024 6:30 PM EDT [facility] eGFR 59(L) >=60 mL/min/1. 73m2 05/21/2024 6:30 PM EDT [facility] Comment:The estimated glomer ular filtration rate (eGFR) is calculated using a new formula developed by the NKF-ASN task force to eliminate race-based correction factors. The new formula uses serum/plasma creatinine, age, and gender to determine eGFR. A value below 60mls/min might indicate kidney disease and will be flagged. For additional information, see Juli et al, Am J Kidney Dis. 2021;79(2):268- 288, A Unifying Approach for GFR estimation: Recommendations of the NKF-ASN Task Force on Reassessing the Inclusion of Race in Diagnosing Kidney Disease . Blood Arterial blood specimen / Unknown Arterial Puncture / Unknown 05/21/2024 5:35 PM EDT 05/21/2024 5:42 PM EDT us Joshua Spain MD LAB BLOOD ORDERABLES Final Res ult [facility] [address] [place] [address], [place] * ED POCUS eFAST (05/21/2024 5:27 PM EDT) Anatomical Region Laterality Modality Body N/A Ultrasound 05/21/2024 5:27 PM EDT Impressions 05/23/2024 12:12 AM EDT Exam Information: A [id number] ultrasound exam was performed of the peritoneal space, pericardial space and pleural spaces to evaluated for free fluid. ??Views of the following areas were attempted: subxiphoid, Perry''s pouch, spleno-renal recess, superior colic gutters, retro-vesicular area and pleural spaces bilaterally.. Indication: The ultrasound was performed with the following indication(s) Trauma Views: The following views were obtained Bilateral Thorax ,Subxiphoid (cardiac),Perry''s pouch (RUQ),Perisplenic (LUQ),Suprapubic Findings: Right lung sliding Present Left lung sliding Present Pericardial space Fluid absent Perry''s pouch (RUQ) Fluid absent Right pleural space Fluid absent Splenorenal fossa (LUQ) Indeterminate Left pleural space Indeterminate Retrovesicular space Fluid absent Impression: - Negative eFAST . All images have been reviewed by me and I agree with or have changed the resident? s findings as written above Limited ultrasounds performed in the Emergency Department are performed by emergency physicians at the patients bedside to address specific clinical questions. ??Additional imaging or testing may be required. Electronically signed by Arturo Marino MD on [id number] Electronically signed by Man Mckeon MD on [id number] [email or web address] Narrative Procedure Note Man Mckeon MD - 05/23/2024 IMPRESSION: Exam Information: A lcvlu-kd-uhyy ultrasound exam was performed of the peritoneal space,pericardial space and pleural spaces to evaluated for free fluid. Viewsof the following areas were attempted: subxiphoid, Perry''s pouch,spleno-renal recess, superior colic gutters, retro-vesicular area and pleural spaces bilaterally.. Indication: The ultrasound was performed with the following indication(s) Trauma Views: The following views were obtained Bilateral Thorax ,Subxiphoid(cardiac),Perry''s pouch (RUQ),Perisplenic (LUQ),Suprapubic Findings: Right lung sliding Present Left lung sliding Present Pericardial space Fluid absent Perry''s pouch (RUQ) Fluid absent Right pleural space Fluid absent Splenorenal fossa (LUQ) Indeterminate Left pleural space Indeterminate Retrovesicular space Fluid absent Impression: - Negative eFAST . All images have been reviewed by me and I agree with or have changedthe resident? s findings as written above Limited ultrasounds performed in the Emergency Department are performed byemergency physicians at the patients bedside to address specific clinicalquestions. Additional imaging or testing may be required. Electronically signed by Arturo Marino MD on [id number] Electronically signed by Man Mckeon MD on [id number] [email or web address] us Historical Conversion Provider IMG US PROCEDURES Final Result from Last 3 Months Insurance [facility] [employer] Care Teams Frame Feeder Relationship Specialty Start Date End Date No, Referring PCP - General 05/21/24
--- OUTSIDE RECORDS SUMMARY | 2024-05-30 17:29 | XMS_ITS | Clinical Summary ---
Author Organization [facility] Address [address] [place] [address] Care Team Providers Care Supervisor Agricultural Education Name Role Phone Alexis Miller DO Primary Care Provider [phone] Allergies Active Allergy Reactions Criticality Noted Date Comments Morphine Sulfate Hives 08/16/2009 Penicillins 04/08/2007 Medications ferrous sulfate (IRON ORAL) Take 5 mL by mouth 3 times daily. Active amLODIPine (NORVASC) 5 mg tablet Take 1 Tab by mouth daily. Active medroxyPROGESTER one 150 mg/mL injection Inject 1 mL into the muscle Every 3 Months. Active Eliquis 5 mg tablet Take 1 tablet (5 mg total) by mouth 2 (two) times a day. 04/26/2024 Active buPROPion XL (WELLBUTRIN XL) 150 mg 24 hr tablet Take 1 tablet (150 mg total) by mouth 1 (one) time each day. 04/25/2024 Active Vitamin D3 25 mcg (1,000 unit) capsule Take 1 capsule (1,000 Units total) by mouth 1 (one) time each day. 04/25/2024 Active gabapentin (NEURONTIN) 100 mg capsule Take 1 capsule (100 mg total) by mouth if needed. at bedtime 03/01/2024 Active losartan-hydroCH LOROthiazide (HYZAAR) 100-25 mg per tablet Take 1 tablet by mouth 1 (one) time each day. 04/25/2024 Active magnesium oxide (MAG-OX) 400 mg (241.3 elemental magnesium) tablet Take 1 tablet (400 mg total) by mouth 1 (one) time each day. 05/13/2024 Active metoprolol succinate (TOPROL-XL) 25 mg 24 hr tablet Take 1 tablet (25 mg total) by mouth 1 (one) time each day. 04/22/2024 Active pantoprazole (PROTONIX) 40 mg EC tablet Take 1 tablet (40 mg total) by mouth 1 (one) time each day before breakfast. 05/13/2024 Active tirzepatide, weight loss, (Zepbound) 2.5 mg/0.5 mL injectionIndicat ions:Class 3 severe obesity due to excess calories with serious comorbidity and body mass index (BMI) of 50.0 to 59.9 in adult Inject 0.5 mL (2.5 mg total) under the skin every 7 (seven) days for 4 doses. 2 mL 05/18/2024 06/10/19 Active Active Problems Problem Noted Date Diagnosed Date Hypertension 11/19/2009 Allergic rhinitis 06/18/2007 Iron deficiency anemia 04/20/2007 Morbid obesity 04/20/2007 Encounters Date Type Department Care Team Description 05/20/2024 Telephone Bariatric Surgery [address] [phone] Torey Bradford MD prior auth (Prior auth) 05/18/2024 11:00 AM EDT Office Visit Bariatric Surgery [address] [phone] Torey Bradford MD Class 3 severe obesity due to excess calories with serious comorbidity and body mass index (BMI) of 50.0 to 59.9 in adult ([facility]) (Primary Dx) from Last 3 Months Immunizations Name Administration Dates Next Due H1N1 [...] Sexual Orientation Not on file Obstetrics History Last Filed Vital Signs Vital Sign Reading Time Taken Comments Blood Pressure 155/88 05/18/2024 10:59 AM EDT Pulse 76 05/18/2024 10:59 AM EDT Temperature 36.6 ??C (97.8 ??F) 05/18/2024 10:59 AM E DT Respiratory Rate - - Oxygen Saturation - - Inhaled Oxygen Concentration - - Weight 159 kg (350 lb) 05/18/2024 10:59 AM EDT Height 175.3 cm (5' 9 ) 05/18/2024 10:59 AM EDT Body Mass Index 51.69 05/18/2024 10:59 AM EDT Plan of Treatment Upcoming Encounters Date Type Department Care Team (Late st Contact Info) Description 09/15/2024 2:00 PM EDT Office Visit Bariatric Surgery - [place] [address] [facility] [address] [place] [phone] Torey Bradford MD [address] [facility] [address] [place] [address] Health Maintenance Due Date Last Done Comments Breast Cancer Screening 1980 Hepatitis B Vaccines (1 of 3 - 19+ 3-dose series) 2000 Cervical Cancer Screening: Pap Smear 01/03/2014 01/03/2011 COVID-19 Vaccine ( season) 2023 Cholesterol Screening (Lipid Panel) 12/20/2023 02/06/2011 Depression Screening 12/20/2023 Medicare Annual Wellness Visit 12/20/2023 Social Influencers of Health Screening 12/20/2023 Hypertension/CHF/CAD Annual BMP Blood Test 01/06/2024 06/28/2011 Influenza Vaccine (Season Ended) 2024 12/20/2008, 11/07/2008 DTaP,Tdap,and Td Vaccines (5 - Td or Tdap) 04/02/2027 04/02/2017, 09/21/2012, 08/01/2010, Additional history exists HIV Screening Completed 01/03/2011 Hepatitis C Screening [...] age to complete this topic Meningococcal B Vaccine Aged Out No l onger eligible based on patient's age to complete this topic Pneumococcal Vaccine: Pediatrics (0 to 5 Years) and At-Risk Patients (6 to 64 Years) Aged Out No longer eligible based on patient's age to complete this topic RSV Immunization Patients Under 20 months Aged Out No longer eligible based on [...] BMP Blood Test (06/28/2011) Pathologist [facility] Annual BMP Blood Test abstracted [facility] Provider HEALTH MAINTENANCE Final Result * Hepatitis C Screening (06/09/2011) [facility] Hepatitis C Screening abstracted [facility] Provider HEALTH MAINTENANCE Final Result * (ABNORMAL) Lipid panel (02/06/2011) [facility] LDL/HDL Ratio 3 0 - 4 Triglycerides 92 0 - 150 mg/dL Cholesterol 187 0 - 200 mg/dL HDL 57 >=40 mg/dL LDL Cholesterol 112(A) 0 - 100 mg/dL Blood Venous blood specimen / Unknown Result [facility] Provider LAB BLOOD ORDERABLES Hanh l Result * HIV Screening (01/03/2011) [facility] HIV Screening abstracted [facility] Provider HEALTH MAINTENANCE Final Result * Pap Smear (01/03/2011) [facility] Pap smear no interpretation abstracted [facility] Provider HEALTH MAINTENANCE Final Result from Last 3 Months or Most Recently Relevant to Health Maintenance Insurance [place]ICA[place] - [place] [facility] MEDICARE ADVANTAGE on file MEDICAID - [place] Care Teams Supervisor Agricultural Education Relationship Specialty Start Date End Date Alexis Miller DO [address] [place] [phone] PCP - General 06/06/13
--- OUTSIDE RECORDS SUMMARY | 2024-05-30 17:29 | XMS_ITS ---
Author Organization [facility] Address [address] [place], [place] [id number] Care Team Providers Care Integrated Campaign Manager Name Role Phone Usama Garcia M.D. Primary Care Provider [phone] [facility] BED MANAGER-C, Suzy Unavailable REASON FOR VISIT question Encounters Encounter Location Date Provider Diagnosis [facility] [address] [place], [place] [id number] 02/08/2024 Usama Garcia Plan Of Treatment No Information Progress Notes * Nayana ARENASOB: 2 (43 yo F)Acc No.[id number]:02/08/2024 Patient:?Radha ARENAS :1980???Age:43 Y???Sex:Female Address:[address] [place] [address], [address] * true * Date:? Generated for Printi ng/Faberthag/eTransmitting on:?05/30/2024 05:28 PM EDT
--- OUTSIDE RECORDS SUMMARY | 2024-05-30 17:29 | XMS_ITS | Patient Health Record ---
Author Organization [facility] Address [address] [place] [address] Care Team Providers Care Tax Services Intern Name Role Phone GIULIA MILAN Unavailable [phone] Yu Serrano Unavailable [phone] Reason For Referral No Information Plan Of Treatment No Information Insurance Providers Payer Name Payer Address Payer Phone Subscriber Number Group Number Insured Name Patient Relationship to Insured Coverage Start Date Coverage End Date [employer] [address] [address] [place] [phone] [id number] Radha Poe Self - patient is the insured
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
[2024-06-02 23:58] LABS: Methylmalonic Acid 177 nmol/L (55-335)
== END 2024-05-30 14:37 | disposition home or self-care (01) ==
LOC: HO.LAB 14:36
PROVIDERS: Visit Provider Nurse Practitioner Family
DX: D64.9 Anemia, unspecified (principal)
CPT/HCPCS: 36415; 83010; 83921; 85007; 85027; 85045; 88184; 88185

== ENCOUNTER 2024-06-03 13:08 | Outpatient (AMB) | payer OTHER, MEDICAID, SELFPAY ==
[2024-06-03 13:11] VITALS: BP 122/74; PULSE 67; RESP 67; O2SAT 100; BMI 51.7
--- NOTE | 2024-06-03 13:11 | MHC.OFFVIS ---
Vital Signs 06/03/24 13:11 Height 5 ft 9 in Weight 350 lb BMI 51.7 BP 122/74 Blood Pressure Location Rt brachial Position Sitting Respiration 67 H Pulse 67 Pulse Source Pulse Oximeter Pulse Oximetry (%) 100 Oxygen Delivery Method Room Air Intake Visit Reasons: Pulmonary embolism Medical Records Director Required: No Test Director: Test Director offered & declined Accompanied by: Self / Same As Patient Allergies metformin Allergy (Intermediate, Verified 06/03/24 13:15) Hives morphine [MORPHINE] Allergy (Unknown, Verified 06/03/24 13:15) HIVES Penicillins [PENICILLINS] Allergy (Unknown, Verified 06/03/24 13:15) SHORTNESS OF BREATH Medication List - Last Reconciled 06/03/24 by Kya Mai LPN apixaban (Eliquis) 5 mg PO BID 90 days bupropion HCl XL 150 mg PO DAILY cholecalciferol (vitamin D3) 25 mcg PO DAILY gabapentin 100 mg PO BEDTIME losartan-hydrochlorothiazide 100-25 mg 1 tab PO DAILY magnesium oxide 400 mg PO DAILY metoprolol succinate ER 25 mg PO DAILY pantoprazole 40 mg PO DAILY HPI HPI Pulmonary embolism: Details: Radha is a pleasant 43 year old female, never smoker, with 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 She has not had repeat chest CT, and recalls no symptoms of URI at that time. She reports notable dyspnea on exertion, occasionally at rest, as well as fluttering in her chest. She denies wheezing, chest tightness or cough. She denies any known triggers. She denies prior history of asthma. She denies prior history of secondhand smoke. She denies any occupational exposures. She reports mild seasonal allergies which are controlled with ldxs-oof-ibqplgy medications. She denies any pertinent family history. She does have history of PEs. She notes her 1st was in July 2014 immediately after receiving a blood transfusion which she has had on multiple occasions prior due to heavy menses. She was placed on Eliquis x1 year and discontinued. However anticoagulation was restarted in and discontinued after year. She then was traveling in June of 2023 and developed her 2nd PE at that time and has been on Eliquis 5 mg b.i.d. since. She recently underwent evaluation through Hematology and will be following up in the near future. She is also undergoing cardiac evaluation for fluttering sensation in chest and was recently referred to sleep medicine known history of mild sleep apnea. [facility] Medical History Chronic migraine without aura Blurry vision depression Overactive bladder Iron deficiency Hypercholesterolemia Pulmonary embolism Deep vein thrombophlebitis of leg Obesity Hypertension Anxiety Anemia Surgical History H/O esophagogastroduodenoscopy History of colonoscopy Hx of dilation and curettage Hx of hysterectomy Family History Mother Breast cancer Hypertension Father Lung cancer Brother Hypertension Brother No problems noted. Sister Hypertension Sister History of partial hysterectomy Sister No problems noted. Sister No problems noted. Daughter No problems noted. Daughter No problems noted. Daughter No problems noted. Son No problems noted. Social History Housing: House Alcohol intake: current Alcohol intake frequency: holidays/special occasions only Alcohol type: wine Patient Tobacco Use Status: Never used Tobacco e-Cigarette/Vaping Use: Never Used Second Hand Smoke Exposure: No service: No Current occupational status: unemployed Cognitive needs: No Hearing needs: No Vision needs: No Review of Systems Const Denies chills, Denies excessive sweating, Denies fever(s), Denies headache(s) and Denies night sweats Eyes Denies dry eyes, Denies irritation and Denies itchy eyes ENT Reports Normal hearing present and Denies headache(s) Card Denies chest pain, Denies chest pain at rest, Denies chest pain with activity, Denies claudication, Denies leg edema, Denies orthopnea and Denies paroxysmal nocturnal dyspnea Resp Denies chest congestion, Denies cough, Denies excessive phlegm production, Denies pain on inspiration, Denies pain with cough, Denies stridor and Denies wheezing Musc Denies myalgias Neuro Reports Normal hearing present and Denies headache(s) Endo Denies excessive sweating Eugenio/Lymph Denies lymphadenopathy Aller/Immun Denies itchy eyes, Denies seasonal rhinorrhea and Denies wheezing Physical Exam Vital Signs: Last Vital Signs Pulse 67 06/03/24 13:11 Resp 67 H 06/03/24 13:11 BP 122/74 06/03/24 13:11 Pulse Ox 100 06/03/24 13:11 Oxygen Delivery Method Room Air 06/03/24 13:11 BMI result Body Mass Index 51.7 Const General: cooperative, healthy appearing, comfortable, no acute distress, well developed and alert Nutritional Appearance: obese Orientation/consciousness: patient oriented x3 Limitations: no limitations HEENT Head: Yes normal to inspection, Yes normocephalic and Yes atraumatic Ears: hearing grossly normal bilaterally and external ears normal Eyes General: appearance normal, both eyes and all related structures Eyelids: Yes eyelids normal Sclerae: sclerae normal EOM: EOMs intact bilaterally Neck Neck: Yes normal visual inspection and Yes no lymphadenopathy Lymphatic: no lymphadenopathy noted Chest Chest palpation & inspection: normal inspection of the chest Resp Effort & Inspection: normal respiratory effort, able to speak in complete sentences, no audible wheezes, no cough, no stridor, not tachypneic, no tripod positioning and no use of accessory muscles Auscultation: diminished lung sounds Cardio Jugular venous distension: no JVD Rate: regular rate Rhythm: regular rhythm Skin Other: warm, dry General skin exam: no rashes or lesions noted Neuro General: patient oriented x3 Cranial nerves: Yes Normal hearing present Cognition (Neuro): normal cognition Gait exam (Neuro): Normal gait present Extrem General: Yes normal to inspection, Yes capillary refill normal, Yes no clubbing, cyanosis or edema and Yes no pedal edema Psych Appearance: grossly normal and well kempt Speech and movement: Normal speech and movement present and Clear speech present Affect: normal affect Attitude: cooperative Thought process: Normal thought process present Thought content: Normal thought content present Insight: Good insight present (Psych) Judgement: Good judgement present (Psych) Assessment & Plan Assessment & Plan (1) Dyspnea: Code(s): R06.00 - Dyspnea, unspecified Category: Medical (2) Ground glass opacity present on imaging of lung: Code(s): R91.8 - Other nonspecific abnormal finding of lung field Category: Medical Plan She presents for pulmonary evaluation for ongoing dyspnea and prior abnormal chest CT. Will send for PFT to assess for obstructive defect. Will send for repeat chest CT without IV contrast to assess resolution of prior noted ground-glass opacities on CTA from 09/12/2023. All questions were answered and patient is in agreement of plan. Will follow-up to review results or sooner if needed. Orders: Orders CT chest wo IV con Today R91.8 - Other nonspecific abnormal finding of lung field PFT pulmonary function test Today R06.00 - Dyspnea, unspecified Coding Level of Care Code New Pt Level 4 (76269) Diagnoses Dyspnea R06.00 Ground glass opacity present on imaging of lung R91.8
--- OUTSIDE RECORDS SUMMARY | 2024-06-03 13:35 | XMS_ITS | Patient Health Record ---
Author Organization [facility] Address [address] [place] [address] Care Team Providers Care International Logistics Manager Name Role Phone GIULIA MILAN Unavailable [phone] Yu Serrano Unavailable [phone] Reason For Referral No Information Plan Of Treatment No Information Insurance Providers Payer Name Payer Address Payer Phone Subscriber Number Group Number Insured Name Patient Relationship to Insured Coverage Start Date Coverage End Date [employer] [address] [address] [place] [phone] [id number] Radha Poe Self - patient is the insured
--- OUTSIDE RECORDS SUMMARY | 2024-06-03 13:35 | XMS_ITS ---
Author Organization [facility] Address [address] [place], [place] [id number] Care Team Providers Care Employee Wellness/Fitness Coordinator Name Role Phone Usama Garcia M.D. Primary Care Provider [phone] [employer], Suzy Unavailable REASON FOR VISIT rx change. wegovy not covered Encounters Encounter Location Date Provider Diagnosis [facility] [address] [place], [place] [id number] 11/16/2023 Usama Garcia Plan Of Treatment No Information Progress Notes * Nayana ARENASOB: 2 (42 yo F)Acc No.[id number]:11/16/2023 Patient:?Radha ARENAS :1980???Age:42 Y???Sex:Female Address:[address] [place] [address], [address] * true * Date:? Generated for Printi ng/Faxing/eTransmitting on:?06/03/2024 01:35 PM EDT
--- OUTSIDE RECORDS SUMMARY | 2024-06-03 13:35 | XMS_ITS | Data Portability ---
Author Organization [place] - Dr Haley turpin, [facility] - Address [address] [place] [address] Assessment No assessment recorded. Plan of Treatment Reminders Order Date Submit Date Provider Last Modified By Organization Details Last Modified Time Details Appointments None recorded. Lab urinalysis, dipstick 2023 024 [email or web address] 4 Haley Barajas MD, [address] [place], [address], 4 12:09:17 culture, urine 2023 024 [place] [facility] ([facility]), [address], [place], [address], 4 02:03:36 bacterial vaginosis + vaginitis panel, vaginal 2023 024 [place] [facility] ([facility]), [address], [place], [address], 4 12:50:57 lipid panel, serum 2023 024 [place] [facility] ([facility]), [address], [place], [address], 4 17:14:03 CMP, serum or plasma 2023 024 [place] [facility] ([facility]), [address], [place], [address], 4 17:14:04 hereditary breast + gynecologic cancer multigene analysis, blood or tissue 2023 024 [email or web address] [facility], [address], [place], [address], 4 14:52:14 T4, free, serum 2023 024 [place] [facility]), [address], [place], [address], 4 17:14:06 TSH, serum or plasma 2023 024 [place] [facility]), [address], [place], [address], 4 17:14:06 HIV (1+2) Ab screen, serum 2023 024 [place] [facility] ([facility]), [address], [place], [address], 4 17:14:05 RPR (rapid plasma reagin), serum 2023 024 [facility]), [address], [place], [address], 4 17:14:08 HBsAg (hepatitis B surface Ag), serum 2023 024 [facility] ([facility]), [address], [place], [address], 4 17:14:07 CT + NG DNA, PCR, unspecified specimen 2023 024 [email or web address] [facility] ([facility]), [address], [place], [address], 4 14:52:14 hepatitis C virus Ab, serum 2023 024 [facility] ([facility] Pathologists [facility]), [address], [place], [address], 4 17:14:07 CBC 2023 024 [facility] ([facility]), [address], [place], [address], 4 17:14:04 HbA1c (hemoglobin A1c), blood 2023 024 [facility] ([facility]), [address], [place], [address], 4 17:14:05 lipid panel, serum 2022 023 [facility] ([facility]), [address], [place], [address], 3 10:56:57 CMP, serum or plasma 2022 023 [facility] ([facility]), [address], [place], [address], 3 10:56:59 TSH, serum or plasma 2022 023 [facility] ([facility]), [address], [place], [address], 3 10:57:00 T4, free, serum 2022 023 [facility] ([facility]), [address], [place], [address], 3 10:57:00 pap, LB 2022 023 [facility] ([facility]ologists [facility]), [address], [place], [address], 3 15:29:20 genetic screen, unspecified specimen 2022 023 [facility], [address], [place], [address], 3 15:01:20 CT + NG DNA, PCR, unspecified specimen 2022 023 [facility] ([facility]), [address], [place], [address], 3 15:29:21 RPR (rapid plasma reagin), serum 2022 023 [facility] ([facility]ologists [facility]), [address], [place], [address], 3 10:57:03 HIV (1+2) Ab screen, serum 2022 023 [facility] ([facility]), [address], [place], [address], 3 10:57:01 HBsAg (hepatitis B surface Ag), serum 2022 023 [facility] ([facility]ologists [facility]), [address], [place], [address], 3 10:57:02 hepatitis C virus Ab, serum 2022 023 [facility] ([facility]), [address], [place], [address], 3 10:57:02 HbA1c (hemoglobin A1c), blood 2022 023 [facility] ([facility]), [address], [place], [address], 3 10:56:59 CBC [address] [facility] ([facility]), [address], [place], [address], 3 10:56:58 Referral None recorded. Procedures None recorded. Surgeries None recorded. Imaging US, pelvis, complete 2023 024 [email or web address] Not available 4 11:50:01 MAMMO, screening, digital, bilateral 2023 024 [place] [facility], [address], [place], [address], 4 14:04:49 MAMMO, screening, digital, bilateral 2022 023 [facility], [address], [place], [address], 3 15:08:06 Medication Orders None recorded. Patient TargetsNo targets recorded. Patient Instructions Encounter Date Encounter Id Patient Instructions Last Modified By Organization Details Last Modified Time 07/09/2022 [id number] Pap collected. Labwork ordered. Mammo ordered. Instructed to RTO in 2 days for weight loss consultation [email or web address] Not available 07/09/2022 11:51:15 10/05/2023 [id number] Recommend 5 servings of fruits and vegetables [...] year for annual Notify office as needed [id number] Not available 10/05/2023 11:01:02 Strongly encouraged pt to go back to provider managing BP meds so that she can have meds for HTN adjusted. PC labs today & referred to [facility] for new provider that takes her insurance. 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 [email or web address] Not available 10/05/2023 12:10:18 10/13/2023 [id number] Ultrasound reviewed by Dr. Cortes Agree with [...] [facility] ([facility]) [address] [facility] [address], [place], [address], 07/10/2022 10:56:57 07/10/1907/10/2022 LIPID PANEL triglyceride s 151 mg/dL <150 high Not Available [facility] ([facility]) [facility] [address], [place], [address], 07/10/2022 10:56:57 07/10/19 23 07/10/2022 LIPID PANEL HDL cholesterol 59 mg/dL >39 Not Available Path group [facility] ([facility]) [address] [place] [address] [address], [place], [address], 07/10/2022 10:56:57 07/10/19 23 07/10/2022 LIPID PANEL cholesterol / HDL ratio 3.42 ratio 0.00-4 .44 Not Available [facility] ([facility]) [address] [place] [address] [address], [place], [address], 07/10/2022 10:56:57 07/10/19 23 07/10/2022 LIPID PANEL non-HDL cholesterol 143 mg/dL <130 high Not Available [facility] ([facility]) [address] [place] [address] Dr [address], [place], [address], 07/10/2022 10:56:57 07/10/19 23 07/10/2022 LIPID PANEL [...] 2004 ATPII I guide lines Not Available [facility] ([facility]) [facility] [address], [place], [address], 07/10/2022 10:56:57 07/10/19 23 07/10/2022 LIPID PANEL LDL/HDL ratio 1.9 ratio <3.3 ___ LDL Fany stero l Patie nt Histo ry ___ Test Date: 07/09 LDL Resul ts: 113 Units : mg/dL % Silva e: - ___ Not Available [facility] ([facility]) [address] [place] [address] Dr [address] [facility], [place], [address], 07/10/2022 10:56:57 07/10/19 23 07/10/2022 CBC WITH PLATE LET NO DIFFE RENTI AL WBC 6.5 K/uL 3.8-11 .5 Not Available [facility] ([facility]) [address] [place] [address] Dr [address] [facility], [place], [address], 07/10/2022 10:56:58 07/10/19 23 07/10/2022 CBC WITH PLATE LET NO DIFFE RENTI AL red blood cell count (RBC) 4.28 M/mm3 3.60-5 .30 Not Available [facility] ([facility]) [address] [place] [address] [address], [place], [address], 07/10/2022 10:56:58 07/10/19 23 07/10/2022 CBC WITH PLATE LET NO DIFFE RENTI AL hemoglobin (HGB) 11.9 gm/dL 11.5-1 5.5 Not Available [facility] ([facility]) [address] [place] [address] [address], [place], [address], 07/10/2022 10:56:58 07/10/19 23 07/10/2022 CBC WITH PLATE LET NO DIFFE RENTI AL hematocrit (HCT) 36.1 % 35.2-4 6.4 Not Available [facility] ([facility]) [address] [place] [address] [address], [place], [address], 07/10/2022 10:56:58 07/10/19 23 07/10/2022 CBC WITH PLATE LET NO DIFFE RENTI AL MCV 84.3 fL 79.0-9 9.0 Not Available [facility] ([facility]) [address] [place] [address] [address], [place], [address], 07/10/2022 10:56:58 07/10/19 23 07/10/2022 CBC WITH PLATE LET NO DIFFE RENTI AL MCH 27.8 pg 26.9-3 5.0 Not Available [facility] ([facility]) [address] [place] [address] [address], [place], [address], 07/10/2022 10:56:58 07/10/19 23 07/10/2022 CBC WITH PLATE LET NO DIFFE RENTI AL MCHC 33.0 g/dL 30.4-3 4.8 Not Available [facility] ([facility]) [address] [place] [address] [address], [place], [address], 07/10/2022 10:56:58 07/10/19 23 07/10/2022 CBC WITH PLATE LET NO DIFFE RENTI AL RDW 44.8 fL 38.6-5 3.8 Not Available [facility] ([facility]) [address] [place] [address] [address], [place], [address], 07/10/2022 10:56:58 07/10/19 23 07/10/2022 CBC WITH PLATE LET NO DIFFE RENTI AL platelet count 337 K/cum m 137-39 7 Not Available [facility] ([facility]) [address] [place] [address] [address], [place], [address], 07/10/2022 10:56:58 07/10/19 23 07/10/2022 COMPR EHENS JESENIA METAB OLIC PANEL (CMP) sodium 137 mEq/L 135-14 5 Not Available [facility] ([facility]) [address] [place] [address] [address], [place], [address], 07/10/2022 10:56:59 07/10/19 23 07/10/2022 COMPR EHENS JESENIA METAB OLIC PANEL (CMP) potassium 4.2 mEq/L 3.5-5. 3 Not Available [facility] ([facility]) [address] [place] [address] [address], [place], [address], 07/10/2022 10:56:59 07/10/19 23 07/10/2022 COMPR EHENS JESENIA METAB OLIC PANEL (CMP) chloride 100 mEq/L 97-108 Not Available [facility] ([facility]) [address] [place] [address] [address], [place], [address], 07/10/2022 10:56:59 07/10/19 23 07/10/2022 COMPR EHENS JESENIA METAB OLIC PANEL (CMP) CO2 30 mEq/L 22-32 Not Available [facility] ([facility]) [address] [place] [address] [address], [place], [address], 07/10/2022 10:56:59 07/10/19 23 07/10/2022 COMPR EHENS JESENIA METAB OLIC PANEL (CMP) glucose 100 mg/dL 65-99 high Not Available [facility] ([facility]) [address] [place] [address] [address], [place], [address], 07/10/2022 10:56:59 07/10/19 23 07/10/2022 COMPR EHENS JESENIA METAB OLIC PANEL (CMP) BUN 10 mg/dL 6-20 Not Available [facility] ([facility]) [address] [place] [address] [address], [place], [address], 07/10/2022 10:56:59 07/10/19 23 07/10/2022 COMPR EHENS JESENIA METAB OLIC PANEL (CMP) creatinine 0.82 mg/dL 0.50-1 .00 Not Available [facility] ([facility]) [address] [place] [address] [address], [place], [address], 07/10/2022 10:56:59 07/10/19 23 07/10/2022 COMPR EHENS JESENIA METAB OLIC PANEL (CMP) calcium 9.3 mg/dL 8.6-10 .4 Not Available [facility] ([facility]) [address] [place] [address] [address], [place], [address], 07/10/2022 10:56:59 07/10/19 23 07/10/2022 COMPR EHENS JESENIA METAB OLIC PANEL (CMP) protein 7.8 g/dL 6.0-8. 3 Not Available [facility] ([facility]) [address] [place] [address] [address], [place], [address], 07/10/2022 10:56:59 07/10/19 23 07/10/2022 COMPR EHENS JESENIA METAB OLIC PANEL (CMP) albumin 4.1 g/dL 3.5-5. 3 Not Available [facility] ([facility]) [address] [place] [address] [address], [place], [address], 07/10/2022 10:56:59 07/10/19 23 07/10/2022 COMPR EHENS JESENIA METAB OLIC PANEL (CMP) alkaline phosphatase 141 IU/L 35-121 high Not Available [facility] ([facility]) [address] [place] [address] [address], [place], [address], 07/10/2022 10:56:59 07/10/19 23 07/10/2022 COMPR EHENS JESENIA METAB OLIC PANEL (CMP) ALT (SGPT) 16 IU/L <5-47 Not Available [facility] -[facility] ([facility]) [address] [place] [address] [address], [place], [address], 07/10/2022 10:56:59 07/10/19 23 07/10/2022 COMPR EHENS JESENIA METAB OLIC PANEL (CMP) AST (SGOT) 14 IU/L <5-40 Not Available [facility] -[facility] ([facility]) [address] [place] [address] [address], [place], [address], 07/10/2022 10:56:59 07/10/19 23 07/10/2022 COMPR EHENS JESENIA METAB OLIC PANEL (CMP) bilirubin, total 0.3 mg/dL <0.2-1 .2 Not Available [facility] ([facility]) [address] [place] [address] [address], [place], [address], 07/10/2022 10:56:59 07/10/19 23 07/10/2022 COMPR EHENS JESENIA METAB OLIC PANEL (CMP) A/G ratio 1.1 mg/dL 1.1-2. 5 Not Available [facility] ([facility]) [address] [place] [address] [address], [place], [address], 07/10/2022 10:56:59 07/10/19 23 07/10/2022 COMPR EHENS JESENIA METAB OLIC PANEL (CMP) estimated GFR (black) 103 mL/mi n/1.7 3m2 >59 Not Available [facility] ([facility]) [address] [facility] [address], [place], [address], 07/10/2022 10:56:59 07/10/19 23 07/10/2022 COMPR EHENS [...] e mass or diet. Not Available [facility] ([facility]) [facility] [address], [place], [address], 07/10/2022 10:56:59 07/10/19 23 07/10/2022 HEMOG LOBIN [...] <5.7% Non-D iabet ic Not Available [facility] ([facility]) [address] [place] [address] [address], [place], [address], 07/10/2022 10:56:59 07/10/19 23 07/10/2022 HEMOG LOBIN A1C estimated average glucose 123 mg/dL Coulters ge Gluco se is calcu lated using the equat ion AG = (28.7 x HgbA1 c) - 46.7 based on the guide lines estab nicolas brunson by the ADA. Not Available [facility] ([facility] Pathologists [facility]) [address] [place] [address] [address], [place], [address], 07/10/2022 10:56:59 07/10/19 23 07/10/2022 TSH TSH 2.74 mU/L 0.43-5 .25 Not Available [facility] ([facility] [employer] [facility]) [address] [place] [address] [address], [place], [address], 07/10/2022 10:57:00 07/10/19 23 07/10/2022 THYRO XINE FREE (FREE T4) thyroxine free (free T4) 1.04 NG/dL 0.86-1 .76 Not Available [facility] ([facility] Pathologists [facility]) [address] [place] [address] [address], [place], [address], 07/10/2022 10:57:00 07/10/19 23 07/10/2022 HIV 1/2 AB SCREE N W/P24 AG HIV 1/2 Ab screen w/p24ag Nonrea ctive nonrea ctive Not Available [facility] ([facility]) [address] [place] [address] [address], [place], [address], 07/10/2022 10:57:01 07/10/19 23 07/10/2022 HEPAT ITIS B SURFA CE ANTIG EN (HBSA G) hepatitis B surface antigen (HBsAg) Nonrea ctive nonrea ctive Not Available [facility] ([facility]) [address] [place] [address] [address], [place], [address], 07/10/2022 10:57:02 07/10/19 23 07/10/2022 HEPAT ITIS C ANTIB FARAZ (HCV) IGG hepatitis C antibody (HCV) IgG Nonrea ctive nonrea ctive Not Available [facility]) [address] [facility] [address], [place], [address], 07/10/2022 10:57:02 07/10/19 23 07/10/2022 RPR (NON- TREPO NEMAL ) REFLE X TO CONFI RMATI ON RPR (non-trepone mal) reflex to confirmation Nonrea ctive nonrea ctive Not Available [facility]) [address] [facility] [address], [place], [address], 07/10/2022 10:57:03 07/10/19 23 07/11/2022 PAP TEST [...] Techn ical servi meaghan provi ded by [facility] iated Patho logis Assur[facility], [facility], d/b/a PathG rou, [address] [place] [address] Richar Wallace MD, Labor Medicine [facility]. Case revie wed and diagn osis rende red at [facility], d/b/a Path[facility], [address] [place] [address] Richar Wallace MD, Labor Medicine [facility]. CONFI DENTI AL Not Available [facility] ([facility]) [address] [place] [address] [address], [place], [address], 07/11/2022 15:29:20 07/10/19 23 07/10/2022 CHLAM YDIA, [...] perfo rmed by [facility] d/b/a Path[facility], [address], [place] [address] , Daniel Ramos ra, DO, Labor Medicine [facility], CLIA# [id number] Not Available [facility] ([facility]) [address] [place] [address], [place], [address], 07/11/2022 15:29:21 07/10/19 23 07/10/2022 CHLAM YDIA, [...] logis ts, LLC d/b/a [place], [address] [facility] [address], [place] [address] , Daniel Ramos ra, DO, Labor atory [facility], [facility]# [id number] Not Available [facility] -[facility] ([facility]) [address] [facility] [address], [place], [address], 07/11/2022 15:29:21 07/10/19 23 07/10/2022 CHLAM YDIA, [...] perfo rmed by Assoc [facility]o log[facility], [facility] d/b/a Heike irene, [address] [facility] [address], [place] [address] , Daniel Ramos ra, DO, Labor atory [facility], CLIA# [id number] Not Available [facility] ([facility]) [facility] [address], [place], [address], 07/11/2022 15:29:21 07/10/19 23 07/10/2022 HPV HIGH [...] and labor atory findi ngs. See https ://Dotstudioz/s moose/ lyla lt/fi les/2 018-0 3/AW- 59640 _002_ 01.pd f for fur er infor matio n. Test perfo rmed by Assoc i[facility] Patho logis [facility], [facility], d/b/a [place], [address] [facility] [address], [place] [address] , Daniel Ramos ra, DO, Labor atory [facility]. Not Available [facility] ([facility]) [facility] [address], [place], [address], 07/11/2022 15:29:22 07/10/19 23 07/09/2022 EMPOW ER report summary VUS normal Negat jesenia for 53 out of 53 genes . A varia nt of uncer tain signi fican ce (VUS) was detec xiomara in the MLH1 gene( s). A VUS means that a silva e in the DNA was detec xiomara, but there is not enoug h infor matio n to deter mine [facility] er or not the silva e incre [...] A heter ozygo us varia nt of [facility] luna yeboah ce (VUS) was detec xiomara in the MLH1 gene as tabul ated above . Not Available [facility] [address] [facility] [address], [place], [address], 07/21/2022 15:13:25 07/10/19 23 07/09/2022 EMPOW ER footnotes See Notes CLIA: ID #[id number] 2 Test perfo rmed by SimpliVT. [address] [facility] [address] [place] [address] Arielle Stephens, Ph.D. , [facility] , Labor atory Direc tor Not Available [facility] [address], [place], [address], 07/21/2022 15:13:25 10/05/19 24 10/06/2023 LIPID PANEL cholesterol 207 mg/dL <200 high Not Available [facility] ([facility]) [address] [facility] [address], [place], [address], 10/06/2023 17:14:03 10/05/19 24 10/06/2023 LIPID PANEL triglyceride s 126 mg/dL <150 Not Available [facility] ([facility]) [address] [facility] [address], [place], [address], 10/06/2023 17:14:03 10/05/19 24 10/06/2023 LIPID PANEL HDL cholesterol 54 mg/dL >39 Not Available [facility] ([facility] Pathologists [facility]) [facility] [address], [place], [address], 10/06/2023 17:14:03 10/05/19 24 10/06/2023 LIPID PANEL cholesterol / HDL ratio 3.83 ratio 0.00-4 .44 Not Available [facility] ([facility] Pathologists [facility]) [address] [place] [address] [address], [place], [address], 10/06/2023 17:14:03 10/05/19 24 10/06/2023 LIPID PANEL non-HDL cholesterol 153 mg/dL <130 high Not Available [facility] ([facility] Pathologists [facility]) [address] [place] [address] [address], [place], [address], 10/06/2023 17:14:03 10/05/19 24 10/06/2023 LIPID PANEL [...] 2004 ATPII I guide lines Not Available [facility] ([facility] Pathologists [facility]) [facility] [address], [place], [address], 10/06/2023 17:14:03 10/05/19 24 10/06/2023 LIPID PANEL [...] Silva e: +13% ___ Not Available [facility] [place] ([facility]) [facility] [address], [place], [address], 10/06/2023 17:14:03 10/05/1910/06/2023 CBC WITH PLATE LET NO DIFFE RENTI AL WBC 7.4 K/uL 3.8-11 .5 Not Available [facility] [place] ([facility]) [address], [place], [address], 10/06/2023 17:14:04 10/05/19 24 10/06/2023 CBC WITH PLATE LET NO DIFFE RENTI AL red blood cell count (RBC) 4.33 M/mm3 3.60-5 .30 Not Available [facility] ([facility]) [address] [place] [address] [address], [place], [address], 10/06/2023 17:14:04 10/05/19 24 10/06/2023 CBC WITH PLATE LET NO DIFFE RENTI AL hemoglobin (HGB) 12.0 gm/dL 11.5-1 5.5 Not Available [facility] ([facility]) [address] [place] [address] [address], [place], [address], 10/06/2023 17:14:04 10/05/19 24 10/06/2023 CBC WITH PLATE LET NO DIFFE RENTI AL hematocrit (HCT) 37.3 % 35.2-4 6.4 Not Available [facility] ([facility]) [address] [place] [address] [address], [place], [address], 10/06/2023 17:14:04 10/05/19 24 10/06/2023 CBC WITH PLATE LET NO DIFFE RENTI AL MCV 86.1 fL 79.0-9 9.0 Not Available [facility] ([facility]) [address] [place] [address] [address], [place], [address], 10/06/2023 17:14:04 10/05/19 24 10/06/2023 CBC WITH PLATE LET NO DIFFE RENTI AL MCH 27.7 pg 26.9-3 5.0 Not Available [facility] ([facility]) [address] [place] [address] Dr [address], [place], [address], 10/06/2023 17:14:04 10/05/19 24 10/06/2023 CBC WITH PLATE LET NO DIFFE RENTI AL MCHC 32.2 g/dL 30.4-3 4.8 Not Available [facility] ([facility]) [address] [place] [address] [address], [place], [address], 10/06/2023 17:14:04 10/05/19 24 10/06/2023 CBC WITH PLATE LET NO DIFFE RENTI AL RDW 44.3 fL 38.6-5 3.8 Not Available [facility] ([facility]) [address] [place] [address] [address], [place], [address], 10/06/2023 17:14:04 10/05/19 24 10/06/2023 CBC WITH PLATE LET NO DIFFE RENTI AL platelet count 324 K/cum m 137-39 7 Not Available [facility] ([facility]) [address] [place] [address] Dr [address], [place], [address], 10/06/2023 17:14:04 10/05/19 24 10/06/2023 COMPR EHENS JESENIA METAB OLIC PANEL (CMP) sodium 138 mmol/ L 135-14 5 Not Available [facility] [place] ([facility]) [address] [place] [address] Dr [address], [place], [address], 10/06/2023 17:14:04 10/05/19 24 10/06/2023 COMPR EHENS JESENIA METAB OLIC PANEL (CMP) potassium 4.4 mmol/ L 3.5-5. 3 Not Available [facility] ([facility]) [address] [place] [address] [address], [place], [address], 10/06/2023 17:14:04 10/05/19 24 10/06/2023 COMPR EHENS JESENIA METAB OLIC PANEL (CMP) chloride 101 mmol/ L 97-108 Not Available [facility] ([facility]) [address] [place] [address] Dr [address], [place], [address], 10/06/2023 17:14:04 10/05/19 24 10/06/2023 COMPR EHENS JESENIA METAB OLIC PANEL (CMP) CO2 27 mmol/ L 22-32 Not Available [facility] ([facility]) [address] [place] [address] [address], [place], [address], 10/06/2023 17:14:04 10/05/19 24 10/06/2023 COMPR EHENS JESENIA METAB OLIC PANEL (CMP) glucose 99 mg/dL 65-99 Not Available [facility] ([facility]) [address] [place] [address], [place], [address], 10/06/2023 17:14:04 10/05/19 24 10/06/2023 COMPR EHENS JESENIA METAB OLIC PANEL (CMP) BUN 11 mg/dL 6-20 Not Available [facility] ([facility]) [address] [place] [address], [place], [address], 10/06/2023 17:14:04 10/05/19 24 10/06/2023 COMPR EHENS JESENIA METAB OLIC PANEL (CMP) creatinine 1.04 mg/dL 0.50-1 .00 high Not Available [facility] ([facility]) [address] [place] [address], [place], [address], 10/06/2023 17:14:04 10/05/19 24 10/06/2023 COMPR EHENS JESENIA METAB OLIC PANEL (CMP) calcium 9.1 mg/dL 8.6-10 .4 Not Available [facility] ([facility]) [address] [place] [address], [place], [address], 10/06/2023 17:14:04 10/05/19 24 10/06/2023 COMPR EHENS JESENIA METAB OLIC PANEL (CMP) eGFR by creatinine 69 mL/mi n/1.7 3m2 >59 Not Available [facility] ([facility]) [address] [place] [address], [place], [address], 10/06/2023 17:14:04 10/05/19 24 10/06/2023 COMPR EHENS JESENIA METAB OLIC PANEL (CMP) protein 7.5 g/dL 6.0-8. 3 Not Available [facility] ([facility]) [address] [place] [address] [address], [place], [address], 10/06/2023 17:14:04 10/05/19 24 10/06/2023 COMPR EHENS JESENIA METAB OLIC PANEL (CMP) albumin 4.1 g/dL 3.5-5. 3 Not Available [facility] ([facility]) [address] [place] [address] [address], [place], [address], 10/06/2023 17:14:04 10/05/19 24 10/06/2023 COMPR EHENS JESENIA METAB OLIC PANEL (CMP) alkaline phosphatase 131 IU/L 35-121 high Not Available [facility] ([facility]) [address] [place] [address] [address], [place], [address], 10/06/2023 17:14:04 10/05/19 24 10/06/2023 COMPR EHENS JESENIA METAB OLIC PANEL (CMP) ALT (SGPT) 11 IU/L <5-47 Not Available [facility] ([facility]) [address] [place] [address] [address], [place], [address], 10/06/2023 17:14:04 10/05/19 24 10/06/2023 COMPR EHENS JESENIA METAB OLIC PANEL (CMP) AST (SGOT) 14 IU/L <5-40 Not Available [facility] ([facility]) [address] [place] [address] [address], [place], [address], 10/06/2023 17:14:04 10/05/19 24 10/06/2023 COMPR EHENS JESENIA METAB OLIC PANEL (CMP) bilirubin, total 0.2 mg/dL <0.2-1 .2 Not Available [facility] ([facility]) Formerly named [facility] [address], [place], [address], 10/06/2023 17:14:04 10/05/19 24 10/06/2023 COMPR EHENS JESENIA METAB OLIC PANEL (CMP) A/G ratio 1.2 1.1-2. 5 Not Available [facility] ([facility] Pathologists [facility]) [address] [facility] [address], [place], [address], 10/06/2023 17:14:04 10/05/19 24 10/06/2023 HIV 1/2 AB SCREE N W/P24 AG HIV 1/2 Ab screen w/p24ag Nonrea ctive nonrea ctive Not Available [facility] ([facility] Pathologists [facility]) [address] [place] [address] Dr [address], [place], [address], 10/06/2023 17:14:05 10/05/19 24 10/06/2023 HEMOG LOBIN [...] ic <5.7% Non-D iabet ic Not Available [facility] ([facility] Pathologists [facility]) [facility] [address], [place], [address], 10/06/2023 17:14:05 10/05/19 24 10/06/2023 HEMOG LOBIN A1C estimated average glucose 125 mg/dL Coulters ge Gluco se is calcu lated using the equat ion AG = (28.7 x HgbA1 c) - 46.7 based on the guide lines estab lishe d by the ADA. Not Available [facility] ([facility] Pathologists [facility]) [facility] [address], [place], [address], 10/06/2023 17:14:05 10/05/19 24 10/06/2023 TSH TSH 1.77 mU/L 0.43-5 .25 Not Available [facility]) [address] [place] [address] Dr [address], [place], [address], 10/06/2023 17:14:06 10/05/19 24 10/06/2023 THYRO XINE FREE (FREE T4) thyroxine free (free T4) 1.06 NG/dL 0.86-1 .76 Not Available [facility] ([facility]) [address] [place] [address] Dr [address], [place], [address], 10/06/2023 17:14:06 10/05/19 24 10/06/2023 HEPAT ITIS B SURFA CE ANTIG EN (HBSA G) hepatitis B surface antigen (HBsAg) Nonrea ctive nonrea ctive Not Available [facility] ([facility] [address] [place] [address] Dr [address], [place], [address], 10/06/2023 17:14:07 10/05/19 24 10/06/2023 HEPAT ITIS C ANTIB FARAZ (HCV) IGG hepatitis C antibody (HCV) IgG Nonrea ctive nonrea ctive Not Available [facility] ([facility]) [address] [place] [address] Dr [address], [place], [address], 10/06/2023 17:14:07 10/05/19 24 10/06/2023 RPR (NON- [...] is clini darlin suspe cted. Not Available [facility] ([facility]) [address] [facility] [address], [place], [address], 10/06/2023 17:14:07 10/05/19 24 10/07/2023 CULTU RE, URINE specimen source Urine - Void Not Available [facility] ([facility] Pathologists [facility]) [address] [facility] [address], [place], [address], 10/07/2023 02:03:33 10/05/19 24 10/07/2023 CULTU RE, URINE culture, urine See Below Final Repor t : No growt h Not Available [facility] ([facility] Pathologists [facility]) [address] [facility] [address], [place], [address], 10/07/2023 02:03:33 10/05/19 24 10/06/2023 VAGIN ITIS [...] ts, LLC, d/b/a Hoa bon[place], [facility] [address], [place] [address] , Daniel Ramos ra, DO, Labor atory [...] chelo resul ts of [place] or [place] xiomara are deter mined by calcu latin [...] e nakul cteri stics deter mined by [employer], reQwip d/b/a PathG rouberenice. It has not been clear ed or appro edel by the U.S. Food and Drug Admin istra tion. The FDA has deter mined that such clear ance or appro juan carlos is not neces ivana. Perti nent refer ence inter vals are avail able from the labor atory on reque st. Test( s) perfo rmed by [employer] Patho Hail Varsity ts, reQwip, d/b/a PathG roup, [address], [place] [address] , Daniel Ramos ra, DO, Labor atory Direc tor. Not Available [facility] ([facility]) [address], [place], [address], 10/07/2023 12:50:56 10/05/19 24 10/07/2023 VAGIN ITIS [...] logis ts, LLC, d/b/a PathG rou, [address], [place] [address] , Daniel Ramos ra, DO, Labor atory [...] chelo resul ts of [place] or [place] xiomara are deter mined by calcu latin [...] e nakul cteri stics deter mined by [employer], reQwip d/b/a Path [employer]. It has not been clear ed or appro edel by the U.S. Food and Drug Admin istra tion. The FDA has deter mined that such clear ance or appro juan carlos is not neces ivana. Perti nent refer ence inter vals are avail able from the PharmAssistant atory on reque st. Test( s) perfo rmed by [employer], reQwip, d/b/a [facility] [employer], [address] [facility] [address], [place] [address] , Daniel Ramos ra, DO, Labor atory Dire tor. Not Available [facility] ([facility]) [address] [facility] [address], [place], [address], 10/07/2023 12:50:56 10/05/19 24 10/07/2023 VAGIN ITIS [...] [address], [place] [address] , Daniel Ramos ra, DO, Labor atory [...] chelo resul ts of [place] or [place] xiomara are deter mined by calcu latin [...] e nakul cteri stics deter mined by [employer] iated Patho logis ts, LLC d/b/a PathG [...] logis ts, LLC, d/b/a PathG roup, [address], [place] [address] , Daniel Ramos ra, , Labor atory Direc tor. Not Available [facility] ([facility]) [address], [place], [address], 10/07/2023 12:50:56 10/05/19 24 10/06/2023 CHLAM YDIA [...] [address], [place] [address] , Daniel Ramos ra, DO, Labor atory Direc tor, CLIA# [id number] Not Available [facility] ([facility]) [address], [place], [address], 10/07/2023 12:50:58 10/05/19 24 10/06/2023 CHLAM YDIA [...] logis ts, LLC d/b/a PathKike bonilla, [address] [facility] [address], [place] [address] , Daniel Ramos ra, DO, Labor atory [facility], CLIA# [id number] Not Available [facility] ([facility]) [address] [facility] [address], [place], [address], 10/07/2023 12:50:58 10/05/19 24 10/05/2023 EMPOW ER MULTI -CANC ER,EX P(2+5 1) report summary OTHER normal Test Not Perfo rmed Dupli marichuy test. Empow er 53 panel previ ously resul xiomara under 03 Test was not perfo rmed. Refer to speci fic detai ls below . Not Available [facility] [address], [place], [address], 10/28/2023 21:34:33 10/05/19 24 10/05/2023 EMPOW ER MULTI -CANC ER,EX P(2+5 1) footnotes See Notes CLIA: ID #[id number] 2 Test perfo rmed by [employer]pl[employer]. [address] [facility] [address] [place] [address] Arielle Stephens, Ph.D. , [facility] , Labor atory Direc tor Not Available [facility] [address], [place], [address], 10/28/2023 21:34:33 10/05/19 24 10/05/2023 urina lysis , dipst ick Leukocytes neg Not Available Haley Barajas MD [address] [place] [address], [address], 10/05/2023 11:05:11 10/05/19 24 10/05/2023 urina lysis , dipst ick Nitrite negati ve Not Available Haley Barajas MD [facility] [place], [address], 10/05/2023 11:05:11 10/05/19 24 10/05/2023 urina lysis , dipst ick Protein +++ Not Available Haley Barajas MD [facility] [place], [address], 10/05/2023 11:05:11 10/05/19 24 10/05/2023 urina lysis , dipst ick Blood neg Not Available Haley Barajas MD [facility] [place], [address], 10/05/2023 11:05:11 10/05/19 24 10/05/2023 urina lysis , dipst ick Ketone neg Not Available Haley Barajas MD [facility] [place], [address], 10/05/2023 11:05:11 10/05/19 24 10/05/2023 urina lysis , dipst ick Glucose neg Not Available Haley Barajas MD [facility] [place], [address], 10/05/2023 11:05:11 10/05/19 24 10/05/2023 urina lysis , dipst ick Color yellow Not Available Haley Barajas MD [address] [place], [address], 10/05/2023 11:05:11 10/13/19 24 10/13/2023 US, pelvi s, compl ete No observ ation record ed. [email or web address] Not Available 2023 15:05:21 10/15/19 24 10/09/2023 MAMMO , scree sylvia, digit al, bilat eral No observ ation record ed. [facility] [address], [place], [address], 10/15/2023 15:47:00 Result Notes None recorded. Procedures Surgical History Date Name Laterality Status Provider Name and Address Organization Details Recorded Time 10/13/19 24 Pelvic Transvaginal Non-OB completed Kristy Cortes MD [address] [facility], [place], [address], [facility] - Dr Haley Barajas 10/17/2023 21:54:12 07/10/19 23 Date of Last Pap Smear completed Ellen Armstrong CNM [address] [facility],[address], [place], [address], [place] - Dr Haley Barajas 10/05/2023 10:34:00 02/23/19 19 Date of Last Mammogram completed Zuly Turner [place] - Dr Haley Barajas 07/09/2022 09:40:31 Imaging Results Imaging Date Name Status LastModified by Organiz ation Details LastModified Time 10/13/2023 US, pelvis, complete completed [email or web address] Information not available 10/13/2023 15:05:21 10/09/2023 MAMMO, screening, digital, bilateral completed [facility] [address], [place], [address], 10/15/2023 15:47:00 Procedure Notes None recorded. Medical Equipment None Reported. Allergies Allergen ID Allergen Name Allergen Category Reaction Reaction Severity Criticality Documentation Date Start Date Code Code System Note Provider Name and Address Organization Details Recorded Time 7656 morphine medicatio n hives Not available Not available 07/09/2022 7052 RxNorm Kristy Cortes MD [address] [facility],[place], [address], [facility] - Dr Haley Barajas 3 09:59:42 7657 Product containin g penicilli n (product) medicatio n hives Not available Not available 07/09/2022 91321 8001 SNOMED Kristy Cortes MD [address] [facility],[place], [address], [facility] - Dr Haley Barajas 3 10:00:00 [...] Updated DateTime 07/09/2022 175.26 cm 51.8 kg/m2 273751.2 g 130 mm[Hg] 80 mm[Hg] Zuly Barajas 3 09:48:27 Date Recorded Body height Body mass index (BMI) Body weight Systolic blood pressure Diastolic blood pressure Provider Name and Address Organization Details Last Updated DateTime 10/05/2023 175.26 cm 51.1 kg/m2 309851.2 4 g 150 mm[Hg] 100 mm[Hg] Ismael Barajas 4 10:55:27 Social History Question Answer Notes LastModified by Organizat ion Details LastModified Time Are You Blind Or Do You Have Difficulty Seeing? No [email or web address] Information not available 07/09/2022 In The 14 Days Before Symptom Onset, Have You Had Close Contact With A Laboratory-confirme d COVID-19 While That Case Was Ill? No [email or web address] Information n ot available 07/09/2022 In The 14 Days Before Symptom Onset, Have You Had Close Contact With A Person Who Is Under Investigation For COVID-19 While That Person Was Ill? No [email or web address] Information not available 07/09/2022 Have You Been To An Area Known To Be High Risk For COVID-19? No [email or web address] Information not available 07/09/2022 Are You Deaf Or Do You Have Serious Difficulty Hearing? No [email or web address] Information not available 07/09/2022 What Type Of Diet Are You Following? REGULAR [email or web address] Information n ot available 07/09/2022 Sex: Unknown Functional Status Question Answer Note LastModified by Organizat ion Details LastModified Time Do you have difficulty walking or climbing stairs? No [email or web address] Information not available 07/09/2022 Do you have transportation difficulties? No [email or web address] Information not available 07/09/2022 Do you have difficulty doing errands alone? No [email or web address] Information not available 07/09/2022 Are you able to care for yourself? Yes [email or web address] Information not available 07/09/2022 Do you have difficulty dressing or bathing? No [email or web address] Information not available 07/09/2022 What is your exercise level? None [email or web address] Information not available 07/09/2022 Mental Status Question Answer Note LastModified by Organization D etails LastModified Time Do you have difficulty concentrating, remembering or making decisions? No [email or web address] Information no t available 07/09/2022 Family History [...] SNOMED-CT Code Diagnosis ICD10 Code Diagnosis Note [id number] Kristy Cortes MD [facility] Elmer christensen [employer] [address] [facility] [place] [address] 07/09/2022 09:30:13 07/09/2022 10:34:01 Gynecologic examination 48113026 Z01.419 Anemia screening 2637901 07 Z13.0 Diabetes m ellitus screening 412767837 Z13.1 Endocrine/ metabolic screening 364615147 Z13.228 Hyperlipid emia screening 289834505 Z13.220 Venereal d isease screening 805340537 Z11.3 Screening mammography 24 094420 Z12.31 Family his tory of breast cancer 501815000 Z80.3 Morbid obesity 394194065 E66.01 Recommende d weight loss consultati on Family his tory of malignant neoplasm 364616317 Z80.9 365871 Ellen Armstrong CNM [facility] Elmer christensen BOILERMAKER PIPE FITTER [address] [facility] [place] [address] 10/05/2023 09:58:50 10/05/2023 11:50:01 Gynecologic examination [id number] Z01.419 Venereal d isease screening 289385522 Z11.3 Anemia screening 1354187 07 Z13.0 Diabetes m ellitus screening 655090858 Z13.1 Thyroid di sorder screening 079146435 Z13.29 Hyperlipid emia screening 263110113 Z13.220 Abnormal v aginal bleeding 768431198 N93.9 Screening mammography of bilateral breasts [id number] 73850 Z12.31 [id number] Kristy Cortes MD [facility] Elmer christensen BOILERMAKER PIPE [employer]TER [address] [facility] [place] [address] 10/13/2023 14:26:02 10/13/2023 15:00:40 Abnormal vaginal bleeding 966842456 N93.8 Health Concerns Section Related Observation LastModified by Organization Detai ls LastModified Time None Recorded Concern Status LastModified by Organization Details LastModified Time None Recorded Advance Directives Directive None Recorded Payers Encounter Date Sequence Insurance Name Policy Number Policy Novoa Covered Member ID Novoa Member ID Guarantor Name 07/09/2022 1 [employer] - OPEN ACCESS - NATIONAL (POS) Radha Poe [id number] Radha Poe 10/05/2023 1 [employer] - OPEN ACCESS - NATIONAL (POS) Radha Poe [id number] Radha Poe 10/13/2023 1 [employer] (MEDICARE REPLACEMENT/A DVANTAGE - PPO) Radha Poe [id number] Radha Poe Notes Date Note Type Note [...] anxiety; No PMDD Kristy Cortes MD [address],[place], [address], [facility] Dr Haley Barajas 07/09/2022 14:44:55 10/05/2023 text/html Annual Rn Employee Health Post-MenopausalRep orted bypatient.Menopaus al Symptoms:no menopausal symptoms; [...] to schedule mammogram Ellen Armstrong CNM [address], [place], [address], [facility] Dr Haley Barajas 10/05/2023 12:10:36 10/13/2023 text/html Patient presents for ultrasound Kristy Cortes MD [address], [place], [address], [facility] Dr Haley Barajas 10/17/2023 21:55:33 OBGyn Episode No OBEpisode recorded.
--- OUTSIDE RECORDS SUMMARY | 2024-06-03 13:35 | XMS_ITS | Continuity of Care Document ---
Author Organization [facility] Address [address] [place] [address] Phone Care Team Providers Care Ring Conductor Name Role Phone Neptali KYLE, YENNIFER, Marco A KOENIG Unavailable U navailable Procedures Procedure Date Offic/outpt E&m Estab 5 Min Trial- Telem edicine CT & [place] Office/Oupt E&M New Pt 60 Mins- CT & [place] Duplex Scan-extrem Veins; Comp- CT & [place] Advance Directives Directive Yes / No Effective Date File Name No Information Encounters Encounter Description Practice Location Reason(s) For Visit Diagnoses Date Provider Providers Copied on Encounter Offic/outpt E&m Estab 5 Min Trial- Telemedicine [place] & [place] [facility], [address], [place], [id number], [place] tel:[phone] CVR - [facility] Essential (primary) hypertensionPr uritus, unspecifiedHer editary lymphedemaChro jayleen venous hypertension (idiopathic) with other complications of bilateral lower extremityLymph edema, not elsewhere classified 4 Neptali KYLE, ARYA DE OLIVEIRA. [address], [address], [place], [id number] , [place]. tel:[phone] Referring Provider: Candace Aguilar MD, [address] [facility] [place], [address]. tel:[phone] Office/Oupt E&M New Pt 60 Mins- CT & [place] [facility], [address] [place] [address] [address], [place], [id number], tel:[phone] CVR - [place] - Chrissy Pain in left legHereditary lymphedemaPrur itus, unspecifiedCra mp and spasmLocalized edemaChronic venous hypertension (idiopathic) without complications of bilateral lower extremityRestl ess legs syndromeEssent ial (primary) hypertensionLy mphedema, not elsewhere classified Sep- 4 Neptali KYLE RVT, ARYA [place]. [address] [place] [address], [place], [id number] , [place]. tel:[phone] Referring Provider: Candace Aguilar MD, [address] [place] [address] [place], [address]. tel:[phone] [facility], [address] [place] [address] [facility] [address], [place], [id number], tel:[phone] CVR - [place] Varicose veins of bilateral lower extremities with pain Oct- 4 Neptali KYLE RVT, ARYA [place]. [address] [place] [address], [place], [id number] , [place]. tel:[phone] Referring Provider: Candace Aguilar MD, [address] [place], [place] [address] [place], [address]. tel:[phone] Family History Family Member Type Diagnosis Age At Onset No Information Payers Payer name Insurance type Covered constitution party ID Authoriza tion(s) [employer] Medicare CI [id number] Social History Type Description Quantity Date Captured Comments Alcohol Use Details Unknown Caffeine Use Details Unknown Tobacco Use Status Current non-smoker Smoking Status Never Smoker Non-Smoking Tobacco Use Details : No Details Available : No Details Available Sex Female Vital Signs Date / Time: Height Weight BMI Pulse Rate Blood Pressure Temperature Respiratory Rate Body Surface Area Head Circumference Head Circ. Percentile Wt./[place]. Percentile BMI percentile Pulse Ox Inhaled Ox 158.760 kg (350.00 lbs) 51.9 0 kg/m eter (2) 130/80 mm[Hg] Chief Complaint And Reason For Visit No Information Reason For Referral Reason For Referral No Information Plan Of Treatment Date Type Action Status Goal Diet education completed Goal Diet education completed Referral Ordered: Weight management: Referral to physician timeframe: 3 Months (related to Body mass index (BMI) 50-59.9 , adult) ordered Referral Ordered: Weight management: Referral to physician timeframe: 3 Months (related to Body mass index (BMI) 50-59.9 , adult) ordered History Of Present Illness Encounter Date Complaint History Of Prese nt Illness No Information Functional Status Date Functional Assessmen t No Information Instructions Date Instruction Additional Infor mation Diet education Related to Body mass index (BMI) 50-59.9 , adult Giving Encouragement to exercise Related to Body mass index (BMI) 50-59.9 , adult Lifestyle education Related to B candelario mass index (BMI) 50-59.9 , adult Pre and post instruc tions reviewed and provided Related to Chronic venous hypertension (idiopathic) with other complications of bilateral lower extremity Compression stocking usage as conservative measure Related to Chronic venous hypertension (idiopathic) with other complications of bilateral lower extremity Diet education Related to Body mass index (BMI) 50-59.9 , adult Giving Encouragement to exercise Related to Body mass index (BMI) 50-59.9 , adult Lifestyle education Related to B candelario mass index (BMI) 50-59.9 , adult Patient education booklet given Related to Chronic venous hypertension (idiopathic) without complications of bilateral lower extremity Pre and post instruc tions reviewed and provided Related to Chronic venous hypertension (idiopathic) without complications of bilateral lower extremity Assessments Type Assessment Date assessment Essential (primary) hypertension assessment Chronic venous hyper tension (idiopathic) with other complications of bilateral lower extremity assessment Lymphedema, not elsewhere classi fied assessment Pruritus, unspecified 4 assessment Hereditary lymphedema 4 Patient Care Teams Name Effective Dates (start - stop) Status Members No Information
--- OUTSIDE RECORDS SUMMARY | 2024-06-03 13:35 | XMS_ITS | Patient Health Record ---
Author Organization [facility] Address [address] [place], [place] [address] Care Team Providers Care Chiropractic Assistant Name Role Phone Usama Garcia M.D. Primary Care Provider [phone] Fabrice ACID WASHER OPERATOR-C, Suzy Unavailable [phone] Nitish ACID WASHER OPERATOR-CDory Unavailable Allergies Allergen (clinical drug ingredient) Drug/Non Drug Allergy documented on EMR Reaction Allergy Type Onset Date Status morphine Morphine Unknown Drug Allergy Active Penicillin hives Drug Allergy active Reason For Referral Reason Evaluate and treat Diagnosis 1 Acute pulmonary embo lism without acute cor pulmonale, unspecified pulmonary embolism type (I26.99) Referral Organization [facility] Referring Provider First Name Dory [...] acetaZOLAMIDE 250 MG TAKE 1 TABLET BY [facility] TWICE DAILY Oral for 8 [...] Problem Status W/U Status Risk Notes Problem 990510137 Morbid obesity (E66.01) Active confirmed Problem 409572920 Mixed hyperlipidemia (E78.2) Active confirmed Problem 83035032 Sleep apnea, unspecified type (G47.30) Active confirmed Problem 74821572 Hyperlipidemia, unspecified hyperlipidemia type (E78.5) Active confirmed Problem 14717488 Hypertension, unspecified type (I10) Active confirmed Vital Signs Temperature 97.6 degrees Fahrenheit 11/05/2023 Respiratory Rate 16 /min 07/10/2023 Blood pressure diastolic 116 mm Hg 11/05/2023 Oximetry 99 11/05/2023 Height 69 in 11/05/2023 Blood pressure systolic 158 mm Hg 11/05/2023 Weight 348 lbs 11/05/2023 BMI 51.39 11/05/2023 Encounters Encounter Location Date Provider Diagnosis [facility] [address] [place] [address] [place] [id number] 07/10/2023 Dory Small Hypertension, unspecified type I10 ; Idiopathic intracranial hypertension G93.2 ; Hospital discharge follow-up Z09 and Acute pulmonary embolism without acute cor pulmonale, unspecified pulmonary embolism type I26.99 [facility] [address] [place] [address] [place] [id number] 11/05/2023 Suzy Avina Prediabetes R73.03 ; Mixed hyperlipidemia E78.2 and Morbid obesity E66.01 [facility] [address] [place] [address] [address] [place], [place] [id number] 06/19/2023 Usama Garcia [facility] [address] [place] [address] [address] [place], [place] [id number] 06/23/2023 Usama Garcia [facility] [address] [place], [place] [id number] 11/06/2023 [facility] [address] [place], [place] [id number] 11/08/2023 [facility] [address] [place], [place] [id number] 11/08/2023 [facility] [address] [place], [place] [id number] 11/12/2023 [facility] [address] [place], [place] [id number] 11/16/2023 [facility] [address] [place], [place] [id number] 02/08/2024 [facility] [address] [place] [id number] 06/18/2023 [facility] [address] [place] [id number] 07/21/2023 [facility] [address] [place] [id number] 07/21/2023 [facility] [address] [place] [id number] 07/21/2023 [facility] [address] [place] [id number] [facility] En[facility] Date Diagnosis (ICD Code) Assessment [...] (ICD-10 - I26.99) Dx on 07/03 in [place]. Pt was not admitted and was d'/c [...] Coverage End Date [employer] [address] [address] [place], [place] [id number] Radha Poe Self - patient is the insured Medical (General) History Medical History History ICD Code Hypertension Anemia Surgical History Surgery Date(Month/Year) partial hysterectomy 2001 Hospitalization History Reason Date(Month/Year) chest pain april 2022
--- OUTSIDE RECORDS SUMMARY | 2024-06-03 13:36 | XMS_ITS | Encounter Summary ---
Author Organization [facility] [place] [address] Care Team Providers Care Preschool Disability Teacher Name Role Phone Angela Alexis Primary Care Provider [phone] Reason for Visit * Reason Onset Date Comments prior auth 05/20/2024 Prior auth Encounter Details Date Type Department Care Team (Late st Contact Info) Description 05/20/2024 Telephone Bariatric Surgery - [place] [address] [place] [address] Torey Bradford MD [address] [place] [address] prior auth (Prior auth) Social History Tobacco [...] as of this encounter Progress Notes * Nargis Montanez MA - 06/02/2024 1:17 PM EDT I just sent her appeal out to [facility] [employer] with her sleep study this morning - I will resubmit everything to her new insurance - [employer]. * Amber Rodríguez - 06/02/2024 12:54 PM EDT Patient is requesting a new prior auth for Zepbound be sent to her new insurance, [employer]. * Tierney Aviles - 05/20/2024 11:27 AM EDT Patient needs a PA, per pharmacy documented in this encounter Plan of Treatment Upcoming Encounters Date Type Department Care Team (Late st Contact Info) Description 09/15/2024 2:00 PM EDT Office Visit Bariatric Surgery - [place] [address] [facility] [address] [place] [address] Torey Bradford MD [address] [place] [address] documented as of this encounter Visit Diagnoses Not on filedocumented in this encounter Care Teams Preschool Disability Teacher Relationship Specialty Start Date End Date Alexis Miller DO [address] [place] [address] PCP - General 06/06/13 documented as of this encounter
--- OUTSIDE RECORDS SUMMARY | 2024-06-03 13:36 | XMS_ITS | Clinical Summary ---
Author Organization [facility] Address [address] [place] [address] Care Team Providers Care Homoeopath Name Role Phone No, Referring Primary Care Provider Unavailabl e Allergies Active Allergy Reactions Criticality Noted Date Comments Morphine Hives 05/21/2024 Penicillins Hives 05/21/2024 Active Problems Problem Noted Date Diagnosed Date Migraine 11/21/2013 Encounters Date Type Department Care Team Description 05/21/2024 5:24 PM EDT - 05/21/2024 9:52 PM EDT Emergency [facility] Emergency Department [address] [place] [address] Susan Ovalle MD Weisberg, Keiry Craven MD [...] complete this topic Procedures * Due to [place] state law, this organization might not be [...] Last 3 Months Results * Due to [place] state law, this organization might not be [...] obtain the completed interpretation. ? Workstation ID: [id number] Narrative 05/21/2024 6:54 PM EDT COMPARISON: None available. FINDINGS: There is no evidence of acute fracture or dislocation. ??Joint spaces are preserved. ??There is no abnormal soft tissue swelling identified. Resulting Agency Comment [id number] Procedure Note Lowell Washington MD - 05/21/2024 [...] possible to obtain thecompleted interpretation. Workstation ID: [id number] Joshua Spain MD IMG XR PROCEDURES Final [...] obtain the completed interpretation. ? Workstation ID: [id number] Narrative 05/21/2024 6:54 PM EDT COMPARISON: None available. FINDINGS: There is no evidence of acute fracture or dislocation. ??Joint spaces are preserved. ??There is no abnormal soft tissue swelling identified. Resulting Agency Comment [id number] Procedure Note Lowell Washington MD - 05/21/2024 [...] possible to obtain thecompleted interpretation. Workstation ID: [id number] Joshua Spain MD IMG XR PROCEDURES Final [...] obtain the completed interpretation. ? Workstation ID: [id number] Narrative 05/21/2024 6:54 PM EDT COMPARISON: None available. FINDINGS: There is no evidence of acute fracture or dislocation. ??Joint spaces are preserved. ??There is no abnormal soft tissue swelling identified. Resulting Agency Comment [id number] Procedure Note Lowell Washington MD - 05/21/2024 [...] possible to obtain thecompleted interpretation. Workstation ID: [id number] Joshua Spain MD IMG XR PROCEDURES Final [...] obtain the completed interpretation. ? Workstation ID: [id number] Narrative 05/21/2024 6:54 PM EDT COMPARISON: None available. FINDINGS: There is no evidence of acute fracture or dislocation. ??Joint spaces are preserved. ??There is no abnormal soft tissue swelling identified. Resulting Agency Comment [id number] Procedure Note Lowell Washington MD - 05/21/2024 [...] possible to obtain thecompleted interpretation. Workstation ID: [id number] Joshua Spain MD IMG XR PROCEDURES Final [...] obtain the completed interpretation. ? Workstation ID: [id number] Narrative 05/21/2024 6:55 PM EDT COMPARISON: None available. FINDINGS: There is no evidence of acute fracture or dislocation. ??Joint spaces are preserved. ??There is no abnormal soft tissue swelling identified. Resulting Agency Comment [id number] Procedure Note Lowell Washington MD - 05/21/2024 [...] possible to obtain thecompleted interpretation. Workstation ID: [id number] Joshua Spain MD IMG XR PROCEDURES Final [...] obtain the completed interpretation. ? Workstation ID: [id number] Narrative 05/21/2024 6:51 PM EDT COMPARISON: None available. FINDINGS: There is no consolidation. ??The cardiac silhouette and mediastinal contours are unremarkable. ??No pleural effusion or CHF is identified. ??There is no pneumothorax. ?? Resulting Agency Comment [id number] Procedure Note Lowell Washington MD - 05/21/2024 [...] possible to obtain thecompleted interpretation. Workstation ID: [id number] us Joshua Spain MD IMG XR PROCEDURES [...] obtain the completed interpretation. ? Workstation ID: [id number] Up-to-date CT equipment and radiation dose reduction techniques were employed. CTDIvol: 2.4 - 76.4 mGy. DLP: 5575 mGy-cm. ??The following accession numbers are related to this dose report [id number]: [id number] Up-to-date CT equipment and radiation dose reduction techniques were employed. CTDIvol: 2.4 - 76.4 mGy. DLP: 5575 mGy-cm. ??The following accession numbers are related to this dose report [id number]: [id number] Narrative 05/21/2024 6:12 PM EDT EXAMINATION: ??CT [...] interval confirm the findings. Resulting Agency Comment [id number] Procedure Note Aida Toledo MD - 05/21/2024 [...] possible to obtain thecompleted interpretation. Workstation ID: [id number] Up-to-date CT equipment and radiation dose reduction techniques wereemployed. CTDIvol: 2.4 - 76.4 mGy. DLP: 5575 mGy-cm. The followingaccession numbers are related to this dose report [id number]: [id number] Up-to-date CT equipment and radiation dose reduction techniques wereemployed. CTDIvol: 2.4 - 76.4 mGy. DLP: 5575 mGy-cm. The followingaccession numbers are related to this dose report [id number]: [id number] us Joshua Spain MD IMG CT PROCEDURES [...] obtain the completed interpretation. ? Workstation ID: [id number] Up-to-date CT equipment and radiation dose reduction techniques were employed. CTDIvol: 2.4 - 76.4 mGy. DLP: 5575 mGy-cm. ??The following accession numbers are related to this dose report [id number]: [id number] Up-to-date CT equipment and radiation dose reduction techniques were employed. CTDIvol: 2.4 - 76.4 mGy. DLP: 5575 mGy-cm. ??The following accession numbers are related to this dose report [id number]: [id number] Narrative 05/21/2024 6:12 PM EDT EXAMINATION: ??CT [...] interval confirm the findings. Resulting Agency Comment [id number] Procedure Note Aida Toledo MD - 05/21/2024 [...] possible to obtain thecompleted interpretation. Workstation ID: [id number] Up-to-date CT equipment and radiation dose reduction techniques wereemployed. CTDIvol: 2.4 - 76.4 mGy. DLP: 5575 mGy-cm. The followingaccession numbers are related to this dose report [id number]: [id number] Up-to-date CT equipment and radiation dose reduction techniques wereemployed. CTDIvol: 2.4 - 76.4 mGy. DLP: 5575 mGy-cm. The followingaccession numbers are related to this dose report [id number]: [id number] Joshua Spain MD IMG CT PROCEDURES Final [...] obtain the completed interpretation. ? Workstation ID: [id number] Up-to-date CT equipment and radiation dose reduction techniques were employed. CTDIvol: 2.4 - 76.4 mGy. DLP: 5575 mGy-cm. ??The following accession numbers are related to this dose report [id number]: [id number] Up-to-date CT equipment and radiation dose reduction techniques were employed. CTDIvol: 2.4 - 76.4 mGy. DLP: 5575 mGy-cm. ??The following accession numbers are related to this dose report [id number]: [id number] Narrative 05/21/2024 6:12 PM EDT EXAMINATION: ??CT [...] interval confirm the findings. Resulting Agency Comment [id number] Procedure Note Aida Toledo MD - 05/21/2024 [...] possible to obtain thecompleted interpretation. Workstation ID: [id number] Up-to-date CT equipment and radiation dose reduction techniques wereemployed. CTDIvol: 2.4 - 76.4 mGy. DLP: 5575 mGy-cm. The followingaccession numbers are related to this dose report [id number]: [id number] Up-to-date CT equipment and radiation dose reduction techniques wereemployed. CTDIvol: 2.4 - 76.4 mGy. DLP: 5575 mGy-cm. The followingaccession numbers are related to this dose report [id number]: [id number] Joshua Spain MD IMG CT PROCEDURES Final [...] obtain the completed interpretation. ? Workstation ID: [id number] Up-to-date CT equipment and radiation dose reduction techniques were employed. CTDIvol: 2.4 - 76.4 mGy. DLP: 5575 mGy-cm. ??The following accession numbers are related to this dose report [id number]: [id number] Narrative 05/21/2024 6:38 PM EDT COMPARISON: None available. FINDINGS: ?? No acute fracture or subluxation is seen. ??Cervical vertebral body heights are maintained. Intervertebral disc spaces are within normal limits. ??There is no significant osseous spinal canal or foraminal stenosis. ??The paravertebral soft tissues, including the visualized airway, are within normal limits. ??There are bilateral cervical ribs. Resulting Agency Comment [id number] Procedure Note Lowell Washington MD - 05/21/2024 [...] possible to obtain thecompleted interpretation. Workstation ID: [id number] Up-to-date CT equipment and radiation dose reduction techniques wereemployed. CTDIvol: 2.4 - 76.4 mGy. DLP: 5575 mGy-cm. The followingaccession numbers are related to this dose report [id number]: [id number] Joshua Spain MD IMG CT PROCEDURES Final [...] obtain the completed interpretation. ? Workstation ID: [id number] Up-to-date CT equipment and radiation dose reduction techniques were employed. CTDIvol: 2.4 - 76.4 mGy. DLP: 5575 mGy-cm. ??The following accession numbers are related to this dose report [id number]: [id number] Up-to-date CT equipment and radiation dose reduction techniques were employed. CTDIvol: 2.4 - 76.4 mGy. DLP: 5575 mGy-cm. ??The following accession numbers are related to this dose report [id number]: [id number] Narrative 05/21/2024 6:12 PM EDT EXAMINATION: ??CT [...] interval confirm the findings. Resulting Agency Comment [id number] Procedure Note Aida Toledo MD - 05/21/2024 [...] possible to obtain thecompleted interpretation. Workstation ID: [id number] Up-to-date CT equipment and radiation dose reduction techniques wereemployed. CTDIvol: 2.4 - 76.4 mGy. DLP: 5575 mGy-cm. The followingaccession numbers are related to this dose report [id number]: [id number] Up-to-date CT equipment and radiation dose reduction techniques wereemployed. CTDIvol: 2.4 - 76.4 mGy. DLP: 5575 mGy-cm. The followingaccession numbers are related to this dose report [id number]: [id number] Joshua Spain MD IMG CT PROCEDURES Final [...] obtain the completed interpretation. ? Workstation ID: [id number] Up-to-date CT equipment and radiation dose reduction techniques were employed. CTDIvol: 2.4 - 76.4 mGy. DLP: 5575 mGy-cm. ??The following accession numbers are related to this dose report [id number]: [id number] Narrative 05/21/2024 6:39 PM EDT EXAMINATION: CT [...] osseous lesions or fractures. Resulting Agency Comment [id number] Procedure Note Aida Toledo MD - 05/21/2024 [...] possible to obtain thecompleted interpretation. Workstation ID: [id number] Up-to-date CT equipment and radiation dose reduction techniques wereemployed. CTDIvol: 2.4 - 76.4 mGy. DLP: 5575 mGy-cm. The followingaccession numbers are related to this dose report [id number]: [id number] Joshua Spain MD IMG CT PROCEDURES Final Result * (ABNORMAL) APTT (05/21/2024 5:35 PM EDT) aPTT 33.3(H) 23.0 - 32.0 Seconds 05/21/2024 6:08 PM EDT [facility] Comment: Current PTT reagent is not sensitive to detect all Lupus Anticoagulant (LA) Inhibitor Cases. ?? If a LA is suspected, please order a Lupus Anticoagulation w/ Reflex Test which is performed at [facility] in [place], [place]. Blood Arterial blood specimen / Unknown Arterial Puncture / Unknown 05/21/2024 5:35 PM EDT 05/21/2024 5:42 PM EDT us Joshua Spain MD LAB BLOOD ORDERABLES Final Res ult Performing Organization Address [facility]/ZIP Co de Phone Number [facility] [address] [place] [address] * Protime-INR (05/21/2024 5:35 PM EDT) PT 10.5 9.6 - 12.4 Seconds 05/21/2024 6:08 PM EDT [facility] INR 1.0 0.9 - 1.1 05/21/2024 6:08 PM EDT [facility] Comment:The optimal therapeu tic [...] City/[facility]/ZIP Co de Phone Number [facility] [address] [place] [address] * CBC (05/21/2024 5:35 PM EDT) WBC 7.8 3.8 - 10.8 10*3/uL 05/21/2024 5:48 PM EDT [facility] RBC 4.51 3.80 - 5.10 10*6/uL 05/21/2024 5:48 PM EDT [employer] [facility] Hemoglobin 12.3 11.7 - 15.5 g/dL 05/21/2024 5:48 PM EDT [facility] Hematocrit 38.4 35.0 - 45.0 % 05/21/2024 5:48 PM EDT [facility] MCV 85.1 80.0 - 100.0 fL 05/21/2024 5:48 PM EDT [facility] MCH 27.3 27.0 - 33.0 pg 05/21/2024 5:48 PM EDT [facility] MCHC 32.0 32.0 - 36.0 g/dL 05/21/2024 5:48 PM EDT [facility] RDW 14.4 11.0 - 15.0 % 05/21/2024 5:48 PM EDT [facility] Platelets 382 140 - 400 10*3/uL 05/21/2024 5:48 PM EDT [facility] MPV 9.6 7.5 - 12.5 fL 05/21/2024 5:48 PM EDT [facility] Blood Arterial blood specimen / Unknown Arterial Puncture / Unknown 05/21/2024 5:35 PM EDT 05/21/2024 5:42 PM EDT Joshua Spain MD LAB BLOOD ORDERABLES Final Res ult [facility] [address] [place] [address], * Type and Screen (05/21/2024 5:35 PM [...] Edited Result - Final Performing Organization Address [facility]/State/ZIP Co de Phone Number [facility] [address] [place] [address], * HCG, Qualitative, Serum (05/21/2024 5:35 PM EDT) HCG Qualitative, Serum Negative Negative 05/21/2024 6:40 PM EDT [facility] Comment: hCG greater than [...] ORDERABLES Final Res ult Performing Organization Address [facility] Co de Phone Number [facility] [address] [place] [address], * Lactic Acid, Plasma (05/21/2024 5:35 PM EDT) Lactic Acid 1.3 0.5 - 1.9 mmol/L 05/21/2024 6:16 PM EDT [facility] Comment: Sepsis Screening: Initial [...] ORDERABLES Final Res ult Performing Organization Address [facility]/ZIP Co de Phone Number [facility] [address] [place] [address], * Ethanol (05/21/2024 5:35 PM EDT) Ethanol <10 <10 mg/dL 05/21/2024 7:00 PM EDT [facility] Blood Arterial blood specimen / Unknown Arterial Puncture / Unknown 05/21/2024 5:35 PM EDT 05/21/2024 5:42 PM EDT us Joshua Spain MD LAB BLOOD ORDERABLES Final Res ult [facility] [address] [place] [address], * (ABNORMAL) Basic Metabolic Panel (05/21/2024 5:35 PM EDT) NA 137 135 - 145 mmol/L 05/21/2024 6:30 PM EDT [facility] K 3.9 3.5 - 5.3 mmol/L 05/21/2024 6:30 PM EDT [facility] Cl 100 98 - 107 mmol/L 05/21/2024 6:30 PM EDT [facility] CO2 23 22 - 32 mmol/L 05/21/2024 6:30 PM EDT [facility] BUN 14 7 - 23 mg/dL 05/21/2024 6:30 PM EDT [facility] Creatinine 1.19 0.50 - 1.20 mg/dL 05/21/2024 6:30 PM EDT [facility] Glucose 104(H) 65 - 99 mg/dL 05/21/2024 6:30 PM EDT [facility] Calcium 9.5 8.6 - 10.5 mg/dL 05/21/2024 6:30 PM EDT [facility] Anion Gap 14 5 - 15 05/21/2024 6:30 PM EDT [facility] eGFR 59(L) >=60 mL/min/1. 73m2 05/21/2024 6:30 PM EDT [facility] Comment:The estimated glomer ular [...] MD LAB BLOOD ORDERABLES Final Res ult [facility] [address] [place] [address], [place] * ED POCUS eFAST (05/21/2024 5:27 PM EDT) Anatomical Region Laterality Modality Body N/A Ultrasound 05/21/2024 5:27 PM EDT Impressions 05/23/2024 12:12 AM EDT Exam Information: A dnhqf-ip-kdun ultrasound exam was performed of the peritoneal [...] Electronically signed by Arturo Marino MD on [id number] Electronically signed by Man Mckeon MD on [id number] [email or web address] Narrative Procedure Note Man Mckeon MD - 05/23/2024 IMPRESSION: Exam Information: A ttuyt-is-mbmc ultrasound exam was performed of the peritoneal [...] Electronically signed by Arturo Marino MD on [id number] Electronically signed by Man Mckeon MD on [id number] [email or web address] us Historical Conversion Provider IMG US PROCEDURES Final Result from Last 3 Months Insurance [employer] Member Subscriber Plan / Payer (Ef fective for All Dates) Name:Radha Poe Relation to Subscriber:Self Name:Radha Poe Payer ID:[id number] Group ID:Not on file Type:Not on file Address: [place] [id number] [place] Care Teams Homoeopath Relationship Specialty Start Date End Date No, Referring PCP - General 05/21/24
--- OUTSIDE RECORDS SUMMARY | 2024-06-03 13:36 | XMS_ITS ---
Author Organization [facility] Address [address] [place], [place] [address] Care Team Providers Care Log Hauler Name Role Phone Usama Garcia M.D. Primary Care Provider [phone] [facility] Unavailable REASON FOR VISIT Add Info Encounters Encounter Location Date Provider Diagnosis [facility] [address] [place], [place] [id number] 11/12/2023 Usama Garcia Plan Of Treatment No Information Progress Notes * Nayana ARENASOB: 2 (42 yo F)Acc No.[id number]:11/12/2023 Patient:?Radha ARENAS :1980???Age:42 Y???Sex:Female Address:[address] [place] [address], [address] * true * Date:? Generated for Printi ng/Faxing/eTransmitting on:?06/03/2024 01:35 PM EDT
--- OUTSIDE RECORDS SUMMARY | 2024-06-03 13:36 | XMS_ITS ---
Author Organization [facility] Address [address] [place], [place] [address] Care Team Providers Care Community Organization Worker Name Role Phone Usama Garcia M.D. [facility] Provider [facility] Suzy Unavailable [phone] REASON FOR VISIT question Encounters Encounter Location Date Provider Diagnosis [facility] [address] [place], [place] [id number] 02/08/2024 Usama Garcia Plan Of Treatment No Information Progress Notes * Nayana ARENASOB: 2 (43 yo F)Acc No.[id number]:02/08/2024 Patient:?Radha ARENAS :1980???Age:43 Y???Sex:Female Address:[address] [place] [address], [address] * true * Date:? Generated for Printi ng/Faberthag/eTransmitting on:?06/03/2024 01:36 PM EDT
--- OUTSIDE RECORDS SUMMARY | 2024-06-03 13:36 | XMS_ITS ---
Author Organization [facility] Address [address] [place] [address] Care Team Providers Care Digital Media Associate Name Role Phone GIULIA MILAN Unavailable [phone] ZachYu Unavailable [phone] REASON FOR VISIT discuss weight loss options Encounters Encounter Location Date Provider Diagnosis [facility] [address] [place] [address] 03/10/2024 Yu Serrano Plan Of Treatment No Information Progress Notes * Nayana ARENASOB: 2 (43 yo F)Acc No.[id number]:03/10/2024 Progress Notes Patient:?Radha ARENAS Provider:?JET Berger :1980???Age:43 Y???Sex:Female D ate:03/10/2024 Address:[address] [place], [place] [id number] Subjective: * Chief Complaints: * ???1. Discuss weight loss op tions. * Medical History:? Objective: * Vitals:? Assessment: Plan: * Treatment: * Billing Information: * Visit Code:? * Procedure Codes:? * Electronic signature of Sarai Serrano on 06/03/2024 at 01:35 PM EDT Sign off status: Pending * Provider:?JET Berger Date:?03/10 Generated for Kelly wolf/Jim/Tony on:?06/03/2024 01:35 PM EDT
--- OUTSIDE RECORDS SUMMARY | 2024-06-03 13:36 | XMS_ITS | Clinical Summary ---
Author Organization [facility] Address [address] [place] [address] Care Team Providers Care Registered Vascular Technologist (Rvt) Name Role Phone Alexis Miller DO Primary Care Provider [phone] Allergies Active Allergy Reactions Criticality Noted Date [...] 06/18/2007 Iron deficiency anemia 04/20/2007 Morbid obesity ([facility] V24, [facility] V28) 2007 Encounters Date Type Department Care Team Description 05/20/2024 Telephone Bariatric Surgery [address] [address] Torey Bradford MD prior auth (Prior auth) 05/18/2024 11:00 AM EDT Office Visit Bariatric Surgery [address] [address] Torey Bradford MD Class 3 severe obesity due to excess calories with serious comorbidity and body mass index (BMI) of 50.0 to 59.9 in adult ([facility] V24, [facility] V28) (Primary Dx) from Last 3 Months Immunizations [...] PM EDT Office Visit Bariatric Surgery - [place] [address] [phone] Torey Bradford MD [address] [address] Health Maintenance Due Date Last Done Comments Breast Cancer Screening 1980 Hepatitis B Vaccines (1 of 3 - 19+ 3-dose series) 2000 Cervical Cancer Screening: Pap Smear 01/03/2014 01/03/2011 COVID-19 Vaccine ( season) 2023 Cholesterol Screening (Lipid Panel) 12/20/2023 02/06/2011 Depression Screening 12/20/2023 Social Influencers of Health Screening 12/20/2023 [...] Procedure Name Priority Date/Time Associated Diagnosis Comments POLYSOMNOGRAPHY Routine 06/02/2024 8:52 AM EDT ANNUAL BMP BLOOD TEST Routine 06/28/2011 HEPATITIS C SCREENING Routine 06/09/2011 LIPID PANEL Routine 02/06/2011 HIV SCREENING Routine 01/03/2011 PAP SMEAR Routine 01/03/2011 from Last 3 Months or Most Recently Relevant to Health Maintenance Results * Polysomnography (06/02/2024 8:52 AM EDT) Result [facility] Provider SLEEP CENTER ORDERABLES F inal Result * Annual BMP Blood Test (06/28/2011) [facility] Annual BMP Blood Test abstracted Result [facility] Provider HEALTH MAINTENANCE Final Result * Hepatitis C Screening (06/09/2011) [facility] Hepatitis C Screening abstracted Result [facility] Provider HEALTH MAINTENANCE Final Result * (ABNORMAL) Lipid panel (02/06/2011) [facility] LDL/HDL Ratio 3 0 - 4 Triglycerides 92 0 - 150 mg/dL Cholesterol 187 0 - 200 mg/dL HDL 57 >=40 mg/dL LDL Cholesterol 112(A) 0 - 100 mg/dL Blood Venous blood specimen / Unknown Result [facility] Provider LAB BLOOD ORDERABLES Hanh l Result * HIV Screening (01/03/2011) [facility] HIV Screening abstracted Result [facility] Provider HEALTH MAINTENANCE Final Result * Pap Smear (01/03/2011) [facility] Pap smear no interpretation abstracted Result [facility] Provider HEALTH MAINTENANCE Final Result from Last 3 Months or Most Recently Relevant to Health Maintenance Insurance MEDICAID - [place] [facility] MEDICA[employer]AGE Care Teams Registered Vascular Technologist (Rvt) Relationship Specialty Start Date End Date Alexis Miller DO [address] [place] [phone] PCP - General 06/06/13
--- OUTSIDE RECORDS SUMMARY | 2024-06-03 13:36 | XMS_ITS | Referral Summary ---
Author Organization [facility] Address [address] [place] [address] Care Team Providers Care Development And Planning Engineer Name Role Phone No, Referring Primary Care Provider Unavailabl e Encounters Date Type Department Care Team Description 05/21/2024 5:24 PM EDT - 05/21/2024 9:52 PM EDT Emergency [facility] Emergency Department [address] [place] [id number] Susan Ovalle MD Weisberg, Keiry Craven MD [...] Not on file Procedures * Due to [place] state law, this organization might not be [...] Last 3 Months Results * Due to [place] state law, this organization might not be [...] obtain the completed interpretation. ? Workstation ID: [id number] Narrative 05/21/2024 6:54 PM EDT COMPARISON: None available. FINDINGS: There is no evidence of acute fracture or dislocation. ??Joint spaces are preserved. ??There is no abnormal soft tissue swelling identified. Resulting Agency Comment [id number] Procedure Note Lowell Washington MD - 05/21/2024 [...] possible to obtain thecompleted interpretation. Workstation ID: [id number] Joshua Spain MD IMG XR PROCEDURES Final [...] obtain the completed interpretation. ? Workstation ID: [id number] Narrative 05/21/2024 6:54 PM EDT COMPARISON: None available. FINDINGS: There is no evidence of acute fracture or dislocation. ??Joint spaces are preserved. ??There is no abnormal soft tissue swelling identified. Resulting Agency Comment [id number] Procedure Note Lowell Washington MD - 05/21/2024 [...] possible to obtain thecompleted interpretation. Workstation ID: [id number] Joshua Spain MD IMG XR PROCEDURES Final [...] obtain the completed interpretation. ? Workstation ID: [id number] Narrative 05/21/2024 6:54 PM EDT COMPARISON: None available. FINDINGS: There is no evidence of acute fracture or dislocation. ??Joint spaces are preserved. ??There is no abnormal soft tissue swelling identified. Resulting Agency Comment [id number] Procedure Note Lowell Washington MD - 05/21/2024 [...] possible to obtain thecompleted interpretation. Workstation ID: [id number] Joshua Spain MD IMG XR PROCEDURES Final [...] obtain the completed interpretation. ? Workstation ID: [id number] Narrative 05/21/2024 6:54 PM EDT COMPARISON: None available. FINDINGS: There is no evidence of acute fracture or dislocation. ??Joint spaces are preserved. ??There is no abnormal soft tissue swelling identified. Resulting Agency Comment [id number] Procedure Note Lowell Washington MD - 05/21/2024 [...] possible to obtain thecompleted interpretation. Workstation ID: [id number] Joshua Spain MD IMG XR PROCEDURES Final [...] obtain the completed interpretation. ? Workstation ID: [id number] Narrative 05/21/2024 6:55 PM EDT COMPARISON: None available. FINDINGS: There is no evidence of acute fracture or dislocation. ??Joint spaces are preserved. ??There is no abnormal soft tissue swelling identified. Resulting Agency Comment [id number] Procedure Note Lowell Washington MD - 05/21/2024 [...] possible to obtain thecompleted interpretation. Workstation ID: [id number] Joshua Spain MD IMG XR PROCEDURES Final [...] obtain the completed interpretation. ? Workstation ID: [id number] Narrative 05/21/2024 6:51 PM EDT COMPARISON: None available. FINDINGS: There is no consolidation. ??The cardiac silhouette and mediastinal contours are unremarkable. ??No pleural effusion or CHF is identified. ??There is no pneumothorax. ?? Resulting Agency Comment [id number] Procedure Note Lowell Washington MD - 05/21/2024 [...] possible to obtain thecompleted interpretation. Workstation ID: [id number] Joshua Spain MD IMG XR PROCEDURES Final [...] obtain the completed interpretation. ? Workstation ID: [id number] Up-to-date CT equipment and radiation dose reduction techniques were employed. CTDIvol: 2.4 - 76.4 mGy. DLP: 5575 mGy-cm. ??The following accession numbers are related to this dose report [id number]: [id number] Up-to-date CT equipment and radiation dose reduction techniques were employed. CTDIvol: 2.4 - 76.4 mGy. DLP: 5575 mGy-cm. ??The following accession numbers are related to this dose report [id number]: [id number] Narrative 05/21/2024 6:12 PM EDT EXAMINATION: ??CT [...] interval confirm the findings. Resulting Agency Comment [id number] Procedure Note Aida Toledo MD - 05/21/2024 [...] possible to obtain thecompleted interpretation. Workstation ID: [id number] Up-to-date CT equipment and radiation dose reduction techniques wereemployed. CTDIvol: 2.4 - 76.4 mGy. DLP: 5575 mGy-cm. The followingaccession numbers are related to this dose report [id number]: [id number] Up-to-date CT equipment and radiation dose reduction techniques wereemployed. CTDIvol: 2.4 - 76.4 mGy. DLP: 5575 mGy-cm. The followingaccession numbers are related to this dose report [id number]: [id number] Joshua Spain MD IM CT PROCEDURES Final [...] obtain the completed interpretation. ? Workstation ID: [id number] Up-to-date CT equipment and radiation dose reduction techniques were employed. CTDIvol: 2.4 - 76.4 mGy. DLP: 5575 mGy-cm. ??The following accession numbers are related to this dose report [id number]: [id number] Up-to-date CT equipment and radiation dose reduction techniques were employed. CTDIvol: 2.4 - 76.4 mGy. DLP: 5575 mGy-cm. ??The following accession numbers are related to this dose report [id number]: [id number] Narrative 05/21/2024 6:12 PM EDT EXAMINATION: ??CT [...] interval confirm the findings. Resulting Agency Comment [id number] Procedure Note Aida Toledo MD - 05/21/2024 [...] possible to obtain thecompleted interpretation. Workstation ID: [id number] Up-to-date CT equipment and radiation dose reduction techniques wereemployed. CTDIvol: 2.4 - 76.4 mGy. DLP: 5575 mGy-cm. The followingaccession numbers are related to this dose report [id number]: [id number] Up-to-date CT equipment and radiation dose reduction techniques wereemployed. CTDIvol: 2.4 - 76.4 mGy. DLP: 5575 mGy-cm. The followingaccession numbers are related to this dose report [id number]: [id number] Joshua Spain MD IMG CT PROCEDURES Final [...] obtain the completed interpretation. ? Workstation ID: [id number] Up-to-date CT equipment and radiation dose reduction techniques were employed. CTDIvol: 2.4 - 76.4 mGy. DLP: 5575 mGy-cm. ??The following accession numbers are related to this dose report [id number]: [id number] Up-to-date CT equipment and radiation dose reduction techniques were employed. CTDIvol: 2.4 - 76.4 mGy. DLP: 5575 mGy-cm. ??The following accession numbers are related to this dose report [id number]: [id number] Narrative 05/21/2024 6:12 PM EDT EXAMINATION: ??CT [...] interval confirm the findings. Resulting Agency Comment [id number] Procedure Note Aida Toledo MD - 05/21/2024 [...] possible to obtain thecompleted interpretation. Workstation ID: [id number] Up-to-date CT equipment and radiation dose reduction techniques wereemployed. CTDIvol: 2.4 - 76.4 mGy. DLP: 5575 mGy-cm. The followingaccession numbers are related to this dose report [id number]: [id number] Up-to-date CT equipment and radiation dose reduction techniques wereemployed. CTDIvol: 2.4 - 76.4 mGy. DLP: 5575 mGy-cm. The followingaccession numbers are related to this dose report [id number]: [id number] Joshua Spain MD IMG CT PROCEDURES Final [...] obtain the completed interpretation. ? Workstation ID: [id number] Up-to-date CT equipment and radiation dose reduction techniques were employed. CTDIvol: 2.4 - 76.4 mGy. DLP: 5575 mGy-cm. ??The following accession numbers are related to this dose report [id number]: [id number] Narrative 05/21/2024 6:38 PM EDT COMPARISON: None available. FINDINGS: ?? No acute fracture or subluxation is seen. ??Cervical vertebral body heights are maintained. Intervertebral disc spaces are within normal limits. ??There is no significant osseous spinal canal or foraminal stenosis. ??The paravertebral soft tissues, including the visualized airway, are within normal limits. ??There are bilateral cervical ribs. Resulting Agency Comment [id number] Procedure Note Lowell Washington MD - 05/21/2024 [...] possible to obtain thecompleted interpretation. Workstation ID: [id number] Up-to-date CT equipment and radiation dose reduction techniques wereemployed. CTDIvol: 2.4 - 76.4 mGy. DLP: 5575 mGy-cm. The followingaccession numbers are related to this dose report [id number]: [id number] us Joshua Spain MD IMG CT PROCEDURES [...] obtain the completed interpretation. ? Workstation ID: [id number] Up-to-date CT equipment and radiation dose reduction techniques were employed. CTDIvol: 2.4 - 76.4 mGy. DLP: 5575 mGy-cm. ??The following accession numbers are related to this dose report [id number]: [id number] Up-to-date CT equipment and radiation dose reduction techniques were employed. CTDIvol: 2.4 - 76.4 mGy. DLP: 5575 mGy-cm. ??The following accession numbers are related to this dose report [id number]: [id number] Narrative 05/21/2024 6:12 PM EDT EXAMINATION: ??CT [...] interval confirm the findings. Resulting Agency Comment [id number] Procedure Note Aida Toledo MD - 05/21/2024 [...] possible to obtain thecompleted interpretation. Workstation ID: [id number] Up-to-date CT equipment and radiation dose reduction techniques wereemployed. CTDIvol: 2.4 - 76.4 mGy. DLP: 5575 mGy-cm. The followingaccession numbers are related to this dose report [id number]: [id number] Up-to-date CT equipment and radiation dose reduction techniques wereemployed. CTDIvol: 2.4 - 76.4 mGy. DLP: 5575 mGy-cm. The followingaccession numbers are related to this dose report [id number]: [id number] Joshua Spain MD IMG CT PROCEDURES Final [...] obtain the completed interpretation. ? Workstation ID: [id number] Up-to-date CT equipment and radiation dose reduction techniques were employed. CTDIvol: 2.4 - 76.4 mGy. DLP: 5575 mGy-cm. ??The following accession numbers are related to this dose report [id number]: [id number] [facility] 05/21/2024 6:39 PM EDT EXAMINATION: CT [...] osseous lesions or fractures. Resulting Agency Comment [id number] Procedure Note Aida Toledo MD - 05/21/2024 [...] possible to obtain thecompleted interpretation. Workstation ID: [id number] Up-to-date CT equipment and radiation dose reduction techniques wereemployed. CTDIvol: 2.4 - 76.4 mGy. DLP: 5575 mGy-cm. The followingaccession numbers are related to this dose report [id number]: [id number] Joshua Spain MD IMG CT PROCEDURES Final Result * (ABNORMAL) APTT (05/21/2024 5:35 PM EDT) aPTT 33.3(H) 23.0 - 32.0 Seconds 05/21/2024 6:08 PM EDT [facility] [facility] Comment: Current PTT reagent is not sensitive to detect all Lupus Anticoagulant (LA) Inhibitor Cases. ?? If a LA is suspected, please order a Lupus Anticoagulation w/ Reflex Test which is performed at [facility] in [place], [place]. Blood Arterial blood specimen / Unknown Arterial Puncture / Unknown 05/21/2024 5:35 PM EDT 05/21/2024 5:42 PM EDT Joshua Spain MD LAB BLOOD ORDERABLES Final Res ult Performing Organization Address [facility] Co de Phone Number [facility] [employer] [facility] [address] [place] [address], * Protime-INR (05/21/2024 5:35 PM EDT) PT 10.5 9.6 - 12.4 Seconds 05/21/2024 6:08 PM EDT [facility] [employer] [facility] INR 1.0 0.9 - 1.1 05/21/2024 6:08 PM EDT [facility] [employer] [facility] Comment:The optimal therapeu tic INR range for patients treated with Vitamin K antagonists (VKAS, e.g., Warfarin) is 2.0 to 3.5. Discuss the desired range with your doctor/care team. Blood Arterial blood specimen / Unknown Arterial Puncture / Unknown 05/21/2024 5:35 PM EDT 05/21/2024 5:42 PM EDT Joshua Spain MD LAB BLOOD ORDERABLES Final Res ult Performing Organization Address [facility]/ZIP Co de Phone Number [facility] [employer] [facility] [address] [place] [address], * CBC (05/21/2024 5:35 PM EDT) WBC 7.8 3.8 - 10.8 10*3/uL 05/21/2024 5:48 PM EDT [facility] - [facility] RBC 4.51 3.80 - 5.10 10*6/uL 05/21/2024 5:48 PM EDT [facility] - [employer] [facility] Hemoglobin 12.3 11.7 - 15.5 g/dL 05/21/2024 5:48 PM EDT [facility] [employer] - [employer] [facility] Hematocrit 38.4 35.0 - 45.0 % 05/21/2024 5:48 PM EDT [facility] - [employer] [facility] MCV 85.1 80.0 - 100.0 fL 05/21/2024 5:48 PM EDT [facility] - [employer] [facility] MCH 27.3 27.0 - 33.0 pg 05/21/2024 5:48 PM EDT [facility] [place] [facility] [place] [facility] [employer] [facility] MCHC 32.0 32.0 - 36.0 g/dL 05/21/2024 5:48 PM EDT [facility] [facility] [employer] [facility] RDW 14.4 11.0 - 15.0 % 05/21/2024 5:48 PM EDT [facility] [facility] [employer] [facility] Platelets 382 140 - 400 10*3/uL 05/21/2024 5:48 PM EDT [facility] [employer] [facility] [employer] [facility] MPV 9.6 7.5 - 12.5 fL 05/21/2024 5:48 PM EDT [facility] Blood Arterial blood specimen / Unknown Arterial Puncture / Unknown 05/21/2024 5:35 PM EDT 05/21/2024 5:42 PM EDT us Joshua Spain MD LAB BLOOD ORDERABLES Final Res ult [facility] [address] [place] [address], [place] * Type and Screen (05/21/2024 5:35 [...] Edited Result - Final Performing Organization Address [facility] Co de Phone Number [facility] [address] [place] [address], * HCG, Qualitative, Serum (05/21/2024 5:35 PM EDT) HCG Qualitative, Serum Negative Negative 05/21/2024 6:40 PM EDT [facility] Comment: hCG greater than [...] MD LAB BLOOD ORDERABLES Final Res ult [facility] [address] [place] [address], [place] * Lactic Acid, Plasma (05/21/2024 5:35 PM EDT) Lactic Acid 1.3 0.5 - 1.9 mmol/L 05/21/2024 6:16 PM EDT [facility] Comment: Sepsis Screening: Initial [...] ORDERABLES Final Res ult Performing Organization Address [facility] Co de Phone Number [facility] [address] [place] [address] * Ethanol (05/21/2024 5:35 PM EDT) Ethanol <10 <10 mg/dL 05/21/2024 7:00 PM EDT [facility] Blood Arterial blood specimen / Unknown Arterial Puncture / Unknown 05/21/2024 5:35 PM EDT 05/21/2024 5:42 PM EDT Joshua Spain MD LAB BLOOD ORDERABLES Final Res ult Performing Organization Address City/[facility]/ZIP Co de Phone Number [facility] [address] [place] [address] * (ABNORMAL) Basic Metabolic Panel (05/21/2024 5:35 PM EDT) NA 137 135 - 145 mmol/L 05/21/2024 6:30 PM EDT [facility] K 3.9 3.5 - 5.3 mmol/L 05/21/2024 6:30 PM EDT [facility] Cl 100 98 - 107 mmol/L 05/21/2024 6:30 PM EDT [facility] CO2 23 22 - 32 mmol/L 05/21/2024 6:30 PM EDT [facility] [employer] [facility] BUN 14 7 - 23 mg/dL 05/21/2024 6:30 PM EDT [facility] [employer] [facility] Creatinine 1.19 0.50 - 1.20 mg/dL 05/21/2024 6:30 PM EDT [facility] [employer] [facility] Glucose 104(H) 65 - 99 mg/dL 05/21/2024 6:30 PM EDT [facility] [employer] [facility] Calcium 9.5 8.6 - 10.5 mg/dL 05/21/2024 6:30 PM EDT [facility] [employer] [facility] Anion Gap 14 5 - 15 05/21/2024 6:30 PM EDT [facility] [employer] [facility] eGFR 59(L) >=60 mL/min/1. 73m2 05/21/2024 6:30 PM EDT [facility] [employer] [facility] Comment:The estimated glomer ular [...] MD LAB BLOOD ORDERABLES Final Res ult [facility] [employer] [facility] [address] [place] [address], * ED POCUS eFAST (05/21/2024 5:27 PM EDT) Anatomical Region Laterality Modality Body N/A Ultrasound 05/21/2024 5:27 PM EDT Impressions 05/23/2024 12:12 AM EDT Exam Information: A olekb-ff-evlm ultrasound exam was performed of the peritoneal [...] Electronically signed by Arturo Marino MD on [id number] Electronically signed by Man Mckeon MD on [phone] [email or web address] Narrative Procedure Note Man Mckeon MD - 05/23/2024 IMPRESSION: Exam Information: A wcgtd-qf-gsmu ultrasound exam was performed of the peritoneal space,pericardial space and pleural spaces to evaluated for free fluid. Viewsof the following areas were attempted: subxiphoid, Perry''s pouch,spleno-renal recess, superior colic gutters, retro-vesicular area and pleural spaces bilaterally.. Indication: The ultrasound was performed with the following indication(s) Trauma Views: The following views were obtained Bilateral Thorax ,Subxiphoid(cardiac),Eprry''s pouch (RUQ),Perisplenic (LUQ),Suprapubic Findings: Right lung sliding [...] Electronically signed by Arturo Marino MD on [id number] Electronically signed by Man Mckeon MD on [phone] [email or web address] us Historical Conversion Provider IMG US PROCEDURES Final Result from Last 3 Months Insurance [facility] [employer] [facility] Care Teams Development And Planning Engineer Relationship Specialty Start Date End Date No, Referring PCP - General 05/21/24
== END 2024-06-03 13:44 | disposition home or self-care (01) ==
PROVIDERS: Visit Provider Nurse Practitioner Family
DX: R06.00 Dyspnea, unspecified (principal); R91.8 Other nonspecific abnormal finding of lung field
CPT/HCPCS: 99204

== ENCOUNTER 2024-06-06 18:47 | Emergency (ER) | payer MEDICARE, MEDICAID, SELFPAY ==
--- NOTE | ~2024-06-06 | XR_ITS ---
CLINICAL HISTORY: substernal cp 2 view chest x-ray Comparison: 04/22/2024 Findings: No consolidation or effusion. Normal size heart. No acute fracture. IMPRESSION: 1. No acute findings. This document has been electronically signed by: Niharika Aguilar MD on 06/06/2024 20:19:30
--- NOTE | 2024-06-06 18:49 | ECG_ITS ---
Test Reason : chest pain Blood Pressure : */* mmHG Vent. Rate : 80 BPM Atrial Rate : 80 BPM P-R Int : 170 ms QRS Dur : 92 ms QT Int : 390 ms P-R-T Axes : 41 17 38 degrees QTcB Int : 449 ms Normal sinus rhythm Normal ECG No previous ECGs available Referred By: Luci Ortiz Electronically Signed By: MARIANNE FLORES MD
[2024-06-06 18:54] VITALS: BP 176/104; PULSE 81; RESP 18; TEMP 36.7; O2SAT 100; BMI 52.4
--- NOTE | 2024-06-06 18:55 | ED_ITS ---
HPI - Chest Pain General Chief Complaint: Chest Pain Stated Complaint: Chest pain Time Seen by Provider: 06/06/24 22:31 Source: patient Limitations: no limitations History of Present Illness ED Provider: Dory Harp PA-C HPI narrative: 43-year-old female with a history of morbid obesity, hypertension, hyperlipidemia, PE on Eliquis who presents with chest pain. Patient states she developed central chest discomfort described as a stabbing sensation that radiated to her back . Pain worse with palpation of chest wall. Patient denies mechanism of injury, trauma, new exercise/heavy lifting, no repetitive activities. Denies recent cough or cold symptoms no fevers. Related Data Home Medications ?Medication ?Instructions ?Recorded ?Confirmed gabapentin 100 mg capsule 100 mg PO BEDTIME 04/22/24 06/03/24 Previous Rx's ?Medication ?Instructions ?Recorded apixaban 5 mg tablet (Eliquis) 5 mg PO BID 90 days #180 tabs 04/22/24 losartan 100 1 tab PO DAILY #90 tabs 04/22/24 mg-hydrochlorothiazide 25 mg tablet metoprolol succinate 25 mg 25 mg PO DAILY #30 tabs 04/22/24 tablet,extended release 24 hr cholecalciferol (vitamin D3) 25 25 mcg PO DAILY #90 caps 04/25/24 mcg (1,000 unit) capsule bupropion HCl 150 mg 24 hr tablet, 150 mg PO DAILY #90 tabs 04/27/24 extended release magnesium oxide 400 mg PO DAILY #30 tabs 04/27/24 pantoprazole 40 mg tablet,delayed 40 mg PO DAILY #30 tabs 05/13/24 release methocarbamol 750 mg tablet 750 mg PO Q8H PRN pain, moderate 06/07/24 #20 tabs Allergies Allergy/AdvReac Type Severity Reaction Status Date / Time metformin Allergy Intermediate Hives Verified 06/06/24 18:58 morphine [MORPHINE] Allergy Unknown HIVES Verified 06/06/24 18:58 Penicillins [PENICILLINS] Allergy Unknown SHORTNESS Verified 06/06/24 18:58 OF BREATH Review of Systems 2 Review of Systems: Yes all other systems are reviewed and are negative Constitutional: Constitutional: Denies fatigue, Denies fever(s) and Denies headache(s) ENT: Denies headache(s) Cardiovascular: Cardiovascular: Reports chest pain and Denies dyspnea Respiratory: Respiratory: Denies cough and Denies dyspnea Gastrointestinal: Gastrointestinal: Denies abdominal pain, Denies nausea and Denies vomiting Neurologic: Denies headache(s) Endocrine: Endocrine: Denies fatigue PMFSH Past Medical History Attestation statement: The following information was validated with the patient. Medical History Chronic migraine without aura Blurry vision depression Overactive bladder Iron deficiency Hypercholesterolemia Pulmonary embolism Deep vein thrombophlebitis of leg Obesity Hypertension Anxiety Anemia Surgical History H/O esophagogastroduodenoscopy History of colonoscopy Hx of dilation and curettage Hx of hysterectomy Family History Family History Mother Breast cancer Hypertension Father Lung cancer Brother Hypertension Brother No problems noted. Sister Hypertension Sister History of partial hysterectomy Sister No problems noted. Sister No problems noted. Daughter No problems noted. Daughter No problems noted. Daughter No problems noted. Son No problems noted. Social History Social History Housing: House Alcohol intake: current Alcohol intake frequency: holidays/special occasions only Alcohol type: wine Patient Tobacco Use Status: Never used Tobacco Smoked in Last 30 Days: No e-Cigarette/Vaping Use: Never Used Second Hand Smoke Exposure: No Use of substances other than those prescribed or required for medical reasons: No Advance Directives: No Advance Directives Information Provided: No Do you have a plan to hurt others: No Plan Patient : No service: No Current occupational status: unemployed Cognitive needs: No Hearing needs: No Vision needs: No Physical Exam 2 Vital Signs: Vital Signs: Last Vital Signs Temp 98.6 F 06/07/24 00:56 Pulse 74 06/07/24 00:56 Resp 18 06/07/24 00:56 BP 156/108 H 06/07/24 00:56 Pulse Ox 99 06/07/24 00:56 O2 Del Method Room Air 06/07/24 00:56 BMI result Body Mass Index 52.4 Const: Other: Alert Orientation/consciousness: patient oriented x3 Chest: Other: Pain reproducible with light palpation of central chest wall Resp: Effort & Inspection: normal respiratory effort Cardio: Other: Normal peripheral perfusion Skin: Other: Warm dry no rash Neuro: General: patient oriented x3, gait normal, no focal motor deficits and CN's II-XI intact bilaterally Psych: Other: Cooperative Course Course Course Narrative: This is a Rapid Medical Examination (RME) performed by Antoinette Ortiz PA-C in triage. Full HPI, ROS, assessment and treatment plan per primary provider in the Main ED. 06/06/241856 ALLYSON Barbour Hx: 43 yo female hx DVT and PE (2023) on apixiban here for eval of acute onset substernal chest pain which began 20 mins ago while on the phone with her insurance company. pain shoots to back. stabbing in nature. takes her breath away. PE/vitals: hypertensive, appears uncomfortable, clutching chest Plan: ekg, cxr, labs Medications Administered Discontinued Medications Generic Name Dose Route Start Last Admin Trade Name Freq PRN Reason Stop Dose Admin Ketorolac Tromethamine 15 mg 06/07/24 00:26 06/07/24 00:47 Ketorolac Tromethamine 15 Mg/Ml Vial IVPUSH 06/07/24 00:27 15 mg ONCE ONE Administration Methocarbamol 1,500 mg 06/07/24 00:32 06/07/24 00:48 Methocarbamol 750 Mg Tablet PO 06/07/24 00:33 1,500 mg ONCE ONE Administration Medical Decision Making Medical Decision Making [facility] Narrative: 43-year-old female with a history of morbid obesity, hypertension, hyperlipidemia, PE on Eliquis who presents with chest pain. Patient states she developed central chest discomfort described as a stabbing sensation that radiated to her back . Pain worse with palpation of chest wall. Patient denies mechanism of injury, trauma, new exercise/heavy lifting, no repetitive activities. Denies recent cough or cold symptoms no fevers. Problem: Morbid obesity, hypertension, PE History: Per patient I have considered the following differential diagnoses: ACS, viral syndrome, pneumonia, costochondritis, chest wall strain, PE , dissection Plan: ACS was considered, the patient has multiple risk factors for coronary artery disease, screening labs including 2 cardiac enzymes EKG and chest x-ray were obtained. The patient has no infectious has been symptoms to suggest viral syndrome or pneumonia, with a subsequent development of costochondritis. Thought about PE, the patient made a comment triage that she has missed some of her Eliquis dosing, a dimer was added and it was negative. Also considered dissection given chest pain radiating to her back, however there was no widened mediastinum on her chest x-ray, she is not overtly hypertensive, she is neurovascularly intact. The patient's exam was most consistent with chest wall pain, however she continues to deny any mechanism. I have independently reviewed the following tests: Labs: No leukocytosis, not anemic, no electrolyte abnormality, troponin x2 negative, a dimer less than 150, not EKG: Normal sinus rhythm, rate 80, no ischemic changes no ectopy Chest x-ray:Findings: No consolidation or effusion. Normal size heart. No acute fracture. IMPRESSION: 1. No acute findings. Lab Data 06/06/24 19:23 06/06/24 19:23 Labs: Lab Results 06/06/24 06/06/24 Range/Units 19:23 22:52 WBC 7.6 (4.8-10.8) X10*3/uL RBC 4.04 L (4.20-5.50) X10*6/uL Hgb 11.6 L (12.0-16.0) g/dl Hct 34.8 L (37.0-47.0) % MCV 86.1 (80.0-98.0) fL MCH 28.7 (27.0-33.0) pg MCHC 33.3 (31.0-35.0) g/dl RDW 14.5 (11.0-16.0) % Plt Count 311 (160-400) X10*3/uL MPV 9.2 L (9.4-12.3) fL Immature Gran % (Auto) 0.4 (0.0-0.4) % Neut % (Auto) 55.4 (45-73) % Lymph % (Auto) 37.5 (20-40) % [place] % (Auto) 5.0 (2-11) % Eos % (Auto) 1.3 (0-4) % Baso % (Auto) 0.4 (0-2) % Lymph # (Auto) 2.8 (1.2-4.9) X10*3/uL [place] # (Auto) 0.4 (0.1-1.2) X10*3/uL Eos # (Auto) 0.1 (0.0-0.4) X10*3/uL Baso # (Auto) 0.0 (0.0-0.2) X10*3/uL Abs Immat Gran (auto) 0.03 (0.00-0.03) X10*3/uL Absolute Neuts (auto) 4.2 (2.0-8.3) x10*3/uL Absolute Nucleated RBC 0.000 (0.0-0.012) X10*3/uL Nucleated RBC % (auto) 0.0 (0.0-0.2) /100WBC D-Dimer High Sensitivty < 150 NG/ML Sodium 139 (135-145) mmol/L Potassium 3.8 (3.3-5.1) mmol/L Chloride 104 (96-108) mmol/L Carbon Dioxide 29 (22-29) mmol/L Anion Gap 10 L (12-20) BUN 10 (9-16) mg/dL Creatinine 0.93 (0.5-1.4) mg/dL Estim Creat Clear Calc 129.5 Estimated GFR > 60 Random Glucose 106 (60-115) mg/dL Calcium 9.6 (8.4-10.2) mg/dL Magnesium 1.7 (1.6-2.6) mg/dL Total Bilirubin 0.2 (0.0-1.0) mg/dL AST 17 (5-31) U/L ALT 13 (0-31) U/L Alkaline Phosphatase 107 (39-117) U/L Troponin I High Sens < 2.7 < 2.7 (<3.5-17.0) ng/L Total Protein 7.6 (6.5-8.0) g/dL Albumin 3.7 (3.5-5.0) g/dL Discharge Plan Discharge Clinical Impression: Chest wall pain Patient Disposition: Home, Self-Care Instructions: Chest Wall Pain (ED) Additional Instructions: Your exam was consistent with chest wall pain. See home care instructions. Use the methocarbamol as needed for pain, this is a muscle relaxant, it will cause drowsiness do not drive or operate machinery while taking the medication. All of your screening labs including 2 cardiac enzymes were normal. We also assessed for concern for new PE, that lab parameter was negative. The chest x- ray is clear and there was no concerning changes on the EKG. Continue to follow up with your primary care provider as needed. Prescriptions: New methocarbamol 750 mg tablet 750 mg PO Q8H PRN (Reason: pain, moderate) Qty: 20 0RF No Action cholecalciferol (vitamin D3) 25 mcg (1,000 unit) capsule 25 mcg PO DAILY Qty: 90 3RF bupropion HCl 150 mg tablet extended release 24 hr 150 mg PO DAILY Qty: 90 0RF gabapentin 100 mg capsule 100 mg PO BEDTIME Eliquis 5 mg tablet 5 mg PO BID 90 Days Qty: 180 0RF losartan-hydrochlorothiazide 100-25 mg tablet 1 tab PO DAILY Qty: 90 0RF metoprolol succinate 25 mg tablet extended release 24 hr 25 mg PO DAILY Qty: 30 0RF magnesium oxide 400 mg magnesium tablet 400 mg PO DAILY Qty: 30 6RF pantoprazole 40 mg tablet,delayed release (DR/EC) 40 mg PO DAILY Qty: 30 2RF Rx Instructions: take one tablet half an hour before breakfast Print Language: Persian
[2024-06-06 19:29] LABS: MANUAL DIFF FLAG NO
[2024-06-06 19:38] LABS: Basophils Percent Auto 0.4 % (0-2); Eosinophils Absolute Auto 0.1 X10*3/uL (0.0-0.4); Eosinophils Percent Auto 1.3 % (0-4); Hematocrit 34.8 % (37.0-47.0); Hemoglobin 11.6 g/dl (12.0-16.0); Imm Gran Abs Auto 0.03 X10*3/uL (0.00-0.03); Imm Gran Pct Auto 0.4 % (0.0-0.4); Lymphocytes Absolute Auto 2.8 X10*3/uL (1.2-4.9); Lymphocytes Percent Auto 37.5 % (20-40); Mean Corpuscular HGB Conc 33.3 g/dl (31.0-35.0); Mean Corpuscular Hemoglobin 28.7 pg (27.0-33.0); Mean Corpuscular Volume 86.1 fL (80.0-98.0); Mean Platelet Volume 9.2 fL (9.4-12.3); Monocytes Absolute Auto 0.4 X10*3/uL (0.1-1.2); Neutrophils Absolute Auto 4.2 x10*3/uL (2.0-8.3); Neutrophils Percent Auto 55.4 % (45-73); Platelet Count 311 X10*3/uL (160-400); Red Blood Count 4.04 X10*6/uL (4.20-5.50); Red Cell Distribution Width 14.5 % (11.0-16.0); White Blood Count 7.6 X10*3/uL (4.8-10.8)
[2024-06-06 19:45] LABS: Alanine Aminotransferase 13 U/L (0-31); Albumin Level 3.7 g/dL (3.5-5.0); Alkaline Phosphatase 107 U/L (39-117); Anion Gap 10 (12-20); Aspartate Amino Transferase 17 U/L (5-31); Bilirubin Total 0.2 mg/dL (0.0-1.0); Blood Urea Nitrogen 10 mg/dL (9-16); Calcium 9.6 mg/dL (8.4-10.2); Carbon Dioxide 29 mmol/L (22-29); Chloride 104 mmol/L (96-108); Creatinine Clr Calc Pharmacy 129.5; Estimated Glomerular Filt Rate > 60; Glucose Random 106 mg/dL (60-115); Magnesium 1.7 mg/dL (1.6-2.6); Potassium 3.8 mmol/L (3.3-5.1); Sodium 139 mmol/L (135-145); Total Protein 7.6 g/dL (6.5-8.0)
[2024-06-06 19:55] LABS: Troponin-I High Sensitivity < 2.7 ng/L (<3.5-17.0)
[2024-06-06 22:23] VITALS: BP 169/101; PULSE 65; RESP 16; TEMP 37.1; O2SAT 100
[2024-06-06 23:05] LABS: D Dimer High Sensitivity < 150 NG/ML
[2024-06-06 23:19] LABS: Troponin-I High Sensitivity < 2.7 ng/L (<3.5-17.0)
[2024-06-07] MEDS: Ketorolac Tromethamine 15 MG/ML VIAL IVPUSH (00:47)
[2024-06-07] MEDS: methocarbamoL 750 MG TABLET 1500 MG PO (00:48)
[2024-06-07 00:56] VITALS: BP 156/108; PULSE 74; RESP 18; TEMP 37; O2SAT 99
[2024-06-07 01:49] VITALS: BP 156/108; PULSE 74; RESP 18; TEMP 37; O2SAT 99
== END 2024-06-07 01:53 | disposition home or self-care (01) ==
PROVIDERS: Physician Assistant Medical; Emergency Provider Emergency Medicine Emergency Medical Services
DX: R07.89 Other chest pain (principal); Z86.711 Personal history of pulmonary embolism; Z79.01 Long term (current) use of anticoagulants; Z79.899 Other long term (current) drug therapy
CPT/HCPCS: 36415; 71046; 80053; 83735; 84484; 85025; 85379; 93005; 96374; 99284; 99285; J1885

== ENCOUNTER → 2024-06-06 18:49 | Outpatient (BNV) | payer MEDICARE, MEDICAID, SELFPAY | PROVIDERS: Emergency Provider Emergency Medicine Emergency Medical Services; Visit Provider Internal Medicine Cardiovascular Disease | DX: R07.9 Chest pain, unspecified (principal) | CPT/HCPCS: 93010 ==

== ENCOUNTER → 2024-06-06 18:55 | Outpatient (BNV) | payer OTHER, SELFPAY | PROVIDERS: Visit Provider Student in an Organized Health Care Education/Training Program | DX: R07.9 Chest pain, unspecified (principal) | CPT/HCPCS: 71046 ==

== ENCOUNTER 2024-06-24 15:51 | Outpatient (REF) | payer MEDICARE, MEDICAID, SELFPAY ==
--- NOTE | ~2024-06-24 | CT_ITS ---
CLINICAL HISTORY: R91.8 - Other nonspecific abnormal finding of lung field CT chest without IV contrast. COMPARISON: XR chest dated 06/06/24 at 19:19 EDT FINDINGS: Visualized thyroid is unremarkable. No supraclavicular or axillary lymphadenopathy. Ascending aorta and main pulmonary artery are normal in caliber. No pericardial effusion. Normal esophagus. No mediastinal lymphadenopathy. No pleural effusion. No consolidation. Trachea and central airways are clear. No significant bronchial wall thickening. No bronchiectasis. No pulmonary nodule. Visualized portions of the upper abdomen are unremarkable. No acute fracture or suspicious osseous abnormality. IMPRESSION: 1. No acute intrathoracic findings. No evidence of pneumonia. This document has been electronically signed by: Johan Beltre MD on 06/27/2024 12:06:37
--- OUTSIDE RECORDS SUMMARY | 2024-06-24 15:55 | XMS_ITS ---
Author Organization [facility] Address [address] [place], [place] [address] Care Team Providers Care Rolling Machine Operator Automatic Name Role Phone Usama Garcia M.D. [facility] Suzy Unavailable REASON FOR VISIT question Encounters Encounter Location Date Provider Diagnosis [facility] [address] [place], [place] [phone] 02/08/2024 Usama Garcia Plan Of Treatment No Information Progress Notes * Nayana ARENASOB: 2 (43 yo F)Acc No.[id number]:02/08/2024 Patient:?Radha ARENAS :1980???Age:43 Y???Sex:Female Address:[address] [place] [address], [address] * true * Date:? Generated for Printi ng/Faberthag/eTransmitting on:?06/24/2024 03:55 PM EDT
--- OUTSIDE RECORDS SUMMARY | 2024-06-24 15:55 | XMS_ITS | Patient Health Record ---
Author Organization [facility] Address [address] [place] [address] Care Team Providers Care Battery Engineer Name Role Phone GIULIA MILAN Unavailable [phone] Yu Serrano Unavailable [phone] Reason For Referral No Information Plan Of Treatment No Information Insurance Providers Payer Name Payer Address Payer Phone Subscriber Number Group Number Insured Name Patient Relationship to Insured Coverage Start Date Coverage End Date [employer] [address] [address] [place] [address] [id number] Radha Poe Self - patient is the insured
--- OUTSIDE RECORDS SUMMARY | 2024-06-24 15:55 | XMS_ITS | Clinical Summary ---
Author Organization [facility] Address [address] [place] [address] Care Team Providers Care Senior Manufacturing Test Engineer Name Role Phone Alexis Miller DO Primary Care Provider [phone] Allergies Active Allergy Reactions Criticality Noted Date [...] by mouth 2 (two) times a day. 5 Active buPROPion XL (WELLBUTRIN XL) 150 mg 24 hr tablet Take 1 tablet (150 mg total) by mouth 1 (one) time each day. 5 Active Vitamin D3 25 mcg (1,000 unit) capsule Take 1 capsule (1,000 Units total) by mouth 1 (one) time each day. 5 Active gabapentin (NEURONTIN) 100 mg capsule Take 1 capsule (100 mg total) by mouth if needed. at bedtime 5 Active losartan-hydroCH LOROthiazide (HYZAAR) 100-25 mg per tablet Take 1 tablet by mouth 1 (one) time each day. 5 Active magnesium oxide (MAG-OX) 400 mg (241.3 elemental magnesium) tablet Take 1 tablet (400 mg total) by mouth 1 (one) time each day. 5 Active metoprolol succinate (TOPROL-XL) 25 mg 24 hr tablet Take 1 tablet (25 mg total) by mouth 1 (one) time each day. 5 Active pantoprazole (PROTONIX) 40 mg EC tablet Take 1 tablet (40 mg total) by mouth 1 (one) time each day before breakfast. 5 Active tirzepatide, weight loss, (Zepbound) 2.5 mg/0.5 mL injectionIndicat ions:Class 3 severe obesity due to excess calories with serious comorbidity and body mass index (BMI) of 50.0 to 59.9 in adult ([facility] V24, [facility] V28) Inject 0.5 mL (2.5 mg total) under the skin every 7 (seven) days for 4 doses. 2 mL 5 06/29/19 25 Active tirzepatide, weight loss, (Zepbound) 2.5 mg/0.5 mL injectionIndicat ions:Class 3 severe obesity due to excess calories with serious comorbidity and body mass index (BMI) of 50.0 to 59.9 in adult ([facility] V24, [facility] V28) Inject 0.5 mL (2.5 mg total) under the skin every 7 (seven) days for 4 doses. 2 mL 5 06/07/19 25 Discontinu ed(Reorder ) Active Problems Problem Noted Date Diagnosed Date Hypertension 11/19/2009 Allergic rhinitis 06/18/2007 Iron deficiency anemia 04/20/2007 Morbid obesity ([facility] V24, [facility] V28) 2007 Encounters Date Type Department Care Team Description 05/20/2024 Telephone Bariatric Surgery [address] [address] Torey Bradford MD prior auth (Prior auth) 05/18/2024 11:00 AM EDT Office Visit Bariatric Surgery [address] [address] Torey Bradford MD Class 3 severe obesity due to excess calories with serious comorbidity and body mass index (BMI) of 50.0 to 59.9 in adult ([facility] V24, [facility] V28) (Primary Dx) from Last 3 Months [...] PM EDT Office Visit Bariatric Surgery - [place] [address] [place] [phone] Torey Bradford MD [address] [place] [address] Health Maintenance Due Date Last Done Comments [...] * Polysomnography (06/02/2024 8:52 AM EDT) Result [facility] Provider SLEEP CENTER ORDERABLES F inal Result * Annual BMP Blood Test (06/28/2011) Annual BMP Blood Test abstracted Result [facility] Provider HEALTH MAINTENANCE Final Result * Hepatitis C Screening (06/09/2011) Pathologist [facility] Hepatitis C Screening abstracted Result [facility] Provider HEALTH MAINTENANCE Final Result * (ABNORMAL) Lipid panel (02/06/2011) Pathologist [facility] LDL/HDL Ratio 3 0 - 4 Triglycerides 92 0 - 150 mg/dL Cholesterol 187 0 - 200 mg/dL HDL 57 >=40 mg/dL LDL Cholesterol 112(A) 0 - 100 mg/dL Blood Venous blood specimen / Unknown Result [facility] Provider LAB BLOOD ORDERABLES Hanh l Result * HIV Screening (01/03/2011) Pathologist [facility] HIV Screening abstracted Result [facility] Provider HEALTH MAINTENANCE Final Result * Pap Smear (01/03/2011) Pathologist [facility] Pap smear no interpretation abstracted [facility] Valerie KYLE HEALTH MAINTENANCE Final Result from Last 3 Months or Most Recently Relevant to Health Maintenance Insurance [place]ICA[place] - [place] [facility] MEDICAID ADVANTAGE Care Teams Senior Manufacturing Test Engineer Relationship Specialty Start Date End Date Alexis Miller DO [address] [place] [phone] PCP - General 06/06/13
--- OUTSIDE RECORDS SUMMARY | 2024-06-24 15:55 | XMS_ITS ---
Author Organization [facility] Address [address] [place] [address] Care Team Providers Care Spa Consultant Name Role Phone GIULIA MILAN Unavailable [phone] ZachYu Unavailable [phone] REASON FOR VISIT discuss weight loss options Encounters Encounter Location Date Provider Diagnosis [facility] [address] [place] [address] 03/10/2024 Yu Serrano Plan Of Treatment No Information Progress Notes * Nayana ARENASOB: 2 (43 yo F)Acc No.[id number]:03/10/2024 Progress Notes Patient:?Radha ARENAS Provider:?JET Berger :1980???Age:43 Y???Sex:Female D ate:03/10/2024 Address:[address] [place], [place] [phone] Subjective: * Chief Complaints: * ???1. Discuss weight loss op tions. * Medical History:? Objective: * Vitals:? Assessment: Plan: * Treatment: * Billing Information: * Visit Code:? * Procedure Codes:? * Electronic signature of Sarai Serrano on 06/24/2024 at 03:55 PM EDT Sign off status: Pending * Provider:?JET Berger Date:?03/10 Generated for Kelly wolf/Jim/Tony on:?06/24/2024 03:55 PM EDT
--- OUTSIDE RECORDS SUMMARY | 2024-06-24 15:55 | XMS_ITS | Patient Health Record ---
Author Organization [facility] Address [address] [place], [place] [phone] Care Team Providers Care Big Data Lead Name Role Phone Usama Garcia M.D. Primary Care Provider [phone] Fabrice CLAM SHOVEL OPERATOR-C, Suzy Unavailable Nitish CLAM SHOVEL OPERATOR-CDory Unavailable [phone] Allergies Allergen (clinical drug ingredient) Drug/Non Drug Allergy documented on EMR Reaction Allergy Type Onset Date Status morphine Morphine Unknown Drug Allergy Active Penicillin hives Drug Allergy active Reason For Referral Reason Evaluate and treat Diagnosis 1 Acute pulmonary embo lism without acute cor pulmonale, unspecified pulmonary embolism type (I26.99) Referral Organization [facility] Referring Provider First [...] acetaZOLAMIDE 250 MG TAKE 1 TABLET [facility] DA[facility] Oral for 8 Days [...] Problem Status W/U Status Risk Notes Problem 743425823 Morbid obesity (E66.01) Active confirmed Problem 047709123 Mixed hyperlipidemia (E78.2) Active confirmed Problem 17674134 Sleep apnea, unspecified type (G47.30) Active confirmed Problem 47264360 Hyperlipidemia, unspecified hyperlipidemia type (E78.5) Active confirmed Problem 01915117 Hypertension, unspecified type (I10) Active confirmed Vital Signs Temperature 97.6 degrees Fahrenheit 11/05/2023 Respiratory Rate 16 /min 07/10/2023 Blood pressure diastolic 116 mm Hg 11/05/2023 Oximetry 99 11/05/2023 Height 69 in 11/05/2023 Blood pressure systolic 158 mm Hg 11/05/2023 Weight 348 lbs 11/05/2023 BMI 51.39 11/05/2023 Encounters Encounter Location Date Provider Diagnosis [facility] [address] [place] [address] [address] [place], [place] [phone] 07/10/2023 Dory Small Hypertension, unspecified type I10 ; Idiopathic intracranial hypertension G93.2 ; Hospital discharge follow-up Z09 and Acute pulmonary embolism without acute cor pulmonale, unspecified pulmonary embolism type I26.99 [facility] [address] [place] [address] [place] [id number] 11/05/2023 Suzy Avina Prediabetes R73.03 ; Mixed hyperlipidemia E78.2 and Morbid obesity E66.01 [facility] [address] [place] [address] [address] [place], [place] [id number] 11/06/2023 Usama Garcia [facility] [address] [place] [address] [address] [place] [id number] 11/08/2023 Usama Garcia [facility] [address] [place] [address] [address] [place], [place] [id number] 11/08/2023 [facility] [address] [place] [id number] 11/12/2023 [facility] [address] [place] [id number] 11/16/2023 [facility] [address] [place] [id number] 02/08/2024 [facility] [address] [place] [id number] 07/21/2023 [facility] [address] [place] [id number] 07/21/2023 [facility] [address] [place] [address] [id number] 07/21/2023 [facility] [address] [place] [id number] 11/06/2023 [facility] Assessments Encounter Date Diagnosis (ICD Code) [...] (ICD-10 - I26.99) Dx on 07/03 in [place]. Pt was not admitted and was d'/c [...] Coverage End Date [employer] [address] [address] [place], [place] [id number] Radha Poe Self - patient is the insured Medical (General) History Medical History History ICD Code Hypertension Anemia Surgical History Surgery Date(Month/Year) partial hysterectomy 2001 Hospitalization History Reason Date(Month/Year) chest pain april 2022
--- OUTSIDE RECORDS SUMMARY | 2024-06-24 15:55 | XMS_ITS ---
Author Organization [facility] Address [address] [place], [place] [phone] Care Team Providers Care Pole Shaver Helper Name Role Phone Usama Garcia M.D. Primary Care Provider [phone] [facility] Unavailable [phone] REASON FOR VISIT Add Info Encounters Encounter Location Date Provider Diagnosis [facility] [address] [place], [place] [id number] 11/12/2023 Usama Garcia Plan Of Treatment No Information Progress Notes * Nayana ARENASOB: 2 (42 yo F)Acc No.[id number]:11/12/2023 Patient:?Radha ARENAS :1980???Age:42 Y???Sex:Female Address:[address] [place] [address], [address] * true * Date:? Generated for Printi ng/Faxing/eTransmitting on:?06/24/2024 03:55 PM EDT
--- OUTSIDE RECORDS SUMMARY | 2024-06-24 15:55 | XMS_ITS ---
Author Organization [facility] Address [address] [place], [place] [phone] Care Team Providers Care Energy Systems Laboratory Director Name Role Phone Usama Garcia M.D. Primary Care Provider [phone] Avina MICROSOFT APPLICATION DEVELOPER-C, Suzy Unavailable REASON FOR VISIT rx change. wegovy not covered Encounters Encounter Location Date Provider Diagnosis [facility] [address] [place], [place] [id number] 11/16/2023 Usama Garcia Plan Of Treatment No Information Progress Notes * Nayana ARENASOB: 2 (42 yo F)Acc No.[id number]:11/16/2023 Patient:?Radha ARENAS :1980???Age:42 Y???Sex:Female Address:[address] [place] [address], [address] * true * Date:? Generated for Printi ng/Faxing/eTransmitting on:?06/24/2024 03:54 PM EDT
--- OUTSIDE RECORDS SUMMARY | 2024-06-24 15:55 | XMS_ITS | Data Portability ---
Author Organization [place] - Dr Haley turpin, [facility] - Address [address] [place] [address] Assessment No assessment recorded. Plan of Treatment Reminders Order Date Submit Date Provider Last Modified By Organization Details Last Modified Time Details Appointments None recorded. Lab urinalysis, dipstick 2023 024 [email or web address] 4 Haley Barajas MD, [address] [place], [address], 4 12:09:17 culture, urine 2023 024 ELD[facility] ([facility]), [address], [place], [address], 4 02:03:36 bacterial vaginosis + vaginitis panel, vaginal 2023 024 [email or web address] ([facility]), [address], [place], [address], 4 12:50:57 lipid panel, serum 2023 024 [facility] ([facility]), [address], [place], [address], 4 17:14:03 CMP, serum or plasma 2023 024 [facility] ([facility]), [address], [place], [address], 4 17:14:04 hereditary breast + gynecologic cancer multigene analysis, blood or tissue 2023 024 [email or web address] [facility], [address], [place], [address], 4 14:52:14 T4, free, serum 2023 024 [facility]), [address], [place], [address], 4 17:14:06 TSH, serum or plasma 2023 024 [facility]), [address], [place], [address], 4 17:14:06 HIV (1+2) Ab screen, serum 2023 024 ELD[facility] ([facility]), [address], [place], [address], 4 17:14:05 RPR (rapid plasma reagin), serum 2023 024 [facility]), [address], [place], [address], 4 17:14:08 HBsAg (hepatitis B surface Ag), serum 2023 024 [facility]), [address], [place], [address], 4 17:14:07 CT + NG DNA, PCR, unspecified specimen [email or web address] [facility] -[facility] ([facility]), [address], [place], [address], 4 14:52:14 hepatitis C virus Ab, serum 2023 024 [facility] -[facility] ([facility]), [address], [place], [address], 4 17:14:07 CBC 2023 024 [facility] -[facility] ([facility]), [address], [place], [address], 4 17:14:04 HbA1c (hemoglobin A1c), blood 2023 024 [facility] ([facility]), [address], [place], [address], 4 17:14:05 lipid panel, serum 2022 023 [facility] ([facility]), [address], [place], [address], 3 10:56:57 CMP, serum or plasma 2022 023 [facility] ([facility]), [address], [place], [address], 3 10:56:59 TSH, serum or plasma 2022 023 [facility] ([facility]), [address], [place], [address], 3 10:57:00 T4, free, serum 2022 023 [facility] ([facility]), [address], [place], [address], 3 10:57:00 pap, LB 2022 023 [facility] ([facility]), [address], [place], [address], 3 15:29:20 genetic screen, unspecified specimen 2022 023 [facility], [address], [place], [address], 3 15:01:20 CT + NG DNA, PCR, unspecified specimen 2022 023 [facility] ([facility]), [address], [place], [address], 3 15:29:21 RPR (rapid plasma reagin), serum 2022 023 [facility] ([facility]), [address], [place], [address], 3 10:57:03 HIV (1+2) Ab screen, serum 2022 023 [facility] ([facility]), [address], [place], [address], 3 10:57:01 HBsAg (hepatitis B surface Ag), serum 2022 023 [facility] ([facility]), [address], [place], [address], 3 10:57:02 hepatitis C virus Ab, serum 2022 023 [facility] ([facility]), [address], [place], [address], 3 10:57:02 HbA1c (hemoglobin A1c), blood 2022 023 [facility] ([facility]), [address], [place], [address], 3 10:56:59 CBC 2022 023 [facility] ([facility]), [address], [place], [address], 3 10:56:58 Referral None recorded. Procedures None recorded. Surgeries None recorded. Imaging US, pelvis, complete 2023 024 [email or web address] Not available 4 11:50:01 MAMMO, screening, digital, bilateral 2023 024 ELDON [facility], [address], [place], [address], 4 14:04:49 MAMMO, screening, digital, bilateral 2022 023 [email or web address] [facility], [address], [place], [address], 3 15:08:06 Medication Orders None recorded. Patient TargetsNo targets recorded. Patient Instructions Encounter Date Encounter Id Patient Instructions Last Modified By Organization Details Last Modified Time 07/09/2022 [id number] Pap collected. Labwork ordered. Mammo ordered. Instructed to RTO in 2 days for weight loss consultation [email or web address] Not available 07/09/2022 11:51:15 10/05/2023 [id number] Recommend 5 servings of fruits and vegetables [...] year for annual Notify office as needed [email or web address] Not available 10/05/2023 11:01:02 Strongly encouraged pt to go back to provider managing BP meds so that she can have meds for HTN adjusted. PC labs today & referred to [facility] for new provider that takes her insurance. 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 [email or web address] Not available 10/05/2023 12:10:18 10/13/2023 [id number] Ultrasound reviewed by Dr. Cortes Agree with [...] -[facility] ([facility]) [address] [facility] [address], [place], [address], 07/10/2022 10:56:57 07/10/1907/10/2022 LIPID PANEL triglyceride s 151 mg/dL <150 high Not Available Path oup -[facility] ([facility]) [facility] [address], [place], [address], 07/10/2022 10:56:57 07/10/19 23 07/10/2022 LIPID PANEL HDL cholesterol 59 mg/dL >39 Not Available Path group [facility] ([facility]) [address] [place] [address] [address], [place], [address], 07/10/2022 10:56:57 07/10/19 23 07/10/2022 LIPID PANEL cholesterol / HDL ratio 3.42 ratio 0.00-4 .44 Not Available [facility] ([facility]) [address] [place] [address] [address], [place], [address], 07/10/2022 10:56:57 07/10/19 23 07/10/2022 LIPID PANEL non-HDL cholesterol 143 mg/dL <130 high Not Available [facility] [[email or web address]] [facility] ([facility]) [address] [place] [address] [address], [place], [address], 07/10/2022 10:56:57 07/10/19 23 07/10/2022 LIPID PANEL [...] 2004 ATPII I guide lines Not Available [email or web address]] [facility] ([facility]) [facility] [address], [place], [address], 07/10/2022 10:56:57 07/10/19 23 07/10/2022 LIPID PANEL LDL/HDL ratio 1.9 ratio <3.3 ___ LDL Fany stero l Patie nt Histo ry ___ Test Date: 07/09 LDL Resul ts: 113 Units : mg/dL % Silva e: - ___ Not Available [facility] -[facility] ([facility]) [address] [place] [address] Dr Marie [facility], [place], [address], 07/10/2022 10:56:57 07/10/19 23 07/10/2022 CBC WITH PLATE LET NO DIFFE RENTI AL WBC 6.5 K/uL 3.8-11 .5 Not Available [email or web address]] [facility] ([facility]) [address] [place] [address] Dr [address] [facility], [place], [address], 07/10/2022 10:56:58 07/10/19 23 07/10/2022 CBC WITH PLATE LET NO DIFFE RENTI AL red blood cell count (RBC) 4.28 M/mm3 3.60-5 .30 Not Available [email or web address] ([facility]) [address] [place] [address] [address], [place], [address], 07/10/2022 10:56:58 07/10/19 23 07/10/2022 CBC WITH PLATE LET NO DIFFE RENTI AL hemoglobin (HGB) 11.9 gm/dL 11.5-1 5.5 Not Available [email or web address] ([facility]) [address] [place] [address] [address], [place], [address], 07/10/2022 10:56:58 07/10/19 23 07/10/2022 CBC WITH PLATE LET NO DIFFE RENTI AL hematocrit (HCT) 36.1 % 35.2-4 6.4 Not Available [facility] ([facility]) [address] [place] [address] [address], [place], [address], 07/10/2022 10:56:58 07/10/19 23 07/10/2022 CBC WITH PLATE LET NO DIFFE RENTI AL MCV 84.3 fL 79.0-9 9.0 Not Available [facility] ([facility]) [address] [place] [address] [address], [place], [address], 07/10/2022 10:56:58 07/10/19 23 07/10/2022 CBC WITH PLATE LET NO DIFFE RENTI AL MCH 27.8 pg 26.9-3 5.0 Not Available [facility] ([facility]) [address] [place] [address] [address], [place], [address], 07/10/2022 10:56:58 07/10/19 23 07/10/2022 CBC WITH PLATE LET NO DIFFE RENTI AL MCHC 33.0 g/dL 30.4-3 4.8 Not Available [facility] ([facility]) [address] [place] [address] [address], [place], [address], 07/10/2022 10:56:58 07/10/19 23 07/10/2022 CBC WITH PLATE LET NO DIFFE RENTI AL RDW 44.8 fL 38.6-5 3.8 Not Available [facility] ([facility]) [address] [place] [address] [address], [place], [address], 07/10/2022 10:56:58 07/10/19 23 07/10/2022 CBC WITH PLATE LET NO DIFFE RENTI AL platelet count 337 K/cum m 137-39 7 Not Available [facility] ([facility]) [address] [place] [address] [address], [place], [address], 07/10/2022 10:56:58 07/10/19 23 07/10/2022 COMPR EHENS JESENIA METAB OLIC PANEL (CMP) sodium 137 mEq/L 135-14 5 Not Available [facility] ([facility]) [address] [place] [address] [address], [place], [address], 07/10/2022 10:56:59 07/10/19 23 07/10/2022 COMPR EHENS JESENIA METAB OLIC PANEL (CMP) potassium 4.2 mEq/L 3.5-5. 3 Not Available [facility] ([facility]) [address] [place] [address] [address], [place], [address], 07/10/2022 10:56:59 07/10/19 23 07/10/2022 COMPR EHENS JESENIA METAB OLIC PANEL (CMP) chloride 100 mEq/L 97-108 Not Available [email or web address] ([facility]) [address] [place] [address] [address], [place], [address], 07/10/2022 10:56:59 07/10/19 23 07/10/2022 COMPR EHENS JESENIA METAB OLIC PANEL (CMP) CO2 30 mEq/L 22-32 Not Available [facility] ([facility]) [address] [place] [address] [address], [place], [address], 07/10/2022 10:56:59 07/10/19 23 07/10/2022 COMPR EHENS JESENIA METAB OLIC PANEL (CMP) glucose 100 mg/dL 65-99 high Not Available [facility] ([facility]) [address] [place] [address] [address], [place], [address], 07/10/2022 10:56:59 07/10/19 23 07/10/2022 COMPR EHENS JESENIA METAB OLIC PANEL (CMP) BUN 10 mg/dL 6-20 Not Available [facility] ([facility]) [address] [place] [address] [address], [place], [address], 07/10/2022 10:56:59 07/10/19 23 07/10/2022 COMPR EHENS JESENIA METAB OLIC PANEL (CMP) creatinine 0.82 mg/dL 0.50-1 .00 Not Available [facility] ([facility]) [address] [place] [address] [address], [place], [address], 07/10/2022 10:56:59 07/10/19 23 07/10/2022 COMPR EHENS JESENIA METAB OLIC PANEL (CMP) calcium 9.3 mg/dL 8.6-10 .4 Not Available [facility] ([facility]) [address] [place] [address] [address], [place], [address], 07/10/2022 10:56:59 07/10/19 23 07/10/2022 COMPR EHENS JESENIA METAB OLIC PANEL (CMP) protein 7.8 g/dL 6.0-8. 3 Not Available [facility] ([facility]) [address] [place] [address] [address], [place], [address], 07/10/2022 10:56:59 07/10/19 23 07/10/2022 COMPR EHENS JESENIA METAB OLIC PANEL (CMP) albumin 4.1 g/dL 3.5-5. 3 Not Available [facility] ([facility]) [address] [place] [address] [address], [place], [address], 07/10/2022 10:56:59 07/10/19 23 07/10/2022 COMPR EHENS JESENIA METAB OLIC PANEL (CMP) alkaline phosphatase 141 IU/L 35-121 high Not Available Path group -[facility] ([facility]) [address] [place] [address] [address], [place], [address], 07/10/2022 10:56:59 07/10/19 23 07/10/2022 COMPR EHENS JESENIA METAB OLIC PANEL (CMP) ALT (SGPT) 16 IU/L <5-47 Not Available Patho up -[facility] ([facility]) [address] [place] [address] [address], [place], [address], 07/10/2022 10:56:59 07/10/19 23 07/10/2022 COMPR EHENS JESENIA METAB OLIC PANEL (CMP) AST (SGOT) 14 IU/L <5-40 Not Available Patho -[facility] ([facility]) [address] [place] [address] [address], [place], [address], 07/10/2022 10:56:59 07/10/19 23 07/10/2022 COMPR EHENS JESENIA METAB OLIC PANEL (CMP) bilirubin, total 0.3 mg/dL <0.2-1 .2 Not Available [facility] ([facility]) [address] [place] [address] [address], [place], [address], 07/10/2022 10:56:59 07/10/19 23 07/10/2022 COMPR EHENS JESENIA METAB OLIC PANEL (CMP) A/G ratio 1.1 mg/dL 1.1-2. 5 Not Available [facility] ([facility]) [address] [place] [address] [address], [place], [address], 07/10/2022 10:56:59 07/10/19 23 07/10/2022 COMPR EHENS JESENIA METAB OLIC PANEL (CMP) estimated GFR (black) 103 mL/mi n/1.7 3m2 >59 Not Available [facility] ([facility]) [address] [facility] [address], [place], [address], 07/10/2022 10:56:59 07/10/19 23 07/10/2022 COMPR EHENS [...] e mass or diet. Not Available [facility] -[facility] ([facility] [place]) [facility] [address], [place], [address], 07/10/2022 10:56:59 07/10/19 23 07/10/2022 HEMOG LOBIN [...] <5.7% Non-D iabet ic Not Available [facility] -[facility] ([facility]) [address] [place] [address] [address], [place], [address], 07/10/2022 10:56:59 07/10/19 23 07/10/2022 HEMOG LOBIN A1C estimated average glucose 123 mg/dL [place] ge Gluco se is calcu lated using the equat ion AG = (28.7 x HgbA1 c) - 46.7 based on the guide lines estab nicolas brunson by the ADA. Not Available [facility] ([facility]) [address] [place] [address] [address], [place], [address], 07/10/2022 10:56:59 07/10/19 23 07/10/2022 TSH TSH 2.74 mU/L 0.43-5 .25 Not Available [email or web address] ([facility] [employer] [facility]) [address] [place] [address] [address], [place], [address], 07/10/2022 10:57:00 07/10/19 23 07/10/2022 THYRO XINE FREE (FREE T4) thyroxine free (free T4) 1.04 NG/dL 0.86-1 .76 Not Available [facility] ([facility]) [address] [place] [address] [address], [place], [address], 07/10/2022 10:57:00 07/10/19 23 07/10/2022 HIV 1/2 AB SCREE N W/P24 AG HIV 1/2 Ab screen w/p24ag Nonrea ctive nonrea ctive Not Available [email or web address] ([facility]) [address] [place] [address] [address], [place], [address], 07/10/2022 10:57:01 07/10/19 23 07/10/2022 HEPAT ITIS B SURFA CE ANTIG EN (HBSA G) hepatitis B surface antigen (HBsAg) Nonrea ctive nonrea ctive Not Available [email or web address] ([facility]) [address] [place] [address] [address], [place], [address], 07/10/2022 10:57:02 07/10/19 23 07/10/2022 HEPAT ITIS C ANTIB FARAZ (HCV) IGG hepatitis C antibody (HCV) IgG Nonrea ctive nonrea ctive Not Available [facility] ([facility]) [address] [facility], [place], [address], 07/10/2022 10:57:02 07/10/19 23 07/10/2022 RPR (NON- TREPO NEMAL ) REFLE X TO CONFI RMATI ON RPR (non-trepone mal) reflex to confirmation Nonrea ctive nonrea ctive Not Available [facility]) [address] [facility] [address], [place], [address], 07/10/2022 10:57:03 07/10/19 23 07/11/2022 PAP TEST [...] Techn ical servi meaghan provi ded by [facility] iated Patho logis [email or web address], [facility], d/b/a PathG rou, [address] [place] [address] Richar Wallace MD, Labor [facility]. Case revie wed and diagn osis rende red at [facility], d/b/a Path[facility], [address] [place] [address] Richar Wallace MD, Labor [facility]. CONFI DENTI AL Not Available [facility] ([facility]) [address] [place] [address] [address], [place], [address], 07/11/2022 15:29:20 07/10/19 23 07/10/2022 CHLAM YDIA, [...] perfo rmed by [email or web address] d/b/a Path[facility] rou, [address], [place] [address] , Daniel Ramos ra, DO, Labor [facility], CLIA# [id number] Not Available [facility] ([facility]) [address] [place] [address], [place], [address], 07/11/2022 15:29:21 07/10/19 23 07/10/2022 CHLAM YDIA, [...] logis ts, LLC d/b/a [place], [address] [facility] [address], [place] [address] , Daniel Ramos ra, DO, Labor atory [facility], [facility]# [id number] Not Available [facility] -[facility] ([facility]) [address] [facility] [address], [place], [address], 07/11/2022 15:29:21 07/10/19 23 07/10/2022 CHLAM YDIA, [...] perfo rmed by [facility] log[facility] [email or web address], [facility] d/b/a Heike irene, [address] [facility] [address], [place] [address] , Daniel Ramos ra, DO, Labor [facility], CLIA# [id number] Not Available [facility] ([facility]) [facility] [address], [place], [address], 07/11/2022 15:29:21 07/10/19 23 07/10/2022 HPV HIGH [...] and labor atory findi ngs. See https ://Mopapp/s moose/ lyla lt/fi les/2 018-0 3/AW- 72106 _002_ 01.pd f for fur er infor matio n. Test perfo rmed by [facility]oc [facility] log[facility] [email or web address], [place], d/b/a [place], [address] [facility] [address], [place] [address] , Daniel Ramos ra, DO, Labor [facility]. Not Available [facility] ([facility]) [facility] [address], [place], [address], 07/11/2022 15:29:22 07/10/19 23 07/09/2022 EMPOW ER report summary VUS normal Negat jesenia for 53 out of 53 genes . A varia nt of uncer tain signi fican ce (VUS) was detec xiomara in the MLH1 gene( s). A VUS means that a silva e in the DNA was detec xiomara, but there is not enoug h infor matio n to deter mine [facility] er or not the silva [...] ozygo us varia nt of [facility] luna y[place]oah ce (VUS) was detec xiomara in the MLH1 gene as tabul ated above . Not Available [facility] [address] [facility] [address], [place], [address], 07/21/2022 15:13:25 07/10/19 23 07/09/2022 EMPOW ER footnotes See Notes CLIA: ID #[id number] 2 Test perfo rmed by [employer]. [address] [facility] [address] [place] [address] Arielle Stephens, Ph.D. , [facility] , Labor atory Direc tor Not Available [facility] [address], [place], [address], 07/21/2022 15:13:25 10/05/19 24 10/06/2023 LIPID PANEL cholesterol 207 mg/dL <200 high Not Available [facility] ([facility]) [address] [facility] [address], [place], [address], 10/06/2023 17:14:03 10/05/19 24 10/06/2023 LIPID PANEL triglyceride s 126 mg/dL <150 Not Available [facility] ([facility]) [address] [facility] [address], [place], [address], 10/06/2023 17:14:03 10/05/19 24 10/06/2023 LIPID PANEL HDL cholesterol 54 mg/dL >39 Not Available [email or web address] ([facility]) [facility] [address], [place], [address], 10/06/2023 17:14:03 10/05/19 24 10/06/2023 LIPID PANEL cholesterol / HDL ratio 3.83 ratio 0.00-4 .44 Not Available [email or web address] ([facility]) [address] [place] [address] [address], [place], [address], 10/06/2023 17:14:03 10/05/19 24 10/06/2023 LIPID PANEL non-HDL cholesterol 153 mg/dL <130 high Not Available [facility] [[email or web address]] [facility] ([facility]) [address] [place] [address] Dr [address], [place], [address], 10/06/2023 17:14:03 10/05/19 24 10/06/2023 LIPID PANEL [...] 2004 ATPII I guide lines Not Available [email or web address] ([facility]) [facility] [address], [place], [address], 10/06/2023 17:14:03 10/05/19 24 10/06/2023 LIPID PANEL [...] Silva e: +13% ___ Not Available [facility] ([facility]) [facility], [place], [address], 10/06/2023 17:14:03 10/05/1910/06/2023 CBC WITH PLATE LET NO DIFFE RENTI AL WBC 7.4 K/uL 3.8-11 .5 Not Available [facility] ([facility]) [address], [place], [address], 10/06/2023 17:14:04 10/05/19 24 10/06/2023 CBC WITH PLATE LET NO DIFFE RENTI AL red blood cell count (RBC) 4.33 M/mm3 3.60-5 .30 Not Available [facility] ([facility]) [address] [place] [address] [address], [place], [address], 10/06/2023 17:14:04 10/05/19 24 10/06/2023 CBC WITH PLATE LET NO DIFFE RENTI AL hemoglobin (HGB) 12.0 gm/dL 11.5-1 5.5 Not Available [email or web address] ([facility]) [address] [place] [address] [address], [place], [address], 10/06/2023 17:14:04 10/05/19 24 10/06/2023 CBC WITH PLATE LET NO DIFFE RENTI AL hematocrit (HCT) 37.3 % 35.2-4 6.4 Not Available [email or web address] ([facility]) [address] [place] [address] [address], [place], [address], 10/06/2023 17:14:04 10/05/19 24 10/06/2023 CBC WITH PLATE LET NO DIFFE RENTI AL MCV 86.1 fL 79.0-9 9.0 Not Available [facility] ([facility]) [address] [place] [address] [address], [place], [address], 10/06/2023 17:14:04 10/05/19 24 10/06/2023 CBC WITH PLATE LET NO DIFFE RENTI AL MCH 27.7 pg 26.9-3 5.0 Not Available [facility] ([facility]) [address] [place] [address] [address], [place], [address], 10/06/2023 17:14:04 10/05/19 24 10/06/2023 CBC WITH PLATE LET NO DIFFE RENTI AL MCHC 32.2 g/dL 30.4-3 4.8 Not Available [email or web address] ([facility]) [address] [place] [address] [address], [place], [address], 10/06/2023 17:14:04 10/05/19 24 10/06/2023 CBC WITH PLATE LET NO DIFFE RENTI AL RDW 44.3 fL 38.6-5 3.8 Not Available [facility] ([facility]) [address] [place] [address] [address], [place], [address], 10/06/2023 17:14:04 10/05/19 24 10/06/2023 CBC WITH PLATE LET NO DIFFE RENTI AL platelet count 324 K/cum m 137-39 7 Not Available [facility] ([facility]) [address] [place] [address] Dr [address], [place], [address], 10/06/2023 17:14:04 10/05/19 24 10/06/2023 COMPR EHENS JESENIA METAB OLIC PANEL (CMP) sodium 138 mmol/ L 135-14 5 Not Available [facility] ([facility]) [address] [place] [address] [address], [place], [address], 10/06/2023 17:14:04 10/05/19 24 10/06/2023 COMPR EHENS JESENIA METAB OLIC PANEL (CMP) potassium 4.4 mmol/ L 3.5-5. 3 Not Available [facility] ([facility]) [address] [place] [address] [address], [place], [address], 10/06/2023 17:14:04 10/05/19 24 10/06/2023 COMPR EHENS JESENIA METAB OLIC PANEL (CMP) chloride 101 mmol/ L 97-108 Not Available [facility] ([facility]) [address] [place] [address] [address], [place], [address], 10/06/2023 17:14:04 10/05/19 24 10/06/2023 COMPR EHENS JESENIA METAB OLIC PANEL (CMP) CO2 27 mmol/ L 22-32 Not Available [facility] ([facility]) [address] [place] [address] [address], [place], [address], 10/06/2023 17:14:04 10/05/19 24 10/06/2023 COMPR EHENS JESENIA METAB OLIC PANEL (CMP) glucose 99 mg/dL 65-99 Not Available [facility] ([facility]) [address] [place] [address], [place], [address], 10/06/2023 17:14:04 10/05/19 24 10/06/2023 COMPR EHENS JESENIA METAB OLIC PANEL (CMP) BUN 11 mg/dL 6-20 Not Available [facility] ([facility]) [address] [place] [address], [place], [address], 10/06/2023 17:14:04 10/05/19 24 10/06/2023 COMPR EHENS JESENIA METAB OLIC PANEL (CMP) creatinine 1.04 mg/dL 0.50-1 .00 high Not Available [facility] ([facility]) [address] [place] [address], [place], [address], 10/06/2023 17:14:04 10/05/19 24 10/06/2023 COMPR EHENS JESENIA METAB OLIC PANEL (CMP) calcium 9.1 mg/dL 8.6-10 .4 Not Available [facility] ([facility]) [address] [place] [address], [place], [address], 10/06/2023 17:14:04 10/05/19 24 10/06/2023 COMPR EHENS JESENIA METAB OLIC PANEL (CMP) eGFR by creatinine 69 mL/mi n/1.7 3m2 >59 Not Available [facility] ([facility]) [address] [place] [address], [place], [address], 10/06/2023 17:14:04 10/05/19 24 10/06/2023 COMPR EHENS JESENIA METAB OLIC PANEL (CMP) protein 7.5 g/dL 6.0-8. 3 Not Available [facility] ([facility]) [address] [place] [address] [address], [place], [address], 10/06/2023 17:14:04 10/05/19 24 10/06/2023 COMPR EHENS JESENIA METAB OLIC PANEL (CMP) albumin 4.1 g/dL 3.5-5. 3 Not Available [facility] ([facility]) [address] [place] [address] [address], [place], [address], 10/06/2023 17:14:04 10/05/19 24 10/06/2023 COMPR EHENS JESENIA METAB OLIC PANEL (CMP) alkaline phosphatase 131 IU/L 35-121 high Not Available [facility] ([facility]) [address] [place] [address] [address], [place], [address], 10/06/2023 17:14:04 10/05/19 24 10/06/2023 COMPR EHENS JESENIA METAB OLIC PANEL (CMP) ALT (SGPT) 11 IU/L <5-47 Not Available [facility] ([facility]) [address] [place] [address] [address], [place], [address], 10/06/2023 17:14:04 10/05/19 24 10/06/2023 COMPR EHENS JESENIA METAB OLIC PANEL (CMP) AST (SGOT) 14 IU/L <5-40 Not Available [facility] ([facility]) [address] [place] [address] [address], [place], [address], 10/06/2023 17:14:04 10/05/19 24 10/06/2023 COMPR EHENS JESENIA METAB OLIC PANEL (CMP) bilirubin, total 0.2 mg/dL <0.2-1 .2 Not Available [facility] ([facility]) [facility] [address], [place], [address], 10/06/2023 17:14:04 10/05/19 24 10/06/2023 COMPR EHENS JESENIA METAB OLIC PANEL (CMP) A/G ratio 1.2 1.1-2. 5 Not Available [email or web address] ([facility]) [address] [facility] [address], [place], [address], 10/06/2023 17:14:04 10/05/19 24 10/06/2023 HIV 1/2 AB SCREE N W/P24 AG HIV 1/2 Ab screen w/p24ag Nonrea ctive nonrea ctive Not Available [facility] ([facility]) [address] [place] [address] [address], [place], [address], 10/06/2023 17:14:05 10/05/19 24 10/06/2023 HEMOG LOBIN [...] ic <5.7% Non-D iabet ic Not Available [email or web address] ([facility]) [facility] [address], [place], [address], 10/06/2023 17:14:05 10/05/19 24 10/06/2023 HEMOG LOBIN A1C estimated average glucose 125 mg/dL [place] ge Gluco se is calcu lated using the equat ion AG = (28.7 x HgbA1 c) - 46.7 based on the guide lines estab lishe d by the ADA. Not Available [email or web address] ([facility]) [facility] [address], [place], [address], 10/06/2023 17:14:05 10/05/19 24 10/06/2023 TSH TSH 1.77 mU/L 0.43-5 .25 Not Available [facility] [address] [place] [address] [address], [place], [address], 10/06/2023 17:14:06 10/05/19 24 10/06/2023 THYRO XINE FREE (FREE T4) thyroxine free (free T4) 1.06 NG/dL 0.86-1 .76 Not Available [facility] ([facility]) [address] [place] [address] [address], [place], [address], 10/06/2023 17:14:06 10/05/19 24 10/06/2023 HEPAT ITIS B SURFA CE ANTIG EN (HBSA G) hepatitis B surface antigen (HBsAg) Nonrea ctive nonrea ctive Not Available [facility] ([facility]) [address] [place] [address] Dr [address], [place], [address], 10/06/2023 17:14:07 10/05/19 24 10/06/2023 HEPAT ITIS C ANTIB FARAZ (HCV) IGG hepatitis C antibody (HCV) IgG Nonrea ctive nonrea ctive Not Available [facility] ([facility]) [address] [place] [address] Dr [address], [place], [address], 10/06/2023 17:14:07 10/05/19 24 10/06/2023 RPR (NON- [...] is clini darlin suspe cted. Not Available [facility] ([facility]) [address] [facility] [address], [place], [address], 10/06/2023 17:14:07 10/05/19 24 10/07/2023 CULTU RE, URINE specimen source Urine - Void Not Available [facility] ([facility]) [address] [facility] [address], [place], [address], 10/07/2023 02:03:33 10/05/19 24 10/07/2023 CULTU RE, URINE culture, urine See Below Final Repor t : No growt h Not Available [facility] ([facility]) [address] [facility] [address], [place], [address], 10/07/2023 02:03:33 10/05/19 24 10/06/2023 VAGIN ITIS [...] Patho logis ts, LLC, d/b/a Hoa bonilla, [facility]0 [facility] [address], [place] [address] , Daniel Ramos ra, DO, Labor atory [...] chelo resul ts of [place] l or [place] xiomara are deter mined by calcu latin [...] e nakul cteri stics deter mined by [employer], [facility] d/b/a Path[facility] rouberenice. It has not been clear ed or appro edel by the U.S. Food and Drug Admin istra tion. The FDA has deter mined that such clear ance or appro juan carlos is not neces ivana. Perti nent refer ence inter vals are avail able from the labor atory on reque st. Test( s) perfo rmed by [facility], [place], d/b/a Path[facility] roup, [address], [place] [address] , Daniel Ramos ra, DO, Labor atory Direc tor. Not Available [facility] ([facility]) [address], [place], [address], 10/07/2023 12:50:56 10/05/19 24 10/07/2023 VAGIN ITIS [...] logis ts, LLC, d/b/a PathG rou, [address], [place] [address] , Daniel Ramos ra, DO, Labor atory [...] chelo resul ts of [place] or [place] xiomara are deter mined by calcu latin [...] e nakul cteri stics deter mined by [employer], [place] d/b/a Path Zorap. It has not been clear ed or appro edel by the U.S. Food and Drug Admin istra tion. The FDA has deter mined that such clear ance or appro juan carlos is not neces ivana. Perti nent refer ence inter vals are avail able from the [employer] atory on [address]. Test( s) perfo rmed by [employer], [facility] [place], d/b/a [facility] Zorap, [address], [place] [address] , Daniel Ramos ra, DO, Labor atory Dire tor. Not Available [facility] ([facility]) [address] [facility] [address], [place], [address], 10/07/2023 12:50:56 10/05/19 24 10/07/2023 VAGIN ITIS [...] [address], [facility] [place] [address] , Daniel Ramos ra, DO, Labor atory [...] chelo resul ts of [place] or [place] xiomara are deter mined by calcu latin [...] e nakul cteri stics deter mined by [employer] iated Patho logis ts, LLC d/b/a PathG [...] logis ts, LLC, d/b/a PathG roup, [address], [place] [address] , Daniel Ramos ra, , Labor atory Direc tor. Not Available [facility] ([facility]) [address], [place], [address], 10/07/2023 12:50:56 10/05/19 24 10/06/2023 CHLAM YDIA [...] [address], [place] [address] , Daniel Ramos ra, DO, Labor atory Direc tor, CLIA# [id number] Not Available [facility] ([facility]) [address], [place], [address], 10/07/2023 12:50:58 10/05/19 24 10/06/2023 CHLAM YDIA [...] logis ts, LLC d/b/a PathKike bonilla, [address] [facility] [address], [place] [address] , Daniel Ramos ra, DO, Labor atory [facility], CLIA# [id number] Not Available [facility] ([facility]) [address] [facility] [address], [place], [address], 10/07/2023 12:50:58 10/05/19 24 10/05/2023 EMPOW ER MULTI -CANC ER,EX P(2+5 1) report summary OTHER normal Test Not Perfo rmed Dupli marichuy test. Empow er 53 panel previ ously resul xiomara under 03 Test was not perfo rmed. Refer to speci fic detai ls below . Not Available [facility] [address], [place], [address], 10/28/2023 21:34:33 10/05/19 24 10/05/2023 EMPOW ER MULTI -CANC ER,EX P(2+5 1) footnotes See Notes CLIA: ID #[id number] 2 Test perfo rmed by [employer]. [address] [facility] [address] [place] [address] Arielle Stephens, Ph.D. , [facility] , Labor atory Direc tor Not Available [facility] [address], [place], [address], 10/28/2023 21:34:33 10/05/19 24 10/05/2023 urina lysis , dipst ick Leukocytes neg Not Available Haley Barajas MD [address] [place] [address], [address], 10/05/2023 11:05:11 10/05/19 24 10/05/2023 urina lysis , dipst ick Nitrite negati ve Not Available Haley Barajas MD [facility] [place], [address], 10/05/2023 11:05:11 10/05/19 24 10/05/2023 urina lysis , dipst ick Protein +++ Not Available Haley Barajas MD [facility] [place], [address], 10/05/2023 11:05:11 10/05/19 24 10/05/2023 urina lysis , dipst ick Blood neg Not Available Haley Barajas MD [facility] [place], [address], 10/05/2023 11:05:11 10/05/19 24 10/05/2023 urina lysis , dipst ick Ketone neg Not Available Haley Barajas MD [facility] [place], [address], 10/05/2023 11:05:11 10/05/19 24 10/05/2023 urina lysis , dipst ick Glucose neg Not Available Haley Barajas MD [facility] [place], [address], 10/05/2023 11:05:11 10/05/19 24 10/05/2023 urina lysis , dipst ick Color yellow Not Available Haley Barajas MD [address] [place], [address], 10/05/2023 11:05:11 10/13/19 24 10/13/2023 US, pelvi s, compl ete No observ ation record ed. [email or web address] Not Available 2023 15:05:21 10/15/19 24 10/09/2023 MAMMO , scree sylvia, digit al, bilat eral No observ ation record ed. [facility] [address], [place], [address], 10/15/2023 15:47:00 Result Notes None recorded. Procedures Surgical History Date Name Laterality Status Provider Name and Address Organization Details Recorded Time 10/13/19 24 Pelvic Transvaginal Non-OB completed Kristy Cortes MD [address] [facility], [place], [address], [facility] - Dr Haley Barajas 10/17/2023 21:54:12 07/10/19 23 Date of Last Pap Smear completed Ellen Armstrong CNM [address] [facility],[address], [place], [address], [place] - Dr Haley Barajas 10/05/2023 [...] [facility] [address], [place], [address], 10/15/2023 15:47:00 Procedure Notes None recorded. Medical Equipment None Reported. Allergies Allergen ID Allergen Name Allergen Category Reaction Reaction Severity Criticality Documentation Date Start Date Code Code System Note Provider Name and Address Organization Details Recorded Time 7656 morphine medicatio n hives Not available Not available 07/09/2022 7052 RxNorm Kristy Cortes MD [address] [facility],[place], [address], [facility] - Dr Haley Barajas 3 09:59:42 7657 Product containin g penicilli n (product) medicatio n hives Not available Not available 07/09/2022 53061 8001 SNOMED Kristy Cortes MD [address] [facility],[place], [address], [facility] - Dr Haley Barajas 3 10:00:00 [...] Updated DateTime 07/09/2022 175.26 cm 51.8 kg/m2 908518.2 g 130 mm[Hg] 80 mm[Hg] Zuly Barajas 3 09:48:27 Date Recorded Body height Body mass index (BMI) Body weight Systolic blood pressure Diastolic blood pressure Provider Name and Address Organization Details Last Updated DateTime 10/05/2023 175.26 cm 51.1 kg/m2 011681.2 4 g 150 mm[Hg] 100 mm[Hg] Ismael Barajas 4 10:55:27 Social History Question Answer Notes LastModified by Organizat ion Details LastModified Time Are You Blind Or Do You Have Difficulty Seeing? No [email or web address] Information not available 07/09/2022 In The 14 Days Before Symptom Onset, Have You Had Close Contact With A Laboratory-confirme d COVID-19 While That Case Was Ill? No [email or web address] Information n ot available 07/09/2022 In The 14 Days Before Symptom Onset, Have You Had Close Contact With A Person Who Is Under Investigation For COVID-19 While That Person Was Ill? No [email or web address] Information not available 07/09/2022 Have You Been To An Area Known To Be High Risk For COVID-19? No [email or web address] Information not available 07/09/2022 Are You Deaf Or Do You Have Serious Difficulty Hearing? No [email or web address] Information not available 07/09/2022 What Type Of Diet Are You Following? REGULAR [email or web address] Information n ot available 07/09/2022 Sex: Unknown Functional Status Question Answer Note LastModified by Organizat ion Details LastModified Time Do you have difficulty walking or climbing stairs? No [email or web address] Information not available 07/09/2022 Do you have transportation difficulties? No [email or web address] Information not available 07/09/2022 Do you have difficulty doing errands alone? No [email or web address] Information not available 07/09/2022 Are you able to care for yourself? Yes [email or web address] Information not available 07/09/2022 Do you have difficulty dressing or bathing? No [email or web address] Information not available 07/09/2022 What is your exercise level? None [email or web address] Information not available 07/09/2022 Mental Status Question Answer Note LastModified by Organization D etails LastModified Time Do you have difficulty concentrating, remembering or making decisions? No [email or web address] Information no t available 07/09/2022 Family History [...] SNOMED-CT Code Diagnosis ICD10 Code Diagnosis Note [id number] Kristy Cortes MD [facility] Elmer christensen [employer] [address] [facility] [place] [address] 07/09/2022 09:30:13 07/09/2022 10:34:01 Gynecologic examination 08295765 Z01.419 Anemia screening 4992338 07 Z13.0 Diabetes m ellitus screening 696716900 Z13.1 Endocrine/ metabolic screening 952541404 Z13.228 Hyperlipid emia screening 030421696 Z13.220 Venereal d isease screening 594713810 Z11.3 Screening mammography 24 009349 Z12.31 Family his tory of breast cancer 720454779 Z80.3 Morbid obesity 589480567 E66.01 Recommende d weight loss consultati on Family his tory of malignant neoplasm 276449613 Z80.9 [id number] Kristy Cortes MD [facility] Elmer christensen [employer] [address] [facility] [place] [address] 10/05/2023 09:58:50 10/05/2023 11:50:01 Gynecologic examination 78243039 Z01.419 Venereal d isease screening 009768996 Z11.3 Anemia screening 3950924 07 Z13.0 Diabetes m ellitus screening 697997705 Z13.1 Thyroid di sorder screening 572357658 Z13.29 Hyperlipid emia screening [id number] Z13.220 Abnormal v aginal bleeding [id number] N93.9 Screening mammography of bilateral breasts [id number] Z12.31 [id number] Kristy Cortes MD [facility] Elmer christensen [employer] [address] [facility] [place] [address] 10/13/2023 14:26:02 10/13/2023 15:00:40 Abnormal vaginal bleeding [id number] N93.8 Health Concerns Section Related Observation LastModified by Organization Detai ls LastModified Time None Recorded Concern Status LastModified by Organization Details LastModified Time None Recorded Advance Directives Directive None Recorded Payers Encounter Date Sequence Insurance Name Policy Number Policy Novoa Covered Member ID Novoa Member ID Guarantor Name 07/09/2022 1 [employer] - OPEN ACCESS - NATIONAL (POS) Radha Poe [id number] Radha Poe 10/05/2023 1 [employer] - OPEN ACCESS - NATIONAL (POS) Radha Poe [id number] Radha Poe 10/13/2023 1 [employer] (MEDICARE REPLACEMENT/A DVANTAGE - PPO) Radha Poe [id number] Radha Poe Notes Date Note Type Note [...] anxiety; No PMDD Kristy Cortes MD [address] [facility],[place], [address], [facility] Dr Haley Barajas 07/09/2022 14:44:55 10/05/2023 text/html 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
--- OUTSIDE RECORDS SUMMARY | 2024-06-24 15:56 | XMS_ITS | Clinical Summary ---
Author Organization [facility] Address [address] [place] [address] Care Team Providers Care Dessert Cup Machine Feeder Name Role Phone No, Referring Primary Care Provider Unavailabl e Allergies Active Allergy Reactions Criticality Noted Date Comments Morphine Hives 05/21/2024 Penicillins Hives 05/21/2024 Active Problems Problem Noted Date Diagnosed Date Migraine 11/21/2013 Encounters Date Type Department Care Team Description 05/21/2024 5:24 PM EDT - 05/21/2024 9:52 PM EDT Emergency [facility] Emergency Department [address] [place] [id number] Susan Ovalle MD Weisberg, Keiry Craven MD [...] complete this topic Procedures * Due to [place] state law, this organization might not be [...] Last 3 Months Results * Due to [place] state law, this organization might not be [...] obtain the completed interpretation. ? Workstation ID: [id number] Narrative 05/21/2024 6:54 PM EDT COMPARISON: None available. FINDINGS: There is no evidence of acute fracture or dislocation. ??Joint spaces are preserved. ??There is no abnormal soft tissue swelling identified. Resulting Agency Comment [id number] Procedure Note Lowell Washington MD - 05/21/2024 [...] possible to obtain thecompleted interpretation. Workstation ID: [id number] oJshua Spain MD IMG XR PROCEDURES Final Result [...] obtain the completed interpretation. ? Workstation ID: [id number] Narrative 05/21/2024 6:54 PM EDT COMPARISON: None available. FINDINGS: There is no evidence of acute fracture or dislocation. ??Joint spaces are preserved. ??There is no abnormal soft tissue swelling identified. Resulting Agency Comment [id number] Procedure Note Lowell Washington MD - 05/21/2024 [...] possible to obtain thecompleted interpretation. Workstation ID: [id number] Joshua Spain MD IMG XR PROCEDURES Final [...] obtain the completed interpretation. ? Workstation ID: [id number] Narrative 05/21/2024 6:54 PM EDT COMPARISON: None available. FINDINGS: There is no evidence of acute fracture or dislocation. ??Joint spaces are preserved. ??There is no abnormal soft tissue swelling identified. Resulting Agency Comment [id number] Procedure Note Lowell Wahsington MD - 05/21/2024 COMPARISON: None available. FINDINGS: [...] possible to obtain thecompleted interpretation. Workstation ID: [id number] Joshua Spain MD IMG XR PROCEDURES Final [...] obtain the completed interpretation. ? Workstation ID: [id number] Narrative 05/21/2024 6:54 PM EDT COMPARISON: None available. FINDINGS: There is no evidence of acute fracture or dislocation. ??Joint spaces are preserved. ??There is no abnormal soft tissue swelling identified. Resulting Agency Comment [id number] Procedure Note Lowell Washington MD - 05/21/2024 [...] possible to obtain thecompleted interpretation. Workstation ID: [id number] Joshua Spain MD IMG XR PROCEDURES Final [...] obtain the completed interpretation. ? Workstation ID: [id number] Narrative 05/21/2024 6:55 PM EDT COMPARISON: None available. FINDINGS: There is no evidence of acute fracture or dislocation. ??Joint spaces are preserved. ??There is no abnormal soft tissue swelling identified. Resulting Agency Comment [id number] Procedure Note Lowell Washington MD - 05/21/2024 [...] possible to obtain thecompleted interpretation. Workstation ID: [id number] Joshua Spain MD IMG XR PROCEDURES Final [...] obtain the completed interpretation. ? Workstation ID: [id number] Narrative 05/21/2024 6:51 PM EDT COMPARISON: None available. FINDINGS: There is no consolidation. ??The cardiac silhouette and mediastinal contours are unremarkable. ??No pleural effusion or CHF is identified. ??There is no pneumothorax. ?? Resulting Agency Comment [id number] Procedure Note Lowell Washington MD - 05/21/2024 [...] possible to obtain thecompleted interpretation. Workstation ID: [id number] us Joshua Spain MD IMG XR PROCEDURES [...] obtain the completed interpretation. ? Workstation ID: [id number] Up-to-date CT equipment and radiation dose reduction techniques were employed. CTDIvol: 2.4 - 76.4 mGy. DLP: 5575 mGy-cm. ??The following accession numbers are related to this dose report [id number]: [id number] Up-to-date CT equipment and radiation dose reduction techniques were employed. CTDIvol: 2.4 - 76.4 mGy. DLP: 5575 mGy-cm. ??The following accession numbers are related to this dose report [id number]: [id number] Narrative 05/21/2024 6:12 PM EDT EXAMINATION: ??CT [...] interval confirm the findings. Resulting Agency Comment [id number] Procedure Note Aida Toledo MD - 05/21/2024 [...] possible to obtain thecompleted interpretation. Workstation ID: [id number] Up-to-date CT equipment and radiation dose reduction techniques wereemployed. CTDIvol: 2.4 - 76.4 mGy. DLP: 5575 mGy-cm. The followingaccession numbers are related to this dose report [id number]: [id number] Up-to-date CT equipment and radiation dose reduction techniques wereemployed. CTDIvol: 2.4 - 76.4 mGy. DLP: 5575 mGy-cm. The followingaccession numbers are related to this dose report [id number]: [id number] us Joshua Spain MD IMG CT PROCEDURES [...] obtain the completed interpretation. ? Workstation ID: [id number] Up-to-date CT equipment and radiation dose reduction techniques were employed. CTDIvol: 2.4 - 76.4 mGy. DLP: 5575 mGy-cm. ??The following accession numbers are related to this dose report [id number]: [id number] Up-to-date CT equipment and radiation dose reduction techniques were employed. CTDIvol: 2.4 - 76.4 mGy. DLP: 5575 mGy-cm. ??The following accession numbers are related to this dose report [id number]: [id number] Narrative 05/21/2024 6:12 PM EDT EXAMINATION: ??CT [...] interval confirm the findings. Resulting Agency Comment [id number] Procedure Note Aida Toledo MD - 05/21/2024 [...] possible to obtain thecompleted interpretation. Workstation ID: [id number] Up-to-date CT equipment and radiation dose reduction techniques wereemployed. CTDIvol: 2.4 - 76.4 mGy. DLP: 5575 mGy-cm. The followingaccession numbers are related to this dose report [id number]: [id number] Up-to-date CT equipment and radiation dose reduction techniques wereemployed. CTDIvol: 2.4 - 76.4 mGy. DLP: 5575 mGy-cm. The followingaccession numbers are related to this dose report [id number]: [id number] Joshua Spain MD IMG CT PROCEDURES Final [...] obtain the completed interpretation. ? Workstation ID: [id number] Up-to-date CT equipment and radiation dose reduction techniques were employed. CTDIvol: 2.4 - 76.4 mGy. DLP: 5575 mGy-cm. ??The following accession numbers are related to this dose report [id number]: [id number] Up-to-date CT equipment and radiation dose reduction techniques were employed. CTDIvol: 2.4 - 76.4 mGy. DLP: 5575 mGy-cm. ??The following accession numbers are related to this dose report [id number]: [id number] Narrative 05/21/2024 6:12 PM EDT EXAMINATION: ??CT [...] interval confirm the findings. Resulting Agency Comment [id number] Procedure Note Aida Toledo MD - 05/21/2024 [...] possible to obtain thecompleted interpretation. Workstation ID: [id number] Up-to-date CT equipment and radiation dose reduction techniques wereemployed. CTDIvol: 2.4 - 76.4 mGy. DLP: 5575 mGy-cm. The followingaccession numbers are related to this dose report [id number]: [id number] Up-to-date CT equipment and radiation dose reduction techniques wereemployed. CTDIvol: 2.4 - 76.4 mGy. DLP: 5575 mGy-cm. The followingaccession numbers are related to this dose report [id number]: [id number] Joshua Spain MD IMG CT PROCEDURES Final [...] obtain the completed interpretation. ? Workstation ID: [id number] Up-to-date CT equipment and radiation dose reduction techniques were employed. CTDIvol: 2.4 - 76.4 mGy. DLP: 5575 mGy-cm. ??The following accession numbers are related to this dose report [id number]: [id number] Narrative 05/21/2024 6:38 PM EDT COMPARISON: None available. FINDINGS: ?? No acute fracture or subluxation is seen. ??Cervical vertebral body heights are maintained. Intervertebral disc spaces are within normal limits. ??There is no significant osseous spinal canal or foraminal stenosis. ??The paravertebral soft tissues, including the visualized airway, are within normal limits. ??There are bilateral cervical ribs. Resulting Agency Comment [id number] Procedure Note Lowell Washington MD - 05/21/2024 [...] possible to obtain thecompleted interpretation. Workstation ID: [id number] Up-to-date CT equipment and radiation dose reduction techniques wereemployed. CTDIvol: 2.4 - 76.4 mGy. DLP: 5575 mGy-cm. The followingaccession numbers are related to this dose report [id number]: [id number] Joshua Spain MD IMG CT PROCEDURES Final [...] obtain the completed interpretation. ? Workstation ID: [id number] Up-to-date CT equipment and radiation dose reduction techniques were employed. CTDIvol: 2.4 - 76.4 mGy. DLP: 5575 mGy-cm. ??The following accession numbers are related to this dose report [id number]: [id number] Up-to-date CT equipment and radiation dose reduction techniques were employed. CTDIvol: 2.4 - 76.4 mGy. DLP: 5575 mGy-cm. ??The following accession numbers are related to this dose report [id number]: [id number] Narrative 05/21/2024 6:12 PM EDT EXAMINATION: ??CT [...] interval confirm the findings. Resulting Agency Comment [id number] Procedure Note Aida Toledo MD - 05/21/2024 [...] possible to obtain thecompleted interpretation. Workstation ID: [id number] Up-to-date CT equipment and radiation dose reduction techniques wereemployed. CTDIvol: 2.4 - 76.4 mGy. DLP: 5575 mGy-cm. The followingaccession numbers are related to this dose report [id number]: [id number] Up-to-date CT equipment and radiation dose reduction techniques wereemployed. CTDIvol: 2.4 - 76.4 mGy. DLP: 5575 mGy-cm. The followingaccession numbers are related to this dose report [id number]: [id number] Joshua Spain MD IMG CT PROCEDURES Final [...] obtain the completed interpretation. ? Workstation ID: [id number] Up-to-date CT equipment and radiation dose reduction techniques were employed. CTDIvol: 2.4 - 76.4 mGy. DLP: 5575 mGy-cm. ??The following accession numbers are related to this dose report [id number]: [id number] Narrative 05/21/2024 6:39 PM EDT EXAMINATION: CT [...] osseous lesions or fractures. Resulting Agency Comment [id number] Procedure Note Aida Toledo MD - 05/21/2024 [...] possible to obtain thecompleted interpretation. Workstation ID: [id number] Up-to-date CT equipment and radiation dose reduction techniques wereemployed. CTDIvol: 2.4 - 76.4 mGy. DLP: 5575 mGy-cm. The followingaccession numbers are related to this dose report [id number]: [id number] Joshua Spain MD IMG CT PROCEDURES Final Result * (ABNORMAL) APTT (05/21/2024 5:35 PM EDT) aPTT 33.3(H) 23.0 - 32.0 Seconds 05/21/2024 6:08 PM EDT [facility] Comment: Current PTT reagent is not sensitive to detect all Lupus Anticoagulant (LA) Inhibitor Cases. ?? If a LA is suspected, please order a Lupus Anticoagulation w/ Reflex Test which is performed at [facility] in [place], [place]. Blood Arterial blood specimen / Unknown Arterial Puncture / Unknown 05/21/2024 5:35 PM EDT 05/21/2024 5:42 PM EDT us Joshua Spain MD LAB BLOOD ORDERABLES Final Res ult Performing Organization Address [facility]/ZIP Co de Phone Number [facility] [address] [place] [address] * Protime-INR (05/21/2024 5:35 PM EDT) PT 10.5 9.6 - 12.4 Seconds 05/21/2024 6:08 PM EDT [facility] INR 1.0 0.9 - 1.1 05/21/2024 6:08 PM EDT [facility] Comment:The optimal therapeu tic INR range for patients treated with Vitamin K antagonists (VKAS, e.g., Warfarin) is 2.0 to 3.5. Discuss the desired range with your doctor/care team. Blood Arterial blood specimen / Unknown Arterial Puncture / Unknown 05/21/2024 5:35 PM EDT 05/21/2024 5:42 PM EDT Joshua Spain MD LAB BLOOD ORDERABLES Final Res ult Performing Organization Address City/[facility]/ZIP Co de Phone Number [facility] [address] [place] [address] * CBC (05/21/2024 5:35 PM EDT) WBC 7.8 3.8 - 10.8 10*3/uL 05/21/2024 5:48 PM EDT [facility] RBC 4.51 3.80 - 5.10 10*6/uL 05/21/2024 5:48 PM EDT [facility] Hemoglobin 12.3 11.7 - 15.5 g/dL 05/21/2024 5:48 PM EDT [facility] Hematocrit 38.4 35.0 - 45.0 % 05/21/2024 5:48 PM EDT [facility] MCV 85.1 80.0 - 100.0 fL 05/21/2024 5:48 PM EDT [facility] MCH 27.3 27.0 - 33.0 pg 05/21/2024 5:48 PM EDT [facility] MCHC 32.0 32.0 - 36.0 g/dL 05/21/2024 5:48 PM EDT [facility] RDW 14.4 11.0 - 15.0 % 05/21/2024 5:48 PM EDT [facility] Platelets 382 140 - 400 10*3/uL 05/21/2024 5:48 PM EDT [facility] MPV 9.6 7.5 - 12.5 fL 05/21/2024 5:48 PM EDT [facility] Blood Arterial blood specimen / Unknown Arterial Puncture / Unknown 05/21/2024 5:35 PM EDT 05/21/2024 5:42 PM EDT Joshua Spain MD LAB BLOOD ORDERABLES Final Res ult [facility] [address] [place] [address], * Type and Screen (05/21/2024 5:35 PM [...] Edited Result - Final Performing Organization Address [facility]/State/ZIP Co de Phone Number [facility] [address] [place] [address], * HCG, Qualitative, Serum (05/21/2024 5:35 PM EDT) HCG Qualitative, Serum Negative Negative 05/21/2024 6:40 PM EDT [facility] Comment: hCG greater than [...] ORDERABLES Final Res ult Performing Organization Address [facility] Co de Phone Number [facility] [address] [place] [address], * Lactic Acid, Plasma (05/21/2024 5:35 PM EDT) Lactic Acid 1.3 0.5 - 1.9 mmol/L 05/21/2024 6:16 PM EDT [facility] Comment: Sepsis Screening: Initial [...] ORDERABLES Final Res ult Performing Organization Address [facility]/ZIP Co de Phone Number [facility] [address] [place] [address], * Ethanol (05/21/2024 5:35 PM EDT) Ethanol <10 <10 mg/dL 05/21/2024 7:00 PM EDT [facility] Blood Arterial blood specimen / Unknown Arterial Puncture / Unknown 05/21/2024 5:35 PM EDT 05/21/2024 5:42 PM EDT us Joshua Spain MD LAB BLOOD ORDERABLES Final Res ult [facility] [address] [place] [address], * (ABNORMAL) Basic Metabolic Panel (05/21/2024 5:35 PM EDT) NA 137 135 - 145 mmol/L 05/21/2024 6:30 PM EDT [facility] K 3.9 3.5 - 5.3 mmol/L 05/21/2024 6:30 PM EDT [facility] Cl 100 98 - 107 mmol/L 05/21/2024 6:30 PM EDT [facility] CO2 23 22 - 32 mmol/L 05/21/2024 6:30 PM EDT [facility] BUN 14 7 - 23 mg/dL 05/21/2024 6:30 PM EDT [facility] Creatinine 1.19 0.50 - 1.20 mg/dL 05/21/2024 6:30 PM EDT [facility] Glucose 104(H) 65 - 99 mg/dL 05/21/2024 6:30 PM EDT [facility] Calcium 9.5 8.6 - 10.5 mg/dL 05/21/2024 6:30 PM EDT [facility] Anion Gap 14 5 - 15 05/21/2024 6:30 PM EDT [facility] eGFR 59(L) >=60 mL/min/1. 73m2 05/21/2024 6:30 PM EDT [facility] Comment:The estimated glomer [...] MD LAB BLOOD ORDERABLES Final Res ult [facility] [address] [place] [address], [place] * ED POCUS eFAST (05/21/2024 5:27 PM EDT) Anatomical Region Laterality Modality Body N/A Ultrasound 05/21/2024 5:27 PM EDT Impressions 05/23/2024 12:12 AM EDT Exam Information: A uncbx-al-zvva ultrasound exam was performed of the peritoneal [...] Electronically signed by Arturo Marino MD on [id number] Electronically signed by Man Mckeon MD on [phone] [email or web address] Narrative Procedure Note Man Mckeon MD - 05/23/2024 IMPRESSION: Exam Information: A hdeoz-pm-trgm ultrasound exam was performed of the peritoneal [...] Electronically signed by Arturo Marino MD on [id number] Electronically signed by Man Mckeon MD on [phone] [email or web address] us Historical Conversion Provider IMG US PROCEDURES Final Result from Last 3 Months Insurance [employer] Member Subscriber Plan / Payer (Ef fective for All Dates) Name:Radha Poe Relation to Subscriber:Self Name:Radha Poe Payer ID:[id number] Group ID:Not on file Type:Not on file Address: [place]/A [place] [id number] [employer] Care Teams Dessert Cup Machine Feeder Relationship Specialty Start Date End Date No, Referring PCP - General 05/21/24
--- OUTSIDE RECORDS SUMMARY | 2024-06-24 15:56 | XMS_ITS | Referral Summary ---
Author Organization [facility] Address [address] [place] [address] Care Team Providers Care Pneumatic Jack Operator Name Role Phone No, Referring Primary Care Provider Unavailabl e Encounters Date Type Department Care Team Description 05/21/2024 5:24 PM EDT - 05/21/2024 9:52 PM EDT Emergency [facility] Emergency Department [address] [place] [id number] Susan Ovalle MD Weisberg, Keiry Craven MD [...] Not on file Procedures * Due to [place] state law, this organization might not be [...] Last 3 Months Results * Due to [place] state law, this organization might not be [...] obtain the completed interpretation. ? Workstation ID: [id number] Narrative 05/21/2024 6:54 PM EDT COMPARISON: None available. FINDINGS: There is no evidence of acute fracture or dislocation. ??Joint spaces are preserved. ??There is no abnormal soft tissue swelling identified. Resulting Agency Comment [id number] Procedure Note Lowell Washington MD - 05/21/2024 [...] possible to obtain thecompleted interpretation. Workstation ID: [id number] Joshua Spain MD IMG XR PROCEDURES Final [...] obtain the completed interpretation. ? Workstation ID: [id number] Narrative 05/21/2024 6:54 PM EDT COMPARISON: None available. FINDINGS: There is no evidence of acute fracture or dislocation. ??Joint spaces are preserved. ??There is no abnormal soft tissue swelling identified. Resulting Agency Comment [id number] Procedure Note Lowell Washington MD - 05/21/2024 [...] possible to obtain thecompleted interpretation. Workstation ID: [id number] Joshua Spain MD IMG XR PROCEDURES Final [...] obtain the completed interpretation. ? Workstation ID: [id number] Narrative 05/21/2024 6:54 PM EDT COMPARISON: None available. FINDINGS: There is no evidence of acute fracture or dislocation. ??Joint spaces are preserved. ??There is no abnormal soft tissue swelling identified. Resulting Agency Comment [id number] Procedure Note Lowell Washington MD - 05/21/2024 [...] possible to obtain thecompleted interpretation. Workstation ID: [id number] Joshua Spain MD IMG XR PROCEDURES Final [...] obtain the completed interpretation. ? Workstation ID: [id number] Narrative 05/21/2024 6:54 PM EDT COMPARISON: None available. FINDINGS: There is no evidence of acute fracture or dislocation. ??Joint spaces are preserved. ??There is no abnormal soft tissue swelling identified. Resulting Agency Comment [id number] Procedure Note Lowell Washington MD - 05/21/2024 [...] possible to obtain thecompleted interpretation. Workstation ID: [id number] Joshua Spain MD IMG XR PROCEDURES Final [...] obtain the completed interpretation. ? Workstation ID: [id number] Narrative 05/21/2024 6:55 PM EDT COMPARISON: None available. FINDINGS: There is no evidence of acute fracture or dislocation. ??Joint spaces are preserved. ??There is no abnormal soft tissue swelling identified. Resulting Agency Comment [id number] Procedure Note Lowell Washington MD - 05/21/2024 [...] possible to obtain thecompleted interpretation. Workstation ID: [id number] Joshua Spain MD IMG XR PROCEDURES Final [...] obtain the completed interpretation. ? Workstation ID: [id number] Narrative 05/21/2024 6:51 PM EDT COMPARISON: None available. FINDINGS: There is no consolidation. ??The cardiac silhouette and mediastinal contours are unremarkable. ??No pleural effusion or CHF is identified. ??There is no pneumothorax. ?? Resulting Agency Comment [id number] Procedure Note Lowell Washington MD - 05/21/2024 [...] possible to obtain thecompleted interpretation. Workstation ID: [id number] Joshua Spain MD IMG XR PROCEDURES Final [...] obtain the completed interpretation. ? Workstation ID: [id number] Up-to-date CT equipment and radiation dose reduction techniques were employed. CTDIvol: 2.4 - 76.4 mGy. DLP: 5575 mGy-cm. ??The following accession numbers are related to this dose report [id number]: [id number] Up-to-date CT equipment and radiation dose reduction techniques were employed. CTDIvol: 2.4 - 76.4 mGy. DLP: 5575 mGy-cm. ??The following accession numbers are related to this dose report [id number]: [id number] Narrative 05/21/2024 6:12 PM EDT EXAMINATION: ??CT [...] interval confirm the findings. Resulting Agency Comment [id number] Procedure Note Aida Toledo MD - 05/21/2024 [...] possible to obtain thecompleted interpretation. Workstation ID: [id number] Up-to-date CT equipment and radiation dose reduction techniques wereemployed. CTDIvol: 2.4 - 76.4 mGy. DLP: 5575 mGy-cm. The followingaccession numbers are related to this dose report [id number]: [id number] Up-to-date CT equipment and radiation dose reduction techniques wereemployed. CTDIvol: 2.4 - 76.4 mGy. DLP: 5575 mGy-cm. The followingaccession numbers are related to this dose report [id number]: [id number] Joshua Spain MD IM CT PROCEDURES Final [...] obtain the completed interpretation. ? Workstation ID: [id number] Up-to-date CT equipment and radiation dose reduction techniques were employed. CTDIvol: 2.4 - 76.4 mGy. DLP: 5575 mGy-cm. ??The following accession numbers are related to this dose report [id number]: [id number] Up-to-date CT equipment and radiation dose reduction techniques were employed. CTDIvol: 2.4 - 76.4 mGy. DLP: 5575 mGy-cm. ??The following accession numbers are related to this dose report [id number]: [id number] Narrative 05/21/2024 6:12 PM EDT EXAMINATION: ??CT [...] interval confirm the findings. Resulting Agency Comment [id number] Procedure Note Aida Toledo MD - 05/21/2024 [...] possible to obtain thecompleted interpretation. Workstation ID: [id number] Up-to-date CT equipment and radiation dose reduction techniques wereemployed. CTDIvol: 2.4 - 76.4 mGy. DLP: 5575 mGy-cm. The followingaccession numbers are related to this dose report [id number]: [id number] Up-to-date CT equipment and radiation dose reduction techniques wereemployed. CTDIvol: 2.4 - 76.4 mGy. DLP: 5575 mGy-cm. The followingaccession numbers are related to this dose report [id number]: [id number] Joshua Spain MD IMG CT PROCEDURES Final [...] obtain the completed interpretation. ? Workstation ID: [id number] Up-to-date CT equipment and radiation dose reduction techniques were employed. CTDIvol: 2.4 - 76.4 mGy. DLP: 5575 mGy-cm. ??The following accession numbers are related to this dose report [id number]: [id number] Up-to-date CT equipment and radiation dose reduction techniques were employed. CTDIvol: 2.4 - 76.4 mGy. DLP: 5575 mGy-cm. ??The following accession numbers are related to this dose report [id number]: [id number] Narrative 05/21/2024 6:12 PM EDT EXAMINATION: ??CT [...] interval confirm the findings. Resulting Agency Comment [id number] Procedure Note Aida Toledo MD - 05/21/2024 [...] possible to obtain thecompleted interpretation. Workstation ID: [id number] Up-to-date CT equipment and radiation dose reduction techniques wereemployed. CTDIvol: 2.4 - 76.4 mGy. DLP: 5575 mGy-cm. The followingaccession numbers are related to this dose report [id number]: [id number] Up-to-date CT equipment and radiation dose reduction techniques wereemployed. CTDIvol: 2.4 - 76.4 mGy. DLP: 5575 mGy-cm. The followingaccession numbers are related to this dose report [id number]: [id number] Joshua Spain MD IMG CT PROCEDURES Final [...] obtain the completed interpretation. ? Workstation ID: [id number] Up-to-date CT equipment and radiation dose reduction techniques were employed. CTDIvol: 2.4 - 76.4 mGy. DLP: 5575 mGy-cm. ??The following accession numbers are related to this dose report [id number]: [id number] Narrative 05/21/2024 6:38 PM EDT COMPARISON: None available. FINDINGS: ?? No acute fracture or subluxation is seen. ??Cervical vertebral body heights are maintained. Intervertebral disc spaces are within normal limits. ??There is no significant osseous spinal canal or foraminal stenosis. ??The paravertebral soft tissues, including the visualized airway, are within normal limits. ??There are bilateral cervical ribs. Resulting Agency Comment [id number] Procedure Note Lowell Washington MD - 05/21/2024 [...] possible to obtain thecompleted interpretation. Workstation ID: [id number] Up-to-date CT equipment and radiation dose reduction techniques wereemployed. CTDIvol: 2.4 - 76.4 mGy. DLP: 5575 mGy-cm. The followingaccession numbers are related to this dose report [id number]: [id number] us Joshua Spain MD IMG CT PROCEDURES [...] obtain the completed interpretation. ? Workstation ID: [id number] Up-to-date CT equipment and radiation dose reduction techniques were employed. CTDIvol: 2.4 - 76.4 mGy. DLP: 5575 mGy-cm. ??The following accession numbers are related to this dose report [id number]: [id number] Up-to-date CT equipment and radiation dose reduction techniques were employed. CTDIvol: 2.4 - 76.4 mGy. DLP: 5575 mGy-cm. ??The following accession numbers are related to this dose report [id number]: [id number] Narrative 05/21/2024 6:12 PM EDT EXAMINATION: ??CT [...] interval confirm the findings. Resulting Agency Comment [id number] Procedure Note Aida Toledo MD - 05/21/2024 [...] possible to obtain thecompleted interpretation. Workstation ID: [id number] Up-to-date CT equipment and radiation dose reduction techniques wereemployed. CTDIvol: 2.4 - 76.4 mGy. DLP: 5575 mGy-cm. The followingaccession numbers are related to this dose report [id number]: [id number] Up-to-date CT equipment and radiation dose reduction techniques wereemployed. CTDIvol: 2.4 - 76.4 mGy. DLP: 5575 mGy-cm. The followingaccession numbers are related to this dose report [id number]: [id number] Joshua Spain MD IMG CT PROCEDURES Final [...] obtain the completed interpretation. ? Workstation ID: [id number] Up-to-date CT equipment and radiation dose reduction techniques were employed. CTDIvol: 2.4 - 76.4 mGy. DLP: 5575 mGy-cm. ??The following accession numbers are related to this dose report [id number]: [id number] [facility] 05/21/2024 6:39 PM EDT EXAMINATION: CT of [...] osseous lesions or fractures. Resulting Agency Comment [id number] Procedure Note Aida Toledo MD - 05/21/2024 [...] possible to obtain thecompleted interpretation. Workstation ID: [id number] Up-to-date CT equipment and radiation dose reduction techniques wereemployed. CTDIvol: 2.4 - 76.4 mGy. DLP: 5575 mGy-cm. The followingaccession numbers are related to this dose report [id number]: [id number] Joshua Spain MD IMG CT PROCEDURES Final Result * (ABNORMAL) APTT (05/21/2024 5:35 PM EDT) aPTT 33.3(H) 23.0 - 32.0 Seconds 05/21/2024 6:08 PM EDT [facility] Comment: Current PTT reagent is not sensitive to detect all Lupus Anticoagulant (LA) Inhibitor Cases. ?? If a LA is suspected, please order a Lupus Anticoagulation w/ Reflex Test which is performed at [facility] in [place], [place]. Blood Arterial blood specimen / Unknown Arterial Puncture / Unknown 05/21/2024 5:35 PM EDT 05/21/2024 5:42 PM EDT Joshua Spain MD LAB BLOOD ORDERABLES Final Res ult Performing Organization Address [facility] Co de Phone Number [facility] [address] [place] [address], * Protime-INR (05/21/2024 5:35 PM EDT) PT 10.5 9.6 - 12.4 Seconds 05/21/2024 6:08 PM EDT [facility] INR 1.0 0.9 - 1.1 05/21/2024 6:08 PM EDT [facility] Comment:The optimal therapeu tic INR range for patients treated with Vitamin K antagonists (VKAS, e.g., Warfarin) is 2.0 to 3.5. Discuss the desired range with your doctor/care team. Blood Arterial blood specimen / Unknown Arterial Puncture / Unknown 05/21/2024 5:35 PM EDT 05/21/2024 5:42 PM EDT Joshua Spain MD LAB BLOOD ORDERABLES Final Res ult Performing Organization Address [facility]/ZIP Co de Phone Number [facility] [address] [place] [address], * CBC (05/21/2024 5:35 PM EDT) WBC 7.8 3.8 - 10.8 10*3/uL 05/21/2024 5:48 PM EDT [facility] RBC 4.51 3.80 - 5.10 10*6/uL 05/21/2024 5:48 PM EDT [facility] Hemoglobin 12.3 11.7 - 15.5 g/dL 05/21/2024 5:48 PM EDT [facility] Hematocrit 38.4 35.0 - 45.0 % 05/21/2024 5:48 PM EDT [facility] MCV 85.1 80.0 - 100.0 fL 05/21/2024 5:48 PM EDT [facility] MCH 27.3 27.0 - 33.0 pg 05/21/2024 5:48 PM EDT [facility] MCHC 32.0 32.0 - 36.0 g/dL 05/21/2024 5:48 PM EDT [facility] RDW 14.4 11.0 - 15.0 % 05/21/2024 5:48 PM EDT [facility] Platelets 382 140 - 400 10*3/uL 05/21/2024 5:48 PM EDT [facility] MPV 9.6 7.5 - 12.5 fL 05/21/2024 5:48 PM EDT [facility] Blood Arterial blood specimen / Unknown Arterial Puncture / Unknown 05/21/2024 5:35 PM EDT 05/21/2024 5:42 PM EDT us Joshua Spain MD LAB BLOOD ORDERABLES Final Res ult [facility] [address] [place] [address], [place] * Type and Screen (05/21/2024 5:35 [...] Edited Result - Final Performing Organization Address [facility] Co de Phone Number [facility] [address] [place] [address], * HCG, Qualitative, Serum (05/21/2024 5:35 PM EDT) HCG Qualitative, Serum Negative Negative 05/21/2024 6:40 PM EDT [facility] Comment: hCG greater than [...] MD LAB BLOOD ORDERABLES Final Res ult [facility] [address] [place] [address], [place] * Lactic Acid, Plasma (05/21/2024 5:35 PM EDT) Lactic Acid 1.3 0.5 - 1.9 mmol/L 05/21/2024 6:16 PM EDT [facility] Comment: Sepsis Screening: Initial [...] ORDERABLES Final Res ult Performing Organization Address [facility] Co de Phone Number [facility] [address] [place] [address] * Ethanol (05/21/2024 5:35 PM EDT) Ethanol <10 <10 mg/dL 05/21/2024 7:00 PM EDT [facility] Blood Arterial blood specimen / Unknown Arterial Puncture / Unknown 05/21/2024 5:35 PM EDT 05/21/2024 5:42 PM EDT Joshua Spain MD LAB BLOOD ORDERABLES Final Res ult Performing Organization Address City/[facility]/ZIP Co de Phone Number [facility] [address] [place] [address] * (ABNORMAL) Basic Metabolic Panel (05/21/2024 5:35 PM EDT) NA 137 135 - 145 mmol/L 05/21/2024 6:30 PM EDT [facility] K 3.9 3.5 - 5.3 mmol/L 05/21/2024 6:30 PM EDT [facility] Cl 100 98 - 107 mmol/L 05/21/2024 6:30 PM EDT [facility] CO2 23 22 - 32 mmol/L 05/21/2024 6:30 PM EDT [facility]ENTERAirTouch CommunicationsSUM[facility] BUN 14 7 - 23 mg/dL 05/21/2024 6:30 PM EDT [facility]ENTERAir[facility] CommunicationsSUM[facility] Creatinine 1.19 0.50 - 1.20 mg/dL 05/21/2024 6:30 PM EDT [facility]ENTERAirTouch CommunicationsSUM[facility] Glucose 104(H) 65 - 99 mg/dL 05/21/2024 6:30 PM EDT [facility]ENTERAirTouch CommunicationsSUM[facility] Calcium 9.5 8.6 - 10.5 mg/dL 05/21/2024 6:30 PM EDT [facility]ENTERAirTouch CommunicationsSUM[facility] Anion Gap 14 5 - 15 05/21/2024 6:30 PM EDT [facility]ENTERAirTouch CommunicationsSUM[facility] eGFR 59(L) >=60 mL/min/1. 73m2 05/21/2024 6:30 PM EDT [facility]ENTERAn[facility] Comment:The estimated glomer ular [...] MD LAB BLOOD ORDERABLES Final Res ult [facility] [address] [place] [address], * ED POCUS eFAST (05/21/2024 5:27 PM EDT) Anatomical Region Laterality Modality Body N/A Ultrasound 05/21/2024 5:27 PM EDT Impressions 05/23/2024 12:12 AM EDT Exam Information: A wsxcf-ad-ozly ultrasound exam was performed of the peritoneal [...] Electronically signed by Arturo Marino MD on [id number] Electronically signed by Man Mckeon MD on [phone] [email or web address] Narrative Procedure Note Man Mckeon MD - 05/23/2024 IMPRESSION: Exam Information: A doilc-oq-tunc ultrasound exam was performed of the peritoneal [...] Electronically signed by Arturo Marino MD on [phone] Electronically signed by Man Mckeon MD on [phone] [email or web address] us Historical Conversion Provider IMG US PROCEDURES Final Result from Last [address] [facility] [employer] [facility] Care Teams Pneumatic Jack Operator Relationship Specialty Start Date End Date No, Referring PCP - General 05/21/24
== END 2024-06-24 15:52 | disposition home or self-care (01) ==
LOC: HO.CT 15:51
PROVIDERS: Visit Provider Nurse Practitioner Family
DX: R91.8 Other nonspecific abnormal finding of lung field (principal)
CPT/HCPCS: 71250

== ENCOUNTER → 2024-06-24 15:54 | Outpatient (BNV) | payer MEDICARE, MEDICAID, SELFPAY | PROVIDERS: Visit Provider Radiology Diagnostic Radiology | DX: R91.8 Other nonspecific abnormal finding of lung field (principal) | CPT/HCPCS: 71250 ==

== ENCOUNTER 2024-11-04 08:20 | Outpatient (AMB) | payer MEDICARE, MEDICAID, SELFPAY ==
--- OUTSIDE RECORDS SUMMARY | 2024-03-10 06:15 | XMS_ITS ---
Author Organization [facility] Address [address] [place] [address] Care Team Providers Care Ged Tutor Name Role Phone GIULIA MILAN Unavailable [phone] ZachYu Unavailable [phone] REASON FOR VISIT discuss weight loss options Encounters Encounter Location Date Provider Diagnosis [facility] [address] [place] [address] 03/10/2024 Yu Serrano Plan Of Treatment No Information Progress Notes * Nayana ARENASOB: 2 (43 yo F)Acc No.[id number]:03/10/2024 Progress Notes Patient: Radha DILLON Provider: JET Ellis :1980 A ge:43 Y S ex:Female Date:03/10/2024 Address:[address] [place], [place] [id number] Subjective: * Chief Complaints: * 1 . Discuss weight loss options. * Medical History: Objective: * Vitals: Assessment: Plan: * Treatment: * Billing Information: * Visit Code: * Procedure Codes: * Electronic signature of Sarai Serrano on 11/04/2024 at 08:42 AM EDT Sign off status: Pending * Provider: JET Ellis Date: 0 03/10/2024 Generated for Kelly wolf/Jim/Fransicoitting on: 0 11/04/2024 08:42 AM EDT
--- NOTE | 2024-11-04 08:18 | A.OFFVIS_ITS ---
Intake Visit Reasons: cpap requalification Press Supervisor Required: No Accompanied by: Self / Same As Patient Allergies metformin Allergy (Intermediate, Verified 06/06/24 18:58) Hives morphine (MORPHINE) Allergy (Unknown, Verified 06/06/24 18:58) HIVES Penicillins (PENICILLINS) Allergy (Unknown, Verified 06/06/24 18:58) SHORTNESS OF BREATH HPI Comments Details: 43y/o female with h/o Benign ICH, and obstructive sleep apnea. May 2024 HST c/w AHI was 10 and oxygen maxi was 67% with average oxygen at 95%. Patient was unable to tolerate cpap due to nocturnal hypoxemia. Total de-saturation time <88% was 11.2/min. She misunderstood the use of cpap daily versus only when she is short of breath and will try again to acclimate to cpap use. She sleeps in a chair due to inability to breath and can not get enough air into her lungs. She recently move to [facility] from [facility] and was diagnosed with benign ICH 1 year ago when she went to ER for severe headaches. She had a LP and she was started on Acetazolamide, took it for 3 months then discontinued due to worsening headaches. She still has losartan -hctz she takes 2 tablets in the morning and this helps with her headaches. She saw an tank farm operator June 2024 in [facility] with Eduardo eye and lasik. Now she has occasional left blurry vision, 1-2x a month though no black shadows, denies pressure in the back of the eyes. She feels 70% improved and her headaches are 2x a month now. She describes the headaches as dull pressure in her left eye frontotemporal region associated with photophobia /phonophobia. She takes motrin 800mg as need up to 4 tabs a week and the headaches can last 1 week. She is also on Eliquis for PEs. [facility]LY [facility] Medical History Chronic migraine without aura Blurry vision depression Overactive bladder Iron deficiency Hypercholesterolemia Pulmonary embolism Deep vein thrombophlebitis of leg Obesity Hypertension Anxiety Anemia Surgical History H/O esophagogastroduodenoscopy History of colonoscopy Hx of dilation and curettage Hx of hysterectomy Family History Mother Breast cancer Hypertension Father Lung cancer Brother Hypertension Brother No problems noted. Sister Hypertension Sister History of partial hysterectomy Sister No problems noted. Sister No problems noted. Daughter No problems noted. Daughter No problems noted. Daughter No problems noted. Son No problems noted. Social History Housing: House Alcohol intake: current Alcohol intake frequency: holidays/special occasions only Alcohol type: wine Patient Tobacco Use Status: Never used Tobacco e-Cigarette/Vaping Use: Never Used Second Hand Smoke Exposure: No service: No Current occupational status: unemployed Cognitive needs: No Hearing needs: No Vision needs: No Telehealth Telehealth Telehealth Platform: [facility] Location of provider rendering services: practice address Location of patient: address on file Patient Identification confirmed using: Name, : Yes Telehealth method: video Patient verbally consented to treatment: Yes Patient verbally consented to billing insurance company: Yes Patient informed of any privacy concerns related to visit: Yes Minutes spent on Phone/Video with Pt.: 30 Results Reviewed Results Reviewed: HST c/w RAJEEV AHI is 10 and o2 Nadirs to 65%. FINDINGS: Intrasellar CSF prominence. There is mild increased tortuosity of the optic nerves with a prominence of the CSF envelopes without flattening of the posterior globe contour at the optic nerves discs. No restricted diffusion. No acute intracranial hemorrhage, mass effect, midline shift, hydrocephalus or herniation. Salazar-white matter differentiation is normal. Posterior cranial fossa contents demonstrated no acute brain abnormality. No gross intracranial mass. Flow-void signal within the main cerebral vessels is normal. The craniocervical junction is intact. Assessment & Plan Assessment & Plan (1) Increased intracranial pressure: Code(s): G93.2 - Benign intracranial hypertension Category: Medical (2) Obstructive sleep apnea: Comment: auto PAP 5-20 cm Code(s): G47.33 - Obstructive sleep apnea (adult) (pediatric) Category: Medical (3) Chronic migraine without aura: Code(s): G43.709 - Chronic migraine without aura, not intractable, without status migrainosus Category: Medical Qualifiers: Intractability: not intractable Status migrainosus presence: without status migrainosus Qualified Code(s): G43.709 - Chronic migraine without aura, not intractable, without status migrainosus (4) Nocturnal hypoxemia: Code(s): G47.34 - Idiopathic sleep related nonobstructive alveolar hypoventilation Category: Medical Plan MRI brain to r/o structural lesions - will schedule for LP to measure opening pressure after MRI I will trial her on topiramate 50mg qhs and magnesium 400mg qhs for headache prophylaxis Ophthal eval for Visual field testing and evaluate for signs of ICP Reviewed sleep study results. I will start her on AUtoPAP 5-20 cm of water and follow up to ensure compliance and therapy response. Nocturnal Hypoxemia will evaluate once established on therapy as she has arrythmias. F/U in [facility] in 3 months. Patient Instructions: Sleep Hygiene provided: set a scheduled bedtime and wake time to help regulate the circadian rhythm and balance the release of pituitary hormones. Sleep in a d ark room, temperatures below 68 degrees, and no devices n bed. Limit caffeinated products 6 hours prior to bed, and limit fluids 2-4 hours prior to bed. Gentle night yoga, diffusing essential oils, and playing soft music can be relaxing. Coding Level of Care Code Tele Est Pt Level 4 (14527) Diagnoses Increased intracranial pressure G93.2 Obstructive sleep apnea G47.33 Chronic migraine without aura without status migrainosus, not intractable G43.709 Intractability: not intractable Status migrainosus presence: without status migrainosus Nocturnal hypoxemia G47.34
--- OUTSIDE RECORDS SUMMARY | 2024-11-04 08:42 | XMS_ITS | Patient Health Record ---
Author Organization [facility] Address [address] [place], [place] [id number] Care Team Providers Care Spooler Operator Name Role Phone Usama Garcia M.D. Primary Care Provider [phone] Fabrice AGENCY SERVICE COORDINATOR-C, Suzy Unavailable Allergies Allergen (clinical drug ingredient) Drug/Non Drug Allergy documented on EMR Reaction Allergy Type Onset Date Status morphine Morphine Unknown Drug Allergy Active Penicillin hives Drug Allergy active Reason For Referral No Information Medications Medication SIG (Take, Route, Frequency, Duration) Notes Start Date End Date Status Losartan Potassium 50 MG 1 tablet Orally twice a day; Duration: 30 days Active acetaZOLAMIDE 250 MG TAKE 1 TABLET BY [facility] TWICE DAILY Oral; Duration: 8 Days Active Eliquis 5 MG as directed Orally Active Losartan Potassium-HCTZ 50-12.5 MG 1 tablet Orally Once a day Active Wegovy 0.25 MG/0.5ML 0.5 mL Subcutaneous weekly; Duration: 30 days 11/05/2023 Active Rosuvastatin Calcium 5 MG 1 tablet Orall y Once a day; Duration: 30 day(s) 11/05/2023 Active metFORMIN HCl ER 500 MG 1 tablet with ev ening meal Orally Once a day; Duration: 90 days 11/05/2023 Active Social History Tobacco [...] Problem Status W/U Status Risk Notes Problem Morbid obesity (313762566) Morbid obesity (E66.01) Active confirmed Problem Mixed hyperlipidemia (422379489) Mixed hyperlipidemia (E78.2) Active confirmed Problem Sleep apnea (26282669) Sleep apnea, unspecified type (G47.30) Active confirmed Problem Hyperlipidaemia (54309231) Hyperlipidemia, unspecified hyperlipidemia type (E78.5) Active confirmed Problem Essential hypertension (51546570) Hypertension, unspecified type (I10) Active confirmed Vital Signs Temperature 97.6 degrees Fahrenheit 11/05/2023 Blood pressure diastolic 116 mm Hg 11/05/2023 Oximetry 99 11/05/2023 Height 69 in 11/05/2023 Blood pressure systolic 158 mm Hg 11/05/2023 Weight 348 lbs 11/05/2023 BMI 51.39 11/05/2023 Encounters Encounter Location Date Provider Diagnosis [facility] [address] [place] [id number] 11/05/2023 Suzy Avina Prediabetes R73.03 ; Mixed hyperlipidemia E78.2 and Morbid obesity E66.01 [facility] [address] [place] [id number] 11/06/2023 [facility] [address] [place] [id number] 11/08/2023 [facility] [address] [place] [address] [id number] 11/08/2023 [facility] [address] [place], [place] [id number] 11/12/2023 [facility] [address] [place], [place] [id number] 11/16/2023 [facility] [address] [place], [place] [id number] 02/08/2024 [facility] [address] [place], [place] [id number] 11/06/2023 Suzy Avina Assessments Encounter Date Diagnosis (ICD Code) Assessment Notes Treatment Notes Treatment Clinical Notes Section Notes 11/05/2023 Mixed hyperlipidemia (ICD-10 - E78.2) total 207 HDL 54 Ldl 128 Low dose cholesterol medicaiton 11/05/2023 Prediabetes (ICD-10 - R73.03) A1c 6.0--10/06 Low dose Metformin 500 mg QD 11/05/2023 Morbid obesity (ICD-10 - E66.01) Diet and exercise. Patient has issues with obesity, hyperlipidemia, cardiac issues, prediabetes. She is going to start wegovy. Plan Of Treatment No Information Insurance Providers Payer Name Payer Address Payer Phone Subscriber Number Group Number Insured Name Patient Relationship to Insured Coverage Start Date Coverage End Date [employer] [address] [address] [place], [place] [id number] Radha Poe Self - patient is the insured Medical (General) History Medical History History ICD Code Hypertension Anemia Surgical History Surgery Date(Month/Year) partial hysterectomy 2001 Hospitalization History Reason Date(Month/Year) chest pain april 2022
--- OUTSIDE RECORDS SUMMARY | 2024-11-04 08:43 | XMS_ITS | Encounter Summary ---
Author Organization [facility] Address [address] [place] [address] Care Team Providers Care Subway Repair Supervisor Name Role Phone Cindy Casas Primary Care Provider [phone] Reason for Visit * Reason Onset Date Comments Med Refill 10/12/2024 Encounter Details Date Type Department Care Team (Late st Contact Info) Description 10/12/2024 Telephone Bariatric Surgery - [place] [address] [place] [address] Torey Bradford MD [address] [place] [phone] Social History Tobacco Use Types Packs/Day Years [...] encounter Progress Notes * Tierney Aviles - 10/13/2024 3:24 PM EDT Patient did well on Zepbound 10 mgs and would like a refill with titration. If appropriate, please send script for Zepbound 12.5 mgs to their pharmacy. The patient does have a follow up in 03/21/2025 documented in this encounter Plan of Treatment Upcoming Encounters Date Type Department Care Team (Late st Contact Info) Description 03/21/2025 2:15 PM EST Office Visit Bariatric Surgery - [address] [place] [phone] Torey Bradford MD [address] [place] [phone] documented as of this encounter Visit Diagnoses Not on filedocumented in this encounter Care Teams Subway Repair Supervisor Relationship Specialty Start Date End Date Cindy Casas PA [address] [place] [address], [address] [place] [address] PCP - General 09/14/24 documented as of this encounter
--- OUTSIDE RECORDS SUMMARY | 2024-11-04 08:43 | XMS_ITS | Clinical Summary ---
Author Organization [facility] Address [address] [place] [address] Care Team Providers Care Customer Service Rep Name Role Phone Cindy Casas Primary Care Provider [phone] Allergies Active Allergy Reactions Criticality Noted Date Comments Morphine Sulfate Hives 08/16/2009 Penicillins 04/08/2007 Medications ferrous sulfate (IRON ORAL) Take 5 mL by mouth 3 times daily. Active amLODIPine (NORVASC) 5 mg tablet Take 1 Tab by mouth daily. Active medroxyPROGESTE Doug 150 mg/mL injection Inject 1 mL into [...] mouth if needed. at bedtime 5 Active losartan-hydroC HLOROthiazide (HYZAAR) 100-25 mg per tablet Take 1 [...] breakfast. 5 Active tirzepatide, weight loss, (Zepbound) 12.5 mg/0.5 mL injection Inject 0.5 mL (12.5 mg total) under the skin every 7 (seven) days. 2 mL 5 025 Active tirzepatide, weight loss, (Zepbound) 10 mg/0.5 mL injectionIndica tions:Class 3 severe obesity due to excess calories with serious comorbidity and body mass index (BMI) of 50.0 to 59.9 in adult ([facility] V24, [facility] V28) Inject 0.5 mL (10 mg total) under the skin every 7 (seven) days. 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/2024 Migraine 11/21/2013 Hypertension 11/19/2009 Allergic rhinitis 06/18/2007 Iron deficiency anemia 04/20/2007 Morbid obesity ([facility] V24, [facility] V28) 2007 Encounters Date Type Department Care Team Description 10/12/2024 Telephone Bariatric Surgery [address] [phone] Torey Bradford MD 09/15/2024 2:00 PM EDT Office Visit Bariatric Surgery [address] [address] Torey Bradford MD Class 3 severe obesity due to excess calories with serious comorbidity and body mass index (BMI) of 50.0 to 59.9 in adult ([facility] V24, [facility] V28) (Primary Dx) 08/22/2024 Telephone Bariatric Surgery - [address] [place] [address] Torey Bradford MD from Last 3 Months Immunizations Name Administration [...] Sign Reading Time Taken Comments Blood Pressure 137/83 09/15/2024 2:19 PM EDT Pulse 98 09/15/2024 2:19 PM EDT Temperature 36.6 C (97.8 F) 09/15/2024 2:19 PM EDT Respiratory Rate - - Oxygen Saturation - - Inhaled Oxygen Concentration - - Weight 155 kg (341 lb) 09/15/2024 2:19 PM EDT Height 175.3 cm (5' 9 ) 09/15/2024 2:19 PM EDT Body Mass Index 50.36 09/15/2024 2:19 PM EDT Plan of Treatment Upcoming Encounters Date Type Department Care Team (Late st Contact Info) Description 03/21/2025 2:15 PM EST Office Visit Bariatric Surgery - [place] [address] [place] [address] Torey Bradford MD [address] [place] [phone] Health Maintenance Due Date Last Done Comments Breast Cancer Screening 1981 Hepatitis B Vaccines (1 of 3 - 19+ 3-dose series) 2000 Cervical Cancer Screening: Pap Smear 01/03/2014 01/03/2011 Cholesterol Screening (Lipid Panel) 12/20/2023 02/06/2011 Social Influencers of Health Screening 12/20/2023 Depression Screening 02/24/2024 COVID-19 Vaccine ( season) 2024 Influenza Vaccine (#1) 2024 12/20/2008, 2008 Hypertension/CHF/CAD Annual BMP Blood Test 05/21/2025 05/21/2024, 06/28/2011 DTaP,Tdap,and Td Vaccines (5 - Td or [...] 5 Years) and At-Risk Patients (6 to 49 Years) Aged Out No longer eligible based [...] BMP Blood Test (06/28/2011) Pathologist [facility] Annual BMP Blood Test abstracted [facility] Provider HEALTH MAINTENANCE Final Result * Hepatitis C Screening (06/09/2011) [facility] Hepatitis C Screening abstracted [facility] Provider HEALTH MAINTENANCE Final Result * (ABNORMAL) Lipid panel (02/06/2011) [facility] LDL/HDL Ratio 3 0 - 4 Triglycerides 92 0 - 150 mg/dL Cholesterol 187 0 - 200 mg/dL HDL 57 >=40 mg/dL LDL Cholesterol 112(A) 0 - 100 mg/dL Blood Venous blood specimen / Unknown [facility] Provider LAB BLOOD ORDERABLES Hanh l Result * HIV Screening (01/03/2011) [facility] HIV Screening abstracted [facility] Provider HEALTH MAINTENANCE Final Result * Pap Smear (01/03/2011) [facility] Pap smear no interpretation abstracted [facility] Provider HEALTH MAINTENANCE Final Result from Last 3 Months or Most Recently Relevant to Health Maintenance Insurance MEDICAID - [place] [facility] MED[employer] Care Teams Customer Service Rep Relationship Specialty Start Date End Date Cindy Casas PA [address], [address] [place] [address] PCP - General 09/14/24
--- OUTSIDE RECORDS SUMMARY | 2024-11-04 08:43 | XMS_ITS | Patient Health Record ---
Author Organization [facility] Address [address] [place] [address] Care Team Providers Care Doughnut Maker Name Role Phone GIULIA MILAN Unavailable [phone] Yu Serrano Unavailable [phone] Reason For Referral No Information Plan Of Treatment No Information Insurance Providers Payer Name Payer Address Payer Phone Subscriber Number Group Number Insured Name Patient Relationship to Insured Coverage Start Date Coverage End Date [employer] [address] [address] [place] [phone] [id number] Radha Poe Self - patient is the insured
--- OUTSIDE RECORDS SUMMARY | 2024-11-04 08:43 | XMS_ITS | Clinical Summary ---
Author Organization [facility] Address [address] [place] [address] Care Team Providers Care Manufacturers Service Representative Name Role Phone No, Referring Primary Care Provider Unavailabl e Allergies Active Allergy Reactions Criticality Noted Date Comments Morphine Hives 05/21/2024 Penicillins Hives 05/21/2024 Active Problems Problem Noted Date Diagnosed Date Migraine 11/21/2013 Family History Medical History Relation Name Comments [...] 77 05/21/2024 5:38 PM EDT Temperature 36.5 C (97.7 F) 05/21/2024 5:30 PM EDT Respiratory Rate 23 05/21/2024 5:38 PM EDT [...] - 19+ 3-dose series) 2000 Mammogram 2021 Alcohol/Substance Use Screening 02/24/2024 Depression Screening and Follow-Up 02/24/2024 Social Drivers of Health Annual Screening 02/24/2024 COVID-19 Vaccine (1 - season) 2024 Influenza Vaccine (#1) 2024 12/20/2008, 2008 Basic Metabolic Panel 05/21/2025 05/21/2024 DTaP,Tdap,and Td Vaccines (5 - Td or Tdap) 04/02/2027 04/02/2017, 09/21/2012, 08/01/2010, Additional history exists RSV Vaccine (60+ years old and patients) (1 - 1-dose 75+ series) 2056 Pneumococcal Vaccine: Pediatric (0-5 Years) and At-Risk Patients (6-50 Years) Aged Out No longer eligible based on patient's age to complete this topic Procedures * Due to [place] Tag[place] law, this organization might not be sharing negative HIV tests. Procedure Name Priority Date/Time Associated Diagnosis Comments BASIC METABOLIC PANEL STAT 05/21/2024 5:35 PM EDT from Last 3 Months or Most Recently Relevant to Health Maintenance Results * Due to [place] law, this organization might not be sharing negative HIV tests. * (ABNORMAL) Basic Metabolic Panel (05/21/2024 5:35 PM EDT) NA 137 135 - 145 mmol/L 05/21/2024 6:30 PM EDT [facility] K 3.9 3.5 - 5.3 mmol/L 05/21/2024 6:30 PM EDT [facility] Cl 100 98 - 107 mmol/L 05/21/2024 6:30 PM EDT [facility] CO2 23 22 - 32 mmol/L 05/21/2024 6:30 PM EDT [facility] BUN 14 7 - 23 mg/dL 05/21/2024 6:30 PM EDT [facility] [employer] [facility] Creatinine 1.19 0.50 - 1.20 mg/dL 05/21/2024 6:30 PM EDT [facility] Glucose 104(H) 65 - 99 mg/dL 05/21/2024 6:30 PM EDT [facility] [employer] Calcium 9.5 8.6 - 10.5 mg/dL 05/21/2024 6:30 PM EDT [facility] [employer] [facility] Anion Gap 14 5 - 15 05/21/2024 6:30 PM EDT [facility] [employer] [facility] eGFR 59(L) >=60 mL/min/1. 73m2 05/21/2024 6:30 PM EDT [facility] [employer] [facility] Comment:The estimated glomer ular [...] MD LAB BLOOD ORDERABLES Final Res ult [facility] [employer] [facility] [address] [place] [address], [place] from Last 3 Months or Most Recently Relevant to Health Maintenance Insurance [facility] [employer] [facility] Care Teams Manufacturers Service Representative Relationship Specialty Start Date End Date No, Referring PCP - General 05/21/24
== END 2024-11-04 10:05 | disposition home or self-care (01) ==
LOC: HO.HSMS 08:21
PROVIDERS: Visit Provider Physician Assistant Medical
DX: G93.2 Benign intracranial hypertension (principal); G47.33 Obstructive sleep apnea (adult) (pediatric); G43.709 Chronic migraine without aura, not intractable, without status migrainosus; G47.34 Idiopathic sleep related nonobstructive alveolar hypoventilation
CPT/HCPCS: 99214